=== PATIENT | female | born 1955 | race American Indian/Alaskan Native ===

== ENCOUNTER 2017-08-31 09:49 | Outpatient (CLI) | payer MEDICARE ==
--- NOTE | 2017-08-31 11:07 | XRay Report ---
CHEST XRAY, 2 VIEWS: History: Dyspnea. Findings: There is mild cardiomegaly. Pulmonary vessels are within normal limits. The lungs are clear and fully expanded. No infiltrate, pleural effusion or pneumothorax. Normal thoracic cage. No overwhelming change since 12/01/15. IMPRESSION: Cardiomegaly.
== END 2017-08-31 09:50 | disposition home or self-care (01) ==
LOC: XRAY 09:49
PROVIDERS: ATTEND Internal Medicine Nephrology
DX: R06.02 Shortness of breath (principal); R06.2 Wheezing; I13.2 Hypertensive heart and chronic kidney disease with heart failure and with stage 5 chronic kidney disease, or end stage renal disease; N18.6 End stage renal disease; I50.32 Chronic diastolic (congestive) heart failure; D64.9 Anemia, unspecified; K21.9 Gastro-esophageal reflux disease without esophagitis; M19.90 Unspecified osteoarthritis, unspecified site; Z87.891 Personal history of nicotine dependence; Z90.49 Acquired absence of other specified parts of digestive tract
CPT/HCPCS: 71046

== ENCOUNTER 2017-09-27 14:12 | Emergency (ER) | payer MEDICARE ==
[2017-09-27 14:51] VITALS: BP 166/76
[2017-09-27 15:36] LABS: Basophils % (Auto) 0.4 % (0.0-1.8); Eosinophils % (Auto) 0.6 % (0.0-4.3); Hematocrit 36.5 % (30.3-42.9); Hemoglobin 12.2 gm/dl (10.1-14.3); Lymphocytes # (Auto) 1.2 K/mm3 (1.2-5.4); Lymphocytes % (Auto) 27.9 % (13.4-35.0); Mean Corpuscular HGB Conc 34 % (30-34); Mean Corpuscular Hemoglobin 33 pg (28-32); Mean Corpuscular Volume 99 fl (79-97); Monocytes # (Auto) 0.4 K/mm3 (0.0-0.8); Monocytes % (Auto) 10.4 % (0.0-7.3); Platelet Count 167 K/mm3 (140-440); Red Cell Distribution Width 14.6 % (13.2-15.2)
[2017-09-27 15:41] LABS: Calcium 10.1 mg/dL (8.4-10.2)
== END 2017-09-27 14:52 | disposition left against medical advice (07) ==
LOC: ED 14:12
DX: M54.9 Dorsalgia, unspecified (principal); M79.606 Pain in leg, unspecified; Z53.21 Procedure and treatment not carried out due to patient leaving prior to being seen by health care provider
CPT/HCPCS: 36415; 80048; 85025

== ENCOUNTER 2017-11-13 13:30 | Emergency (ER) | payer MEDICARE ==
[2017-11-13 14:31] LABS: Basophils # (Auto) 0.1 K/mm3 (0.0-0.1); Basophils % (Auto) 1.8 % (0.0-1.8); Eosinophils % (Auto) 0.5 % (0.0-4.3); Hematocrit 39.9 % (30.3-42.9); Hemoglobin 13.4 gm/dl (10.1-14.3); Lymphocytes # (Auto) 1.4 K/mm3 (1.2-5.4); Lymphocytes % (Auto) 30.2 % (13.4-35.0); Mean Corpuscular HGB Conc 34 % (30-34); Mean Corpuscular Hemoglobin 34 pg (28-32); Mean Corpuscular Volume 100 fl (79-97); Monocytes # (Auto) 0.4 K/mm3 (0.0-0.8); Platelet Count 216 K/mm3 (140-440)
[2017-11-13 14:55] LABS: Calcium 10.3 mg/dL (8.4-10.2)
--- NOTE | 2017-11-13 15:00 | XRay Report ---
LEFT SHOULDER: History: Shoulder pain after fall. Mild osteopenia is noted. Mild osteoarthritic changes are identified at the acromioclavicular joint. No evidence for fracture, dislocation or ligamentous injury. The soft tissues are unremarkable. IMPRESSION: Osteopenia. Mild acromioclavicular osteoarthritis.
[2017-11-13] MEDS ORDERED: NORCO 5/325 PO ONE (16:27)
--- NOTE | 2017-11-13 16:37 | Emergency Department Report ---
HPI - General Chief Complaint: Fall Time Seen by Provider: 11/13/17 16:00 - HPI HPI: 62-year-old female presents to the emergency department via EMS from dialysis after she finished getting dialysis, and then got dizzy and fell upon leaving. She denies hitting her head or any loss of consciousness. She has pain to the left upper arm and shoulder and the left lateral back, along the rib cage. She did not take anything and was not given anything for her symptoms. Presentation. She did complete dialysis today. She denies any vision change, slurred speech or any other neurological deficits. She has a past medical history of arthritis, asthma, CHF, diabetes, hypertension and is end-stage renal disease on hemodialysis on Sunday//Sunday. Her primary care physician is a Dr. 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 ED Past Medical Hx - Past Medical History Previous Medical History?: Yes Hx Hypertension: Yes Hx Congestive Heart Failure: Yes Hx Diabetes: Yes Hx Renal Disease: Yes (w/ HD Sunday, , Sunday) Hx Arthritis: Yes Hx Asthma: Yes Hx COPD: No Additional medical history: heart murmur - Surgical History Hx Cholecystectomy: (gallstones removed) Additional Surgical History: Fistula Left Upper arm.--old. fistula right upper arm. bowel obstruction - Social History Smoking Status: Current Every Day Smoker Substance Use Type: None - Medications Home Medications: Home Medications Medication Instructions Recorded Confirmed Last Taken Type Albuterol Sulfate [Ventolin HFA] 90 mcg IH Q6H PRN 01/28/15 12/01/15 04/02/15 History Pravastatin Sodium [Pravastatin] 1 tab PO DAILY 01/28/15 12/01/15 04/02/15 History Pantoprazole [Protonix TAB] 40 mg PO QDAY 12/01/15 12/01/15 Unknown History Aspirin EC [Aspirin Enteric Coated 325 mg PO QDAY #30 tablet.dr 12/04/15 Unknown Rx TAB] ISOSORBIDE MONOnitrate [Imdur ER] 30 mg PO DAILY #30 tab.er.24h 12/04/15 Unknown Rx NIFEdipine XL [Procardia Xl] 60 mg PO Q12HR #60 tablet 12/04/15 Unknown Rx Valsartan [Diovan] 160 mg PO BID #60 tablet 12/04/15 Unknown Rx cloNIDine [Catapres] 0.2 mg PO TID #90 tablet 12/04/15 Unknown Rx ED Review of Systems ROS: Stated complaint: FALLEN PATIENT Other details as noted in HPI Comment: All other systems reviewed and negative Constitutional: denies: chills, fever Eyes: denies: eye pain, eye discharge, vision change ENT: denies: ear pain, throat pain Respiratory: denies: cough, shortness of breath, wheezing Cardiovascular: denies: palpitations, edema Gastrointestinal: denies: abdominal pain, vomiting Genitourinary: denies: dysuria, discharge Musculoskeletal: back pain, arthralgia Skin: denies: rash, lesions Neurological: other (dizziness). denies: headache, numbness Physical Exam - Physical Exam Vital Signs: Vital Signs 11/13/17 11/13/17 13:34 16:05 Temperature 97.4 F L 98.4 F Pulse Rate 74 75 Respiratory 18 20 Rate Blood Pressure 158/74 Blood Pressure 162/71 [Right] O2 Sat by Pulse 98 100 Oximetry Physical Exam: GENERAL: The patient is well-developed well-nourished. HENT: Normocephalic. Atraumatic. Patient has moist mucous membranes. EYES: Extraocular motions are intact. Pupils equal reactive to light bilaterally. No nystagmus. NECK: Supple. Trachea is midline. CHEST/LUNGS: Clear to auscultation. There is no respiratory distress noted. HEART/CARDIOVASCULAR: Regular. There is no tachycardia. There is no murmur. ABDOMEN: Abdomen is soft, nontender. Patient has normal bowel sounds. There is no abdominal distention. SKIN: Skin is warm and dry. NEURO: The patient is awake, alert, and oriented. The patient is cooperative. The patient has no focal neurologic deficits. The patient has normal speech. Cranial nerves II through XII grossly intact. No pronator drift. No dysmetria. MUSCULOSKELETAL: There is no tenderness or deformity. There is no limitation range of motion. There is no evidence of acute injury. ED Course Vital Signs 11/13/17 11/13/17 13:34 16:05 Temperature 97.4 F L 98.4 F Pulse Rate 74 75 Respiratory 18 20 Rate Blood Pressure 158/74 Blood Pressure 162/71 [Right] O2 Sat by Pulse 98 100 Oximetry ED Medical Decision Making - Lab Data Result diagrams: 11/13/17 14:01 11/13/17 14:01 - EKG Data -: EKG Interpreted by Me EKG shows normal: sinus rhythm, axis, intervals (left axis deviation), QRS complexes (Q waves to the anterior leads), ST-T waves (T-wave inversions to the inferior leads) Rate: normal - EKG Data When compared to previous EKG there are: changes noted (there are now some flattened and/or inferior Q waves to the inferior leads from EKG in November 2015) Interpretation: other (sinus rhythm, left axis deviation, LVH, Q waves to the anterior leads, T-wave inversions in the inferior leads) - Radiology Data Radiology results: report reviewed, image reviewed interpreted by me: X-ray of the left shoulder does not show any fracture, dislocation or any acute process. Chest x-ray does not show any acute process. There are no pleural effusions, obvious pneumonia and there is no pneumothorax. EXAM: CT HEAD/BRAIN WO CON HISTORY: dizziness TECHNIQUE: CT of the head was performed without intravenous contrast. PRIORS: None. FINDINGS: The ventricles are normal in shape and position. The ventricles are nondilated. No intracranial hemorrhage, mass, mass effect, midline shift or evidence of acute ischemic infarct. The basilar cisterns are patent. There is diffuse cerebral volume. Mild areas of low-attenuation are seen in the periventricular white matter. There is a right sphenoid sinus mucous retention cyst. The extracranial soft tissues demonstrate no abnormality. The calvarium is intact. The orbits are intact. The mastoid air cells are clear. IMPRESSION: 1. No acute intracranial abnormality. 2. Mild diffuse cerebral volume loss. Mild findings of chronic microvascular ischemic disease. Transcribed By: MG Dictated By: AVA HANSON MD Electronically Authenticated By: AVA HANSON MD Signed Date/Time: 11/13/17 7565 - Medical Decision Making Patient presents to the emergency department after she had some dizziness and/ or weakness after finishing dialysis and fell to the ground. No loss of consciousness. She does not have any focal, motor or sensory deficits in her cranial nerves are intact. CT of the head does not show any bleed, shift, mass , ischemia or any other acute process. X-ray of the left shoulder, chest and left side of the rib cage does not show any fracture, dislocation, pneumothorax , consolidation, pneumonia or any other acute process. Other than the patient' s renal insufficiency the labs are mostly unremarkable and do not show any etiology of her symptoms. She was reevaluated multiple times over multiple hours and is feeling improved. Prior to discharge patient was examined which were throughout the emergency department and appeared stable. She was asking for discharge home. She has been encouraged to follow up with her primary care physician and her tower crane operator and continue with her normal dialysis regimen. She will return to the ER with any worsening of her symptoms or any acute distress. - Differential Diagnosis vasovagal, orthostatic hypotension, dysrhythmia, electrolyte abnormalities Critical Care Time: No Critical care attestation.: If time is entered above; I have spent that time in minutes in the direct care of this critically ill patient, excluding procedure time. ED Disposition Clinical Impression: Near syncope, ESRD (end stage renal disease) on dialysis, Rib pain on left side Fall Qualifiers: Encounter type: initial encounter Qualified Code(s): W19.XXXA - Unspecified fall, initial encounter Left shoulder pain Qualifiers: Chronicity: acute Qualified Code(s): M25.512 - Pain in left shoulder Hypertension Qualifiers: Hypertension type: renovascular hypertension Qualified Code(s): I15.0 - Renovascular hypertension Disposition: - TO HOME OR SELFCARE Is pt being admited?: No Condition: Stable Instructions: Musculoskeletal Pain (ED), Hypertension (ED), Arthralgia (ED), Fall Prevention (ED), End-Stage Kidney Disease (ED) Additional Instructions: Please follow-up with your primary care physician in the next few days. Please continue with your normal dialysis regiment and follow-up with your tower crane operator. I have given you a referral for a local orthopedist, Dr. Lee, to follow up regarding your left shoulder pain. Return to the emergency Department with any worsening of your symptoms or any acute distress. Referrals: RAHEEM GOYAL MD [Staff Physician] - 2-3 Days LEXIE MAURICIO MD [Staff Physician] - 2-3 Days PRIMARY CARE, [Primary Care Provider] - 2-3 Days Time of Disposition: 19:07
[2017-11-13] MEDS ORDERED: BOOSTRIX IM ONE (16:40)
[2017-11-13 17:20] VITALS: BP 174/81
--- NOTE | 2017-11-13 17:22 | XRay Report ---
FINAL REPORT EXAM: XR RIBS UNI W PA CHEST 3+V LT HISTORY: rib pain TECHNIQUE: Frontal chest radiograph. Four views of the left ribs. PRIORS: Chest x-ray from 04/29/2015. FINDINGS: Unchanged aortic calculi. The cardiomediastinal silhouette is normal. No focal consolidation. 11 millimeter nodular opacity projecting over the left lower lung on the initial frontal radiograph which was not definitively seen on the other radiographs most likely represents an object outside of the patient. No pleural effusion. No pneumothorax. No acute osseous abnormality. Negative for left-sided rib fracture. IMPRESSION: No acute cardiopulmonary process. No left-sided rib fracture.
--- NOTE | 2017-11-13 17:58 | Cat Scan Report ---
FINAL REPORT EXAM: CT HEAD/BRAIN WO CON HISTORY: dizziness TECHNIQUE: CT of the head was performed without intravenous contrast. PRIORS: None. FINDINGS: The ventricles are normal in shape and position. The ventricles are nondilated. No intracranial hemorrhage, mass, mass effect, midline shift or evidence of acute ischemic infarct. The basilar cisterns are patent. There is diffuse cerebral volume. Mild areas of low-attenuation are seen in the periventricular white matter. There is a right sphenoid sinus mucous retention cyst. The extracranial soft tissues demonstrate no abnormality. The calvarium is intact. The orbits are intact. The mastoid air cells are clear. IMPRESSION: 1. No acute intracranial abnormality. 2. Mild diffuse cerebral volume loss. Mild findings of chronic microvascular ischemic disease.
== END 2017-11-13 19:29 | disposition home or self-care (01) ==
LOC: ED 13:30
DX: I15.0 Renovascular hypertension (principal); N18.6 End stage renal disease; E11.9 Type 2 diabetes mellitus without complications; R55 Syncope and collapse; M25.512 Pain in left shoulder; R07.81 Pleurodynia; I50.9 Heart failure, unspecified; M19.90 Unspecified osteoarthritis, unspecified site; J45.909 Unspecified asthma, uncomplicated; F17.200 Nicotine dependence, unspecified, uncomplicated; Z99.2 Dependence on renal dialysis; Z79.82 Long term (current) use of aspirin
CPT/HCPCS: 36415; 70450; 80048; 82962; 84484; 85025; 90471; 90715; 93005; 93010

== ENCOUNTER 2017-12-17 14:36 | Inpatient (IN) | payer MEDICARE ==
[2017-12-17 16:52] LABS: Basophils # (Auto) 0.1 K/mm3 (0.0-0.1); Basophils % (Auto) 0.8 % (0.0-1.8); Eosinophils % (Auto) 0.6 % (0.0-4.3); Hematocrit 33.6 % (30.3-42.9); Hemoglobin 11.2 gm/dl (10.1-14.3); Lymphocytes # (Auto) 1.5 K/mm3 (1.2-5.4); Lymphocytes % (Auto) 21.4 % (13.4-35.0); Mean Corpuscular HGB Conc 33 % (30-34); Mean Corpuscular Hemoglobin 35 pg (28-32); Mean Corpuscular Volume 104 fl (79-97); Monocytes # (Auto) 0.6 K/mm3 (0.0-0.8); Monocytes % (Auto) 8.5 % (0.0-7.3); Red Blood Count 3.24 M/mm3 (3.65-5.03); Red Cell Distribution Width 17.9 % (13.2-15.2)
[2017-12-17 16:54] LABS: Platelet Count 201 K/mm3 (140-440)
[2017-12-17 17:16] LABS: Calcium 9.2 mg/dL (8.4-10.2)
[2017-12-17 17:31] LABS: Chol/HDL Ratio 1.68 %
[2017-12-18] MEDS ORDERED: SUBLIMAZE IV ONE ×2 (01:38→04:20)
[2017-12-18] MEDS ORDERED: ZOFRAN IV ONE (01:38)
--- NOTE | 2017-12-18 01:43 | Emergency Department Report ---
HPI - General Chief Complaint: Chest Pain Time Seen by Provider: 12/18/17 01:30 - HPI HPI: [place] 22 The patient is 62-year-old female presenting with a chief complaint of chest pain and abdominal pain. The patient states she has developed chest tightness approximately 04:00 yesterday morning. Patient states the tightness has been substernal and constant in nature. The patient admits to associated nausea/ vomiting, shortness of breath and diaphoresis. The patient currently gives her pain a score of 10/10. The patient states for several days she's also had left- sided abdominal pain as well as itching and pain in the right ear. Patient denies any history of fever. Patient states she's never had a cardiac catheterization Location: [See above] Duration: [See above] Quality: [See above] Severity: 01/02 Modifying factors: [see above] Context: [see above] Mode of transportation: [not driving] ED Past Medical Hx - Past Medical History Previous Medical History?: Yes Hx Hypertension: Yes Hx Congestive Heart Failure: Yes Hx Diabetes: Yes Hx Renal Disease: Yes (w/ HD Sunday, , Sunday) Hx Arthritis: Yes Hx Asthma: Yes Additional medical history: heart murmur - Surgical History Past Surgical History?: Yes Hx Cholecystectomy: (gallstones removed) Additional Surgical History: Fistula Left Upper arm.--old. fistula right upper arm. bowel obstruction - Family History Family history: no significant - Social History Smoking Status: Current Some Day Smoker Substance Use Type: None (denies illicit drug use) - Medications Home Medications: Home Medications Medication Instructions Recorded Confirmed Last Taken Type Albuterol Sulfate [Ventolin HFA] 90 mcg IH Q6H PRN 01/28/15 12/01/15 04/02/15 History Pravastatin Sodium [Pravastatin] 1 tab PO DAILY 01/28/15 12/01/15 04/02/15 History Pantoprazole [Protonix TAB] 40 mg PO QDAY 12/01/15 12/01/15 Unknown History Aspirin EC [Aspirin Enteric Coated 325 mg PO QDAY #30 tablet.dr 12/04/15 Unknown Rx TAB] ISOSORBIDE MONOnitrate [Imdur ER] 30 mg PO DAILY #30 tab.er.24h 12/04/15 Unknown Rx NIFEdipine XL [Procardia Xl] 60 mg PO Q12HR #60 tablet 12/04/15 Unknown Rx Valsartan [Diovan] 160 mg PO BID #60 tablet 12/04/15 Unknown Rx cloNIDine [Catapres] 0.2 mg PO TID #90 tablet 12/04/15 Unknown Rx ED Review of Systems ROS: Stated complaint: NAUSEA/VOMITING Other details as noted in HPI Constitutional: diaphoresis Eyes: denies: eye pain ENT: ear pain Respiratory: shortness of breath Cardiovascular: chest pain Endocrine: no symptoms reported Gastrointestinal: nausea, vomiting Musculoskeletal: denies: back pain Neurological: denies: headache Psychiatric: denies: anxiety Physical Exam - Physical Exam Vital Signs: Vital Signs 12/17/17 12/17/17 12/18/17 15:48 22:28 00:44 Temperature 99.1 F 99.2 F Pulse Rate 79 80 77 Respiratory 18 18 14 Rate Blood Pressure 172/80 188/82 Blood Pressure 182/77 [Left] O2 Sat by Pulse 98 98 100 Oximetry Physical Exam: GENERAL: The patient is well-developed well-nourished female lying on stretcher appearing to be in mild discomfort. [] HEENT: Normocephalic. Atraumatic. Extraocular motions are intact. Patient has moist mucous membranes. Right TM obscured by cerumen NECK: Supple. Trachea midline CHEST/LUNGS: Clear to auscultation. There is no respiratory distress noted. HEART/CARDIOVASCULAR: Regular. There is no tachycardia. There is no gallop rub or murmur. ABDOMEN: Abdomen is soft, with tenderness to palpation on the left upper and left lower quadrant. Patient has normal bowel sounds. There is no abdominal distention. SKIN: There is no rash. There is no edema. There is no diaphoresis. NEURO: The patient is awake, alert, and oriented. The patient is cooperative. The patient has normal speech MUSCULOSKELETAL: There is no evidence of acute injury. ED Course Vital Signs 12/17/17 12/17/17 12/18/17 15:48 22:28 00:44 Temperature 99.1 F 99.2 F Pulse Rate 79 80 77 Respiratory 18 18 14 Rate Blood Pressure 172/80 188/82 Blood Pressure 182/77 [Left] O2 Sat by Pulse 98 98 100 Oximetry ED Medical Decision Making - Lab Data Result diagrams: 12/17/17 16:26 12/17/17 16:26 Laboratory Tests 12/17/17 12/17/17 12/17/17 16:26 16:26 19:46 WBC 7.2 RBC 3.24 L Hgb 11.2 Hct 33.6 MCV 104 H MCH 35 H MCHC 33 RDW 17.9 H Plt Count 201 Lymph % (Auto) 21.4 [place] % (Auto) 8.5 H Eos % (Auto) 0.6 Baso % (Auto) 0.8 Lymph # 1.5 [place] # 0.6 Eos # 0.0 Baso # 0.1 Seg Neutrophils % 68.7 Seg Neutrophils # 4.9 Sodium 137 Potassium 5.3 H Chloride 95.1 L Carbon Dioxide 23 Anion Gap 24 BUN 47 H Creatinine 9.3 H Estimated GFR 5 BUN/Creatinine Ratio 5 Glucose 111 H Calcium 9.2 Troponin T 0.033 H 0.030 H Triglycerides 66 Cholesterol 101 LDL Cholesterol Direct 36 L HDL Cholesterol 60 H Cholesterol/HDL Ratio 1.68 12/17/17 23:37 WBC RBC Hgb Hct MCV MCH MCHC RDW Plt Count Lymph % (Auto) [place] % (Auto) Eos % (Auto) Baso % (Auto) Lymph # [place] # Eos # Baso # Seg Neutrophils % Seg Neutrophils # Sodium Potassium Chloride Carbon Dioxide Anion Gap BUN Creatinine Estimated GFR BUN/Creatinine Ratio Glucose Calcium Troponin T 0.034 H Triglycerides Cholesterol LDL Cholesterol Direct HDL Cholesterol Cholesterol/HDL Ratio - EKG Data -: EKG Interpreted by Me EKG shows normal: sinus rhythm Rate: normal - EKG Data When compared to previous EKG there are: previous EKG unavailable Interpretation: other (no ischemic changes seen) - Radiology Data Radiology results: report reviewed (CT abdomen and pelvis, chest x-ray), image reviewed (CT abdomen and pelvis, chest x-ray) interpreted by me: Chest x-ray-no focal infiltrates, no pneumothorax [facility] [address] [place] [address] Cat Scan Report Signed Patient: TONIE MENDEZ MR#: [id number] : 1954 Acct:[id number] Age/Sex: 62 / F ADM Date: 12/17/17 Loc: ED Attending Dr: Ordering Physician: ERIK HU MD Date of Service: 12/18/17 Procedure(s): CT abdomen pelvis wo con Accession Number(s): [id number] cc: ERIK HU MD FINAL REPORT PROCEDURE: CT ABDOMEN PELVIS WO CON TECHNIQUE: Computerized axial tomography of the abdomen and pelvis was performed without intravenous contrast. This study is performed without intravascular contrast material and its sensitivity for abdominal and pelvic pathology, including neoplasms, inflammation, abscess, free fluid, thrombosis, arterial dissection and infarction, is reduced compared with a contrast enhanced study. HISTORY: left- sided abdominal pain COMPARISON: No prior studies are available for comparison. FINDINGS: Visualized lower thorax: No significant abnormality. Liver: Normal size and attenuation. Spleen: Normal size and attenuation. Gallbladder and biliary system: The gallbladder is absent. There is slight dilatation of the biliary ductal system and common bile duct.. Pancreas: Normal. Adrenals: Normal. Kidneys: Both kidneys are atrophic with thinning of the renal cortex. No masses are identified. No hydronephrosis.. GI tract: No obstruction. No ileus or enteritis. Moderate fecal debris is identified throughout the colon. There are few diverticula in the distal colon. The appendix region is normal.. Lymph nodes and mesentery: Normal. Vasculature: Moderate atherosclerosis of the aorta and all branching vessels.. Bladder: Normal. Reproductive organs: No pelvic masses. Peritoneum: No free fluid. Musculoskeletal structures: Moderate degenerative changes of the spine.. Other: None. IMPRESSION: There is no evidence of intestinal or urinary tract obstruction. No ileus or enteritis. Moderate fecal debris throughout the colon consistent with constipation. The kidneys are atrophic with thinning of the renal cortex. No hydronephrosis. Previous cholecystectomy. There is slight dilatation of the biliary ductal system and common bile duct. No stones are identified. . Transcribed By: [facility] Dictated By: ANA BURK MD Electronically Authenticated By: ANA BURK MD Signed Date/Time: 12/18/17225 DD/ 5 TD/TT: 12/18/17225 [facility] [address] [place] [address] XRay Report Signed Patient: TONIE MENDEZ MR#: [id number] : 1954 Acct:[id number] Age/Sex: 62 / F ADM Date: 12/17/17 Loc: ED Attending Dr: Ordering Physician: ERIK HU MD Date of Service: 12/18/17 Procedure(s): XR chest 1V ap Accession Number(s): [id number] cc: ERIK HU MD Fluoro Time In Minutes: FINAL REPORT PROCEDURE: XR CHEST 1V AP TECHNIQUE: Chest radiograph anteroposterior view. CPT 43756 HISTORY: chest pain COMPARISON: 04/29/2015 FINDINGS: Heart: Normal. Mediastinum/Vessels: Normal. Lungs/Pleural space: Slight atelectasis left lower lung. No effusion or pneumothorax. Bony thorax: No acute osseous abnormality. Life support devices: None. IMPRESSION: There is slight atelectasis in the left lower lung.. Transcribed By: [facility] Dictated By: ANA BURK MD Electronically Authenticated By: ANA BURK MD Signed Date/Time: 12/18/17212 DD/ 2 TD/TT: 12/18/17212 - Differential Diagnosis ACS, pericarditis, GERD, diverticulitis, otitis media Critical care attestation.: If time is entered above; I have spent that time in minutes in the direct care of this critically ill patient, excluding procedure time. ED Disposition Clinical Impression: Chest pain, Abdominal pain, ESRD (end stage renal disease) on dialysis Disposition: OP ADMIT IP TO THIS HOSP Is pt being admited?: Yes Does the pt Need Aspirin: Yes Condition: Fair Instructions: Chest Pain (ED) Referrals: PRIMARY CARE, [Primary Care Provider] - 3-5 Days Time of Disposition: 02:40 (hospitalist paged (Dr Templeton))
--- NOTE | 2017-12-18 02:14 | XRay Report ---
FINAL REPORT PROCEDURE: XR CHEST 1V AP TECHNIQUE: Chest radiograph anteroposterior view. CPT 71335 HISTORY: chest pain COMPARISON: 04/29/2015 FINDINGS: Heart: Normal. Mediastinum/Vessels: Normal. Lungs/Pleural space: Slight atelectasis left lower lung. No effusion or pneumothorax. Bony thorax: No acute osseous abnormality. Life support devices: None. IMPRESSION: There is slight atelectasis in the left lower lung..
--- NOTE | 2017-12-18 02:27 | Cat Scan Report ---
FINAL REPORT PROCEDURE: CT ABDOMEN PELVIS WO CON TECHNIQUE: Computerized axial tomography of the abdomen and pelvis was performed without intravenous contrast. This study is performed without intravascular contrast material and its sensitivity for abdominal and pelvic pathology, including neoplasms, inflammation, abscess, free fluid, thrombosis, arterial dissection and infarction, is reduced compared with a contrast enhanced study. HISTORY: left-sided abdominal pain COMPARISON: No prior studies are available for comparison. FINDINGS: Visualized lower thorax: No significant abnormality. Liver: Normal size and attenuation. Spleen: Normal size and attenuation. Gallbladder and biliary system: The gallbladder is absent. There is slight dilatation of the biliary ductal system and common bile duct.. Pancreas: Normal. Adrenals: Normal. Kidneys: Both kidneys are atrophic with thinning of the renal cortex. No masses are identified. No hydronephrosis.. GI tract: No obstruction. No ileus or enteritis. Moderate fecal debris is identified throughout the colon. There are few diverticula in the distal colon. The appendix region is normal.. Lymph nodes and mesentery: Normal. Vasculature: Moderate atherosclerosis of the aorta and all branching vessels.. Bladder: Normal. Reproductive organs: No pelvic masses. Peritoneum: No free fluid. Musculoskeletal structures: Moderate degenerative changes of the spine.. Other: None. IMPRESSION: There is no evidence of intestinal or urinary tract obstruction. No ileus or enteritis. Moderate fecal debris throughout the colon consistent with constipation. The kidneys are atrophic with thinning of the renal cortex. No hydronephrosis. Previous cholecystectomy. There is slight dilatation of the biliary ductal system and common bile duct. No stones are identified. .
[2017-12-18] MEDS ORDERED: ASPIRIN PO ONE (02:41)
[2017-12-18] MEDS ORDERED: REGLAN IV ONE (04:21)
[2017-12-18] MEDS ORDERED: CATAPRES PO ONE (04:34)
[2017-12-18 07:50] LABS: Bacteria,Urine 3+ /HPF (Negative); Bilirubin,Urine NEG (Negative); Blood,Urine NEG (Negative); Color,Urine Yellow (Yellow); Mucus,Urine FEW /HPF; Urobilinogen,Urine < 2.0 mg/dL (<2.0)
[2017-12-18 07:53] LABS: Protein,Urine >500 mg/dL (Negative)
[2017-12-18] MEDS ORDERED: PROAIR IH PRN (08:05)
[2017-12-18] MEDS ORDERED: APRESOLINE IV ONE (08:07)
--- NOTE | 2017-12-18 08:12 | History and Physical Report ---
History of Present Illness Date of examination: 12/18/17 Date of admission: 12/18/17 Chief complaint: Chest pain for the last 1 day History of present illness: Very pleasant 62-year-old female patient with significant history of end-stage renal disease on hemodialysis, hypertension and diabetes mellitus, presented to the with chest pain and abdominal pain 1 day duration. Patient graded her chest pain 10 over 10 to the ER physician , however at that time of my evaluation ,patient denied any chest pain Reports that he is to for hemodialysis today Complaints of mild nausea no vomiting Noted to have uncontrolled blood pressures Past History Past Medical History: dialysis, ESRD, hypertension, hyperlipidemia Past Surgical History: cholecystectomy, Other (AV fistula, bowel obstruction) Social history: smoking Family history: hypertension Medications and Allergies Allergies Allergy/AdvReac Type Severity Reaction Status Date / Time labetalol AdvReac Unknown Verified 12/01/15 07:51 Home Medications Medication Instructions Recorded Confirmed Last Taken Type Albuterol Sulfate [Ventolin HFA] 90 mcg IH Q6H PRN 01/28/15 12/18/17 04/02/15 History NIFEdipine XL [Procardia Xl] 60 mg PO Q12HR #60 tablet 12/04/15 12/18/17 Unknown Rx Calcium Acetate [Phoslo] 667 mg PO TID 12/18/17 12/18/17 Unknown History Carvedilol 25 mg PO DAILY 12/18/17 12/18/17 Unknown History Clonidine HCl [Catapres] 0.3 mg PO TID 12/18/17 12/18/17 Unknown History Losartan [Cozaar] 50 mg PO QDAY 12/18/17 12/18/17 Unknown History Simvastatin 20 mg PO DAILY 12/18/17 12/18/17 Unknown History amLODIPine [Norvasc] 5 mg PO DAILY 12/18/17 12/18/17 Unknown History Active Meds: Active Medications Albuterol (Proair) puff IH Q6H PRN PRN Reason: Anaphylaxis Aspirin (Ecotrin) 325 mg PO QDAY [facility] Clonidine HCl (Catapres) 0.2 mg PO TID [facility] Heparin Sodium (Porcine) (Heparin) 5,000 unit SUB-Q Q12HR [facility] Hydralazine HCl (Apresoline) 20 mg IV ONCE ONE Stop: 12/18/17 08:08 Hydralazine HCl (Apresoline) 10 mg IV Q4HR PRN PRN Reason: Hypertension Isosorbide Mononitrate (Imdur) 30 mg PO DAILY [facility] Nifedipine (Procardia Xl) 60 mg PO Q12HR [facility] Pantoprazole Sodium (Protonix) 40 mg PO QDAY [facility] Valsartan (Diovan) 160 mg PO BID [facility] Review of Systems Constitutional: no weight loss, no weight gain Ears, nose, mouth and throat: no nasal congestion, no nasal discharge Cardiovascular: chest pain, shortness of breath Respiratory: shortness of breath, no cough with sputum Gastrointestinal: no abdominal pain, no nausea, no vomiting Genitourinary Female: no flank pain, no dysuria Musculoskeletal: no myalgias, no arthritis Integumentary: no rash, no lesions Neurological: no seizures, no syncope Psychiatric: no anxiety, no depression Endocrine: no cold intolerance, no heat intolerance Hematologic/Lymphatic: no easy bruising, no easy bleeding Allergic/Immunologic: no urticaria, no allergic rhinitis Exam - Constitutional Vitals: Temp Pulse Resp BP Pulse Ox 99.2 F 80 12 192/90 99 12/17/17 22:28 12/18/17 04:47 12/18/17 04:22 12/18/17 04:47 12/18/17 04:22 General appearance: Present: no acute distress, well-nourished - EENT Eyes: Present: PERRL, EOM intact - Neck Neck: Present: supple, normal ROM - Respiratory Respiratory effort: normal Respiratory: bilateral: diminished, rales, negative: rhonchi, wheezing - Cardiovascular Rhythm: regular Heart Sounds: Present: S1 & S2 - Extremities Extremities: no ischemia Extremity abnormal: edema - Abdominal General gastrointestinal: Present: soft, non-tender, non-distended, normal bowel sounds - Integumentary Integumentary: Present: clear, warm - Musculoskeletal Musculoskeletal: strength equal bilaterally - Psychiatric Psychiatric: appropriate mood/affect, cooperative - Neurologic Neurologic: moves all extremities Results - Labs CBC & Chem 7: 12/17/17 16:26 12/17/17 16:26 Labs: Abnormal lab results 12/17/17 12/17/17 12/17/17 Range/Units 16:26 16:26 19:46 RBC 3.24 L (3.65-5.03) M/mm3 MCV 104 H (79-97) fl MCH 35 H (28-32) pg RDW 17.9 H (13.2-15.2) % [place] % (Auto) 8.5 H (0.0-7.3) % Potassium 5.3 H (3.6-5.0) mmol/L Chloride 95.1 L (98-107) mmol/L BUN 47 H (7-17) mg/dL Creatinine 9.3 H (0.7-1.2) mg/dL Glucose 111 H (65-100) mg/dL Troponin T 0.033 H 0.030 H (0.00-0.029) ng/mL LDL Cholesterol Direct 36 L (50-130) mg/dL HDL Cholesterol 60 H (40-59) mg/dL 12/17/17 Range/Units 23:37 RBC (3.65-5.03) M/mm3 MCV (79-97) fl MCH (28-32) pg RDW (13.2-15.2) % [place] % (Auto) (0.0-7.3) % Potassium (3.6-5.0) mmol/L Chloride (98-107) mmol/L BUN (7-17) mg/dL Creatinine (0.7-1.2) mg/dL Glucose (65-100) mg/dL Troponin T 0.034 H (0.00-0.029) ng/mL LDL Cholesterol Direct (50-130) mg/dL HDL Cholesterol (40-59) mg/dL Assessment and Plan --Accelerated hypertension ; Patient is on multiple antihypertensives, resume all home antihypertensives When necessary hydralazine Closely monitor --Chest pain; positive cardiac enzymes patient has chronic elevation of troponins probably secondary to ESRD However has risk factors, the patient had abnormal stress test 2 years ago, at which time patient refused cardiac catheterization If Patient continues to have chest pain, consult cardiology --Chronic elevation of troponin; secondary to end-stage renal disease Closely monitor for cardiac symptoms --End-stage renal disease on hemodialysis; HD per schedule, consult nephrology --Hyperkalemia, mild; closely monitor electrolytes Management per nephrology --DVT prophylaxis; heparin and renal dose Closely monitor the patient and adjust management as needed
[2017-12-18] MEDS: HEPARIN SUB-Q SCH ×2 (10:28→22:47)
[2017-12-18] MEDS: DIOVAN PO SCH ×2 (10:28→22:45)
[2017-12-18] MEDS: PROTONIX PO SCH (10:28)
[2017-12-18] MEDS: ECOTRIN PO SCH (10:29)
[2017-12-18] MEDS: PROCARDIA XL PO SCH ×2 (10:29→22:46)
[2017-12-18] MEDS: IMDUR PO SCH (10:29)
[2017-12-18] MEDS ORDERED: PROVENTIL IH PRN (12:00)
--- NOTE | 2017-12-18 12:30 | Consultation ---
History of Present Illness - Reason for Consult Consult date: 12/18/17 end stage renal disease Requesting physician: OSWALD LEON - History of Present Illness The patient is 62-year-old female presenting with a chief complaint of chest pain and abdominal pain. The patient states she has developed chest tightness approximately 04:00 yesterday morning. Patient states the tightness has been substernal and constant in nature. The patient admits to associated nausea/ vomiting, shortness of breath and diaphoresis. The patient currently gives her pain a score of 10/10. The patient states for several days she's also had left- sided abdominal pain as well as itching and pain in the right ear. Patient denies any history of fever. Patient states she's never had a cardiac catheterization - Past Medical History Previous Medical History?: Yes Hx Hypertension: Yes Hx Congestive Heart Failure: Yes Hx Diabetes: Yes Hx Renal Disease: Yes (w/ HD Sunday, , Sunday) Hx Arthritis: Yes Hx Asthma: Yes Additional medical history: heart murmur - Surgical History Past Surgical History?: Yes Hx Cholecystectomy: (gallstones removed) Additional Surgical History: Fistula Left Upper arm.--old. fistula right upper arm. bowel obstruction - Family History Family history: no significant - Social History Smoking Status: Current Some Day Smoker Substance Use Type: None (denies illicit drug use) ROS: Stated complaint: NAUSEA/VOMITING Other details as noted in HPI Constitutional: diaphoresis Eyes: denies: eye pain ENT: ear pain Respiratory: shortness of breath Cardiovascular: chest pain Endocrine: no symptoms reported Gastrointestinal: nausea, vomiting Musculoskeletal: denies: back pain Neurological: denies: headache Psychiatric: denies: anxiety Past History Past Medical History: dialysis, ESRD, hypertension, hyperlipidemia Medications and Allergies Allergies Allergy/AdvReac Type Severity Reaction Status Date / Time labetalol AdvReac Unknown Verified 12/01/15 07:51 Home Medications Medication Instructions Recorded Confirmed Last Taken Type Albuterol Sulfate [Ventolin HFA] 90 mcg IH Q6H PRN 01/28/15 12/18/17 04/02/15 History NIFEdipine XL [Procardia Xl] 60 mg PO Q12HR #60 tablet 12/04/15 12/18/17 Unknown Rx Calcium Acetate [Phoslo] 667 mg PO TID 12/18/17 12/18/17 Unknown History Carvedilol 25 mg PO DAILY 12/18/17 12/18/17 Unknown History Clonidine HCl [Catapres] 0.3 mg PO TID 12/18/17 12/18/17 Unknown History Losartan [Cozaar] 50 mg PO QDAY 12/18/17 12/18/17 Unknown History Simvastatin 20 mg PO DAILY 12/18/17 12/18/17 Unknown History amLODIPine [Norvasc] 5 mg PO DAILY 12/18/17 12/18/17 Unknown History Active Meds: Active Medications Albuterol (Proventil) 2.5 mg IH Q6HRT PRN PRN Reason: Shortness Of Breath Aspirin (Ecotrin) 325 mg PO QDAY [facility] Last Admin: 12/18/17 10:29 Dose: Not Given Clonidine HCl (Catapres) 0.2 mg PO TID [facility] Heparin Sodium (Porcine) (Heparin) 5,000 unit SUB-Q Q12HR [facility] Last Admin: 12/18/17 10:28 Dose: 5,000 unit Hydralazine HCl (Apresoline) 10 mg IV Q4HR PRN PRN Reason: HTN >155/90 Isosorbide Mononitrate (Imdur) 30 mg PO DAILY [facility] Last Admin: 12/18/17 10:29 Dose: Not Given Nifedipine (Procardia Xl) 60 mg PO Q12HR [facility] Last Admin: 12/18/17 10:29 Dose: Not Given Pantoprazole Sodium (Protonix) 40 mg PO QDAY [facility] Last Admin: 12/18/17 10:28 Dose: 40 mg Valsartan (Diovan) 160 mg PO BID [facility] Last Admin: 12/18/17 10:28 Dose: 160 mg Exam - Vital Signs Vital signs: Vital Signs Temp Pulse Resp BP Pulse Ox 99.1 F 79 18 172/80 98 12/17/17 15:48 12/17/17 15:48 12/17/17 15:48 12/17/17 15:48 12/17/17 15:48 - Physical Exam Narrative exam: GENERAL: The patient is well-developed well-nourished female lying on stretcher appearing to be in mild discomfort. [] HEENT: Normocephalic. Atraumatic. Extraocular motions are intact. Patient has moist mucous membranes. Right TM obscured by cerumen NECK: Supple. Trachea midline CHEST/LUNGS: Clear to auscultation. There is no respiratory distress noted. HEART/CARDIOVASCULAR: Regular. There is no tachycardia. There is no gallop rub or murmur. ABDOMEN: Abdomen is soft, with tenderness to palpation on the left upper and left lower quadrant. Patient has normal bowel sounds. There is no abdominal distention. SKIN: There is no rash. There is no edema. There is no diaphoresis. NEURO: The patient is awake, alert, and oriented. The patient is cooperative. The patient has normal speech MUSCULOSKELETAL: There is no evidence of acute injury. Results - Lab Results 12/17/17 16:26 12/17/17 16:26 Most recent lab results Calcium 9.2 mg/dL (8.4-10.2) 12/17/17 16:26 Assessment and Plan Impression: End stage renal disease on hemodialysis Accelerated hypertension Chest pain Secondary hyperparathyroidism Plan: HD today and q tthsat and prn. Adjust BP medications prn uf as tolerated with hd bp control cardiac workup for chest pain Hold epogen with HD dialysis diet Binders w/ meals resumed
[2017-12-18] MEDS ORDERED: NACL 0.9% 100 ML IV PRN (12:31)
[2017-12-18] MEDS ORDERED: CATAPRES ONE (12:39)
[2017-12-18] MEDS: CATAPRES PO SCH ×3 (12:43→22:46)
[2017-12-18] MEDS: APRESOLINE IV PRN ×2 (13:30→18:43)
[2017-12-18] MEDS ORDERED: APRESOLINE ONE (13:34)
[2017-12-19 05:24] LABS: Basophils % (Auto) 0.7 % (0.0-1.8); Eosinophils % (Auto) 0.7 % (0.0-4.3); Hematocrit 31.3 % (30.3-42.9); Hemoglobin 10.7 gm/dl (10.1-14.3); Lymphocytes # (Auto) 1.6 K/mm3 (1.2-5.4); Lymphocytes % (Auto) 36.7 % (13.4-35.0); Mean Corpuscular HGB Conc 34 % (30-34); Mean Corpuscular Hemoglobin 35 pg (28-32); Mean Corpuscular Volume 101 fl (79-97); Monocytes # (Auto) 0.5 K/mm3 (0.0-0.8); Monocytes % (Auto) 11.5 % (0.0-7.3); Platelet Count 237 K/mm3 (140-440); Red Blood Count 3.08 M/mm3 (3.65-5.03); Red Cell Distribution Width 17.3 % (13.2-15.2)
[2017-12-19 05:37] LABS: Calcium 9.1 mg/dL (8.4-10.2)
[2017-12-19] MEDS: CATAPRES PO SCH ×3 (09:02→22:30)
--- NOTE | 2017-12-19 10:14 | Progress Note ---
Assessment and Plan Impression: End stage renal disease on hemodialysis Accelerated hypertension Chest pain Secondary hyperparathyroidism Plan: HD q tthsat and prn. Adjust BP medications prn uf as tolerated with hd bp control cardiac workup for chest pain vasc to see for av access aneurysm Hold epogen with HD dialysis diet Binders w/ meals resumed Subjective Date of service: 12/19/17 Principal diagnosis: esrd Interval history: resting in bed today Objective - Exam Narrative Exam: GENERAL: The patient is well-developed well-nourished female lying on stretcher appearing to be in mild discomfort. [] HEENT: Normocephalic. Atraumatic. Extraocular motions are intact. Patient has moist mucous membranes. Right TM obscured by cerumen NECK: Supple. Trachea midline CHEST/LUNGS: Clear to auscultation. There is no respiratory distress noted. HEART/CARDIOVASCULAR: Regular. There is no tachycardia. There is no gallop rub or murmur. ABDOMEN: Abdomen is soft, with tenderness to palpation on the left upper and left lower quadrant. Patient has normal bowel sounds. There is no abdominal distention. SKIN: There is no rash. There is no edema. There is no diaphoresis. NEURO: The patient is awake, alert, and oriented. The patient is cooperative. The patient has normal speech MUSCULOSKELETAL: There is no evidence of acute injury. - Vital Signs Vital signs: Vital Signs - 12hr 12/18/17 12/18/17 12/18/17 22:45 22:46 23:39 Temperature 99.8 F H Pulse Rate 79 79 79 Respiratory 20 Rate Blood Pressure 158/69 158/69 167/73 O2 Sat by Pulse 96 Oximetry 12/19/17 12/19/17 04:48 09:02 Temperature 99.4 F Pulse Rate 73 81 Respiratory 20 Rate Blood Pressure 153/70 142/66 O2 Sat by Pulse 97 Oximetry - Lab 12/19/17 05:07 12/19/17 05:07 Most recent lab results Calcium 9.1 mg/dL (8.4-10.2) 12/19/17 05:07
[2017-12-19] MEDS: DIOVAN PO SCH ×2 (10:30→22:26)
[2017-12-19] MEDS: PROCARDIA XL PO SCH ×2 (10:30→22:28)
[2017-12-19] MEDS: IMDUR PO SCH (10:30)
[2017-12-19] MEDS: HEPARIN SUB-Q SCH ×2 (10:31→22:28)
[2017-12-19] MEDS: PROTONIX PO SCH (10:31)
[2017-12-19] MEDS: ECOTRIN PO SCH (10:31)
--- NOTE | 2017-12-19 15:30 | Consultation ---
History of Present Illness - Reason for Consult Consult date: 12/19/17 - History of Present Illness Patient with a history of end-stage renal disease with a right upper arm AV fistula. She has noticed over the past month, progressing development of a pseudoaneurysm with skin thinning. On examination, a 1 cm area of thinning overlying the fistula with only minimal subcutaneous tissue beneath it is present. The fistula is patent. Past History Past Medical History: dialysis, ESRD, hypertension, hyperlipidemia Past Surgical History: cholecystectomy, Other (AV fistula, bowel obstruction) Social history: smoking Family history: hypertension Medications and Allergies Allergies Allergy/AdvReac Type Severity Reaction Status Date / Time labetalol AdvReac Unknown Verified 12/01/15 07:51 Home Medications Medication Instructions Recorded Confirmed Last Taken Type Albuterol Sulfate [Ventolin HFA] 90 mcg IH Q6H PRN 01/28/15 12/18/17 04/02/15 History NIFEdipine XL [Procardia Xl] 60 mg PO Q12HR #60 tablet 12/04/15 12/18/17 Unknown Rx Calcium Acetate [Phoslo] 667 mg PO TID 12/18/17 12/18/17 Unknown History Carvedilol 25 mg PO DAILY 12/18/17 12/18/17 Unknown History Clonidine HCl [Catapres] 0.3 mg PO TID 12/18/17 12/18/17 Unknown History Losartan [Cozaar] 50 mg PO QDAY 12/18/17 12/18/17 Unknown History Simvastatin 20 mg PO DAILY 12/18/17 12/18/17 Unknown History amLODIPine [Norvasc] 5 mg PO DAILY 12/18/17 12/18/17 Unknown History Active Meds: Active Medications Albuterol (Proventil) 2.5 mg IH Q6HRT PRN PRN Reason: Shortness Of Breath Aspirin (Ecotrin) 325 mg PO QDAY [facility]S [facility] BEDS AT [facility] Last Admin: 12/19/17 10:31 Dose: 325 mg Clonidine HCl (Catapres) 0.2 mg PO TID [facility]CLUDE 234 BEDS AT THE [facility] Last Admin: 12/19/17 13:17 Dose: Not Given Heparin Sodium (Porcine) (Heparin) 5,000 unit SUB-Q Q12HR [facility]S [facility]CLUDE 234 BEDS AT THE [facility] Last Admin: 12/19/17 10:31 Dose: 5,000 unit Hydralazine HCl (Apresoline) 10 mg IV Q4HR PRN PRN Reason: HTN >155/90 Last Admin: 12/18/17 18:43 Dose: 10 mg Sodium Chloride (Nacl 0.9%) 100 mls @ 999 mls/hr IV COTY PRN PRN Reason: Hypotension Isosorbide Mononitrate (Imdur) 30 mg PO DAILY [facility] 234 BEDS AT [facility] Last Admin: 12/19/17 10:30 Dose: 30 mg Morphine Sulfate (Morphine) 1 mg IV Q8H PRN PRN Reason: Pain, Moderate (4-6) Nifedipine (Procardia Xl) 60 mg PO Q12HR [facility]S [facility]CLUDE 234 BEDS AT [facility] Last Admin: 12/19/17 10:30 Dose: 60 mg Pantoprazole Sodium (Protonix) 40 mg PO QDAY [facility]CLUDE 234 BEDS AT [facility] Last Admin: 12/19/17 10:31 Dose: 40 mg Valsartan (Diovan) 160 mg PO BID [facility] 234 BEDS AT [facility] Last Admin: 12/19/17 10:30 Dose: 160 mg Review of Systems All systems: negative Exam - Constitutional Vitals: Temp Pulse Resp BP Pulse Ox 98.2 F 81 19 122/70 97 12/19/17 11:43 12/19/17 13:17 12/19/17 11:43 12/19/17 13:17 12/19/17 04:48 General appearance: Present: no acute distress - EENT Eyes: Present: PERRL, EOM intact ENT: hearing intact - Neck Neck: Present: supple, normal ROM - Respiratory Respiratory effort: normal - Extremities Extremities: abnormal - Abdominal General gastrointestinal: Present: deferred Female genitourinary: Present: deferred - Rectal Rectal Exam: deferred - Psychiatric Psychiatric: appropriate mood/affect, cooperative Results - Labs CBC & Chem 7: 12/19/17 05:07 12/19/17 05:07 Labs: Abnormal lab results 12/19/17 12/19/17 12/19/17 Range/Units 05:07 05:07 11:42 WBC 4.4 L (4.5-11.0) K/mm3 RBC 3.08 L (3.65-5.03) M/mm3 MCV 101 H (79-97) fl MCH 35 H (28-32) pg RDW 17.3 H (13.2-15.2) % Lymph % (Auto) 36.7 H (13.4-35.0) % [place] % (Auto) 11.5 H (0.0-7.3) % Sodium 136 L (137-145) mmol/L Chloride 93.4 L (98-107) mmol/L BUN 26 H (7-17) mg/dL Creatinine 6.2 H (0.7-1.2) mg/dL POC Glucose 116 H (70-105) Assessment and Plan The patient will need surgical revision of the pseudoaneurysm to prevent rupture. This will be performed as soon as possible.
[2017-12-19] MEDS: MORPHINE IV PRN (15:38)
--- NOTE | 2017-12-19 18:13 | Progress Note ---
Assessment and Plan Assessment and plan: --Accelerated hypertension ; continue on admission Now moderate control, continue multiple antihypertensives and when necessary medications --Atypical Chest pain; present on admission, resolved chronic elevation of troponins probably secondary to ESRD --Chronic elevation of troponin; secondary to end-stage renal disease Patient has no cardiac symptoms today, may follow with cardiology outpatient --End-stage renal disease on hemodialysis; HD per schedule, consult nephrology --Pseudoaneurysm; right arm AV fistula Vascular evaluation, possible vascular surgery --Hyperkalemia, mild; closely monitor electrolytes Management per nephrology --DVT prophylaxis; heparin and renal dose Closely monitor the patient and adjust management as needed History Interval history: Patient seen and examined medical records reviewed Patient feels slightly better and wants to go home However patient has vascular procedure to be scheduled tomorrow Blood pressures well controlled No new complaints Vital signs reviewed Hospitalist Physical - Constitutional Vitals: Temp Pulse Resp BP Pulse Ox 98.2 F 81 19 122/70 97 12/19/17 11:43 12/19/17 18:00 12/19/17 11:43 12/19/17 13:17 12/19/17 04:48 General appearance: Present: no acute distress, well-nourished - EENT Eyes: Present: PERRL, EOM intact - Neck Neck: Present: supple, normal ROM - Respiratory Respiratory effort: normal Respiratory: bilateral: diminished, negative: rales, rhonchi, wheezing - Cardiovascular Rhythm: regular Heart Sounds: Present: S1 & S2 - Extremities Extremities: no ischemia, No edema - Abdominal General gastrointestinal: soft, non-tender, non-distended, normal bowel sounds - Integumentary Integumentary: Present: clear, warm - Psychiatric Psychiatric: appropriate mood/affect, cooperative - Neurologic Neurologic: CNII-XII intact, moves all extremities Results - Labs CBC & Chem 7: 12/19/17 05:07 12/19/17 05:07 Labs: Laboratory Last Values WBC 4.4 K/mm3 (4.5-11.0) L 12/19/17 05:07 RBC 3.08 M/mm3 (3.65-5.03) L 12/19/17 05:07 Hgb 10.7 gm/dl (10.1-14.3) 12/19/17 05:07 Hct 31.3 % (30.3-42.9) 12/19/17 05:07 MCV 101 fl (79-97) H 12/19/17 05:07 MCH 35 pg (28-32) H 12/19/17 05:07 MCHC 34 % (30-34) 12/19/17 05:07 RDW 17.3 % (13.2-15.2) H 12/19/17 05:07 Plt Count 237 K/mm3 (140-440) 12/19/17 05:07 Lymph % (Auto) 36.7 % (13.4-35.0) H 12/19/17 05:07 [place] % (Auto) 11.5 % (0.0-7.3) H 12/19/17 05:07 Eos % (Auto) 0.7 % (0.0-4.3) 12/19/17 05:07 Baso % (Auto) 0.7 % (0.0-1.8) 12/19/17 05:07 Lymph # 1.6 K/mm3 (1.2-5.4) 12/19/17 05:07 [place] # 0.5 K/mm3 (0.0-0.8) 12/19/17 05:07 Eos # 0.0 K/mm3 (0.0-0.4) 12/19/17 05:07 Baso # 0.0 K/mm3 (0.0-0.1) 12/19/17 05:07 Seg Neutrophils % 50.4 % (40.0-70.0) 12/19/17 05:07 Seg Neutrophils # 2.2 K/mm3 (1.8-7.7) 12/19/17 05:07 Sodium 136 mmol/L (137-145) L 12/19/17 05:07 Potassium 4.9 mmol/L (3.6-5.0) 12/19/17 05:07 Chloride 93.4 mmol/L (98-107) L 12/19/17 05:07 Carbon Dioxide 29 mmol/L (22-30) 12/19/17 05:07 Anion Gap 19 mmol/L 12/19/17 05:07 BUN 26 mg/dL (7-17) H 12/19/17 05:07 Creatinine 6.2 mg/dL (0.7-1.2) H 12/19/17 05:07 Estimated GFR 8 ml/min 12/19/17 05:07 BUN/Creatinine Ratio 4 % 12/19/17 05:07 Glucose 98 mg/dL (65-100) 12/19/17 05:07 POC Glucose 116 (70-105) H 12/19/17 11:42 Calcium 9.1 mg/dL (8.4-10.2) 12/19/17 05:07 Troponin T 0.034 ng/mL (0.00-0.029) H 12/17/17 23:37 Triglycerides 66 mg/dL (2-149) 12/17/17 16:26 Cholesterol 101 mg/dL (50-199) 12/17/17 16:26 LDL Cholesterol Direct 36 mg/dL (50-130) L 12/17/17 16:26 HDL Cholesterol 60 mg/dL (40-59) H 12/17/17 16:26 Cholesterol/HDL Ratio 1.68 % 12/17/17 16:26 Urine Color Yellow (Yellow) 12/18/17 07:22 Urine Turbidity Slightly-cloudy (Clear) 12/18/17 07:22 Urine pH 6.0 (5.0-7.0) 12/18/17 07:22 Ur Specific [place] 1.014 (1.003-1.030) 12/18/17 07:22 Urine Protein >500 mg/dL (Negative) 12/18/17 07:22 Urine Glucose (UA) Neg mg/dL (Negative) 12/18/17 07:22 Urine Ketones Neg mg/dL (Negative) 12/18/17 07:22 Urine Blood Neg (Negative) 12/18/17 07:22 Urine Nitrite Neg (Negative) 12/18/17 07:22 Urine Bilirubin Neg (Negative) 12/18/17 07:22 Urine Urobilinogen < 2.0 mg/dL (<2.0) 12/18/17 07:22 Ur Leukocyte Esterase Neg (Negative) 12/18/17 07:22 Urine WBC (Auto) 3.0 /HPF (0.0-6.0) 12/18/17 07:22 Urine RBC (Auto) 2.0 /HPF (0.0-6.0) 12/18/17 07:22 U Epithel Cells (Auto) 12.0 /HPF (0-13.0) 12/18/17 07:22 Urine Bacteria (Auto) 3+ /HPF (Negative) 12/18/17 07:22 Urine Mucus Few /HPF 12/18/17 07:22
[2017-12-19] MEDS ORDERED: BENADRYL PO ONE (21:58)
[2017-12-20] MEDS ORDERED: NACL 0.9% 500 ML IV ONE
[2017-12-20] MEDS ORDERED: HEPARIN 10,000 UNITS/10 ML IV ONE
[2017-12-20] MEDS: MORPHINE IV PRN ×2 (01:13→21:36)
[2017-12-20] MEDS ORDERED: XYLOCAINE 1%/ EPI 1:100,000 INFILTRATI ONE (06:39)
[2017-12-20] MEDS ORDERED: HEPARIN 10,000 UNITS/10 ML ONE (06:39)
[2017-12-20] MEDS ORDERED: MARCAINE-EPI 0.5%-1:200,000 INFILTRATI ONE (06:39)
[2017-12-20] MEDS ORDERED: NACL 0.9% 500 ML 500 ML ONE (06:40)
[2017-12-20] MEDS ORDERED: MARCAINE 0.5% INFILTRATI ONE ×2 (06:58)
[2017-12-20] MEDS: CATAPRES PO SCH ×3 (07:45→21:36)
[2017-12-20] MEDS ORDERED: PROTAMINE SULFATE ONE (07:53)
[2017-12-20] MEDS ORDERED: ANCEF/STERILE WATER 2 GM/20 ML 2 GM/20 ML SYRINGE IV NR (08:00)
[2017-12-20] MEDS ORDERED: SUBLIMAZE ONE (08:10)
[2017-12-20] MEDS ORDERED: VERSED ONE (08:11)
--- NOTE | 2017-12-20 08:15 | Anesthesia Consultation ---
Anesthesia Consult and Med Hx Date of service: 12/20/17 - Airway Anesthetic Teeth Evaluation: Edentulous ROM Head & Neck: Adequate Mental/Hyoid Distance: Adequate Mallampati Class: Class II Intubation Access Assessment: Probably Good - Pulmonary Exam CTA: Yes - Cardiac Exam Cardiac Exam: RRR - Pre-Operative Health Status ASA Pre-Surgery Classification: ASA4 Proposed Anesthetic Plan: General - Pulmonary Hx Asthma: Yes Hx Pneumonia: No - Cardiovascular System Hx Hypertension: Yes - Endocrine Hx Renal Disease: Yes (w/ HD Sunday, , Sunday) Hx End Stage Renal Disease: Yes - Hematic Hx Anemia: Yes - Other Systems Hx Cancer: No
[2017-12-20] MEDS ORDERED: DILAUDID IV PRN (08:16)
--- NOTE | 2017-12-20 08:18 | Anesthesia Day of Surgery ---
Anesthesia Day of Surgery - Day of Surgery Patient H&P Reviewed: Yes Patient is NPO: Yes Beta Blockers: Yes Cardiac Clearance: No Pulmonary Clearance: No
[2017-12-20] MEDS ORDERED: NACL 0.9% 1000 ML 1,000 ML IV SCH (09:00)
[2017-12-20] MEDS ORDERED: QUELICIN ONE (09:30)
[2017-12-20] MEDS ORDERED: ZEMURON IV ONE (09:30)
[2017-12-20] MEDS ORDERED: ANCEF ONE (09:34)
[2017-12-20] MEDS: PROCARDIA XL PO SCH ×2 (10:00→21:36)
[2017-12-20] MEDS: PROTONIX PO SCH (10:00)
[2017-12-20] MEDS: ECOTRIN PO SCH (10:00)
[2017-12-20] MEDS: IMDUR PO SCH (10:00)
[2017-12-20] MEDS: HEPARIN SUB-Q SCH (10:00)
--- NOTE | 2017-12-20 11:02 | Progress Note ---
Assessment and Plan Impression: End stage renal disease on hemodialysis Accelerated hypertension Chest pain Secondary hyperparathyroidism pseudoaneurysm of av access Plan: HD q tthsat and prn. Adjust BP medications prn uf as tolerated with hd bp control cardiac workup for chest pain vasc to see for av access aneurysm--plans for surgical intervention noted Hold epogen with HD no heparin with hd after surgery dialysis diet Binders w/ meals resumed Subjective Date of service: 12/20/17 Principal diagnosis: esrd Interval history: resting in bed today Objective - Exam Narrative Exam: GENERAL: The patient is well-developed well-nourished female lying on stretcher appearing to be in mild discomfort. [] HEENT: Normocephalic. Atraumatic. Extraocular motions are intact. Patient has moist mucous membranes. Right TM obscured by cerumen NECK: Supple. Trachea midline CHEST/LUNGS: Clear to auscultation. There is no respiratory distress noted. HEART/CARDIOVASCULAR: Regular. There is no tachycardia. There is no gallop rub or murmur. ABDOMEN: Abdomen is soft, with tenderness to palpation on the left upper and left lower quadrant. Patient has normal bowel sounds. There is no abdominal distention. SKIN: There is no rash. There is no edema. There is no diaphoresis. NEURO: The patient is awake, alert, and oriented. The patient is cooperative. The patient has normal speech MUSCULOSKELETAL: There is no evidence of acute injury. - Vital Signs Vital signs: Vital Signs - 12hr 12/20/17 12/20/17 00:47 05:35 Temperature 99.9 F H 99.0 F Pulse Rate 84 81 Respiratory 18 20 Rate Blood Pressure 160/76 141/64 O2 Sat by Pulse 95 95 Oximetry - Lab 12/19/17 05:07 12/19/17 05:07 Most recent lab results Calcium 9.1 mg/dL (8.4-10.2) 12/19/17 05:07
--- NOTE | 2017-12-20 11:26 | Operative Report ---
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 Operation: Revision of right arm AV graft with 7 mm AcuSeal. Excision of pseudoaneurysm. Surgeon: Ni Mederos. Asst.: None Anesthesia: Gen. EBL: Minimal Findings: Right arm AV graft with pseudoaneurysm without any surrounding erythema. Graft was well incorporated, no gross infection noted Indications: 63-year-old lady came in and admitted to the hospital with chest pain. She is on chronic hemodialysis for about 8 years. She developed right arm AV graft pseudoaneurysm in the area of new graft was thinning of the skin and high risk of rupture. She was explained risks, benefits and alternatives to procedure of excision of AV graft was possible rerouting and or placement of dialysis catheter. She understood and signed informed consent. Operative details: Patient was brought to the operating room and placed in supine position. Her right arm was placed on extension table. It was prepped and draped in sterile fashion. Timeout was performed and all team members in agreement. Incision was made in the transverse 2 AV graft direction fashion on the arterial side of her pseudoaneurysm and venous side. It was carried down with electrocautery and graft was circumferentially dissected and taken on the vessel loop in both locations. Then 4-7 mm AcuSeal AV graft was tunneled on the lateral portion of the existing AV graft using Naty-Wick tunneler in plan to use only 7 mm portion. Patient was heparinized with 3000 units of heparin and lead 3 minutes specifically. DeBakey clamps were placed for proximal distal control starting from arterial portion where graft was transected and entered and anastomosis was created using 6-0 Prolene in circumferential fashion. The graft was clamped distally and flushed. the anastomoses required one repair stitch. The bright and all previous graft was closed with 5-0 suture in the mattress and upper lower stitch. Next, this portion of AV graft was clamped in the same fashion and transected and end-to-end anastomosis was created using 6-0 Prolene. It was flushed before finishing stitch. The midline and all the other portion of the preexistent radiograph was also closed with 5-0 Prolene. Those incisions were checked for hemostasis. Good thrill in the usual, rerouting with 80 graft was appreciated. Surgeons were irrigated and closed in 2 layers was 3-0 Vicryl and 4-0 Monocryl. Local anesthetic was injected in those incision as well as on top of Naty-Wick tunneler. Dermabond was applied. Next, I opened the skin on top of pseudoaneurysm. The graft was well incorporated in this location also. Cultures were sent. The aneurysm was excised. Hemostasis was achieved. Small [place] drain was placed and secured with nylon stitch. Wound was closed in 2 layers with Vicryl and simple interrupted stitches on the skin. Sterile dressing was applied. All counts were correct. Patient tolerated procedure well and was transferred to PACU in stable condition.
[2017-12-20] MEDS: DIOVAN PO SCH ×2 (13:10→21:35)
--- NOTE | 2017-12-20 14:55 | Query- Chest Pain ---
Deatania Manzanares___Antonio Date:___12/20/17 Speech Pathology Teacher/CDS:____allan Phone#:___[phone] Exercise your independent professional judgment when responding to query. Questions asked do not imply a particular answer is desired or expected. We greatly appreciate your clarification on this issue. Clinical Documentation States: Very pleasant 62-year-old female patient with significant history of end-stage renal disease on hemodialysis, hypertension and diabetes mellitus, presented to the with chest pain and abdominal pain 1 day duration. Patient graded her chest pain 10 over 10 to the ER physician , however at that time of my evaluation ,patient denied any chest pain Reports that he is to for hemodialysis today Complaints of mild nausea no vomiting Assessment and plan: --Accelerated hypertension ; continue on admission Now moderate control, continue multiple antihypertensives and when necessary medications --Atypical Chest pain; present on admission, resolved chronic elevation of troponins probably secondary to ESRD --Chronic elevation of troponin; secondary to end-stage renal disease Patient has no cardiac symptoms today, may follow with cardiology outpatient --End-stage renal disease on hemodialysis; HD per schedule, consult nephrology --Pseudoaneurysm; right arm AV fistula Please document the etiology of Chest Pain: [ ] Myocardial Infarction [ ] Pneumonia [ ] Mediastinitis [ ] Costochondritis [ ] Pulmonary Embolism [ ] Coronary Artery Disease [ ] GERD [x ] Other:atypical chest pain,probably due to GERD [ ] Comment/Explanation: Present on Admission: [x ] Yes (Y) [ ] Clinically undeterminable (W) [ ] No(N) Please document response in your Progress Notes and/or Discharge Summary and indicate if the condition was present on admission. ROSCOE
[2017-12-20] MEDS ORDERED: NACL 0.9 (PRIMING MACHINE ONLY DIALYSIS) MC ONE (17:58)
--- NOTE | 2017-12-20 19:27 | Progress Note ---
Assessment and Plan Assessment and plan: --Pseudoaneurysm; right arm AV fistula s/p vascular procedure ;Excision of pseudoaneurysm/her revision of right arm AV graft. with 7 mm AcuSeal Continue supportive care --End-stage renal disease on hemodialysis; HD per schedule, nephrology following --Accelerated hypertension ; continue on admission Now moderate control, continue multiple antihypertensives and when necessary medications --Atypical Chest pain; present on admission, resolved chronic elevation of troponins probably secondary to ESRD --Chronic elevation of troponin; secondary to end-stage renal disease Patient has no cardiac symptoms today, may follow with cardiology outpatient --Hyperkalemia, mild; closely monitor electrolytes Management per nephrology --DVT prophylaxis; heparin and renal dose Closely monitor the patient and adjust management as needed History Interval history: Patient seen and examined medical records reviewed Underwent pseudoaneurysm repair Feels better, received hemodialysis Vital signs reviewed Hospitalist Physical - Constitutional Vitals: Temp Pulse Resp BP Pulse Ox 98.1 F 76 18 176/85 95 12/20/17 14:30 12/20/17 17:45 12/20/17 14:30 12/20/17 17:45 12/20/17 12:05 General appearance: Present: no acute distress, well-nourished - EENT Eyes: Present: PERRL, EOM intact - Neck Neck: Present: supple, normal ROM - Respiratory Respiratory effort: normal Respiratory: bilateral: diminished, negative: rales, rhonchi, wheezing - Cardiovascular Rhythm: regular Heart Sounds: Present: S1 & S2 - Extremities Extremities: no ischemia, No edema - Abdominal General gastrointestinal: soft, non-tender, non-distended, normal bowel sounds - Integumentary Integumentary: Present: clear, warm - Psychiatric Psychiatric: appropriate mood/affect, cooperative - Neurologic Neurologic: CNII-XII intact, moves all extremities Results - Labs CBC & Chem 7: 12/21/17 06:26 12/21/17 06:26 Labs: Laboratory Last Values WBC 4.4 K/mm3 (4.5-11.0) L 12/19/17 05:07 RBC 3.08 M/mm3 (3.65-5.03) L 12/19/17 05:07 Hgb 10.7 gm/dl (10.1-14.3) 12/19/17 05:07 Hct 31.3 % (30.3-42.9) 12/19/17 05:07 MCV 101 fl (79-97) H 12/19/17 05:07 MCH 35 pg (28-32) H 12/19/17 05:07 MCHC 34 % (30-34) 12/19/17 05:07 RDW 17.3 % (13.2-15.2) H 12/19/17 05:07 Plt Count 237 K/mm3 (140-440) 12/19/17 05:07 Lymph % (Auto) 36.7 % (13.4-35.0) H 12/19/17 05:07 [place] % (Auto) 11.5 % (0.0-7.3) H 12/19/17 05:07 Eos % (Auto) 0.7 % (0.0-4.3) 12/19/17 05:07 Baso % (Auto) 0.7 % (0.0-1.8) 12/19/17 05:07 Lymph # 1.6 K/mm3 (1.2-5.4) 12/19/17 05:07 [place] # 0.5 K/mm3 (0.0-0.8) 12/19/17 05:07 Eos # 0.0 K/mm3 (0.0-0.4) 12/19/17 05:07 Baso # 0.0 K/mm3 (0.0-0.1) 12/19/17 05:07 Seg Neutrophils % 50.4 % (40.0-70.0) 12/19/17 05:07 Seg Neutrophils # 2.2 K/mm3 (1.8-7.7) 12/19/17 05:07 Sodium 136 mmol/L (137-145) L 12/19/17 05:07 Potassium 4.9 mmol/L (3.6-5.0) 12/19/17 05:07 Chloride 93.4 mmol/L (98-107) L 12/19/17 05:07 Carbon Dioxide 29 mmol/L (22-30) 12/19/17 05:07 Anion Gap 19 mmol/L 12/19/17 05:07 BUN 26 mg/dL (7-17) H 12/19/17 05:07 Creatinine 6.2 mg/dL (0.7-1.2) H 12/19/17 05:07 Estimated GFR 8 ml/min 12/19/17 05:07 BUN/Creatinine Ratio 4 % 12/19/17 05:07 Glucose 98 mg/dL (65-100) 12/19/17 05:07 POC Glucose 116 (70-105) H 12/19/17 11:42 Calcium 9.1 mg/dL (8.4-10.2) 12/19/17 05:07 Troponin T 0.034 ng/mL (0.00-0.029) H 12/17/17 23:37 Triglycerides 66 mg/dL (2-149) 12/17/17 16:26 Cholesterol 101 mg/dL (50-199) 12/17/17 16:26 LDL Cholesterol Direct 36 mg/dL (50-130) L 12/17/17 16:26 HDL Cholesterol 60 mg/dL (40-59) H 12/17/17 16:26 Cholesterol/HDL Ratio 1.68 % 12/17/17 16:26 Urine Color Yellow (Yellow) 12/18/17 07:22 Urine Turbidity Slightly-cloudy (Clear) 12/18/17 07:22 Urine pH 6.0 (5.0-7.0) 12/18/17 07:22 Ur Specific [place] 1.014 (1.003-1.030) 12/18/17 07:22 Urine Protein >500 mg/dL (Negative) 12/18/17 07:22 Urine Glucose (UA) Neg mg/dL (Negative) 12/18/17 07:22 Urine Ketones Neg mg/dL (Negative) 12/18/17 07:22 Urine Blood Neg (Negative) 12/18/17 07:22 Urine Nitrite Neg (Negative) 12/18/17 07:22 Urine Bilirubin Neg (Negative) 12/18/17 07:22 Urine Urobilinogen < 2.0 mg/dL (<2.0) 12/18/17 07:22 Ur Leukocyte Esterase Neg (Negative) 12/18/17 07:22 Urine WBC (Auto) 3.0 /HPF (0.0-6.0) 12/18/17 07:22 Urine RBC (Auto) 2.0 /HPF (0.0-6.0) 12/18/17 07:22 U Epithel Cells (Auto) 12.0 /HPF (0-13.0) 12/18/17 07:22 Urine Bacteria (Auto) 3+ /HPF (Negative) 12/18/17 07:22 Urine Mucus Few /HPF 12/18/17 07:22
[2017-12-20] MEDS: BENADRYL IV PRN (21:36)
[2017-12-21] MEDS: HEPARIN SUB-Q SCH ×3 (01:23→22:26)
[2017-12-21] MEDS: MORPHINE IV PRN ×2 (06:45→22:27)
[2017-12-21 07:06] LABS: Basophils % (Auto) 0.4 % (0.0-1.8); Eosinophils % (Auto) 0.8 % (0.0-4.3); Hematocrit 28.1 % (30.3-42.9); Hemoglobin 9.7 gm/dl (10.1-14.3); Lymphocytes # (Auto) 0.9 K/mm3 (1.2-5.4); Lymphocytes % (Auto) 23.4 % (13.4-35.0); Mean Corpuscular HGB Conc 34 % (30-34); Mean Corpuscular Hemoglobin 36 pg (28-32); Mean Corpuscular Volume 104 fl (79-97); Monocytes # (Auto) 0.5 K/mm3 (0.0-0.8); Monocytes % (Auto) 13.4 % (0.0-7.3); Platelet Count 171 K/mm3 (140-440); Red Blood Count 2.71 M/mm3 (3.65-5.03); Red Cell Distribution Width 16.9 % (13.2-15.2)
[2017-12-21 07:22] LABS: Calcium 8.9 mg/dL (8.4-10.2)
[2017-12-21] MEDS: CATAPRES PO SCH ×3 (08:33→22:28)
--- NOTE | 2017-12-21 10:09 | Progress Note ---
Subjective Principal diagnosis: esrd Interval history: Patient was seen today for follow-up on multiple renal related issues Events of this hospitalization noted Outpatient dialysis at [facility] per patient Patient has had repair of pseudoaneurysm and revision of the AV graft Due for dialysis Sunday Patient denies having any chest pain pressure or shortness of breath Vitals labs intake output medications were reviewed Social history: Reviewed Allergies: Reviewed Family history: Reviewed Physical examination HEENT: Oral mucosa moist no pallor or icterus Neck: Supple no JVD Chest: Clear to auscultation anteriorly CVS: Regular rate and rhythm S1 and S2 heard Abdomen: Soft nontender no suprapubic masses no organomegaly appreciable Extremity: Dry skin less than 1+ peripheral edema Musculoskeletal: No joint effusion noted in knees and ankle Neurological: Alert awake Dermatology: No petechial rashes Psychiatry: No evidence of any agitation and aggression noted Assessment and plan End-stage renal disease: Patient is currently on maintenance hemodialysis Sunday and Sunday Anemia in end-stage renal disease: To monitor and follow, hemoglobin currently 9.7 which was 11.2 Leukopenia of unclear etiology from 7.28 is 4.0 mild hyperkalemia can receive her hemodialysis treatment tomorrow morning Surgical site cultures currently pending 12/20/2017 Secondary hyperparathyroidism: Check phosphorus and PTH level Malfunctioning AV axis: Currently being followed by vascular surgery, patient has had revision of her right arm AV graft and excision of pseudoaneurysm Admitted for chest pain cardiology workup in progress Hypertension: Continue to monitor adjust medication, blood pressure currently satisfactory 129/62 heart rate 78 Patient was adequately counseled and educated regarding multiple renal related issues Pertinent lab findings were discussed with patient, patient does exhibit good understanding of renal issues We'll continue to follow and make recommendation from renal standpoint Objective - Vital Signs Vital signs: Vital Signs - 12hr 12/21/17 12/21/17 12/21/17 00:14 05:53 08:33 Temperature 98.6 F 98.6 F Pulse Rate 78 78 Respiratory 20 18 Rate Blood Pressure 176/81 143/61 129/62 O2 Sat by Pulse 97 94 Oximetry - Lab 12/21/17 06:26 12/21/17 06:26 Most recent lab results Calcium 8.9 mg/dL (8.4-10.2) 12/21/17 06:26
[2017-12-21] MEDS: PROCARDIA XL PO SCH ×2 (10:54→22:28)
[2017-12-21] MEDS: PROTONIX PO SCH (10:54)
[2017-12-21] MEDS: IMDUR PO SCH (10:55)
[2017-12-21] MEDS: ECOTRIN PO SCH (10:56)
[2017-12-21] MEDS: DIOVAN PO SCH ×2 (10:56→22:27)
--- NOTE | 2017-12-21 14:22 | Progress Note ---
Assessment and Plan s/p AVG revision with PSA excision cultures pending, Gr stain was neg for microorganisms or WBC dressing changed at the excision site, hao drain removed, incision with minimal sero sanguinous drainage d/c from vascular stand point, f/u in the office in 1-2 weeks Subjective Date of service: 12/21/17 Principal diagnosis: esrd Interval history: patient is doing well, no c/o pain at the surgery site Objective - Exam Narrative Exam: great thrill over AVG, s/p HD yesterday - Constitutional Vitals: Vital Signs - 12hr 12/21/17 12/21/17 12/21/17 05:53 08:33 10:00 Temperature 98.6 F Pulse Rate 78 78 Respiratory 18 Rate Blood Pressure 143/61 129/62 O2 Sat by Pulse 94 Oximetry 12/21/17 12/21/17 10:55 10:56 Temperature Pulse Rate Respiratory Rate Blood Pressure 146/70 146/70 O2 Sat by Pulse Oximetry - Labs CBC & Chem 7: 12/21/17 06:26 12/21/17 06:26 Labs: Abnormal lab results 12/21/17 12/21/17 Range/Units 06:26 06:26 WBC 4.0 L (4.5-11.0) K/mm3 RBC 2.71 L (3.65-5.03) M/mm3 Hgb 9.7 L (10.1-14.3) gm/dl Hct 28.1 L (30.3-42.9) % MCV 104 H (79-97) fl MCH 36 H (28-32) pg RDW 16.9 H (13.2-15.2) % [place] % (Auto) 13.4 H (0.0-7.3) % Lymph # 0.9 L (1.2-5.4) K/mm3 Potassium 5.3 H (3.6-5.0) mmol/L Chloride 94.7 L (98-107) mmol/L BUN 27 H (7-17) mg/dL Creatinine 6.7 H (0.7-1.2) mg/dL Glucose 102 H (65-100) mg/dL
[2017-12-21] MEDS: APRESOLINE IV PRN (14:32)
[2017-12-21] MEDS: CHLORASEPTIC MM PRN ×2 (16:36→22:28)
[2017-12-21] MEDS: AUGMENTIN 875 MG PO SCH (17:59)
--- NOTE | 2017-12-21 19:23 | Progress Note ---
Assessment and Plan Assessment and plan: --Pseudoaneurysm; right arm AV fistula s/p vascular procedure ;Excision of pseudoaneurysm/her revision of right arm AV graft. with 7 mm AcuSeal Continue supportive care, vascular cleared for discharge, DC after hemodialysis tomorrow --End-stage renal disease on hemodialysis; HD per schedule, nephrology following --Left ear pain/pharyngitis; throat spray, Augmentin for 5 days And advised to see ENT physician if no improvement upon discharge --Accelerated hypertension ; present on admission Now moderate control, continue multiple antihypertensives and when necessary medications --Atypical Chest pain; present on admission, resolved chronic elevation of troponins probably secondary to ESRD --Chronic elevation of troponin; secondary to end-stage renal disease Patient has no cardiac symptoms today, may follow with cardiology outpatient --Hyperkalemia, mild; closely monitor electrolytes Management per nephrology --DVT prophylaxis; heparin and renal dose Closely monitor the patient and adjust management as needed History Interval history: Patient seen and examined medical records reviewed No new events reported Patient complains of some right ear pain and sore throat No fever, vital signs stable Alert awake Oriented 3 Hospitalist Physical - Constitutional Vitals: Temp Pulse Resp BP Pulse Ox 99.0 F 78 16 181/80 94 12/21/17 10:55 12/21/17 10:00 12/21/17 10:55 12/21/17 14:32 12/21/17 05:53 General appearance: Present: no acute distress, well-nourished - EENT Eyes: Present: PERRL, EOM intact - Neck Neck: Present: supple, normal ROM - Respiratory Respiratory effort: normal Respiratory: bilateral: diminished, negative: rales, rhonchi, wheezing - Cardiovascular Rhythm: regular - Extremities Extremities: no ischemia, No edema - Abdominal General gastrointestinal: soft, non-tender, non-distended, normal bowel sounds - Integumentary Integumentary: Present: clear, warm - Psychiatric Psychiatric: appropriate mood/affect, cooperative - Neurologic Neurologic: CNII-XII intact, moves all extremities Results - Labs CBC & Chem 7: 12/21/17 06:26 12/21/17 06:26 Labs: Laboratory Last Values WBC 4.0 K/mm3 (4.5-11.0) L 12/21/17 06:26 RBC 2.71 M/mm3 (3.65-5.03) L 12/21/17 06:26 Hgb 9.7 gm/dl (10.1-14.3) L 12/21/17 06:26 Hct 28.1 % (30.3-42.9) L 12/21/17 06:26 MCV 104 fl (79-97) H 12/21/17 06:26 MCH 36 pg (28-32) H 12/21/17 06:26 MCHC 34 % (30-34) 12/21/17 06:26 RDW 16.9 % (13.2-15.2) H 12/21/17 06:26 Plt Count 171 K/mm3 (140-440) 12/21/17 06:26 Lymph % (Auto) 23.4 % (13.4-35.0) 12/21/17 06:26 [place] % (Auto) 13.4 % (0.0-7.3) H 12/21/17 06:26 Eos % (Auto) 0.8 % (0.0-4.3) 12/21/17 06:26 Baso % (Auto) 0.4 % (0.0-1.8) 12/21/17 06:26 Lymph # 0.9 K/mm3 (1.2-5.4) L 12/21/17 06:26 [place] # 0.5 K/mm3 (0.0-0.8) 12/21/17 06:26 Eos # 0.0 K/mm3 (0.0-0.4) 12/21/17 06:26 Baso # 0.0 K/mm3 (0.0-0.1) 12/21/17 06:26 Seg Neutrophils % 62.0 % (40.0-70.0) 12/21/17 06:26 Seg Neutrophils # 2.5 K/mm3 (1.8-7.7) 12/21/17 06:26 Sodium 137 mmol/L (137-145) 12/21/17 06:26 Potassium 5.3 mmol/L (3.6-5.0) H 12/21/17 06:26 Chloride 94.7 mmol/L (98-107) L 12/21/17 06:26 Carbon Dioxide 29 mmol/L (22-30) 12/21/17 06:26 Anion Gap 19 mmol/L 12/21/17 06:26 BUN 27 mg/dL (7-17) H 12/21/17 06:26 Creatinine 6.7 mg/dL (0.7-1.2) H 12/21/17 06:26 Estimated GFR 8 ml/min 12/21/17 06:26 BUN/Creatinine Ratio 4 % 12/21/17 06:26 Glucose 102 mg/dL (65-100) H 12/21/17 06:26 POC Glucose 116 (70-105) H 12/19/17 11:42 Calcium 8.9 mg/dL (8.4-10.2) 12/21/17 06:26 Troponin T 0.034 ng/mL (0.00-0.029) H 12/17/17 23:37 Triglycerides 66 mg/dL (2-149) 12/17/17 16:26 Cholesterol 101 mg/dL (50-199) 12/17/17 16:26 LDL Cholesterol Direct 36 mg/dL (50-130) L 12/17/17 16:26 HDL Cholesterol 60 mg/dL (40-59) H 12/17/17 16:26 Cholesterol/HDL Ratio 1.68 % 12/17/17 16:26 Urine Color Yellow (Yellow) 12/18/17 07:22 Urine Turbidity Slightly-cloudy (Clear) 12/18/17 07:22 Urine pH 6.0 (5.0-7.0) 12/18/17 07:22 Ur Specific [place] 1.014 (1.003-1.030) 12/18/17 07:22 Urine Protein >500 mg/dL (Negative) 12/18/17 07:22 Urine Glucose (UA) Neg mg/dL (Negative) 12/18/17 07:22 Urine Ketones Neg mg/dL (Negative) 12/18/17 07:22 Urine Blood Neg (Negative) 12/18/17 07:22 Urine Nitrite Neg (Negative) 12/18/17 07:22 Urine Bilirubin Neg (Negative) 12/18/17 07:22 Urine Urobilinogen < 2.0 mg/dL (<2.0) 12/18/17 07:22 Ur Leukocyte Esterase Neg (Negative) 12/18/17 07:22 Urine WBC (Auto) 3.0 /HPF (0.0-6.0) 12/18/17 07:22 Urine RBC (Auto) 2.0 /HPF (0.0-6.0) 12/18/17 07:22 U Epithel Cells (Auto) 12.0 /HPF (0-13.0) 12/18/17 07:22 Urine Bacteria (Auto) 3+ /HPF (Negative) 12/18/17 07:22 Urine Mucus Few /HPF 12/18/17 07:22
[2017-12-21] MEDS: BENADRYL IV PRN (22:28)
[2017-12-22] MEDS: MORPHINE IV PRN ×2 (05:51→15:40)
[2017-12-22 06:51] LABS: Calcium 8.8 mg/dL (8.4-10.2)
[2017-12-22] MEDS: CATAPRES PO SCH ×2 (08:00→15:42)
--- NOTE | 2017-12-22 09:09 | Progress Note ---
Subjective Principal diagnosis: esrd Interval history: Patient was seen today for follow-up on multiple renal related issues Events of this hospitalization noted Outpatient dialysis at [facility] per patient Patient has had repair of pseudoaneurysm and revision of the AV graft No acute issues due for dialysis today Patient denies having any chest pain pressure or shortness of breath Vitals labs intake output medications were reviewed Social history: Reviewed Allergies: Reviewed Family history: Reviewed Physical examination HEENT: Oral mucosa moist no pallor or icterus Neck: Supple no JVD Chest: Clear to auscultation anteriorly CVS: Regular rate and rhythm S1 and S2 heard Abdomen: Soft nontender no suprapubic masses no organomegaly appreciable Extremity: Dry skin less than 1+ peripheral edema Musculoskeletal: No joint effusion noted in knees and ankle Neurological: Alert awake Dermatology: No petechial rashes Psychiatry: No evidence of any agitation and aggression noted Assessment and plan End-stage renal disease: Patient is currently on maintenance hemodialysis Sunday and Sunday As of today potassium is 5.3 calcium 8.8 Leukopenia and decline in hemoglobin patient does need follow-up on these3 Blood pressure is satisfactorily controlled now Surgical site cultures currently negative for last 48 hours Secondary hyperparathyroidism: Check phosphorus and PTH level Malfunctioning AV access : Currently being followed by vascular surgery, patient has had revision of her right arm AV graft and excision of pseudoaneurysm Admitted for chest pain cardiology workup in progress blood pressure is well- controlled now Blood pressure is well-controlled now Pertinent lab findings were discussed with patient, patient does exhibit good understanding of renal issues We'll continue to follow and make recommendation from renal standpoint Objective - Vital Signs Vital signs: Vital Signs - 12hr 12/21/17 12/21/17 12/21/17 22:00 22:27 22:28 Temperature Pulse Rate 73 73 Respiratory 16 Rate Blood Pressure 145/59 145/59 O2 Sat by Pulse Oximetry 12/22/17 12/22/17 00:19 06:45 Temperature 99.4 F 98.7 F Pulse Rate 78 71 Respiratory 18 18 Rate Blood Pressure 144/64 130/60 O2 Sat by Pulse 93 94 Oximetry - Lab 12/21/17 06:26 12/22/17 05:18 Most recent lab results Calcium 8.8 mg/dL (8.4-10.2) 12/22/17 05:18
[2017-12-22] MEDS: PROTONIX PO SCH (10:43)
[2017-12-22] MEDS: AUGMENTIN 875 MG PO SCH (10:43)
[2017-12-22] MEDS: PROCARDIA XL PO SCH (15:42)
[2017-12-22] MEDS: ECOTRIN PO SCH (15:43)
[2017-12-22] MEDS: IMDUR PO SCH (15:43)
[2017-12-22] MEDS: DIOVAN PO SCH (15:43)
[2017-12-22] MEDS: HEPARIN SUB-Q SCH (15:44)
--- NOTE | 2017-12-22 16:37 | Discharge Summary ---
Providers - Providers Date of Admission: 12/18/17 08:00 Date of discharge: 12/22/17 Attending physician: MADAN AYALA 12/18/17 08:05 Consult to Physician [CONS] Routine Comment: Consulting Provider: RAHEEM GOYAL Physician Instructions: Reason For Exam: ESRD on HD 12/19/17 10:12 Consult to Physician [CONS] Routine Comment: Consulting Provider: JET RODRIGUEZ Physician Instructions: Reason For Exam: av access malfuntion, pseudoaneurysm formation Primary care physician: AREA FORESTER Hospitalization Reason for admission: Chest pain/abdominal pain Condition: Fair Pertinent studies: CT abdomen and pelvis;no acute abnormalties,incidental old findings noted CXR: Lt.Atelectasis Procedures: s/p Excision of pseudoaneurysm/her revision of right arm AV graft. HD per schedule Hospital course: 62 yr old female patient multiple medical problems was admitted through ER with Chest pain and abdominal pain of 1 day duration. Symptomatically managed, seen by Nephrology, underwent HD, Antihypertensives optimised,BP brought to reasonable levels., Evaluated by Vascular , underwent excission of pseudoaneurysm rt arm AV fislula ,received HD , Today pt is comfortable,no new complaints,vital signs stable Patient is hemodynamically and clinically stable for discharge Cleared by vascular and renal. Discharge Diagnosis: --Pseudoaneurysm; right arm AV fistula, s/p Excision of pseudoaneurysm/her revision of right arm AV graft. --End-stage renal disease on hemodialysis;received HD per schedule --Left ear pain/pharyngitis; throat spray, Augmentin for 5 days,f/u ENT upon dc --Accelerated hypertension ; present on admission; well controlled, f/u PMD --Atypical Chest pain; present on admission, resolved; sec to ESRD, f/u cardiology PRN --Hyperkalemia, mild; resolved Stable for discharge Disposition: DC-01 TO HOME OR SELFCARE Time spent for discharge: 31 min Core Measure Documentation - Palliative Care Palliative Care/ Comfort Measures: Not Applicable - Core Measures Any of the following diagnoses?: none Exam - Constitutional Vitals: Temp Pulse Resp BP Pulse Ox 97.2 F L 71 18 158/62 94 12/22/17 15:46 12/22/17 15:46 12/22/17 15:46 12/22/17 15:46 12/22/17 06:45 General appearance: Present: no acute distress, well-nourished - EENT Eyes: Present: PERRL, EOM intact - Neck Neck: Present: supple, normal ROM - Respiratory Respiratory effort: normal Respiratory: bilateral: diminished, negative: rales, rhonchi, wheezing - Cardiovascular Rhythm: regular Heart Sounds: Present: S1 & S2 - Extremities Extremities: no ischemia, No edema - Abdominal General gastrointestinal: Present: soft, non-tender, non-distended, normal bowel sounds - Integumentary Integumentary: Present: clear, warm - Musculoskeletal Musculoskeletal: strength equal bilaterally - Psychiatric Psychiatric: appropriate mood/affect, cooperative - Neurologic Neurologic: CNII-XII intact, moves all extremities Plan Activity: advance as tolerated, fall precautions Diet: renal Additional Instructions: Follow renal/hemodialysis per schedule. Advised see ENT for further evaluation of ear pain Follow up with: PRIMARY CAREMD [Primary Care Provider] - 3-5 Days LANEY MARTINES MD [Staff Physician] - 7 Days IRINA VELAZQUEZ MD [Staff Physician] - 7 Days Prescriptions: Amoxicillin/K Clav Tab [Augmentin 875MG TAB] 1 each PO Q12HR #10 tablet diphenhydrAMINE [Benadryl CAP] 25 mg PO Q8HR PRN #15 capsule PRN Reason: Itching oxyCODONE /ACETAMINOPHEN [Percocet 5/325] 1 tab PO BID PRN #10 tablet PRN Reason: Pain , Severe (7-10)
[2017-12-22 17:59] VITALS: BP 135/74
== END 2017-12-22 18:45 | disposition home or self-care (01) | DRG 252 ==
LOC: ED 14:36 → 4A 12-18 08:00 → 3A 12-18 09:25
PROVIDERS: ADMIT Internal Medicine; ATTEND Internal Medicine
PROC: 5A1D70Z Performance of Urinary Filtration, Intermittent, Less than 6 Hours Per Day (ICD-10-PCS; 2017-12-18)
PROC: 03150JD Bypass Right Axillary Artery to Upper Arm Vein with Synthetic Substitute, Open Approach (ICD-10-PCS; principal; 2017-12-20)
PROC: 5A1D70Z Performance of Urinary Filtration, Intermittent, Less than 6 Hours Per Day (ICD-10-PCS; 2017-12-20)
PROC: 5A1D70Z Performance of Urinary Filtration, Intermittent, Less than 6 Hours Per Day (ICD-10-PCS; 2017-12-22)
DX: T82.898A Other specified complication of vascular prosthetic devices, implants and grafts, initial encounter (principal); N18.6 End stage renal disease; I13.2 Hypertensive heart and chronic kidney disease with heart failure and with stage 5 chronic kidney disease, or end stage renal disease; N25.81 Secondary hyperparathyroidism of renal origin; E87.5 Hyperkalemia; Z99.2 Dependence on renal dialysis; I72.9 Aneurysm of unspecified site; K21.9 Gastro-esophageal reflux disease without esophagitis; E11.22 Type 2 diabetes mellitus with diabetic chronic kidney disease; I50.9 Heart failure, unspecified; M19.90 Unspecified osteoarthritis, unspecified site; J45.909 Unspecified asthma, uncomplicated; Z90.49 Acquired absence of other specified parts of digestive tract; Z79.82 Long term (current) use of aspirin; Z79.899 Other long term (current) drug therapy; F17.200 Nicotine dependence, unspecified, uncomplicated; R10.9 Unspecified abdominal pain; Z88.8 Allergy status to other drugs, medicaments and biological substances; E78.5 Hyperlipidemia, unspecified; Z82.49 Family history of ischemic heart disease and other diseases of the circulatory system; D63.1 Anemia in chronic kidney disease; D72.819 Decreased white blood cell count, unspecified
CPT/HCPCS: 36415; 71045; 74176; 80048; 80061; 81001; 82962; 84484; 85025; 87075; 87116; 93005; 93010; 96374; 96375; 96376; C1768; J0330; J0360; J0690; J1200; J1644; J2250; J2270; J2405; J2720; J2765; J3010; J7030; J7040

== ENCOUNTER 2018-05-30 10:43 | Emergency (ER) | payer MEDICARE ==
[2018-05-30] MEDS ORDERED: LOMOTIL PO ONE (11:56)
[2018-05-30 13:42] LABS: Hematocrit 34.8 % (30.3-42.9); Hemoglobin 11.8 gm/dl (10.1-14.3); Mean Corpuscular HGB Conc 34 % (30-34); Mean Corpuscular Volume 100 fl (79-97); Platelet Count 133 K/mm3 (140-440); Red Blood Count 3.47 M/mm3 (3.65-5.03); Red Cell Distribution Width 17.8 % (13.2-15.2)
--- NOTE | 2018-05-30 13:58 | Emergency Department Report ---
ED N/V/D HPI - General Chief complaint: Nausea/Vomiting/Diarrhea Stated complaint: RECTAL PAIN Time Seen by Provider: 05/30/18 11:44 Source: EMS Mode of arrival: Stretcher Limitations: Other - History of Present Illness Initial comments: 62-year-old female presents to ED with complaint of diarrhea 2 months. Patient states she has been taking L[place] and Imodium at home, without relief. Patient reports periumbilical abdominal pain associated with the diarrhea. She denies vomiting and fever. MD complaint: diarrhea -: month(s) (2) Description of Diarrhea: water Associated Abdominal Pain: Yes Location: periumbillcal Radiation: none Severity: moderate Quality: cramping Consistency: intermittent Improves with: none Worsens with: none Associated Symptoms: malaise. denies: fever/chills - Related Data Home Medications Medication Instructions Recorded Confirmed Last Taken Albuterol Sulfate [Ventolin HFA] 90 mcg IH Q6H PRN 01/28/15 03/04/18 04/02/15 Calcium Acetate [Phoslo] 667 mg PO TID 12/18/17 03/04/18 Unknown Carvedilol 25 mg PO BID 12/18/17 03/04/18 Unknown Sevelamer Carbonate 800 mg PO TID 03/04/18 03/04/18 Unknown Previous Rx's Medication Instructions Recorded Last Taken Type Aspirin [Aspirin BABY CHEW TAB] 81 mg PO QDAY #30 tab.chew 03/13/18 Unknown Rx AtorvaSTATin [Lipitor] 40 mg PO QHS #30 tablet 03/13/18 Unknown Rx Clopidogrel [Plavix] 75 mg PO QDAY #30 tablet 03/13/18 Unknown Rx ISOSORBIDE MONOnitrate [Imdur ER] 30 mg PO QDAY #30 tablet 03/13/18 Unknown Rx amLODIPine [Norvasc] 10 mg PO QDAY #30 tablet 03/13/18 Unknown Rx cloNIDine [Catapres] 0.1 mg PO Q8HR #90 tablet 03/13/18 Unknown Rx hydrALAZINE [Apresoline TAB] 50 mg PO Q8HR #90 tablet 03/13/18 Unknown Rx Dicyclomine [Bentyl] 20 mg PO QID PRN #20 tablet 05/30/18 Unknown Rx Diphenoxylate HCl/Atropine 1 each PO BID #20 tablet 05/30/18 Unknown Rx [Lomotil 2.5-0.025 mg Tablet] Allergies Allergy/AdvReac Type Severity Reaction Status Date / Time gabapentin Allergy Seizure Verified 03/04/18 04:31 labetalol AdvReac Unknown Verified 12/01/15 07:51 ED Review of Systems ROS: Stated complaint: RECTAL PAIN Other details as noted in HPI Comment: All other systems reviewed and negative Constitutional: denies: chills, fever Gastrointestinal: abdominal pain, nausea, diarrhea ED Past Medical Hx - Past Medical History Previous Medical History?: Yes Hx Hypertension: Yes Hx Congestive Heart Failure: Yes Hx Diabetes: Yes Hx Renal Disease: Yes (w/ HD Sunday, , Sunday) Hx Arthritis: Yes Hx Asthma: Yes Hx COPD: No Additional medical history: heart murmur - Surgical History Past Surgical History?: Yes Hx Cholecystectomy: (gallstones removed) Additional Surgical History: Fistula Left Upper arm.--old. fistula right upper arm. bowel obstruction - Social History Smoking Status: Current Some Day Smoker Substance Use Type: None - Medications Home Medications: Home Medications Medication Instructions Recorded Confirmed Last Taken Type Albuterol Sulfate [Ventolin HFA] 90 mcg IH Q6H PRN 01/28/15 03/04/18 04/02/15 History Calcium Acetate [Phoslo] 667 mg PO TID 12/18/17 03/04/18 Unknown History Carvedilol 25 mg PO BID 12/18/17 03/04/18 Unknown History Sevelamer Carbonate 800 mg PO TID 03/04/18 03/04/18 Unknown History Aspirin [Aspirin BABY CHEW TAB] 81 mg PO QDAY #30 tab.chew 03/13/18 Unknown Rx AtorvaSTATin [Lipitor] 40 mg PO QHS #30 tablet 03/13/18 Unknown Rx Clopidogrel [Plavix] 75 mg PO QDAY #30 tablet 03/13/18 Unknown Rx ISOSORBIDE MONOnitrate [Imdur ER] 30 mg PO QDAY #30 tablet 03/13/18 Unknown Rx amLODIPine [Norvasc] 10 mg PO QDAY #30 tablet 03/13/18 Unknown Rx cloNIDine [Catapres] 0.1 mg PO Q8HR #90 tablet 03/13/18 Unknown Rx hydrALAZINE [Apresoline TAB] 50 mg PO Q8HR #90 tablet 03/13/18 Unknown Rx Dicyclomine [Bentyl] 20 mg PO QID PRN #20 tablet 05/30/18 Unknown Rx Diphenoxylate HCl/Atropine 1 each PO BID #20 tablet 05/30/18 Unknown Rx [Lomotil 2.5-0.025 mg Tablet] ED Physical Exam - General Limitations: Other General appearance: alert, in no apparent distress - Head Head exam: Present: atraumatic, normocephalic - Eye Eye exam: Present: normal appearance - ENT ENT exam: Present: mucous membranes moist - Neck Neck exam: Present: normal inspection - Respiratory Respiratory exam: Present: normal lung sounds bilaterally. Absent: respiratory distress - Cardiovascular Cardiovascular Exam: Present: regular rate, normal rhythm - GI/Abdominal GI/Abdominal exam: Present: soft. Absent: distended, tenderness - Extremities Exam Extremities exam: Present: normal inspection - Neurological Exam Neurological exam: Present: alert, oriented X3 - Psychiatric Psychiatric exam: Present: normal affect, normal mood - Skin Skin exam: Present: warm, dry, intact, normal color ED Course Vital Signs 05/30/18 05/30/18 05/30/18 11:04 11:15 11:16 Temperature 98.0 F Pulse Rate 75 70 Respiratory 12 14 Rate Blood Pressure 187/68 187/68 187/68 O2 Sat by Pulse 98 95 Oximetry 05/30/18 05/30/18 05/30/18 11:30 11:46 12:52 Temperature Pulse Rate 70 72 69 Respiratory 11 L 15 15 Rate Blood Pressure 219/101 209/80 O2 Sat by Pulse 98 98 98 Oximetry ED Medical Decision Making - Lab Data Result diagrams: 05/30/18 13:05 05/30/18 13:05 - Medical Decision Making 62-year-old female with history of ESRD presents with diarrhea 2 months. Labs unremarkable. Patient reports intermittent abdominal cramping, however abdomen is nontender on exam. Lomotil given here in the ED since patient states no relief with Imodium. Will discharge with prescription for Lomotil and Bentyl. 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 Return precautions given. - Differential Diagnosis hypokalemia, dehydration, viral illness Critical care attestation.: If time is entered above; I have spent that time in minutes in the direct care of this critically ill patient, excluding procedure time. ED Disposition Clinical Impression: Diarrhea Disposition: DC-01 TO HOME OR SELFCARE Is pt being admited?: No Condition: Stable Instructions: Chronic Diarrhea (ED) Prescriptions: Dicyclomine [Bentyl] 20 mg PO QID PRN #20 tablet PRN Reason: abdominal pain Diphenoxylate HCl/Atropine [Lomotil 2.5-0.025 mg Tablet] 1 each PO BID #20 tablet Referrals: PRIMARY CARE, [Primary Care Provider] - 3-5 Days [facility] [Provider Group] - 3-5 Days Time of Disposition: 14:39
[2018-05-30 14:09] LABS: Albumin 3.9 g/dL (3.9-5); Calcium 8.7 mg/dL (8.4-10.2)
[2018-05-30] MEDS ORDERED: BENTYL IM ONE (14:18)
[2018-05-30 14:38] LABS: Basophils % (Manual) 0 % (0.0-1.8); Total Cells Counted 100
[2018-05-30 14:41] LABS: Anisocytosis 1+; Platelet Estimate Consistent w Auto; Poikilocytosis 1+
[2018-05-30] MEDS ORDERED: CATAPRES PO ONE (15:30)
[2018-05-30] MEDS ORDERED: CATAPRES ONE (15:34)
[2018-05-30 16:06] VITALS: BP 191/82
== END 2018-05-30 15:38 | disposition home or self-care (01) ==
LOC: ED 10:43
DX: R19.7 Diarrhea, unspecified (principal); R10.33 Periumbilical pain; I11.0 Hypertensive heart disease with heart failure; I50.9 Heart failure, unspecified; E11.9 Type 2 diabetes mellitus without complications; M19.90 Unspecified osteoarthritis, unspecified site; J45.909 Unspecified asthma, uncomplicated; F17.200 Nicotine dependence, unspecified, uncomplicated; Z88.8 Allergy status to other drugs, medicaments and biological substances
CPT/HCPCS: 36415; 80053; 85007; 85025; 96372; 99283; J0500

== ENCOUNTER 2018-06-20 02:26 | Inpatient (IN) | payer MEDICARE ==
[2018-06-20] MEDS ORDERED: MORPHINE IV ONE (03:28)
[2018-06-20] MEDS ORDERED: APRESOLINE IV ONE (03:28)
[2018-06-20] MEDS ORDERED: NITROSTAT SL PRN (03:28)
--- NOTE | 2018-06-20 03:29 | Emergency Department Report ---
ED General Adult HPI - General Chief complaint: Chest Pain Stated complaint: CHEST PAIN Time Seen by Provider: 06/20/18 02:50 Source: patient, EMS (ems notes not available at time of chart dictation), RN notes reviewed, old records reviewed Mode of arrival: Ambulatory Limitations: No Limitations - History of Present Illness Initial comments: This is a 63-year-old female. Past medical history includes end-stage renal disease, on dialysis, hypertensio n, heart disease with stent. Nephrology: Dr. Clayton Cardiology: [facility] cardiology The patient presents to the emergency room today with complaint of chest pain, cough, wheezing, shortness of breath. Symptoms are constant. This started at 11:00 yesterday evening. The chest pain is described as aching and burning, and does not radiate to the back, arms and neck. There is no vomiting. There is no diaphoresis. There is shortness of breath. Patient has taken aspirin recently. Patient was reportedly hypertensive, tachycardic, hypoxic in the waiting room. The patient reports that she is due for dialysis in the morning. The chest pain does not have exacerbating or relieving factors the patient is aware of, with the exception of deep breathing, and palpation, which worsened he r pain. -: Gradual, hour(s) Location: chest Radiation: non-radiation Severity scale (0 -10): 9 Quality: aching Consistency: other Improves with: other Worsens with: other Associated Symptoms: other - Related Data Home Medications Medication Instructions Recorded Confirmed Last Taken Albuterol Sulfate [Ventolin HFA] 90 mcg IH Q6H PRN 01/28/15 03/04/18 04/02/15 Calcium Acetate [Phoslo] 667 mg PO TID 12/18/17 03/04/18 Unknown Carvedilol 25 mg PO BID 12/18/17 03/04/18 Unknown Sevelamer Carbonate 800 mg PO TID 03/04/18 03/04/18 Unknown Previous Rx's Medication Instructions Recorded Last Taken Type Aspirin [Aspirin BABY CHEW TAB] 81 mg PO QDAY #30 tab.chew 03/13/18 Unknown Rx AtorvaSTATin [Lipitor] 40 mg PO QHS #30 tablet 03/13/18 Unknown Rx Clopidogrel [Plavix] 75 mg PO QDAY #30 tablet 03/13/18 Unknown Rx ISOSORBIDE MONOnitrate [Imdur ER] 30 mg PO QDAY #30 tablet 03/13/18 Unknown Rx amLODIPine [Norvasc] 10 mg PO QDAY #30 tablet 03/13/18 Unknown Rx cloNIDine [Catapres] 0.1 mg PO Q8HR #90 tablet 03/13/18 Unknown Rx hydrALAZINE [Apresoline TAB] 50 mg PO Q8HR #90 tablet 03/13/18 Unknown Rx Dicyclomine [Bentyl] 20 mg PO QID PRN #20 tablet 05/30/18 Unknown Rx Diphenoxylate HCl/Atropine 1 each PO BID #20 tablet 05/30/18 Unknown Rx [Lomotil 2.5-0.025 mg Tablet] Allergies Allergy/AdvReac Type Severity Reaction Status Date / Time gabapentin Allergy Seizure Verified 03/04/18 04:31 labetalol AdvReac Unknown Verified 12/01/15 07:51 ED Review of Systems ROS: Stated complaint: CHEST PAIN Other details as noted in HPI Constitutional: malaise, weakness Eyes: denies: vision change ENT: congestion Respiratory: shortness of breath Cardiovascular: chest pain, edema Gastrointestinal: denies: nausea, vomiting Genitourinary: denies: dysuria Musculoskeletal: denies: back pain Skin: denies: lesions Neurological: weakness Psychiatric: anxiety ED Past Medical Hx - Past Medical History Previous Medical History?: Yes Hx Hypertension: Yes Hx Congestive Heart Failure: Yes Hx Diabetes: Yes Hx Renal Disease: Yes (w/ HD Sunday, , Sunday) Hx Arthritis: Yes Hx Asthma: Yes Hx COPD: No Additional medical history: heart murmur - Surgical History Past Surgical History?: Yes Hx Cholecystectomy: (gallstones removed) Additional Surgical History: Fistula Left Upper arm.--old. fistula right upper arm. bowel obstruction - Social History Smoking Status: Former Smoker Substance Use Type: None - Medications Home Medications: Home Medications Medication Instructions Recorded Confirmed Last Taken Type Albuterol Sulfate [Ventolin HFA] 90 mcg IH Q6H PRN 01/28/15 03/04/18 04/02/15 History Calcium Acetate [Phoslo] 667 mg PO TID 12/18/17 03/04/18 Unknown History Carvedilol 25 mg PO BID 12/18/17 03/04/18 Unknown History Sevelamer Carbonate 800 mg PO TID 03/04/18 03/04/18 Unknown History Aspirin [Aspirin BABY CHEW TAB] 81 mg PO QDAY #30 tab.chew 03/13/18 Unknown Rx AtorvaSTATin [Lipitor] 40 mg PO QHS #30 tablet 03/13/18 Unknown Rx Clopidogrel [Plavix] 75 mg PO QDAY #30 tablet 03/13/18 Unknown Rx ISOSORBIDE MONOnitrate [Imdur ER] 30 mg PO QDAY #30 tablet 03/13/18 Unknown Rx amLODIPine [Norvasc] 10 mg PO QDAY #30 tablet 03/13/18 Unknown Rx cloNIDine [Catapres] 0.1 mg PO Q8HR #90 tablet 03/13/18 Unknown Rx hydrALAZINE [Apresoline TAB] 50 mg PO Q8HR #90 tablet 03/13/18 Unknown Rx Dicyclomine [Bentyl] 20 mg PO QID PRN #20 tablet 05/30/18 Unknown Rx Diphenoxylate HCl/Atropine 1 each PO BID #20 tablet 05/30/18 Unknown Rx [Lomotil 2.5-0.025 mg Tablet] ED Physical Exam - General Limitations: No Limitations General appearance: alert, anxious, in distress - Head Head exam: Present: atraumatic, normocephalic - Eye Eye exam: Present: normal appearance, EOMI. Absent: nystagmus - ENT ENT exam: Present: normal orophraynx, mucous membranes moist, normal external ear exam - Neck Neck exam: Present: normal inspection, full ROM. Absent: tenderness, men ingismus - Respiratory Respiratory exam: Present: decreased breath sounds. Absent: wheezes, rhonchi, stridor - Cardiovascular Cardiovascular Exam: Present: normal rhythm, tachycardia, normal heart sounds. Absent: systolic murmur, diastolic murmur, rubs, gallop - GI/Abdominal GI/Abdominal exam: Present: soft. Absent: distended, tenderness, guarding, rebound, rigid, pulsatile mass - Extremities Exam Extremities exam: Present: normal inspection (right upper extremity graft, with no redness, pus or streaking.), full ROM, pedal edema, other (2+ pulses noted in the bilateral upper, lower extremities. Compartments soft. No long bony tende rness. The pelvis is stable.). Absent: tenderness, calf tenderness - Back Exam Back exam: Present: normal inspection, full ROM. Absent: tenderness, CVA tender ness (R), paraspinal tenderness, vertebral tenderness - Neurological Exam Neurological exam: Present: alert, other (Extraocular movements intact. Tongue midline. No facial droop. Facial sensation intact to light touch in the V1, V2, V3 distribution bilaterally. 5 and 5 strength in 4 extremities.. Sensation is intact to light touch in 4 extremities.). Absent: motor sensory deficit - Psychiatric Psychiatric exam: Present: anxious - Skin Skin exam: Present: warm, dry, intact, normal color. Absent: rash ED Course Vital Signs 06/20/18 06/20/18 06/20/18 02:50 02:51 03:01 Temperature 97.9 F Pulse Rate 109 H 81 79 Respiratory 24 17 24 Rate Blood Pressure 248/112 220/98 213/90 O2 Sat by Pulse 84 98 99 Oximetry 06/20/18 06/20/18 06/20/18 03:11 03:21 03:31 Temperature Pulse Rate 77 83 80 Respiratory 24 23 24 Rate Blood Pressure 213/90 216/97 216/97 O2 Sat by Pulse 100 99 Oximetry 06/20/18 06/20/18 06/20/18 03:41 03:51 04:01 Temperature Pulse Rate 79 81 78 Respiratory 18 26 H 24 Rate Blood Pressure 220/98 220/98 226/105 O2 Sat by Pulse 99 99 99 Oximetry 06/20/18 06/20/18 04:06 04:07 Temperature Pulse Rate 83 Respiratory 16 Rate Blood Pressure 226/105 O2 Sat by Pulse 100 Oximetry - Reevaluation(s) Reevaluation #1: 06/20/18 05:08 Differential diagnosis, including not limited to: Asthma exacerbation, COPD exacerbation, pneumonia, pulmonary embolus, hypertensive urgency, emergency, hyperkalemia, acute coronary syndrome, aortic disease Assessment and plan: 63-year-old female with chest pain, cough, reported wheezing, shortness of breath. She is hypoxic, tachycardic, has diminished breath sounds bilaterally, with no crackles or rales, has bilateral JVD, and also has known history of coronary artery disease. X-ray the chest suggest possible pneumonia versus infiltrate. We'll treat the patient empirically with albuterol, Atrovent, steroids, hydralazine, appropriate antibiotics, and aspirin. CT scan of the chest showed no pulmonary embolus. Discussed with private canteen operator, Dr. Rutherford, who will following consultation and arrange dialysis. Hospital physician is P arrange admission. Reevaluation #2: 06/20/18 05:12 The Hospital physician, Dr. Levy, has accepted the patient to the medical service. - EJ/Peripheral Line Neck L Time Out Performed: Yes Indications: nurses unable to establis Skin Cleansed in Sterile Fashion: Yes Size: 20 Dressing Placed: Tegaderm Patient Tolerated Procedure: well ED Medical Decision Making - Lab Data Result diagrams: 06/20/18 04:02 06/20/18 04:02 Vital Signs (72 hours) 06/20/18 06/20/18 06/20/18 02:50 02:51 03:01 Temperature 97.9 F Pulse Rate 109 H 81 79 Respiratory 24 17 24 Rate Blood Pressure 248/112 220/98 213/90 O2 Sat by Pulse 84 98 99 Oximetry 06/20/18 06/20/18 06/20/18 03:11 03:21 03:31 Temperature Pulse Rate 77 83 80 Respiratory 24 23 24 Rate Blood Pressure 213/90 216/97 216/97 O2 Sat by Pulse 100 99 Oximetry 06/20/18 06/20/18 06/20/18 03:41 03:51 04:01 Temperature Pulse Rate 79 81 78 Respiratory 18 26 H 24 Rate Blood Pressure 220/98 220/98 226/105 O2 Sat by Pulse 99 99 99 Oximetry 06/20/18 06/20/18 04:06 04:07 Temperature Pulse Rate 83 Respiratory 16 Rate Blood Pressure 226/105 O2 Sat by Pulse 100 Oximetry - EKG Data -: EKG Interpreted by Ks EKG shows normal: sinus rhythm - EKG Data 06/20/18 05:08 Sinus, 96 bpm, QTC prolonged, left axis deviation, atrial enlargement, left ventricular hypertrophy, left anterior fascicular block, abnormal EKG, poor R- wave progression, not consistent with ST elevation myocardial infarction, appears grossly unchanged when compared to prior EKG from 2017. - Radiology Data Radiology results: report reviewed, image reviewed X-ray of the chest suggest right lower lobe infiltrate versus pulmonary vascular congestion, enlarged cardiac silhouette noted. CT scan of the chest shows chronic emphysematous changes, no pulmonary emboli, atelectasis also noted. Critical care attestation.: If time is entered above; I have spent that time in minutes in the direct care of this critically ill patient, excluding procedure time. ED Disposition Clinical Impression: ESRD (end stage renal disease) on dialysis, Chest pain, Hypervolemia, Hypertensive urgency, COPD exacerbation Disposition: OP ADMIT IP TO THIS HOSP Is pt being admited?: Yes Does the pt Need Aspirin: Yes Condition: Fair Instructions: Chest Pain (ED), Chronic Obstructive Pulmonary Disease (ED) Referrals: JAGDISH ADHIKARI MD [Primary Care Provider] - 3-5 Days
--- NOTE | 2018-06-20 03:56 | XRay Report ---
PROCEDURE: XR CHEST 1V AP TECHNIQUE: A portable upright view of the chest was obtained. HISTORY: Chest Pain COMPARISONS: 03/04/2018 FINDINGS: The heart is mildly enlarged. The lungs are not congested. There is patchy airspace disease in the ri ght lung base. Pleural fluid is not seen. The skeletal structures do not show any acute changes. IMPRESSION: Cardiomegaly. Nonspecific patchy airspace disease in the right lung base. No evidence of vascular con gestion otherwise.. This document is electronically signed by Nikolas Joyner MD., June 20 2018 03:53:57 AM ET
[2018-06-20] MEDS ORDERED: LEVAQUIN 500MG/100ML 500 MG/100 ML BAG IV ONE (04:34)
[2018-06-20 04:41] LABS: Basophils % (Auto) 0.3 % (0.0-1.8); Eosinophils % (Auto) 0.8 % (0.0-4.3); Hematocrit 34.6 % (30.3-42.9); Hemoglobin 11.5 gm/dl (10.1-14.3); Lymphocytes # (Auto) 0.7 K/mm3 (1.2-5.4); Lymphocytes % (Auto) 16.3 % (13.4-35.0); Mean Corpuscular HGB Conc 33 % (30-34); Mean Corpuscular Volume 100 fl (79-97); Monocytes # (Auto) 0.5 K/mm3 (0.0-0.8); Platelet Count 185 K/mm3 (140-440); Red Blood Count 3.47 M/mm3 (3.65-5.03); Red Cell Distribution Width 17.5 % (13.2-15.2)
[2018-06-20 04:49] LABS: INR 1.06 (0.87-1.13)
--- NOTE | 2018-06-20 05:06 | Cat Scan Report ---
PROCEDURE: CT ANGIO CHEST TECHNIQUE: Computerized tomographic angiography of the chest was performed after the IV injection of iodinated nonionic contrast including image processing. The image data was postprocessed using 2-di mensional multiplanar reformatted (MPR) and 3-dimensional (MIP and/or volume rendered) techniques. Au tomated exposure control, adjustment of mA and/or kV according to patient size, or iterative reconstr uction dose optimization techniques were utilized. CT DOSE LENGTH PRODUCT: 662.1 mGycm HISTORY: cp dyspnea htn COMPARISONS: None . FINDINGS: Heart and pericardium: Normal. Thoracic aorta: There is moderate atherosclerosis of the thoracic aorta. Pulmonary vasculature: There is no evidence of pulmonary arterial emboli. Lymph nodes: There are lymph nodes in the mediastinum is measure up to 12 mm. Lungs: COPD with mild underlying fibrosis. There is atelectasis in both lower lungs. Mild pleural th ickening bilateral lower lungs.. Pleural space: There is a mild right effusion. There is no evidence of pneumothorax. Musculoskeletal structures: Mild degenerative changes of the spine. Upper abdominal structures: No significant abnormality. IMPRESSION: COPD with mild underlying fibrosis. There is atelectasis in both lower lungs. Mild pleur al thickening and effusion right lower lung. There is no evidence of pulmonary arterial emboli . This document is electronically signed by Lexi Urrutia DO., June 20 2018 05:04:48 AM ET
[2018-06-20] MEDS ORDERED: SOLU-Medrol IV ONE (05:07)
[2018-06-20] MEDS ORDERED: PROVENTIL IH ONE (05:07)
[2018-06-20] MEDS ORDERED: ATROVENT IH ONE (05:07)
[2018-06-20] MEDS ORDERED: BABY ASPIRIN PO ONE (05:13)
[2018-06-20] MEDS ORDERED: APRESOLINE IV PRN ×2 (07:00→22:31)
[2018-06-20] MEDS ORDERED: PROAIR IH PRN (07:28)
[2018-06-20] MEDS ORDERED: BENTYL PO PRN (07:28)
[2018-06-20] MEDS ORDERED: SODIUM CHLORIDE FLUSH SYRINGE 10 ML IV PRN (07:30)
[2018-06-20] MEDS ORDERED: PROVENTIL IH PRN (07:30)
[2018-06-20] MEDS ORDERED: TYLENOL PO PRN (08:00)
[2018-06-20] MEDS ORDERED: APRESOLINE ONE (08:28)
[2018-06-20] MEDS ORDERED: CATAPRES ONE (08:28)
[2018-06-20] MEDS ORDERED: LASIX IV ONE (08:30)
[2018-06-20] MEDS ORDERED: LASIX ONE (08:32)
[2018-06-20] MEDS: CATAPRES PO SCH ×3 (08:34→22:04)
[2018-06-20] MEDS: APRESOLINE PO SCH ×2 (08:34→13:42)
[2018-06-20] MEDS ORDERED: NACL 0.9% 100 ML IV PRN (09:47)
--- NOTE | 2018-06-20 09:47 | Consultation ---
History of Present Illness - Reason for Consult Consult date: 06/20/18 end stage renal disease - History of Present Illness Mrs. Pinon is a 63yo with ESRD on HD TTS and CAD who presented to the ED with complaint of chest pain and SOB. She reports nonproductive cough. She denies fever, chills, nausea and vomiting. She reports compliance with dialysis and states that she last dialyzed on . Dialysis treatment was uneventful. Past History Past Medical History: CAD, ESRD, hypertension, hyperlipidemia Past Surgical History: cholecystectomy, Other (AVF creation) Social history: no significant social history Family history: no significant family history Medications and Allergies Allergies Allergy/AdvReac Type Severity Reaction Status Date / Time gabapentin Allergy Seizure Verified 03/04/18 04:31 labetalol AdvReac Unknown Verified 12/01/15 07:51 Home Medications Medication Instructions Recorded Confirmed Last Taken Type Albuterol Sulfate [Ventolin HFA] 90 mcg IH Q6H PRN 01/28/15 06/20/18 04/02/15 History Calcium Acetate [Phoslo] 667 mg PO TID 12/18/17 06/20/18 Unknown History Carvedilol 25 mg PO BID 12/18/17 06/20/18 Unknown History Sevelamer Carbonate 800 mg PO TID 03/04/18 06/20/18 Unknown History Aspirin [Aspirin BABY CHEW TAB] 81 mg PO QDAY #30 tab.chew 03/13/18 06/20/18 Unknown Rx AtorvaSTATin [Lipitor] 40 mg PO QHS #30 tablet 03/13/18 06/20/18 Unknown Rx Clopidogrel [Plavix] 75 mg PO QDAY #30 tablet 03/13/18 06/20/18 Unknown Rx amLODIPine [Norvasc] 10 mg PO QDAY #30 tablet 03/13/18 06/20/18 Unknown Rx cloNIDine [Catapres] 0.1 mg PO Q8HR #90 tablet 03/13/18 06/20/18 Unknown Rx hydrALAZINE [Apresoline TAB] 50 mg PO Q8HR #90 tablet 03/13/18 06/20/18 Unknown Rx Diphenoxylate HCl/Atropine 1 each PO BID #20 tablet 05/30/18 06/20/18 Unknown Rx [Lomotil 2.5-0.025 mg Tablet] Gabapentin [Neurontin] 300 mg PO Q8HR 06/20/18 06/20/18 Unknown History Losartan [Cozaar] 50 tab PO TID 06/20/18 06/20/18 Unknown History Active Meds: Active Medications Acetaminophen (Tylenol) 650 mg PO Q4H PRN PRN Reason: Pain MILD(1-3)/Fever >100.5/ADLER Albuterol (Proair) puff IH Q6H PRN PRN Reason: Anaphylaxis Albuterol (Proventil) 2.5 mg IH Q4HRT PRN PRN Reason: Shortness Of Breath Albuterol/Ipratropium (Duoneb *Not For Prn Use*) 1 ampul IH Q6HRT [facility] Amlodipine Besylate (Norvasc) 10 mg PO QDAY COUNT [facility]CLUDES [facility] Aspirin (Baby Aspirin) 81 mg PO QDAY COUNT [facility]CLUDES [facility] Atorvastatin Calcium (Lipitor) 40 mg PO QHS COUNT [facility]CLUDES [facility] Budesonide (Pulmicort) 0.5 mg IH Q12HRT COUNT [facility]CLUDES [facility] Calcium Acetate (Phoslo) 667 mg PO TID COUNT [facility]CLUDES [facility] Carvedilol (Coreg) 25 mg PO BID COUNT [facility]CLUD[facility] Clonidine HCl (Catapres) 0.1 mg PO Q8HR COUNT [facility]CLUD[facility] Last Admin: 06/20/18 08:34 Dose: 0.1 mg Documented by: Clopidogrel Bisulfate (Plavix) 75 mg PO QDAY COUNT [facility] Dicyclomine HCl (Bentyl) 20 mg PO QID PRN PRN Reason: abdominal pain Diphenoxylate HCl/Atropine (Lomotil) 1 tab PO BID COUNT [facility] Famotidine (Pepcid) 10 mg PO BID COUNT [facility]CLUD[facility] Heparin Sodium (Porcine) (Heparin) 5,000 unit SUB-Q Q12HR COUNT [facility]CLUDES [facility] Hydralazine HCl (Apresoline) 10 mg IV Q6H PRN PRN Reason: Hypertension Last Admin: 06/20/18 07:27 Dose: 10 mg Documented by: Hydralazine HCl (Apresoline) 50 mg PO Q8HR COUNT [facility]CLUD[facility] Last Admin: 06/20/18 08:34 Dose: 50 mg Documented by: Isosorbide Mononitrate (Imdur) 30 mg PO QDAY COUNT [facility]CLUDES [facility] Morphine Sulfate (Morphine) 2 mg IV Q4H PRN PRN Reason: Pain, Moderate (4-6) Nitroglycerin (Nitrostat) 0.4 mg SL .Q5MIN PRN PRN Reason: Chest Pain Ondansetron HCl (Zofran) 4 mg IV Q8H PRN PRN Reason: Nausea And Vomiting Sevelamer Carbonate (Renvela) 800 mg PO TID [facility] Sodium Chloride (Sodium Chloride Flush Syringe 10 Ml) 10 ml IV BID [facility] Sodium Chloride (Sodium Chloride Flush Syringe 10 Ml) 10 ml IV PRN PRN PRN Reason: LINE FLUSH Review of Systems All systems: negative Exam - Vital Signs Vital signs: Vital Signs Temp Pulse Resp BP Pulse Ox 97.9 F 109 H 24 248/112 84 06/20/18 02:50 06/20/18 02:50 06/20/18 02:50 06/20/18 02:50 06/20/18 02:50 - General Appearance General appearance: well-developed, well-nourished EENT: ATNC Respiratory: Decreased Breath Sounds Heart: regular, S1S2 Gastrointestinal: Present: normal. Absent: tenderness, distended Integumentary: no rash, warm and dry Neurologic: no focal deficit Musculoskeletal: Present: other (no edema) Psychiatric: cooperative Results - Lab Results 06/20/18 04:02 06/20/18 04:02 Most recent lab results Calcium 8.0 mg/dL (8.4-10.2) L 06/20/18 04:02 Magnesium 1.90 mg/dL (1.7-2.3) 06/20/18 04:02 Assessment and Plan Impression: * End stage renal disease on HD TTS * Chest pain * Hypertension * Anemia secondary to ESRD * Secondary hyperparathyroidism Plan: * Hemodialysis today * UF as tolerated * Continue TTS schedule * Note plans for cardiology and pulm consults * Resume home antiHTN medications * Renal diet * Binders with meals * Epogent TIW prn
[2018-06-20] MEDS ORDERED: NORVASC PO SCH (10:00)
--- NOTE | 2018-06-20 10:31 | Consultation ---
History of Present Illness Consult date: 06/20/18 Consult reason: chest pain History of present illness: Patient is a 63 year old woman with multiple medical problems She has a history of coronary artery disease and 3 months ago was hospitalized with ACS. A cardiac cath showed stenosis of the LAD in its proximal and mid segments. There was a severe in-stent restenosis of the proximal vessel. Patient underwent successful angioplasty and stenting of the proximal and mid segments of the left anterior descending artery using drug eluting stents. Ejection fraction 55%. She has end stage renal disease and is on dialysis. She has chronic hypertension and COPD. Patient presents to the emergency department with complaints of chest pain, shortness of breath with coughs and congestion. Cardiac consultation requested. Patient admits to compliance with plavix and aspirin. She has not missed any dialysis sessions. Chest x-ray reports right lower lung infiltrate. No acute ischemic changes on her presenting EKG. Medications and Allergies Allergies Allergy/AdvReac Type Severity Reaction Status Date / Time gabapentin Allergy Seizure Verified 03/04/18 04:31 labetalol AdvReac Unknown Verified 12/01/15 07:51 Home Medications Medication Instructions Recorded Confirmed Last Taken Type Albuterol Sulfate [Ventolin HFA] 90 mcg IH Q6H PRN 01/28/15 06/20/18 04/02/15 History Calcium Acetate [Phoslo] 667 mg PO TID 12/18/17 06/20/18 Unknown History Carvedilol 25 mg PO BID 12/18/17 06/20/18 Unknown History Sevelamer Carbonate 800 mg PO TID 03/04/18 06/20/18 Unknown History Aspirin [Aspirin BABY CHEW TAB] 81 mg PO QDAY #30 tab.chew 03/13/18 06/20/18 Unknown Rx AtorvaSTATin [Lipitor] 40 mg PO QHS #30 tablet 03/13/18 06/20/18 Unknown Rx Clopidogrel [Plavix] 75 mg PO QDAY #30 tablet 03/13/18 06/20/18 Unknown Rx amLODIPine [Norvasc] 10 mg PO QDAY #30 tablet 03/13/18 06/20/18 Unknown Rx cloNIDine [Catapres] 0.1 mg PO Q8HR #90 tablet 03/13/18 06/20/18 Unknown Rx hydrALAZINE [Apresoline TAB] 50 mg PO Q8HR #90 tablet 03/13/18 06/20/18 Unknown Rx Diphenoxylate HCl/Atropine 1 each PO BID #20 tablet 05/30/18 06/20/18 Unknown Rx [Lomotil 2.5-0.025 mg Tablet] Gabapentin [Neurontin] 300 mg PO Q8HR 06/20/18 06/20/18 Unknown History Losartan [Cozaar] 50 tab PO TID 06/20/18 06/20/18 Unknown History Active Meds: Active Medications Acetaminophen (Tylenol) 650 mg PO Q4H PRN PRN Reason: Pain MILD(1-3)/Fever >100.5/ADLER Albuterol (Proair) puff IH Q6H PRN PRN Reason: Anaphylaxis Albuterol (Proventil) 2.5 mg IH Q4HRT PRN PRN Reason: Shortness Of Breath Albuterol/Ipratropium (Duoneb *Not For Prn Use*) 1 ampul IH Q6HRT [facility] Amlodipine Besylate (Norvasc) 10 mg PO QDAY [facility] Aspirin (Baby Aspirin) 81 mg PO QDAY [facility] Atorvastatin Calcium (Lipitor) 40 mg PO QHS [facility] Budesonide (Pulmicort) 0.5 mg IH Q12HRT [facility] Calcium Acetate (Phoslo) 667 mg PO TID [facility] Carvedilol (Coreg) 25 mg PO BID [facility] Clonidine HCl (Catapres) 0.1 mg PO Q8HR [facility] Last Admin: 06/20/18 08:34 Dose: 0.1 mg Documented by: Clopidogrel Bisulfate (Plavix) 75 mg PO QDAY [facility] Dicyclomine HCl (Bentyl) 20 mg PO QID PRN PRN Reason: abdominal pain Diphenoxylate HCl/Atropine (Lomotil) 1 tab PO BID [facility] Famotidine (Pepcid) 10 mg PO BID [facility] Heparin Sodium (Porcine) (Heparin) 5,000 unit SUB-Q Q12HR [facility] Hydralazine HCl (Apresoline) 10 mg IV Q6H PRN PRN Reason: Hypertension Last Admin: 06/20/18 07:27 Dose: 10 mg Documented by: Hydralazine HCl (Apresoline) 50 mg PO Q8HR [facility] Last Admin: 06/20/18 08:34 Dose: 50 mg Documented by: Sodium Chloride (Nacl 0.9%) 100 mls @ 999 mls/hr IV COTY PRN PRN Reason: Hypotension Isosorbide Mononitrate (Imdur) 30 mg PO QDAY [facility] Morphine Sulfate (Morphine) 2 mg IV Q4H PRN PRN Reason: Pain, Moderate (4-6) Nitroglycerin (Nitrostat) 0.4 mg SL .Q5MIN PRN PRN Reason: Chest Pain Ondansetron HCl (Zofran) 4 mg IV Q8H PRN PRN Reason: Nausea And Vomiting Sevelamer Carbonate (Renvela) 800 mg PO TID [facility] Sodium Chloride (Sodium Chloride Flush Syringe 10 Ml) 10 ml IV BID [facility] Sodium Chloride (Sodium Chloride Flush Syringe 10 Ml) 10 ml IV PRN PRN PRN Reason: LINE FLUSH Physical Examination Vital Signs Temp Pulse Resp BP Pulse Ox 97.9 F 109 H 24 248/112 84 06/20/18 02:50 06/20/18 02:50 06/20/18 02:50 06/20/18 02:50 06/20/18 02:50 General appearance: no acute distress HEENT: Positive: PERRL Cardiac: Positive: Reg Rate and Rhythm Lungs: Positive: Decreased Breath Sounds Neuro: Positive: Grossly Intact Extremities: Absent: edema Results 06/20/18 04:02 06/20/18 04:02 Coagulation 06/20/18 Range/Units 04:02 PT 14.5 (12.2-14.9) Sec. INR 1.06 (0.87-1.13) CBC 06/20/18 Range/Units 04:02 WBC 4.3 L (4.5-11.0) K/mm3 RBC 3.47 L (3.65-5.03) M/mm3 Hgb 11.5 (10.1-14.3) gm/dl Hct 34.6 (30.3-42.9) % Plt Count 185 (140-440) K/mm3 Lymph # 0.7 L (1.2-5.4) K/mm3 [place] # 0.5 (0.0-0.8) K/mm3 Eos # 0.0 (0.0-0.4) K/mm3 Baso # 0.0 (0.0-0.1) K/mm3 Comprehensive Metabolic Panel 06/20/18 Range/Units 04:02 Sodium 138 (137-145) mmol/L Potassium 4.6 (3.6-5.0) mmol/L Chloride 95.2 L (98-107) mmol/L Carbon Dioxide 22 (22-30) mmol/L BUN 47 H (7-17) mg/dL Creatinine 9.0 H (0.7-1.2) mg/dL Glucose 157 H (65-100) mg/dL Calcium 8.0 L (8.4-10.2) mg/dL Assessment and Plan Pneumonia Chest pain, atypical History of CAD s/p PCI of the proximal and mid segments of the left anterior descending artery using drug eluting stents 02/2018 on plavix and aspirin ESRD on HD Hypertension Type II DM Hyperlipidemia Echocardiogram 02/2018 showed normal left ventricular systolic function, ejection fraction 60-65%. Recommend: Medical therapy for coronary artery disease. Otherwise conservative cardiac management.
[2018-06-20] MEDS: RENVELA PO SCH ×3 (10:53→22:03)
[2018-06-20] MEDS: DUONEB *Not for PRN Use IH SCH ×2 (13:30→23:36)
[2018-06-20] MEDS: PULMICORT IH SCH ×2 (13:35→23:36)
[2018-06-20] MEDS: PEPCID PO SCH (13:42)
[2018-06-20] MEDS: PLAVIX PO SCH (13:42)
[2018-06-20] MEDS: HEPARIN SUB-Q SCH ×2 (13:42→22:07)
[2018-06-20] MEDS: PHOSLO PO SCH ×3 (13:42→22:04)
[2018-06-20] MEDS: COREG PO SCH ×2 (13:43→22:04)
[2018-06-20] MEDS: IMDUR PO SCH (13:43)
[2018-06-20] MEDS: LOMOTIL PO SCH ×2 (13:43→22:04)
[2018-06-20] MEDS: SODIUM CHLORIDE FLUSH SYRINGE 10 ML IV SCH ×2 (13:43→22:05)
--- NOTE | 2018-06-20 15:04 | Consultation ---
History of Present Illness Consult date: 06/20/18 Requesting physician: MARILU SHARP Reason for consult: COPD History of present illness: 63 y/o female with chest pain and shortness of breath. Per patient does not currently smoke and when she did smoke, it was only about 3-4 months. She has never seen a lung physician. She has never been told that she has underlying lung disease. CTA was done which was negative for PE but read as COPD with underlying fibrosis. I have reviewed the images and do not agree with this read. Medications and Allergies Allergies Allergy/AdvReac Type Severity Reaction Status Date / Time gabapentin Allergy Seizure Verified 03/04/18 04:31 labetalol AdvReac Unknown Verified 12/01/15 07:51 Home Medications Medication Instructions Recorded Confirmed Last Taken Type Albuterol Sulfate [Ventolin HFA] 90 mcg IH Q6H PRN 01/28/15 06/20/18 04/02/15 History Calcium Acetate [Phoslo] 667 mg PO TID 12/18/17 06/20/18 Unknown History Carvedilol 25 mg PO BID 12/18/17 06/20/18 Unknown History Sevelamer Carbonate 800 mg PO TID 03/04/18 06/20/18 Unknown History Aspirin [Aspirin BABY CHEW TAB] 81 mg PO QDAY #30 tab.chew 03/13/18 06/20/18 Unknown Rx AtorvaSTATin [Lipitor] 40 mg PO QHS #30 tablet 03/13/18 06/20/18 Unknown Rx Clopidogrel [Plavix] 75 mg PO QDAY #30 tablet 03/13/18 06/20/18 Unknown Rx amLODIPine [Norvasc] 10 mg PO QDAY #30 tablet 03/13/18 06/20/18 Unknown Rx cloNIDine [Catapres] 0.1 mg PO Q8HR #90 tablet 03/13/18 06/20/18 Unknown Rx hydrALAZINE [Apresoline TAB] 50 mg PO Q8HR #90 tablet 03/13/18 06/20/18 Unknown Rx Diphenoxylate HCl/Atropine 1 each PO BID #20 tablet 05/30/18 06/20/18 Unknown Rx [Lomotil 2.5-0.025 mg Tablet] Gabapentin [Neurontin] 300 mg PO Q8HR 06/20/18 06/20/18 Unknown History Losartan [Cozaar] 50 tab PO TID 06/20/18 06/20/18 Unknown History Active Meds: Active Medications Acetaminophen (Tylenol) 650 mg PO Q4H PRN PRN Reason: Pain MILD(1-3)/Fever >100.5/ADLER Albuterol (Proventil) 2.5 mg IH Q4HRT PRN PRN Reason: Shortness Of Breath Albuterol/Ipratropium (Duoneb *Not For Prn Use*) 1 ampul IH Q6HRT [facility] Last Admin: 06/20/18 13:30 Dose: 1 ampul Documented by: Amlodipine Besylate (Norvasc) 10 mg PO QDAY [facility] Last Admin: 06/20/18 10:54 Dose: 10 mg Documented by: Aspirin (Baby Aspirin) 81 mg PO QDAY [facility] Atorvastatin Calcium (Lipitor) 40 mg PO QHS [facility] Budesonide (Pulmicort) 0.5 mg IH Q12HRT [facility] Last Admin: 06/20/18 13:35 Dose: Not Given Documented by: Calcium Acetate (Phoslo) 667 mg PO TID [facility] Last Admin: 06/20/18 14:24 Dose: Not Given Documented by: Carvedilol (Coreg) 25 mg PO BID [facility] Last Admin: 06/20/18 13:43 Dose: 25 mg Documented by: Clonidine HCl (Catapres) 0.1 mg PO Q8HR [facility] Last Admin: 06/20/18 13:42 Dose: 0.1 mg Documented by: Clopidogrel Bisulfate (Plavix) 75 mg PO QDAY [facility] Last Admin: 06/20/18 13:42 Dose: 75 mg Documented by: Dicyclomine HCl (Bentyl) 20 mg PO QID PRN PRN Reason: abdominal pain Diphenoxylate HCl/Atropine (Lomotil) 1 tab PO BID [facility] Last Admin: 06/20/18 13:43 Dose: 1 tab Documented by: Famotidine (Pepcid) 10 mg PO DAILY [facility] Last Admin: 06/20/18 13:42 Dose: 10 mg Documented by: Heparin Sodium (Porcine) (Heparin) 5,000 unit SUB-Q Q12HR [facility] Last Admin: 06/20/18 13:42 Dose: 5,000 unit Documented by: Hydralazine HCl (Apresoline) 10 mg IV Q6H PRN PRN Reason: Hypertension Last Admin: 06/20/18 07:27 Dose: 10 mg Documented by: Hydralazine HCl (Apresoline) 50 mg PO Q8HR [facility] Last Admin: 06/20/18 13:42 Dose: 50 mg Documented by: Sodium Chloride (Nacl 0.9%) 100 mls @ 999 mls/hr IV COTY PRN PRN Reason: Hypotension Isosorbide Mononitrate (Imdur) 30 mg PO QDAY [facility] Last Admin: 06/20/18 13:43 Dose: 30 mg Documented by: Morphine Sulfate (Morphine) 2 mg IV Q4H PRN PRN Reason: Pain, Moderate (4-6) Nitroglycerin (Nitrostat) 0.4 mg SL .Q5MIN PRN PRN Reason: Chest Pain Ondansetron HCl (Zofran) 4 mg IV Q8H PRN PRN Reason: Nausea And Vomiting Sevelamer Carbonate (Renvela) 800 mg PO TID [facility] Last Admin: 06/20/18 13:43 Dose: 800 mg Documented by: Sodium Chloride (Sodium Chloride Flush Syringe 10 Ml) 10 ml IV BID [facility] Last Admin: 06/20/18 13:43 Dose: 10 ml Documented by: Sodium Chloride (Sodium Chloride Flush Syringe 10 Ml) 10 ml IV PRN PRN PRN Reason: LINE FLUSH Review of Systems All systems: negative Physical Examination Vital signs: Vital Signs Temp Pulse Resp BP Pulse Ox 97.9 F 109 H 24 248/112 84 06/20/18 02:50 06/20/18 02:50 06/20/18 02:50 06/20/18 02:50 06/20/18 02:50 General appearance: no acute distress, alert ENT: oropharynx moist, other (edentulous) Neck: supple Effort: normal Ascultation: Bilateral: clear Percussion: Bilateral: not dull Tactile fremitus: Bilateral: normal Cardiovascular: regular rate and rhythm Gastrointestinal: normoactive bowel sounds, soft, non-tender Results - Laboratory Findings CBC and BMP: 06/22/18 04:25 06/22/18 04:25 PT/INR, D-dimer PT 14.5 Sec. (12.2-14.9) 06/20/18 04:02 INR 1.06 (0.87-1.13) 06/20/18 04:02 Abnormal lab findings: Abnormal Labs 06/20/18 06/20/18 06/20/18 04:02 04:02 04:02 WBC 4.3 L RBC 3.47 L MCV 100 H MCH 33 H RDW 17.5 H [place] % (Auto) 12.0 H Lymph # 0.7 L Seg Neutrophils % 70.6 H Chloride 95.2 L BUN 47 H Creatinine 9.0 H Glucose 157 H Calcium 8.0 L NT-Pro-B Natriuret Pep 36179 H - Diagnostic Findings Chest x-ray: image reviewed (What I see is diffuse ground glass with bibasilar atelectasis, I do not see any structural evidence of COPD or fibrosis) Assessment and Plan 63 y/o female with chest pain and shortness of breath with known cardiac disease 1. Patient with very limited smoke exposure, no history of COPD and I do not agree with rads read. Will ask radiology here to review imaging as well. 2. No indication for systemic steroids. 3. Ok with BID neb treatments for now and pRN therapies 4. Will continue to follow.
[2018-06-20] MEDS: CARDURA PO SCH (22:04)
[2018-06-20] MEDS: PROCARDIA XL PO SCH (22:04)
[2018-06-20] MEDS: MORPHINE IV PRN (22:04)
--- NOTE | 2018-06-20 22:14 | History and Physical Report ---
History of Present Illness Date of examination: 06/20/18 Date of admission: 06/20/18 06:51 Chief complaint: SHORTNESS OF BREATH History of present illness: Patient is A 63 year-old female with past medical history of end-stage renal disease, hypertension, CAD with cardiac cath which demonstrated a stenosis of the LAD in the proximal and mid segments status post PTCA with drug-eluting stents ejection fraction of 55% who presents to the ED today with complaints of shortness of breath that happened suddenly today followed by a few days of cough with mild congestion. She reports compliance with all her medical treatments including dual antiplatelet therapy. She denies any recent sick contacts since discharge from the hospital. She denies any fever nausea vomiting or diarrhea. She reports compliance with dialysis. She quit tobacco use many years ago. During her last hospitalization she was noted to have mild epistaxis which resolved with local pressure Past History Past Medical History: acute [place], CAD, COPD, hypertension Past Surgical History: Other (right upper extremity AV graft) Social history: denies: smoking (quit tobacco use few years ago) Family history: CAD Medications and Allergies Allergies Allergy/AdvReac Type Severity Reaction Status Date / Time gabapentin Allergy Seizure Verified 03/04/18 04:31 labetalol AdvReac Unknown Verified 12/01/15 07:51 Home Medications Medication Instructions Recorded Confirmed Last Taken Type Albuterol Sulfate [Ventolin HFA] 90 mcg IH Q6H PRN 01/28/15 06/20/18 04/02/15 History Calcium Acetate [Phoslo] 667 mg PO TID 12/18/17 06/20/18 Unknown History Carvedilol 25 mg PO BID 12/18/17 06/20/18 Unknown History Sevelamer Carbonate 800 mg PO TID 03/04/18 06/20/18 Unknown History Aspirin [Aspirin BABY CHEW TAB] 81 mg PO QDAY #30 tab.chew 03/13/18 06/20/18 Unknown Rx AtorvaSTATin [Lipitor] 40 mg PO QHS #30 tablet 03/13/18 06/20/18 Unknown Rx Clopidogrel [Plavix] 75 mg PO QDAY #30 tablet 03/13/18 06/20/18 Unknown Rx amLODIPine [Norvasc] 10 mg PO QDAY #30 tablet 03/13/18 06/20/18 Unknown Rx cloNIDine [Catapres] 0.1 mg PO Q8HR #90 tablet 03/13/18 06/20/18 Unknown Rx hydrALAZINE [Apresoline TAB] 50 mg PO Q8HR #90 tablet 03/13/18 06/20/18 Unknown Rx Diphenoxylate HCl/Atropine 1 each PO BID #20 tablet 05/30/18 06/20/18 Unknown Rx [Lomotil 2.5-0.025 mg Tablet] Gabapentin [Neurontin] 300 mg PO Q8HR 06/20/18 06/20/18 Unknown History Losartan [Cozaar] 50 tab PO TID 06/20/18 06/20/18 Unknown History Active Meds: Active Medications Acetaminophen (Tylenol) 650 mg PO Q4H PRN PRN Reason: Pain MILD(1-3)/Fever >100.5/ADLER Albuterol (Proventil) 2.5 mg IH Q4HRT PRN PRN Reason: Shortness Of Breath Albuterol/Ipratropium (Duoneb *Not For Prn Use*) 1 ampul IH Q6HRT [facility] Last Admin: 06/20/18 13:30 Dose: 1 ampul Documented by: Aspirin (Baby Aspirin) 81 mg PO QDAY [facility] Atorvastatin Calcium (Lipitor) 40 mg PO QHS [facility] Last Admin: 06/20/18 22:04 Dose: 40 mg Documented by: Budesonide (Pulmicort) 0.5 mg IH Q12HRT [facility] Last Admin: 06/20/18 13:35 Dose: Not Given Documented by: Calcium Acetate (Phoslo) 667 mg PO TID [facility] Last Admin: 06/20/18 22:04 Dose: 667 mg Documented by: Carvedilol (Coreg) 25 mg PO BID [facility] Last Admin: 06/20/18 22:04 Dose: 25 mg Documented by: Clonidine HCl (Catapres) 0.1 mg PO Q8HR [facility] Last Admin: 06/20/18 22:04 Dose: 0.1 mg Documented by: Clopidogrel Bisulfate (Plavix) 75 mg PO QDAY [facility] Last Admin: 06/20/18 13:42 Dose: 75 mg Documented by: Dicyclomine HCl (Bentyl) 20 mg PO QID PRN PRN Reason: abdominal pain Diphenoxylate HCl/Atropine (Lomotil) 1 tab PO BID [facility] Last Admin: 06/20/18 22:04 Dose: 1 tab Documented by: Doxazosin Mesylate (Cardura) 2 mg PO BID [facility] Last Admin: 06/20/18 22:04 Dose: 2 mg Documented by: Famotidine (Pepcid) 10 mg PO DAILY [facility] Last Admin: 06/20/18 13:42 Dose: 10 mg Documented by: Heparin Sodium (Porcine) (Heparin) 5,000 unit SUB-Q Q12HR [facility] Last Admin: 06/20/18 22:07 Dose: 5,000 unit Documented by: Hydralazine HCl (Apresoline) 10 mg IV Q6H PRN PRN Reason: Hypertension Last Admin: 06/20/18 07:27 Dose: 10 mg Documented by: Sodium Chloride (Nacl 0.9%) 100 mls @ 999 mls/hr IV COTY PRN PRN Reason: Hypotension Isosorbide Mononitrate (Imdur) 30 mg PO QDAY [facility] Last Admin: 06/20/18 13:43 Dose: 30 mg Documented by: Morphine Sulfate (Morphine) 2 mg IV Q4H PRN PRN Reason: Pain, Moderate (4-6) Last Admin: 06/20/18 22:04 Dose: 2 mg Documented by: Nifedipine (Procardia Xl) 90 mg PO QDAY [facility] Last Admin: 06/20/18 22:04 Dose: 90 mg Documented by: Nitroglycerin (Nitrostat) 0.4 mg SL .Q5MIN PRN PRN Reason: Chest Pain Ondansetron HCl (Zofran) 4 mg IV Q8H PRN PRN Reason: Nausea And Vomiting Sevelamer Carbonate (Renvela) 800 mg PO TID [facility] Last Admin: 06/20/18 22:03 Dose: 800 mg Documented by: Sodium Chloride (Sodium Chloride Flush Syringe 10 Ml) 10 ml IV BID [facility] Last Admin: 06/20/18 22:05 Dose: 10 ml Documented by: Sodium Chloride (Sodium Chloride Flush Syringe 10 Ml) 10 ml IV PRN PRN PRN Reason: LINE FLUSH Review of Systems All systems: negative Constitutional: chills, malaise, no weight loss, no weight gain, no fever, no sweats, no anorexia, no fatigue, no weakness, no lethargy, no poor appetite, no daytime sleepiness Ears, nose, mouth and throat: no ear discharge, no nose pain, no nasal discharge, no hoarseness, no swelling in mouth, no vertigo, no neck lump Cardiovascular: shortness of breath, dyspnea on exertion, leg edema, no chest pain, no orthopnea, no palpitations, no rapid/irregular heart beat, no edema, no syncope, no lightheadedness, no paroxysmal nocturnal dyspnea, no claudication, no decreased exercise tolerance Respiratory: cough, shortness of breath, dyspnea on exertion, congestion, no cough with sputum, no excessive sputum, no hemoptysis, no wheezing, no pleurisy, no pain on inspiration, no snoring, no sleep apnea Gastrointestinal: no nausea, no diarrhea, no change in bowel habits, no hematochezia, no heartburn, no dyspepsia/bloating, no lactose intolerance Musculoskeletal: no neck stiffness, no shooting arm pain, no low back pain, no shooting leg pain, no muscle weakness, no myalgias, no atrophy, no loss of height Integumentary: no pruritis, no sores, no darkening of skin, no acne, no unusual bruising, no hirsutism Neurological: no head injury, no weakness, no numbness, no seizures, no headaches, no aphasia, no memory loss, no sensory deficit, no hearing difficulties, no burning pain Psychiatric: no change in sleep habits, no change in libido, no hallucinations, no hopelessness, no irritability Endocrine: no cold intolerance, no heat intolerance, no polyphagia, no excessive thirst, no polydipsia, no nocturia Hematologic/Lymphatic: no easy bruising, no easy bleeding Allergic/Immunologic: no wheezing Exam - Physical Exam Narrative exam: VITAL SIGNS: Reviewed. GENERAL: The patient appeared well nourished and normally developed, Vital signs as documented. HEAD: No signs of head trauma. EYES: Pupils are equal. Extraocular motions intact. EARS: Hearing grossly intact. MOUTH: Oropharynx is normal. NECK: No adenopathy, no JVD. CHEST: Chest with clear breath sounds bilaterally. No wheezes, rales, or rhonchi. CARDIAC: Regular rate and rhythm. S1 and S2, without murmurs, gallops, or rubs. VASCULAR: RIGHT upper ext av graft TRACE Edema. Peripheral pulses normal and equal in all extremities. ABDOMEN: Soft, non tender and non distended. No rebound or guarding, and no masses palpated. Bowel Sounds normal. MUSCULOSKELETAL: Good range of motion of all major joints. Extremities without clubbing, cyanosis. TRACE edema. NEUROLOGIC EXAM: Alert and oriented x 3 No focal sensory or strength deficits. Speech normal. Follows commands. PSYCHIATRIC: Mood normal. SKIN: No rash or lesions. - Constitutional Vitals: Temp Pulse Resp BP Pulse Ox 98.0 F 87 18 170/99 98 06/20/18 21:10 06/20/18 21:10 06/20/18 21:10 06/20/18 21:10 06/20/18 13:36 Results - Labs CBC & Chem 7: 06/20/18 04:02 06/20/18 04:02 Labs: Laboratory Last Values WBC 4.3 K/mm3 (4.5-11.0) L 06/20/18 04:02 RBC 3.47 M/mm3 (3.65-5.03) L 06/20/18 04:02 Hgb 11.5 gm/dl (10.1-14.3) 06/20/18 04:02 Hct 34.6 % (30.3-42.9) 06/20/18 04:02 MCV 100 fl (79-97) H 06/20/18 04:02 MCH 33 pg (28-32) H 06/20/18 04:02 MCHC 33 % (30-34) 06/20/18 04:02 RDW 17.5 % (13.2-15.2) H 06/20/18 04:02 Plt Count 185 K/mm3 (140-440) 06/20/18 04:02 Lymph % (Auto) 16.3 % (13.4-35.0) 06/20/18 04:02 [place] % (Auto) 12.0 % (0.0-7.3) H 06/20/18 04:02 Eos % (Auto) 0.8 % (0.0-4.3) 06/20/18 04:02 Baso % (Auto) 0.3 % (0.0-1.8) 06/20/18 04:02 Lymph # 0.7 K/mm3 (1.2-5.4) L 06/20/18 04:02 [place] # 0.5 K/mm3 (0.0-0.8) 06/20/18 04:02 Eos # 0.0 K/mm3 (0.0-0.4) 06/20/18 04:02 Baso # 0.0 K/mm3 (0.0-0.1) 06/20/18 04:02 Seg Neutrophils % 70.6 % (40.0-70.0) H 06/20/18 04:02 Seg Neutrophils # 3.1 K/mm3 (1.8-7.7) 06/20/18 04:02 PT 14.5 Sec. (12.2-14.9) 06/20/18 04:02 INR 1.06 (0.87-1.13) 06/20/18 04:02 Sodium 138 mmol/L (137-145) 06/20/18 04:02 Potassium 4.6 mmol/L (3.6-5.0) 06/20/18 04:02 Chloride 95.2 mmol/L (98-107) L 06/20/18 04:02 Carbon Dioxide 22 mmol/L (22-30) 06/20/18 04:02 Anion Gap 25 mmol/L 06/20/18 04:02 BUN 47 mg/dL (7-17) H 06/20/18 04:02 Creatinine 9.0 mg/dL (0.7-1.2) H 06/20/18 04:02 Estimated GFR 5 ml/min 06/20/18 04:02 BUN/Creatinine Ratio 5 % 06/20/18 04:02 Glucose 157 mg/dL (65-100) H 06/20/18 04:02 Lactic Acid 0.80 mmol/L (0.7-2.0) 06/20/18 05:37 Calcium 8.0 mg/dL (8.4-10.2) L 06/20/18 04:02 Magnesium 1.90 mg/dL (1.7-2.3) 06/20/18 04:02 Total Creatine Kinase 110 units/L (30-135) 06/20/18 04:02 Troponin T 0.020 ng/mL (0.00-0.029) 06/20/18 10:58 NT-Pro-B Natriuret Pep 81266 pg/mL (0-900) H 06/20/18 04:02 Assessment and Plan Assessment and plan: Patient is A 63 year-old female with past medical history of end-stage renal disease, hypertension, CAD with cardiac cath which demonstrated a stenosis of the LAD in the proximal and mid segments status post PTCA with drug-eluting stents ejection fraction of 55% who presents to the ED today with complaints of shortness of breath that happened suddenly today followed by a few days of cough with mild congestion. She reports compliance with all her medical treatments including dual antiplatelet therapy. She denies any recent sick contacts since discharge from the hospital. She denies any fever nausea vomiting or diarrhea. She reports compliance with dialysis. CT chest : IMPRESSION: COPD with mild underlying fibrosis. There is atelectasis in both lower lungs. Mild pleural thickening and effusion right lower lung Acute Respiratory failure ?underlying COPD, Pulmonary fibrosis as noted on imaging URI with acute bronchitis HTN Urgency CAD s/p PCI 02/2018 Doubt Pneumonia ESRD Hyperlipidemia Plan Admit to Tele Consult cardiology, Pulmonary and Nephrology Resume appropriate home meds, including ASA, PLAVIX AND STATINS D[place]ebs, Per patient she still makes urine, will start on Diuresis while awaiting dialysis Abx, and monitor blood cultures. No evidence of sepsis Last noted A1C of 5, Patient denies hx of DM Dialysis per nephrology DVT/GI prophy plan of care discussed with patient Advance Directives: Yes Plan of care discussed with patient/family: Yes
[2018-06-20] MEDS ORDERED: NACL 0.9 (PRIMING MACHINE ONLY DIALYSIS) MC ONE (22:24)
[2018-06-21] MEDS: CATAPRES PO SCH ×3 (05:36→21:28)
[2018-06-21] MEDS: LEVAQUIN 500MG/100ML 500 MG/100 ML BAG IV SCH (05:36)
[2018-06-21] MEDS: DUONEB *Not for PRN Use IH SCH ×4 (06:29→20:57)
[2018-06-21 06:32] LABS: Basophils % (Auto) 0.1 % (0.0-1.8); Hematocrit 34.1 % (30.3-42.9); Hemoglobin 11.2 gm/dl (10.1-14.3); Lymphocytes # (Auto) 0.6 K/mm3 (1.2-5.4); Lymphocytes % (Auto) 16.6 % (13.4-35.0); Mean Corpuscular HGB Conc 33 % (30-34); Mean Corpuscular Volume 99 fl (79-97); Monocytes # (Auto) 0.5 K/mm3 (0.0-0.8); Platelet Count 179 K/mm3 (140-440); Red Blood Count 3.46 M/mm3 (3.65-5.03); Red Cell Distribution Width 17.7 % (13.2-15.2)
[2018-06-21 06:52] LABS: Calcium 8.7 mg/dL (8.4-10.2)
[2018-06-21] MEDS: PULMICORT IH SCH ×2 (08:07→20:57)
[2018-06-21] MEDS: MORPHINE IV PRN (09:22)
[2018-06-21] MEDS: PEPCID PO SCH (09:22)
[2018-06-21] MEDS: PHOSLO PO SCH ×3 (09:22→21:26)
[2018-06-21] MEDS: LOMOTIL PO SCH ×2 (09:22→21:27)
[2018-06-21] MEDS: HEPARIN SUB-Q SCH ×2 (09:22→21:28)
[2018-06-21] MEDS: PLAVIX PO SCH (09:22)
[2018-06-21] MEDS: BABY ASPIRIN PO SCH (09:22)
[2018-06-21] MEDS: RENVELA PO SCH ×3 (09:22→21:27)
--- NOTE | 2018-06-21 09:58 | Progress Note ---
Assessment and Plan Pneumonia Chest pain, atypical History of CAD s/p PCI of the proximal and mid segments of the left anterior descending artery using drug eluting stents 02/2018 on plavix and aspirin ESRD on HD Hypertension Type II DM Hyperlipidemia Echocardiogram 02/2018 showed normal left ventricular systolic function, ejection fraction 60-65%. Recommend: Medical therapy for coronary artery disease. Otherwise conservative cardiac management. Subjective Date of service: 06/21/18 Principal diagnosis: Pneumonia Interval history: Patient denies chest pain or shortness of breath No events on tele this morning Objective Vital Signs Temp Pulse Pulse Resp Resp BP Pulse Ox 06/21/18 09:29 93 06/21/18 08:20 75 18 06/21/18 08:10 74 18 93 06/21/18 08:08 98.1 F 06/21/18 08:07 74 18 109/62 93 06/21/18 04:37 98.4 F 74 12 131/69 98 06/21/18 00:00 81 06/20/18 22:18 98.8 F 85 14 166/86 97 06/20/18 22:00 98 06/20/18 21:10 98.0 F 87 18 170/99 06/20/18 20:45 84 172/86 06/20/18 20:30 86 170/88 06/20/18 20:15 86 174/76 06/20/18 20:00 84 189/77 06/20/18 19:45 80 189/97 06/20/18 19:30 79 179/103 06/20/18 19:15 80 177/100 06/20/18 19:00 79 189/96 06/20/18 18:45 79 173/96 06/20/18 18:30 78 150/90 06/20/18 18:15 77 154/91 06/20/18 18:00 76 165/91 06/20/18 17:45 77 157/85 06/20/18 17:30 76 160/95 06/20/18 17:15 77 169/90 06/20/18 17:00 98.4 F 80 18 175/98 06/20/18 13:37 83 18 06/20/18 13:36 98 06/20/18 13:25 83 18 06/20/18 13:08 98.1 F 06/20/18 13:06 83 18 176/84 98 06/20/18 10:00 15 - Physical Examination HEENT: Positive: PERRL Neck: Positive: neck supple Cardiac: Positive: Reg Rate and Rhythm Lungs: Positive: Decreased Breath Sounds Neuro: Positive: Grossly Intact Extremities: Absent: edema - Labs and Meds CBC 06/21/18 Range/Units 04:29 WBC 3.6 L (4.5-11.0) K/mm3 RBC 3.46 L (3.65-5.03) M/mm3 Hgb 11.2 (10.1-14.3) gm/dl Hct 34.1 (30.3-42.9) % Plt Count 179 (140-440) K/mm3 Lymph # 0.6 L (1.2-5.4) K/mm3 [place] # 0.5 (0.0-0.8) K/mm3 Eos # 0.0 (0.0-0.4) K/mm3 Baso # 0.0 (0.0-0.1) K/mm3 Comprehensive Metabolic Panel 06/21/18 Range/Units 04:29 Sodium 140 (137-145) mmol/L Potassium 4.5 (3.6-5.0) mmol/L Chloride 96.0 L (98-107) mmol/L Carbon Dioxide 28 (22-30) mmol/L BUN 23 H (7-17) mg/dL Creatinine 6.0 H (0.7-1.2) mg/dL Glucose 86 (65-100) mg/dL Calcium 8.7 (8.4-10.2) mg/dL
[2018-06-21] MEDS: IMDUR PO SCH (10:00)
[2018-06-21] MEDS: COREG PO SCH ×2 (10:00→21:26)
[2018-06-21] MEDS: CARDURA PO SCH ×2 (10:00→21:28)
[2018-06-21] MEDS: SODIUM CHLORIDE FLUSH SYRINGE 10 ML IV SCH ×2 (11:39→21:31)
[2018-06-21] MEDS: PROCARDIA XL PO SCH (11:39)
[2018-06-21] MEDS: HABITROL TD SCH (11:55)
[2018-06-21] MEDS ORDERED: MIRALAX 3350 PO PRN (15:55)
--- NOTE | 2018-06-21 16:09 | Progress Note ---
Assessment and Plan - Patient Problems (1) ESRD (end stage renal disease) on dialysis Current Visit: Yes Status: Chronic Plan to address problem: Continue dialysis Sunday Next hemodialysis in the a.m. (2) Anemia in chronic kidney disease Current Visit: No Status: Acute Plan to address problem: Mild anemia secondary to chronic kidney disease 11 g Monitor CBC (3) Congestive heart failure (CHF) Current Visit: No Status: Acute Plan to address problem: Congestive heart failure: continue ultrafiltration with HD. Fluid restriction . (4) Hypertension Current Visit: No Status: Chronic Qualifiers: Hypertension type: renovascular hypertension Qualified Code(s): I15.0 - Renovascular hypertension Plan to address problem: Hypertension controlled continue current medications Subjective Principal diagnosis: Pneumonia Interval history: 63-year-old lady with medical history significant for end-stage renal disease on hemodialysis on Sunday at [facility] Denies any shortness of breath orthopnea PND knows any nausea or vomiting denies any fever or chills Objective - Vital Signs Vital signs: Vital Signs - 12hr 06/21/18 06/21/18 06/21/18 04:37 08:07 08:08 Temperature 98.4 F 98.1 F Pulse Rate 74 74 Pulse Rate [ Anterior Bilateral Throughout] Pulse Rate [ From Monitor] Respiratory 12 18 Rate Respiratory Rate [Anterior Bilateral Throughout] Blood Pressure 131/69 109/62 O2 Sat by Pulse 98 93 Oximetry 06/21/18 06/21/18 06/21/18 08:10 08:20 09:29 Temperature Pulse Rate Pulse Rate [ 74 75 Anterior Bilateral Throughout] Pulse Rate [ From Monitor] Respiratory Rate Respiratory 18 18 Rate [Anterior Bilateral Throughout] Blood Pressure O2 Sat by Pulse 93 93 Oximetry 06/21/18 06/21/18 06/21/18 10:00 11:24 11:26 Temperature 98.6 F Pulse Rate 74 75 Pulse Rate [ Anterior Bilateral Throughout] Pulse Rate [ 74 From Monitor] Respiratory 18 Rate Respiratory Rate [Anterior Bilateral Throughout] Blood Pressure 109/62 111/63 O2 Sat by Pulse 93 96 Oximetry 06/21/18 06/21/18 15:30 15:41 Temperature Pulse Rate Pulse Rate [ 75 74 Anterior Bilateral Throughout] Pulse Rate [ From Monitor] Respiratory Rate Respiratory 18 18 Rate [Anterior Bilateral Throughout] Blood Pressure O2 Sat by Pulse Oximetry - General Appearance General appearance: well-developed, well-nourished EENT: ATNC, PERRL Neck: no JVD, JVD Respiratory: Present: Clear to Ascultation Cardiology: regular, S1S2 Gastrointestinal: normal Integumentary: no rash Neurologic: no focal deficit, alert and oriented x3 Psychiatric: mood/affect appropriate - Lab 06/21/18 04:29 06/21/18 04:29 Most recent lab results Calcium 8.7 mg/dL (8.4-10.2) 06/21/18 04:29 Magnesium 1.90 mg/dL (1.7-2.3) 06/20/18 04:02 Medications & Allergies - Medications Allergies/Adverse Reactions: Allergies gabapentin Allergy (Verified 03/04/18 04:31) Seizure labetalol Adverse Reaction (Verified 12/01/15 07:51) Unknown Home Medications: Home Medications Medication Instructions Recorded Confirmed Last Taken Type Albuterol Sulfate [Ventolin HFA] 90 mcg IH Q6H PRN 01/28/15 06/20/18 04/02/15 History Calcium Acetate [Phoslo] 667 mg PO TID 12/18/17 06/20/18 Unknown History Carvedilol 25 mg PO BID 12/18/17 06/20/18 Unknown History Sevelamer Carbonate 800 mg PO TID 03/04/18 06/20/18 Unknown History Aspirin [Aspirin BABY CHEW TAB] 81 mg PO QDAY #30 tab.chew 03/13/18 06/20/18 Unknown Rx AtorvaSTATin [Lipitor] 40 mg PO QHS #30 tablet 03/13/18 06/20/18 Unknown Rx Clopidogrel [Plavix] 75 mg PO QDAY #30 tablet 03/13/18 06/20/18 Unknown Rx amLODIPine [Norvasc] 10 mg PO QDAY #30 tablet 03/13/18 06/20/18 Unknown Rx cloNIDine [Catapres] 0.1 mg PO Q8HR #90 tablet 03/13/18 06/20/18 Unknown Rx hydrALAZINE [Apresoline TAB] 50 mg PO Q8HR #90 tablet 03/13/18 06/20/18 Unknown Rx Diphenoxylate HCl/Atropine 1 each PO BID #20 tablet 05/30/18 06/20/18 Unknown Rx [Lomotil 2.5-0.025 mg Tablet] Gabapentin [Neurontin] 300 mg PO Q8HR 06/20/18 06/20/18 Unknown History Losartan [Cozaar] 50 tab PO TID 06/20/18 06/20/18 Unknown History Active Medications: Generic Name Dose Route Start Last Admin Trade Name Freq PRN Reason Stop Dose Admin Acetaminophen 650 mg 06/20/18 08:00 Tylenol PO Q4H PRN Pain MILD(1-3)/Fever >100.5/ADLER Albuterol 2.5 mg 06/20/18 07:30 Proventil IH Q4HRT PRN Shortness Of Breath Albuterol/Ipratropium 1 ampul 06/21/18 14:00 06/21/18 15:27 Duoneb *Not For Prn Use* IH 1 ampul TIDRT [facility] Administration Aspirin 81 mg 06/21/18 10:00 06/21/18 09:22 Baby Aspirin PO 81 mg QDAY [facility] Administration Atorvastatin Calcium 40 mg 06/20/18 22:00 06/20/18 22:04 Lipitor PO 40 mg QHS [facility] Administration Budesonide 0.5 mg 06/20/18 08:00 06/21/18 08:07 Pulmicort IH 0.5 mg Q12HRT [facility] Administration Calcium Acetate 667 mg 06/20/18 08:00 06/21/18 14:23 Phoslo PO 667 mg TID [facility] Administration Carvedilol 25 mg 06/20/18 10:00 06/21/18 10:00 Coreg PO Not Given BID [facility] Clonidine HCl 0.1 mg 06/20/18 08:00 06/21/18 15:06 Catapres PO Not Given Q8HR [facility] Clopidogrel Bisulfate 75 mg 06/20/18 10:00 06/21/18 09:22 Plavix PO 75 mg QDAY [facility] Administration Dicyclomine HCl 20 mg 06/20/18 07:28 Bentyl PO QID PRN abdominal pain Diphenoxylate HCl/Atropine 1 tab 06/20/18 10:00 06/21/18 09:22 Lomotil PO 1 tab BID [facility] Administration Doxazosin Mesylate 2 mg 06/20/18 22:00 06/21/18 10:00 Cardura PO Not Given BID [facility] Famotidine 10 mg 06/20/18 14:00 06/21/18 09:22 Pepcid PO 10 mg DAILY [facility] Administration Heparin Sodium (Porcine) 5,000 unit 06/20/18 14:00 06/21/18 09:22 Heparin SUB-Q 5,000 unit Q12HR [facility] Administration Hydralazine HCl 10 mg 06/20/18 22:31 Apresoline IV Q4HR PRN Hypertension Sodium Chloride 100 mls @ 999 mls/hr 06/20/18 09:47 Nacl 0.9% IV COTY PRN Hypotension Levofloxacin/Dextrose 500 mg in 100 mls @ 100 mls/hr 06/21/18 06:00 06/21/18 05:36 Levaquin 500mg/100ml IV 100 mls/hr Q48H [facility] Administration Protocol Isosorbide Mononitrate 30 mg 06/20/18 14:00 06/21/18 10:00 Imdur PO Not Given QDAY [facility] Morphine Sulfate 2 mg 06/20/18 08:00 06/21/18 09:22 Morphine IV 2 mg Q4H PRN Administration Pain, Moderate (4-6) Nicotine 14 mg 06/21/18 11:00 06/21/18 11:55 Habitrol TD 14 mg QDAY [facility] Administration Nifedipine 90 mg 06/20/18 21:00 06/21/18 11:39 Procardia Xl PO Not Given QDAY [facility] Nitroglycerin 0.4 mg 06/20/18 03:28 Nitrostat SL .Q5MIN PRN Chest Pain Ondansetron HCl 4 mg 06/20/18 08:00 Zofran IV Q8H PRN Nausea And Vomiting Pneumococcal 13-Valent Conj Vacc 0.5 ml 06/22/18 12:00 Prevnar 13 IM 06/22/18 12:01 .ONCE ONE Polyethylene Glycol 17 gm 06/21/18 15:55 Miralax 3350 PO QDAY PRN Constipation Sevelamer Carbonate 800 mg 06/20/18 08:00 06/21/18 14:23 Renvela PO 800 mg TID [facility] Administration Sodium Chloride 10 ml 06/20/18 10:00 06/21/18 11:39 Sodium Chloride Flush Syringe 10 Ml IV 10 ml BID [facility] Administration Sodium Chloride 10 ml 06/20/18 07:30 Sodium Chloride Flush Syringe 10 Ml IV PRN PRN LINE FLUSH
--- NOTE | 2018-06-21 19:18 | Progress Note ---
Assessment and Plan Assessment and plan: Patient is a 63 year-old woman with past medical history of ESRD on HD TTS, hypertension, CAD s/p cardiac stent and dyslipidemia who presented with SOB * CTA chest: IMPRESSION: COPD with mild underlying fibrosis. There is atelectasis in both lower lungs. Mild pleural thickening and effusion right lower lung -Acute Respiratory failure suspected ?underlying COPD, Pulmonary fibrosis as noted on imaging: consulted Pulmonology, -URI with acute bronchitis, no mention of Pneumonia on CT: treat symptomatically -Bilateral Atelectasis can cause SOB: continue present management, treat symptomatically -HTN Urgency: low salt/renal diet and antihypertensives, -CAD s/p PCI 02/2018: Cardiology following -ESRD; HD per renal -Hyperlipidemia; continue statin -DVT prophylaxis: on sq heparin History Interval history: Patient was seen and examined. Follow-up on current diagnosis of SOB. Overnight uneventful. Patient denies any chest pain, nausea/vomiting or severe headaches. Imaging, nursing note, chart, labs and old chart reviewed. Discussed with patient. Hospitalist Physical - Physical exam Narrative exam: Gen: WDWN, NAD, Awake, Alert, Orientated HEENT: NCAT, EOMI, PERRL, OP Clear Neck: supple, no adenopathy, no thyromegaly, no JVD CVS/Heart: RRR, normal S1S2, pulses present bilaterally Chest/Lungs: diminished bs slightly Symmetrical chest expansion, good air entry bilaterally GI/Abdomen: soft, NTND, good bowel sounds, no guarding or rebound /Bladder: no suprapubic tenderness, no CVA or paraspinal tenderness Extermity/Skin: right av graft with mild edema, no obvious rash MSK: FROM x 4 Neuro: CN 2-12 grossly intact, no new focal deficits Psych: calm - Constitutional Vitals: Temp Pulse Resp BP Pulse Ox 98.1 F 76 18 147/72 94 06/21/18 17:00 06/21/18 16:58 06/21/18 16:58 06/21/18 16:58 06/21/18 16:58 General appearance: Present: no acute distress Results - Labs CBC & Chem 7: 06/22/18 04:25 06/22/18 04:25 Labs: Laboratory Last Values WBC 3.6 K/mm3 (4.5-11.0) L 06/21/18 04:29 RBC 3.46 M/mm3 (3.65-5.03) L 06/21/18 04:29 Hgb 11.2 gm/dl (10.1-14.3) 06/21/18 04:29 Hct 34.1 % (30.3-42.9) 06/21/18 04:29 MCV 99 fl (79-97) H 06/21/18 04:29 MCH 33 pg (28-32) H 06/21/18 04:29 MCHC 33 % (30-34) 06/21/18 04:29 RDW 17.7 % (13.2-15.2) H 06/21/18 04:29 Plt Count 179 K/mm3 (140-440) 06/21/18 04:29 Lymph % (Auto) 16.6 % (13.4-35.0) 06/21/18 04:29 [place] % (Auto) 13.0 % (0.0-7.3) H 06/21/18 04:29 Eos % (Auto) 0.0 % (0.0-4.3) 06/21/18 04:29 Baso % (Auto) 0.1 % (0.0-1.8) 06/21/18 04:29 Lymph # 0.6 K/mm3 (1.2-5.4) L 06/21/18 04:29 [place] # 0.5 K/mm3 (0.0-0.8) 06/21/18 04:29 Eos # 0.0 K/mm3 (0.0-0.4) 06/21/18 04:29 Baso # 0.0 K/mm3 (0.0-0.1) 06/21/18 04:29 Seg Neutrophils % 70.3 % (40.0-70.0) H 06/21/18 04:29 Seg Neutrophils # 2.6 K/mm3 (1.8-7.7) 06/21/18 04:29 PT 14.5 Sec. (12.2-14.9) 06/20/18 04:02 INR 1.06 (0.87-1.13) 06/20/18 04:02 Sodium 140 mmol/L (137-145) 06/21/18 04:29 Potassium 4.5 mmol/L (3.6-5.0) 06/21/18 04:29 Chloride 96.0 mmol/L (98-107) L 06/21/18 04:29 Carbon Dioxide 28 mmol/L (22-30) 06/21/18 04:29 Anion Gap 21 mmol/L 06/21/18 04:29 BUN 23 mg/dL (7-17) H 06/21/18 04:29 Creatinine 6.0 mg/dL (0.7-1.2) H 06/21/18 04:29 Estimated GFR 9 ml/min 06/21/18 04:29 BUN/Creatinine Ratio 4 % 06/21/18 04:29 Glucose 86 mg/dL (65-100) 06/21/18 04:29 Lactic Acid 0.80 mmol/L (0.7-2.0) 06/20/18 05:37 Calcium 8.7 mg/dL (8.4-10.2) 06/21/18 04:29 Magnesium 1.90 mg/dL (1.7-2.3) 06/20/18 04:02 Total Creatine Kinase 110 units/L (30-135) 06/20/18 04:02 Troponin T 0.020 ng/mL (0.00-0.029) 06/20/18 10:58 NT-Pro-B Natriuret Pep 02810 pg/mL (0-900) H 06/20/18 04:02 Active Medications - Current Medications Current Medications: Generic Name Dose Route Start Last Admin Trade Name Freq PRN Reason Stop Dose Admin Acetaminophen 650 mg 06/20/18 08:00 Tylenol PO Q4H PRN Pain MILD(1-3)/Fever >100.5/ADLER Albuterol 2.5 mg 06/20/18 07:30 Proventil IH Q4HRT PRN Shortness Of Breath Albuterol/Ipratropium 1 ampul 06/21/18 14:00 06/21/18 15:27 Duoneb *Not For Prn Use* IH 1 ampul TIDRT DIAMOND Administration Aspirin 81 mg 06/21/18 10:00 06/21/18 09:22 Baby Aspirin PO 81 mg QDAY [facility] Administration Atorvastatin Calcium 40 mg 06/20/18 22:00 06/20/18 22:04 Lipitor PO 40 mg QHS [facility] Administration Budesonide 0.5 mg 06/20/18 08:00 06/21/18 08:07 Pulmicort IH 0.5 mg Q12HRT DIAMOND Administration Calcium Acetate 667 mg 06/20/18 08:00 06/21/18 14:23 Phoslo PO 667 mg TID DI[facility]OND Administration Carvedilol 25 mg 06/20/18 10:00 06/21/18 10:00 Coreg PO Not Given BID [facility] Clonidine HCl 0.1 mg 06/20/18 08:00 06/21/18 15:06 Catapres PO Not Given Q8HR [facility] Clopidogrel Bisulfate 75 mg 06/20/18 10:00 06/21/18 09:22 Plavix PO 75 mg QDAY [facility] Administration Dicyclomine HCl 20 mg 06/20/18 07:28 Bentyl PO QID PRN abdominal pain Diphenoxylate HCl/Atropine 1 tab 06/20/18 10:00 06/21/18 09:22 Lomotil PO 1 tab BID [facility] Administration Doxazosin Mesylate 2 mg 06/20/18 22:00 06/21/18 10:00 Cardura PO Not Given BID [facility] Famotidine 10 mg 06/20/18 14:00 06/21/18 09:22 Pepcid PO 10 mg DAILY [facility] Administration Heparin Sodium (Porcine) 5,000 unit 06/20/18 14:00 06/21/18 09:22 Heparin SUB-Q 5,000 unit Q12HR [facility] Administration Hydralazine HCl 10 mg 06/20/18 22:31 Apresoline IV Q4HR PRN Hypertension Sodium Chloride 100 mls @ 999 mls/hr 06/20/18 09:47 Nacl 0.9% IV COTY PRN Hypotension Levofloxacin/Dextrose 500 mg in 100 mls @ 100 mls/hr 06/21/18 06:00 06/21/18 05:36 Levaquin 500mg/100ml IV 100 mls/hr Q48H [facility] Administration Protocol Isosorbide Mononitrate 30 mg 06/20/18 14:00 06/21/18 10:00 Imdur PO Not Given QDAY [facility] Morphine Sulfate 2 mg 06/20/18 08:00 06/21/18 09:22 Morphine IV 2 mg Q4H PRN Administration Pain, Moderate (4-6) Nicotine 14 mg 06/21/18 11:00 06/21/18 11:55 Habitrol TD 14 mg QDAY [facility] Administration Nifedipine 90 mg 06/20/18 21:00 06/21/18 11:39 Procardia Xl PO Not Given QDAY [facility] Nitroglycerin 0.4 mg 06/20/18 03:28 Nitrostat SL .Q5MIN PRN Chest Pain Ondansetron HCl 4 mg 06/20/18 08:00 Zofran IV Q8H PRN Nausea And Vomiting Pneumococcal 13-Valent Conj Vacc 0.5 ml 06/22/18 12:00 Prevnar 13 IM 06/22/18 12:01 .ONCE ONE Polyethylene Glycol 17 gm 06/21/18 15:55 06/21/18 16:21 Miralax 3350 PO 17 gm QDAY PRN Administration Constipation Sevelamer Carbonate 800 mg 06/20/18 08:00 06/21/18 14:23 Renvela PO 800 mg TID [facility] Administration Sodium Chloride 10 ml 06/20/18 10:00 06/21/18 11:39 Sodium Chloride Flush Syringe 10 Ml IV 10 ml BID [facility] Administration Sodium Chloride 10 ml 06/20/18 07:30 Sodium Chloride Flush Syringe 10 Ml IV PRN PRN LINE FLUSH Nutrition/Malnutrition Assess - Dietary Evaluation Nutrition/Malnutrition Findings: Nutrition Notes Start: 06/21/18 14:27 Freq: Status: Active Protocol: Document 06/21/18 14:27 RM (Rec: 06/21/18 14:32 RM [id number]) Nutrition Notes Need for Assessment generated from: MD Order Initial or Follow up Assessment Current Diagnosis COPD,Coronary Artery Disease, Hyperlipidemia Other Pertinent Diagnosis ESRD on HD Current Diet Renal,Cardiac Labs/Tests Reviewed Pertinent Medications Reviewed Height 5 ft 3 in Weight 65.2 kg [place] Body Weight (kg) 52.27 BMI 25.4 Subjective/Other Information Consulted for diet education. Type of education not specified in consult but pt requested diet education for ESRD on HD. Pt stated that the dietitian at her clinic has not provided her with adequate education. Reviewed renal diet and gave handout. 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 Pt stated that her appetite is good and that she ate all of her breakfast and lunch. However, pt also stated that she feels stuffed d/t not being using to eating more than 1 meal daily. Stated she isnt sure whether she will eat dinner. Admitted to chewing difficulty d/t missing dentures. Admitted to nausea but no vomiting. Burn Absent Trauma Absent #2 Nutrition Diagnosis Biting/Chewing (masticatory) difficulty Etiology missing dentures As Evidenced by Signs and Symptoms pt admission of chewing difficulty #1 Nutrition Diagnosis Food and nutrition-related knowledge deficit Etiology inadequate education provided at clinic As Evidenced by Signs and Symptoms pt desire for education Is patient on ventilator? No Is Patient Ambulatory and/or Out of Bed No [facility] 3524.000 Calculation Used [facility]ations [facility] Additional Notes Protein needs: 78-84kg (1.2-1. 3g/kg) Fluid needs: 1 ml/kcal Nutrition Intervention Change Diet Order: Renal, Cardiac, Mech soft soft w/ground meat Teaching Recipient Patient Learning Readiness Good Teaching Methods Discussion,Handout Response to Teaching Verbalize understanding Education Handouts Provided Renal diet Barriers to Learning No Barriers RD phone number provided Yes Patient aware of follow up options Yes Goal #1 Adhere to diet Goal #2 Meet at least 75% of calorie and protein needs via PO intakes Follow-Up By: 05/27/18 Additional Comments Follow for adequate intakes
[2018-06-22] MEDS: MORPHINE IV PRN ×4 (04:17→23:03)
[2018-06-22] MEDS: CATAPRES PO SCH ×3 (05:08→21:07)
[2018-06-22 05:28] LABS: Hematocrit 34.2 % (30.3-42.9); Hemoglobin 11.5 gm/dl (10.1-14.3); Mean Corpuscular HGB Conc 34 % (30-34); Mean Corpuscular Volume 100 fl (79-97); Platelet Count 167 K/mm3 (140-440); Red Cell Distribution Width 17.3 % (13.2-15.2)
[2018-06-22] MEDS ORDERED: LEVAQUIN 500MG/100ML 500 MG/100 ML BAG IV SCH (06:00)
[2018-06-22] MEDS: RENVELA PO SCH ×3 (08:59→21:07)
[2018-06-22] MEDS: PHOSLO PO SCH ×3 (08:59→21:07)
[2018-06-22] MEDS: PROCARDIA XL PO SCH (09:00)
[2018-06-22] MEDS: IMDUR PO SCH (09:00)
[2018-06-22] MEDS: HABITROL TD SCH (09:00)
[2018-06-22] MEDS: PLAVIX PO SCH (09:01)
[2018-06-22] MEDS: CARDURA PO SCH ×2 (09:01→21:07)
[2018-06-22] MEDS: BABY ASPIRIN PO SCH (09:02)
[2018-06-22] MEDS: COREG PO SCH ×2 (09:02→21:07)
[2018-06-22] MEDS: HEPARIN SUB-Q SCH ×2 (09:02→21:07)
[2018-06-22] MEDS: SODIUM CHLORIDE FLUSH SYRINGE 10 ML IV SCH ×2 (09:03→21:08)
[2018-06-22] MEDS: PEPCID PO SCH (09:03)
[2018-06-22] MEDS: DUONEB *Not for PRN Use IH SCH ×3 (09:28→21:04)
[2018-06-22] MEDS: PULMICORT IH SCH ×2 (09:30→21:04)
--- NOTE | 2018-06-22 11:41 | Event Note ---
Date: 06/22/18 Asked Radiology here at our hospital to review CT of chest based upon my lack of agreement with outside radiologist reading and they agree. The patient has bilateral GGO's most likely consistent with pulmonary edema and CHF with no evidence of COPD and no fibrosis. I suspect the bilateral lower lobe airspace changes are atelectasis. Would not classify this patient as COPD and given her clinical improvement with diuretics, (last given 06/20) most likely all CHF. Will sign off at this time. Radiology will make an addendum to the read on the CTA. Will arrange follow up in the office for full PFT to be obtained to absolutely rule out COPD. Patient does not need to be discharge on bronchodilator therapy.
[2018-06-22] MEDS ORDERED: PREVNAR 13 IM ONE (12:00)
[2018-06-22] MEDS: ZOFRAN IV PRN ×2 (12:39→21:07)
[2018-06-22] MEDS: LOMOTIL PO SCH ×2 (12:42→21:07)
--- NOTE | 2018-06-22 13:15 | Progress Note ---
Assessment and Plan - Patient Problems (1) Congestive heart failure (CHF) Current Visit: No Status: Acute Plan to address problem: Medical therapy for heart failure with preserved ejection fraction, medical therapy and aggressive risk factor modification for underlying coronary artery disease. A predischarge Persantin thallium on Sunday. Subjective Date of service: 06/22/18 Principal diagnosis: Pneumonia Interval history: Pulmonary gift consultant note appreciated, chest x-ray findings have been reviewed and are more likely due to pulmonary interstitial edema. Patient looks and feels much better, after inpatient treatment including diuretics and antibiotics. Objective Vital Signs Temp Pulse Pulse Resp Resp BP BP 06/22/18 09:40 72 18 06/22/18 09:30 69 18 06/22/18 09:02 71 149/71 06/22/18 09:01 71 149/71 06/22/18 09:00 71 149/71 06/22/18 08:08 98.4 F 71 16 149/71 06/22/18 04:21 97.0 F L 72 16 158/79 06/21/18 23:52 98.4 F 75 16 132/64 06/21/18 23:28 71 06/21/18 21:00 75 18 06/21/18 20:59 06/21/18 20:50 72 20 06/21/18 20:09 98.4 F 75 12 132/64 06/21/18 17:00 98.1 F 06/21/18 16:58 76 18 147/72 06/21/18 15:41 74 18 06/21/18 15:30 75 18 Pulse Ox 06/22/18 09:40 06/22/18 09:30 99 06/22/18 09:02 06/22/18 09:01 06/22/18 09:00 06/22/18 08:08 96 06/22/18 04:21 96 06/21/18 23:52 97 06/21/18 23:28 06/21/18 21:00 06/21/18 20:59 97 06/21/18 20:50 06/21/18 20:09 97 06/21/18 17:00 06/21/18 16:58 94 06/21/18 15:41 06/21/18 15:30 - Physical Examination General: Appears Well, No Apparent Distress HEENT: Positive: PERRL Neck: Positive: neck supple Cardiac: Positive: Reg Rate and Rhythm Lungs: Positive: Decreased Breath Sounds Neuro: Positive: Grossly Intact Abdomen: Positive: Soft Skin: Positive: Clear Extremities: Absent: edema - Labs and Meds CBC 06/22/18 Range/Units 04:25 WBC 3.1 L (4.5-11.0) K/mm3 RBC 3.40 L (3.65-5.03) M/mm3 Hgb 11.5 (10.1-14.3) gm/dl Hct 34.2 (30.3-42.9) % Plt Count 167 (140-440) K/mm3 Comprehensive Metabolic Panel 06/22/18 Range/Units 04:25 Sodium 131 L D (137-145) mmol/L Potassium 5.0 (3.6-5.0) mmol/L Chloride 87.4 L (98-107) mmol/L Carbon Dioxide 23 (22-30) mmol/L BUN 44 H (7-17) mg/dL Creatinine 7.7 H (0.7-1.2) mg/dL Glucose 118 H (65-100) mg/dL Calcium 8.0 L (8.4-10.2) mg/dL
--- NOTE | 2018-06-22 14:31 | Progress Note ---
Assessment and Plan - Patient Problems (1) ESRD (end stage renal disease) on dialysis Current Visit: Yes Status: Chronic Plan to address problem: Continue dialysis Sunday Hemodialysis today . (2) Anemia in chronic kidney disease Current Visit: No Status: Acute Plan to address problem: Mild anemia secondary to chronic kidney disease 11 g/dl Monitor CBC (3) Congestive heart failure (CHF) Current Visit: No Status: Acute Plan to address problem: Congestive heart failure: continue ultrafiltration with HD. Fluid restriction . (4) Hypertension Current Visit: No Status: Chronic Qualifiers: Hypertension type: renovascular hypertension Qualified Code(s): I15.0 - Renovascular hypertension Plan to address problem: Hypertension controlled continue current medications Subjective Principal diagnosis: Pneumonia Interval history: 63-year-old lady with medical history significant for end-stage renal disease on hemodialysis on Sunday at [facility] Denies any shortness of breath orthopnea PND knows any nausea or vomiting denies any fever or chills I attest I saw the patient on hemodialysis at 1:40pm. Denies complaints. Objective - Vital Signs Vital signs: Vital Signs - 12hr 06/22/18 06/22/18 06/22/18 04:21 08:08 09:00 Temperature 97.0 F L 98.4 F Pulse Rate 72 71 71 Pulse Rate [ Anterior Bilateral Throughout] Respiratory 16 16 Rate Respiratory Rate [Anterior Bilateral Throughout] Blood Pressure 158/79 149/71 Blood Pressure 149/71 [Left] O2 Sat by Pulse 96 96 Oximetry 06/22/18 06/22/18 06/22/18 09:01 09:02 09:30 Temperature Pulse Rate 71 71 Pulse Rate [ 69 Anterior Bilateral Throughout] Respiratory Rate Respiratory 18 Rate [Anterior Bilateral Throughout] Blood Pressure 149/71 149/71 Blood Pressure [Left] O2 Sat by Pulse 99 Oximetry 06/22/18 06/22/18 06/22/18 09:40 13:15 13:30 Temperature 97.6 F Pulse Rate 69 69 Pulse Rate [ 72 Anterior Bilateral Throughout] Respiratory 16 Rate Respiratory 18 Rate [Anterior Bilateral Throughout] Blood Pressure 158/82 180/87 Blood Pressure [Left] O2 Sat by Pulse Oximetry 06/22/18 06/22/18 13:45 14:00 Temperature Pulse Rate 69 71 Pulse Rate [ Anterior Bilateral Throughout] Respiratory Rate Respiratory Rate [Anterior Bilateral Throughout] Blood Pressure 198/93 205/95 Blood Pressure [Left] O2 Sat by Pulse Oximetry - General Appearance General appearance: well-developed, well-nourished EENT: ATNC, PERRL, mucous membranes moist Neck: no JVD Respiratory: Present: Clear to Ascultation Cardiology: regular, S1S2 Gastrointestinal: normal, normoactive bowel sounds Integumentary: no rash Neurologic: alert and oriented x3, CN 3-12 intact Musculoskeletal: clubbing Psychiatric: mood/affect appropriate - Lab 06/22/18 04:25 06/22/18 04:25 Most recent lab results Calcium 8.0 mg/dL (8.4-10.2) L 06/22/18 04:25 Magnesium 1.90 mg/dL (1.7-2.3) 06/20/18 04:02 - Imaging Chest x-ray: image reviewed Medications & Allergies - Medications Allergies/Adverse Reactions: Allergies gabapentin Allergy (Verified 03/04/18 04:31) Seizure labetalol Adverse Reaction (Verified 12/01/15 07:51) Unknown Home Medications: Home Medications Medication Instructions Recorded Confirmed Last Taken Type Albuterol Sulfate [Ventolin HFA] 90 mcg IH Q6H PRN 01/28/15 06/20/18 04/02/15 History Calcium Acetate [Phoslo] 667 mg PO TID 12/18/17 06/20/18 Unknown History Carvedilol 25 mg PO BID 12/18/17 06/20/18 Unknown History Sevelamer Carbonate 800 mg PO TID 03/04/18 06/20/18 Unknown History Aspirin [Aspirin BABY CHEW TAB] 81 mg PO QDAY #30 tab.chew 03/13/18 06/20/18 Unknown Rx AtorvaSTATin [Lipitor] 40 mg PO QHS #30 tablet 03/13/18 06/20/18 Unknown Rx Clopidogrel [Plavix] 75 mg PO QDAY #30 tablet 03/13/18 06/20/18 Unknown Rx amLODIPine [Norvasc] 10 mg PO QDAY #30 tablet 03/13/18 06/20/18 Unknown Rx cloNIDine [Catapres] 0.1 mg PO Q8HR #90 tablet 03/13/18 06/20/18 Unknown Rx hydrALAZINE [Apresoline TAB] 50 mg PO Q8HR #90 tablet 03/13/18 06/20/18 Unknown Rx Diphenoxylate HCl/Atropine 1 each PO BID #20 tablet 05/30/18 06/20/18 Unknown Rx [Lomotil 2.5-0.025 mg Tablet] Gabapentin [Neurontin] 300 mg PO Q8HR 06/20/18 06/20/18 Unknown History Losartan [Cozaar] 50 tab PO TID 06/20/18 06/20/18 Unknown History Active Medications: Generic Name Dose Route Start Last Admin Trade Name Freq PRN Reason Stop Dose Admin Acetaminophen 650 mg 06/20/18 08:00 Tylenol PO Q4H PRN Pain MILD(1-3)/Fever >100.5/ADLER Albuterol 2.5 mg 06/20/18 07:30 Proventil IH Q4HRT PRN Shortness Of Breath Albuterol/Ipratropium 1 ampul 06/21/18 14:00 06/22/18 09:28 Duoneb *Not For Prn Use* IH 1 ampul TIDRT DIAMOND Administration Aspirin 81 mg 06/21/18 10:00 06/22/18 09:02 Baby Aspirin PO 81 mg QDAY [facility] Administration Atorvastatin Calcium 40 mg 06/20/18 22:00 06/21/18 21:28 Lipitor PO 40 mg QHS DI[facility]OND Administration Budesonide 0.5 mg 06/20/18 08:00 06/22/18 09:30 Pulmicort IH 0.5 mg Q12HRT DIAMOND Administration Calcium Acetate 667 mg 06/20/18 08:00 06/22/18 08:59 Phoslo PO 667 mg TID DI[facility]OND Administration Carvedilol 25 mg 06/20/18 10:00 06/22/18 09:02 Coreg PO 25 mg BID [facility] Administration Clonidine HCl 0.1 mg 06/20/18 08:00 06/22/18 05:08 Catapres PO 0.1 mg Q8HR [facility] Administration Clopidogrel Bisulfate 75 mg 06/20/18 10:00 06/22/18 09:01 Plavix PO 75 mg QDAY [facility] Administration Dicyclomine HCl 20 mg 06/20/18 07:28 Bentyl PO QID PRN abdominal pain Diphenoxylate HCl/Atropine 1 tab 06/20/18 10:00 06/22/18 12:42 Lomotil PO Not Given BID [facility] Doxazosin Mesylate 2 mg 06/20/18 22:00 06/22/18 09:01 Cardura PO 2 mg BID [facility] Administration Famotidine 10 mg 06/20/18 14:00 06/22/18 09:03 Pepcid PO 10 mg DAILY [facility] Administration Heparin Sodium (Porcine) 5,000 unit 06/20/18 14:00 06/22/18 09:02 Heparin SUB-Q 5,000 unit Q12HR [facility] Administration Hydralazine HCl 10 mg 06/20/18 22:31 Apresoline IV Q4HR PRN Hypertension Sodium Chloride 100 mls @ 999 mls/hr 06/20/18 09:47 Nacl 0.9% IV COTY PRN Hypotension Levofloxacin/Dextrose 500 mg in 100 mls @ 100 mls/hr 06/21/18 06:00 06/21/18 05:36 Levaquin 500mg/100ml IV 100 mls/hr Q48H [facility] Administration Protocol Isosorbide Mononitrate 30 mg 06/20/18 14:00 06/22/18 09:00 Imdur PO 30 mg QDAY [facility] Administration Morphine Sulfate 2 mg 06/20/18 08:00 06/22/18 12:38 Morphine IV 2 mg Q4H PRN Administration Pain, Moderate (4-6) Nicotine 14 mg 06/21/18 11:00 06/22/18 09:00 Habitrol TD 14 mg QDAY [facility] Administration Nifedipine 90 mg 06/20/18 21:00 06/22/18 09:00 Procardia Xl PO 90 mg QDAY [facility] Administration Nitroglycerin 0.4 mg 06/20/18 03:28 Nitrostat SL .Q5MIN PRN Chest Pain Ondansetron HCl 4 mg 06/20/18 08:00 06/22/18 12:39 Zofran IV 4 mg Q8H PRN Administration Nausea And Vomiting Polyethylene Glycol 17 gm 06/21/18 15:55 06/21/18 16:21 Miralax 3350 PO 17 gm QDAY PRN Administration Constipation Sevelamer Carbonate 800 mg 06/20/18 08:00 06/22/18 08:59 Renvela PO 800 mg TID DI[facility] Administration Sodium Chloride 10 ml 06/20/18 10:00 06/22/18 09:03 Sodium Chloride Flush Syringe 10 Ml IV 10 ml BID [facility] Administration Sodium Chloride 10 ml 06/20/18 07:30 Sodium Chloride Flush Syringe 10 Ml IV PRN PRN LINE FLUSH
[2018-06-22] MEDS ORDERED: NACL 0.9 (PRIMING MACHINE ONLY DIALYSIS) MC ONE (15:37)
--- NOTE | 2018-06-22 17:41 | Progress Note ---
Assessment and Plan Assessment and plan: Patient is a 63 year-old woman with past medical history of ESRD on HD TTS, hypertension, CAD s/p cardiac stent and dyslipidemia who presented with SOB * CTA chest: IMPRESSION: COPD with mild underlying fibrosis. There is atelectasis in both lower lungs. Mild pleural thickening and effusion right lower lung -Acute Respiratory failure suspected most likely CHF related: stress test on Sunday, try to wean off 2 liters O2 -URI with acute bronchitis, no mention of Pneumonia on CT: treat symptomatically -Bilateral Atelectasis can cause SOB: continue present management, treat symptomatically -HTN Urgency: low salt/renal diet and antihypertensives, -CAD s/p PCI 02/2018: Cardiology following -ESRD; HD per renal -Hyperlipidemia; continue statin -DVT prophylaxis: on sq heparin History Interval history: Patient was seen and examined. Follow-up on current diagnosis of SOB, still present but o2 helps. Overnight uneventful. Patient denies any chest pain, nausea/vomiting or severe headaches. Imaging, nursing note, chart, labs and old chart reviewed. Discussed with patient. Hospitalist Physical - Physical exam Narrative exam: Gen: WDWN, NAD, Awake, Alert, Orientated HEENT: NCAT, EOMI, PERRL, OP Clear Neck: supple, no adenopathy, no thyromegaly, no JVD CVS/Heart: RRR, normal S1S2, pulses present bilaterally Chest/Lungs: diminished bs slightly Symmetrical chest expansion, good air entry bilaterally GI/Abdomen: soft, NTND, good bowel sounds, no guarding or rebound /Bladder: no suprapubic tenderness, no CVA or paraspinal tenderness Extermity/Skin: right av graft with mild edema, no obvious rash MSK: FROM x 4 Neuro: CN 2-12 grossly intact, no new focal deficits Psych: calm - Constitutional Vitals: Temp Pulse Resp BP Pulse Ox 97.6 F 76 16 172/71 99 06/22/18 13:15 06/22/18 16:30 06/22/18 13:15 06/22/18 16:30 06/22/18 09:30 General appearance: Present: no acute distress Results - Labs CBC & Chem 7: 06/22/18 04:25 06/22/18 04:25 Labs: Laboratory Last Values WBC 3.1 K/mm3 (4.5-11.0) L 06/22/18 04:25 RBC 3.40 M/mm3 (3.65-5.03) L 06/22/18 04:25 Hgb 11.5 gm/dl (10.1-14.3) 06/22/18 04:25 Hct 34.2 % (30.3-42.9) 06/22/18 04:25 MCV 100 fl (79-97) H 06/22/18 04:25 MCH 34 pg (28-32) H 06/22/18 04:25 MCHC 34 % (30-34) 06/22/18 04:25 RDW 17.3 % (13.2-15.2) H 06/22/18 04:25 Plt Count 167 K/mm3 (140-440) 06/22/18 04:25 Lymph % (Auto) 16.6 % (13.4-35.0) 06/21/18 04:29 [place] % (Auto) 13.0 % (0.0-7.3) H 06/21/18 04:29 Eos % (Auto) 0.0 % (0.0-4.3) 06/21/18 04:29 Baso % (Auto) 0.1 % (0.0-1.8) 06/21/18 04:29 Lymph # 0.6 K/mm3 (1.2-5.4) L 06/21/18 04:29 [place] # 0.5 K/mm3 (0.0-0.8) 06/21/18 04:29 Eos # 0.0 K/mm3 (0.0-0.4) 06/21/18 04:29 Baso # 0.0 K/mm3 (0.0-0.1) 06/21/18 04:29 Seg Neutrophils % 70.3 % (40.0-70.0) H 06/21/18 04:29 Seg Neutrophils # 2.6 K/mm3 (1.8-7.7) 06/21/18 04:29 PT 14.5 Sec. (12.2-14.9) 06/20/18 04:02 INR 1.06 (0.87-1.13) 06/20/18 04:02 Sodium 131 mmol/L (137-145) L D 06/22/18 04:25 Potassium 5.0 mmol/L (3.6-5.0) 06/22/18 04:25 Chloride 87.4 mmol/L (98-107) L 06/22/18 04:25 Carbon Dioxide 23 mmol/L (22-30) 06/22/18 04:25 Anion Gap 26 mmol/L 06/22/18 04:25 BUN 44 mg/dL (7-17) H 06/22/18 04:25 Creatinine 7.7 mg/dL (0.7-1.2) H 06/22/18 04:25 Estimated GFR 6 ml/min 06/22/18 04:25 BUN/Creatinine Ratio 6 % 06/22/18 04:25 Glucose 118 mg/dL (65-100) H 06/22/18 04:25 Lactic Acid 0.80 mmol/L (0.7-2.0) 06/20/18 05:37 Calcium 8.0 mg/dL (8.4-10.2) L 06/22/18 04:25 Magnesium 1.90 mg/dL (1.7-2.3) 06/20/18 04:02 Total Creatine Kinase 110 units/L (30-135) 06/20/18 04:02 Troponin T 0.020 ng/mL (0.00-0.029) 06/20/18 10:58 NT-Pro-B Natriuret Pep 41843 pg/mL (0-900) H 06/20/18 04:02 Active Medications - Current Medications Current Medications: Generic Name Dose Route Start Last Admin Trade Name Freq PRN Reason Stop Dose Admin Acetaminophen 650 mg 06/20/18 08:00 Tylenol PO Q4H PRN Pain MILD(1-3)/Fever >100.5/ADLER Albuterol 2.5 mg 06/20/18 07:30 Proventil IH Q4HRT PRN Shortness Of Breath Albuterol/Ipratropium 1 ampul 06/21/18 14:00 06/22/18 15:26 Duoneb *Not For Prn Use* IH Not Given TIDRT DIAMOND Aspirin 81 mg 06/21/18 10:00 06/22/18 09:02 Baby Aspirin PO 81 mg QDAY [facility]AM[facility] Administration Atorvastatin Calcium 40 mg 06/20/18 22:00 06/21/18 21:28 Lipitor PO 40 mg QHS DIAMOND Administration Budesonide 0.5 mg 06/20/18 08:00 06/22/18 09:30 Pulmicort IH 0.5 mg Q12HRT DIAMOND Administration Calcium Acetate 667 mg 06/20/18 08:00 06/22/18 08:59 Phoslo PO 667 mg TID DIAMOND Administration Carvedilol 25 mg 06/20/18 10:00 06/22/18 09:02 Coreg PO 25 mg BID [facility] Administration Clonidine HCl 0.1 mg 06/20/18 08:00 06/22/18 05:08 Catapres PO 0.1 mg Q8HR DIAMOND Administration Clopidogrel Bisulfate 75 mg 06/20/18 10:00 06/22/18 09:01 Plavix PO 75 mg QDAY [facility] Administration Dicyclomine HCl 20 mg 06/20/18 07:28 Bentyl PO QID PRN abdominal pain Diphenoxylate HCl/Atropine 1 tab 06/20/18 10:00 06/22/18 12:42 Lomotil PO Not Given BID [facility] Doxazosin Mesylate 2 mg 06/20/18 22:00 06/22/18 09:01 Cardura PO 2 mg BID [facility] Administration Famotidine 10 mg 06/20/18 14:00 06/22/18 09:03 Pepcid PO 10 mg DAILY [facility] Administration Heparin Sodium (Porcine) 5,000 unit 06/20/18 14:00 06/22/18 09:02 Heparin SUB-Q 5,000 unit Q12HR [facility]OND Administration Hydralazine HCl 10 mg 06/20/18 22:31 Apresoline IV Q4HR PRN Hypertension Sodium Chloride 100 mls @ 999 mls/hr 06/20/18 09:47 Nacl 0.9% IV COTY PRN Hypotension Levofloxacin/Dextrose 500 mg in 100 mls @ 100 mls/hr 06/21/18 06:00 06/21/18 05:36 Levaquin 500mg/100ml IV 100 mls/hr Q48H DIAMOND Administration Protocol Isosorbide Mononitrate 30 mg 06/20/18 14:00 06/22/18 09:00 Imdur PO 30 mg QDAY [facility] Administration Morphine Sulfate 2 mg 06/20/18 08:00 06/22/18 12:38 Morphine IV 2 mg Q4H PRN Administration Pain, Moderate (4-6) Nicotine 14 mg 06/21/18 11:00 06/22/18 09:00 Habitrol TD 14 mg QDAY [facility] Administration Nifedipine 90 mg 06/20/18 21:00 06/22/18 09:00 Procardia Xl PO 90 mg QDAY [facility] Administration Nitroglycerin 0.4 mg 06/20/18 03:28 Nitrostat SL .Q5MIN PRN Chest Pain Ondansetron HCl 4 mg 06/20/18 08:00 06/22/18 12:39 Zofran IV 4 mg Q8H PRN Administration Nausea And Vomiting Polyethylene Glycol 17 gm 06/21/18 15:55 06/21/18 16:21 Miralax 3350 PO 17 gm QDAY PRN Administration Constipation Sevelamer Carbonate 800 mg 06/20/18 08:00 06/22/18 08:59 Renvela PO 800 mg TID [facility]AM[facility] Administration Sodium Chloride 10 ml 06/20/18 10:00 06/22/18 09:03 Sodium Chloride Flush Syringe 10 Ml IV 10 ml BID [facility] Administration Sodium Chloride 10 ml 06/20/18 07:30 Sodium Chloride Flush Syringe 10 Ml IV PRN PRN LINE FLUSH Nutrition/Malnutrition Assess - Dietary Evaluation Nutrition/Malnutrition Findings: Nutrition Notes Start: 06/21/18 14:27 Freq: Status: Active Protocol: Document 06/21/18 14:27 RM (Rec: 06/21/18 14:32 RM [id number]) Nutrition Notes Need for Assessment generated from: MD Order Initial or Follow up Assessment Current Diagnosis COPD,Coronary Artery Disease, Hyperlipidemia Other Pertinent Diagnosis ESRD on HD Current Diet Renal,Cardiac Labs/Tests Reviewed Pertinent Medications Reviewed Height 5 ft 3 in Weight 65.2 kg [place] Body Weight (kg) 52.27 BMI 25.4 Subjective/Other Information Consulted for diet education. Type of education not specified in consult but pt requested diet education for ESRD on HD. Pt stated that the dietitian at her clinic has not provided her with adequate education. Reviewed renal diet and gave handout. 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 Pt stated that her appetite is good and that she ate all of her breakfast and lunch. However, pt also stated that she feels stuffed d/t not being using to eating more than 1 meal daily. Stated she isnt sure whether she will eat dinner. Admitted to chewing difficulty d/t missing dentures. Admitted to nausea but no vomiting. Burn Absent Trauma Absent #2 Nutrition Diagnosis Biting/Chewing (masticatory) difficulty Etiology missing dentures As Evidenced by Signs and Symptoms pt admission of chewing difficulty #1 Nutrition Diagnosis Food and nutrition-related knowledge deficit Etiology inadequate education provided at clinic As Evidenced by Signs and Symptoms pt desire for education Is patient on ventilator? No Is Patient Ambulatory and/or Out of Bed No REE-([facility]-confined to bed) [phone] Calculation Used for Recommendations [facility] Additional Notes Protein needs: 78-84kg (1.2-1. 3g/kg) Fluid needs: 1 ml/kcal Nutrition Intervention Change Diet Order: Renal, Cardiac, Mech soft soft w/ground meat Teaching Recipient Patient Learning Readiness Good Teaching Methods Discussion,Handout Response to Teaching Verbalize understanding Education Handouts Provided Renal diet Barriers to Learning No Barriers RD phone number provided Yes Patient aware of follow up options Yes Goal #1 Adhere to diet Goal #2 Meet at least 75% of calorie and protein needs via PO intakes Follow-Up By: 05/27/18 Additional Comments Follow for adequate intakes
[2018-06-22] MEDS ORDERED: BENADRYL PO PRN (20:08)
[2018-06-23] MEDS: LEVAQUIN 500MG/100ML 500 MG/100 ML BAG IV SCH (05:20)
[2018-06-23] MEDS: CATAPRES PO SCH ×3 (05:20→22:50)
[2018-06-23] MEDS: MORPHINE IV PRN ×2 (05:20→23:31)
[2018-06-23 06:48] LABS: Hematocrit 35.8 % (30.3-42.9); Hemoglobin 11.8 gm/dl (10.1-14.3); Mean Corpuscular HGB Conc 33 % (30-34); Mean Corpuscular Volume 99 fl (79-97); Platelet Count 183 K/mm3 (140-440); Red Blood Count 3.63 M/mm3 (3.65-5.03); Red Cell Distribution Width 17.1 % (13.2-15.2)
[2018-06-23 07:09] LABS: Calcium 8.2 mg/dL (8.4-10.2)
[2018-06-23] MEDS: RENVELA PO SCH ×3 (08:01→22:50)
[2018-06-23] MEDS: PHOSLO PO SCH ×3 (08:01→22:50)
[2018-06-23] MEDS: DUONEB *Not for PRN Use IH SCH ×3 (08:56→21:12)
[2018-06-23] MEDS: PULMICORT IH SCH ×2 (08:56→21:12)
[2018-06-23] MEDS: CARDURA PO SCH ×2 (09:28→22:50)
[2018-06-23] MEDS: HABITROL TD SCH (09:28)
[2018-06-23] MEDS: COREG PO SCH ×2 (09:28→22:50)
[2018-06-23] MEDS: PEPCID PO SCH (09:28)
[2018-06-23] MEDS: PLAVIX PO SCH (09:28)
[2018-06-23] MEDS: SODIUM CHLORIDE FLUSH SYRINGE 10 ML IV SCH ×2 (09:29→22:50)
[2018-06-23] MEDS: HEPARIN SUB-Q SCH ×2 (09:29→22:50)
[2018-06-23] MEDS: PROCARDIA XL PO SCH (09:29)
[2018-06-23] MEDS: IMDUR PO SCH (09:29)
[2018-06-23] MEDS: LOMOTIL PO SCH ×2 (09:29→22:50)
[2018-06-23] MEDS: BABY ASPIRIN PO SCH (09:29)
--- NOTE | 2018-06-23 13:20 | Progress Note ---
Assessment and Plan - Patient Problems (1) Congestive heart failure (CHF) Current Visit: No Status: Acute Plan to address problem: Medical therapy and aggressive risk factor modification for underlying coronary artery disease. Dialysis for fluid management of heart failure with preserved ejection fraction. Persantin thallium stress test in a.m. Subjective Date of service: 06/23/18 Principal diagnosis: Pneumonia Interval history: Patient looks and feels much better, after inpatient treatment including diuretics and antibiotics. Objective Vital Signs Temp Pulse Pulse Pulse Resp Resp BP 06/23/18 10:00 73 20 06/23/18 09:29 73 176/77 06/23/18 09:28 73 176/77 06/23/18 08:58 71 16 06/23/18 08:04 98.4 F 73 20 06/23/18 05:39 98.1 F 75 20 179/84 06/23/18 00:11 98.9 F 75 20 158/77 06/22/18 22:00 79 06/22/18 21:15 83 19 06/22/18 21:06 80 17 06/22/18 19:39 98.4 F 78 18 178/82 06/22/18 17:10 98.0 F 75 16 186/86 06/22/18 17:00 76 157/76 06/22/18 16:45 78 166/80 06/22/18 16:30 76 172/71 06/22/18 16:15 74 190/81 06/22/18 16:00 74 190/89 06/22/18 15:45 75 180/86 06/22/18 15:30 73 188/79 06/22/18 15:15 72 186/80 06/22/18 15:00 73 194/83 06/22/18 14:45 73 185/79 06/22/18 14:30 70 187/86 06/22/18 14:15 69 192/92 06/22/18 14:00 71 205/95 06/22/18 13:45 69 198/93 06/22/18 13:30 69 180/87 BP Pulse Ox 06/23/18 10:00 96 06/23/18 09:29 06/23/18 09:28 06/23/18 08:58 99 06/23/18 08:04 176/77 96 06/23/18 05:39 96 06/23/18 00:11 97 06/22/18 22:00 06/22/18 21:15 06/22/18 21:06 98 06/22/18 19:39 96 06/22/18 17:10 06/22/18 17:00 06/22/18 16:45 06/22/18 16:30 06/22/18 16:15 06/22/18 16:00 06/22/18 15:45 06/22/18 15:30 06/22/18 15:15 06/22/18 15:00 06/22/18 14:45 06/22/18 14:30 06/22/18 14:15 06/22/18 14:00 06/22/18 13:45 06/22/18 13:30 - Physical Examination General: Appears Well, No Apparent Distress HEENT: Positive: PERRL Neck: Positive: neck supple Cardiac: Positive: Reg Rate and Rhythm Lungs: Positive: Decreased Breath Sounds Neuro: Positive: Grossly Intact Abdomen: Positive: Soft Skin: Positive: Clear Extremities: Absent: edema - Labs and Meds CBC 06/23/18 Range/Units 06:23 WBC 3.4 L (4.5-11.0) K/mm3 RBC 3.63 L (3.65-5.03) M/mm3 Hgb 11.8 (10.1-14.3) gm/dl Hct 35.8 (30.3-42.9) % Plt Count 183 (140-440) K/mm3 Comprehensive Metabolic Panel 06/23/18 Range/Units 06:23 Sodium 132 L (137-145) mmol/L Potassium 4.8 (3.6-5.0) mmol/L Chloride 88.9 L (98-107) mmol/L Carbon Dioxide 26 (22-30) mmol/L BUN 21 H (7-17) mg/dL Creatinine 5.5 H (0.7-1.2) mg/dL Glucose 115 H (65-100) mg/dL Calcium 8.2 L (8.4-10.2) mg/dL
--- NOTE | 2018-06-23 14:29 | Progress Note ---
Assessment and Plan Assessment and plan: Patient is a 63 year-old woman with past medical history of ESRD on HD TTS, hypertension, CAD s/p cardiac stent and dyslipidemia who presented with SOB * CTA chest: IMPRESSION: COPD with mild underlying fibrosis. There is atelectasis in both lower lungs. Mild pleural thickening and effusion right lower lung -Acute Respiratory failure suspected most likely CHF related: stress test on Sunday, try to wean off 2 liters O2 -URI with acute bronchitis, no mention of Pneumonia on CT: treat symptomatically -Bilateral Atelectasis can cause SOB: continue present management, treat symptomatically -HTN Urgency: low salt/renal diet and antihypertensives, -CAD s/p PCI 02/2018: Cardiology following -ESRD; HD per renal -Hyperlipidemia; continue statin -DVT prophylaxis: on sq heparin History Interval history: Patient was seen and examined. Follow-up on current diagnosis of SOB, still present but o2 helps. Overnight uneventful. Patient denies any chest pain, nausea/vomiting or severe headaches. Imaging, nursing note, chart, labs and old chart reviewed. Discussed with patient. Hospitalist Physical - Physical exam Narrative exam: Gen: WDWN, NAD, Awake, Alert, Orientated HEENT: NCAT, EOMI, PERRL, OP Clear Neck: supple, no adenopathy, no thyromegaly, no JVD CVS/Heart: RRR, normal S1S2, pulses present bilaterally Chest/Lungs: diminished bs slightly Symmetrical chest expansion, good air entry bilaterally GI/Abdomen: soft, NTND, good bowel sounds, no guarding or rebound /Bladder: no suprapubic tenderness, no CVA or paraspinal tenderness Extermity/Skin: right av graft with mild edema, no obvious rash MSK: FROM x 4 Neuro: CN 2-12 grossly intact, no new focal deficits Psych: calm - Constitutional Vitals: Temp Pulse Resp BP Pulse Ox 98.4 F 85 20 170/87 96 06/23/18 08:04 06/23/18 14:21 06/23/18 10:00 06/23/18 14:21 06/23/18 10:00 General appearance: Present: no acute distress Results - Labs CBC & Chem 7: 06/23/18 06:23 06/23/18 06:23 Labs: Laboratory Last Values WBC 3.4 K/mm3 (4.5-11.0) L 06/23/18 06:23 RBC 3.63 M/mm3 (3.65-5.03) L 06/23/18 06:23 Hgb 11.8 gm/dl (10.1-14.3) 06/23/18 06:23 Hct 35.8 % (30.3-42.9) 06/23/18 06:23 MCV 99 fl (79-97) H 06/23/18 06:23 MCH 33 pg (28-32) H 06/23/18 06:23 MCHC 33 % (30-34) 06/23/18 06:23 RDW 17.1 % (13.2-15.2) H 06/23/18 06:23 Plt Count 183 K/mm3 (140-440) 06/23/18 06:23 Lymph % (Auto) 16.6 % (13.4-35.0) 06/21/18 04:29 [place] % (Auto) 13.0 % (0.0-7.3) H 06/21/18 04:29 Eos % (Auto) 0.0 % (0.0-4.3) 06/21/18 04:29 Baso % (Auto) 0.1 % (0.0-1.8) 06/21/18 04:29 Lymph # 0.6 K/mm3 (1.2-5.4) L 06/21/18 04:29 [place] # 0.5 K/mm3 (0.0-0.8) 06/21/18 04:29 Eos # 0.0 K/mm3 (0.0-0.4) 06/21/18 04:29 Baso # 0.0 K/mm3 (0.0-0.1) 06/21/18 04:29 Seg Neutrophils % 70.3 % (40.0-70.0) H 06/21/18 04:29 Seg Neutrophils # 2.6 K/mm3 (1.8-7.7) 06/21/18 04:29 PT 14.5 Sec. (12.2-14.9) 06/20/18 04:02 INR 1.06 (0.87-1.13) 06/20/18 04:02 Sodium 132 mmol/L (137-145) L 06/23/18 06:23 Potassium 4.8 mmol/L (3.6-5.0) 06/23/18 06:23 Chloride 88.9 mmol/L (98-107) L 06/23/18 06:23 Carbon Dioxide 26 mmol/L (22-30) 06/23/18 06:23 Anion Gap 22 mmol/L 06/23/18 06:23 BUN 21 mg/dL (7-17) H 06/23/18 06:23 Creatinine 5.5 mg/dL (0.7-1.2) H 06/23/18 06:23 Estimated GFR 9 ml/min 06/23/18 06:23 BUN/Creatinine Ratio 4 % 06/23/18 06:23 Glucose 115 mg/dL (65-100) H 06/23/18 06:23 Lactic Acid 0.80 mmol/L (0.7-2.0) 06/20/18 05:37 Calcium 8.2 mg/dL (8.4-10.2) L 06/23/18 06:23 Magnesium 1.90 mg/dL (1.7-2.3) 06/20/18 04:02 Total Creatine Kinase 110 units/L (30-135) 06/20/18 04:02 Troponin T 0.020 ng/mL (0.00-0.029) 06/20/18 10:58 NT-Pro-B Natriuret Pep 33690 pg/mL (0-900) H 06/20/18 04:02 Active Medications - Current Medications Current Medications: Generic Name Dose Route Start Last Admin Trade Name Freq PRN Reason Stop Dose Admin Acetaminophen 650 mg 06/20/18 08:00 06/23/18 14:28 Tylenol PO 650 mg Q4H PRN Administration Pain MILD(1-3)/Fever >100.5/ADLER Albuterol 2.5 mg 06/20/18 07:30 Proventil IH Q4HRT PRN Shortness Of Breath Albuterol/Ipratropium 1 ampul 06/21/18 14:00 06/23/18 08:56 Duoneb *Not For Prn Use* IH 1 ampul TIDRT DIAMOND Administration Aspirin 81 mg 06/21/18 10:00 06/23/18 09:29 Baby Aspirin PO 81 mg QDAY [facility] Administration Atorvastatin Calcium 40 mg 06/20/18 22:00 06/22/18 21:07 Lipitor PO 40 mg QHS [facility] Administration Budesonide 0.5 mg 06/20/18 08:00 06/23/18 08:56 Pulmicort IH 0.5 mg Q12HRT DIAMOND Administration Calcium Acetate 667 mg 06/20/18 08:00 06/23/18 14:21 Phoslo PO 667 mg TID [facility] Administration Carvedilol 25 mg 06/20/18 10:00 06/23/18 09:28 Coreg PO 25 mg BID [facility] Administration Clonidine HCl 0.1 mg 06/20/18 08:00 06/23/18 14:21 Catapres PO 0.1 mg Q8HR [facility] Administration Clopidogrel Bisulfate 75 mg 06/20/18 10:00 06/23/18 09:28 Plavix PO 75 mg QDAY [facility] Administration Dicyclomine HCl 20 mg 06/20/18 07:28 Bentyl PO QID PRN abdominal pain Diphenhydramine HCl 25 mg 06/22/18 20:08 06/22/18 21:07 Benadryl PO 25 mg Q6H PRN Administration Itching Diphenoxylate HCl/Atropine 1 tab 06/20/18 10:00 06/23/18 09:29 Lomotil PO 1 tab BID [facility] Administration Doxazosin Mesylate 2 mg 06/20/18 22:00 06/23/18 09:28 Cardura PO 2 mg BID [facility] Administration Famotidine 10 mg 06/20/18 14:00 06/23/18 09:28 Pepcid PO 10 mg DAILY [facility] Administration Heparin Sodium (Porcine) 5,000 unit 06/20/18 14:00 06/23/18 09:29 Heparin SUB-Q 5,000 unit Q12HR [facility] Administration Hydralazine HCl 10 mg 06/20/18 22:31 Apresoline IV Q4HR PRN Hypertension Sodium Chloride 100 mls @ 999 mls/hr 06/20/18 09:47 Nacl 0.9% IV COTY PRN Hypotension Levofloxacin/Dextrose 500 mg in 100 mls @ 100 mls/hr 06/21/18 06:00 06/23/18 05:20 Levaquin 500mg/100ml IV 100 mls/hr Q48H DIAMOND Administration Protocol Isosorbide Mononitrate 30 mg 06/20/18 14:00 06/23/18 09:29 Imdur PO 30 mg QDAY [facility] Administration Morphine Sulfate 2 mg 06/20/18 08:00 06/23/18 05:20 Morphine IV 2 mg Q4H PRN Administration Pain, Moderate (4-6) Nicotine 14 mg 06/21/18 11:00 06/23/18 09:28 Habitrol TD 14 mg QDAY [facility] Administration Nifedipine 90 mg 06/20/18 21:00 06/23/18 09:29 Procardia Xl PO 90 mg QDAY [facility] Administration Nitroglycerin 0.4 mg 06/20/18 03:28 Nitrostat SL .Q5MIN PRN Chest Pain Ondansetron HCl 4 mg 06/20/18 08:00 06/22/18 21:07 Zofran IV 4 mg Q8H PRN Administration Nausea And Vomiting Polyethylene Glycol 17 gm 06/21/18 15:55 06/21/18 16:21 Miralax 3350 PO 17 gm QDAY PRN Administration Constipation Sevelamer Carbonate 800 mg 06/20/18 08:00 06/23/18 14:21 Renvela PO 800 mg TID [facility] Administration Sodium Chloride 10 ml 06/20/18 10:00 06/23/18 09:29 Sodium Chloride Flush Syringe 10 Ml IV 10 ml BID [facility] Administration Sodium Chloride 10 ml 06/20/18 07:30 Sodium Chloride Flush Syringe 10 Ml IV PRN PRN LINE FLUSH Nutrition/Malnutrition Assess - Dietary Evaluation Nutrition/Malnutrition Findings: Nutrition Notes Start: 06/21/18 14:27 Freq: Status: Active Protocol: Document 06/21/18 14:27 RM (Rec: 06/21/18 14:32 RM [id number]) Nutrition Notes Need for Assessment generated from: MD Order Initial or Follow up Assessment Current Diagnosis COPD,Coronary Artery Disease, Hyperlipidemia Other Pertinent Diagnosis ESRD on HD Current Diet Renal,Cardiac Labs/Tests Reviewed Pertinent Medications Reviewed Height 5 ft 3 in Weight 65.2 kg [place] Body Weight (kg) 52.27 BMI 25.4 Subjective/Other Information Consulted for diet education. Type of education not specified in consult but pt requested diet education for ESRD on HD. Pt stated that the dietitian at her clinic has not provided her with adequate education. Reviewed renal diet and gave handout. 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 Pt stated that her appetite is good and that she ate all of her breakfast and lunch. However, pt also stated that she feels stuffed d/t not being using to eating more than 1 meal daily. Stated she isnt sure whether she will eat dinner. Admitted to chewing difficulty d/t missing dentures. Admitted to nausea but no vomiting. Burn Absent Trauma Absent #2 Nutrition Diagnosis Biting/Chewing (masticatory) difficulty Etiology missing dentures As Evidenced by Signs and Symptoms pt admission of chewing difficulty #1 Nutrition Diagnosis Food and nutrition-related knowledge deficit Etiology inadequate education provided at clinic As Evidenced by Signs and Symptoms pt desire for education Is patient on ventilator? No Is Patient Ambulatory and/or Out of Bed No REE-([facility]-confined to bed) [phone] Calculation Used for Recommendations [facility] Additional Notes Protein needs: 78-84kg (1.2-1. 3g/kg) Fluid needs: 1 ml/kcal Nutrition Intervention Change Diet Order: Renal, Cardiac, Mech soft soft w/ground meat Teaching Recipient Patient Learning Readiness Good Teaching Methods Discussion,Handout Response to Teaching Verbalize understanding Education Handouts Provided Renal diet Barriers to Learning No Barriers RD phone number provided Yes Patient aware of follow up options Yes Goal #1 Adhere to diet Goal #2 Meet at least 75% of calorie and protein needs via PO intakes Follow-Up By: 05/27/18 Additional Comments Follow for adequate intakes
--- NOTE | 2018-06-23 14:35 | Progress Note ---
Assessment and Plan - Patient Problems (1) ESRD (end stage renal disease) on dialysis Current Visit: Yes Status: Chronic Plan to address problem: Continue dialysis Sunday Hemodialysis today . (2) Anemia in chronic kidney disease Current Visit: No Status: Acute Plan to address problem: Mild anemia secondary to chronic kidney disease 11 g/dl Monitor CBC (3) Congestive heart failure (CHF) Current Visit: No Status: Acute Plan to address problem: Congestive heart failure: continue ultrafiltration with HD. Fluid restriction . (4) Hypertension Current Visit: No Status: Chronic Qualifiers: Hypertension type: renovascular hypertension Qualified Code(s): I15.0 - Renovascular hypertension Plan to address problem: Hypertension controlled continue current medications Subjective Principal diagnosis: Pneumonia Interval history: 63-year-old lady with medical history significant for end-stage renal disease on hemodialysis on Sunday at [facility] Denies any shortness of breath orthopnea PND knows any nausea or vomiting denies any fever or chills She is anxious to be discharged with any shortness of breath orthopnea PND Denies complaints. Objective - Vital Signs Vital signs: Vital Signs - 12hr 06/23/18 06/23/18 06/23/18 05:39 08:04 08:58 Temperature 98.1 F 98.4 F Pulse Rate 75 73 Pulse Rate [ 71 Anterior Bilateral Throughout] Pulse Rate [ From Monitor] Respiratory 20 20 Rate Respiratory 16 Rate [Anterior Bilateral Throughout] Blood Pressure 179/84 Blood Pressure 176/77 [Left] O2 Sat by Pulse 96 96 99 Oximetry 06/23/18 06/23/18 06/23/18 09:28 09:29 10:00 Temperature Pulse Rate 73 73 Pulse Rate [ Anterior Bilateral Throughout] Pulse Rate [ 73 From Monitor] Respiratory 20 Rate Respiratory Rate [Anterior Bilateral Throughout] Blood Pressure 176/77 176/77 Blood Pressure [Left] O2 Sat by Pulse 96 Oximetry 06/23/18 14:21 Temperature Pulse Rate 85 Pulse Rate [ Anterior Bilateral Throughout] Pulse Rate [ From Monitor] Respiratory Rate Respiratory Rate [Anterior Bilateral Throughout] Blood Pressure 170/87 Blood Pressure [Left] O2 Sat by Pulse Oximetry - General Appearance General appearance: well-developed, well-nourished EENT: ATNC, PERRL Neck: no JVD Respiratory: Present: Clear to Ascultation Cardiology: regular, S1S2 Gastrointestinal: normal, normoactive bowel sounds Integumentary: no rash Neurologic: CN 3-12 intact Psychiatric: mood/affect appropriate - Lab 06/23/18 06:23 06/23/18 06:23 Most recent lab results Calcium 8.2 mg/dL (8.4-10.2) L 06/23/18 06:23 Magnesium 1.90 mg/dL (1.7-2.3) 06/20/18 04:02 - Imaging Chest x-ray: image reviewed (I reviewed chest x-ray with cardiomegaly) Medications & Allergies - Medications Allergies/Adverse Reactions: Allergies gabapentin Allergy (Verified 03/04/18 04:31) Seizure labetalol Adverse Reaction (Verified 12/01/15 07:51) Unknown Home Medications: Home Medications Medication Instructions Recorded Confirmed Last Taken Type Albuterol Sulfate [Ventolin HFA] 90 mcg IH Q6H PRN 01/28/15 06/20/18 04/02/15 History Calcium Acetate [Phoslo] 667 mg PO TID 12/18/17 06/20/18 Unknown History Carvedilol 25 mg PO BID 12/18/17 06/20/18 Unknown History Sevelamer Carbonate 800 mg PO TID 03/04/18 06/20/18 Unknown History Aspirin [Aspirin BABY CHEW TAB] 81 mg PO QDAY #30 tab.chew 03/13/18 06/20/18 Unknown Rx AtorvaSTATin [Lipitor] 40 mg PO QHS #30 tablet 03/13/18 06/20/18 Unknown Rx Clopidogrel [Plavix] 75 mg PO QDAY #30 tablet 03/13/18 06/20/18 Unknown Rx amLODIPine [Norvasc] 10 mg PO QDAY #30 tablet 03/13/18 06/20/18 Unknown Rx cloNIDine [Catapres] 0.1 mg PO Q8HR #90 tablet 03/13/18 06/20/18 Unknown Rx hydrALAZINE [Apresoline TAB] 50 mg PO Q8HR #90 tablet 03/13/18 06/20/18 Unknown Rx Diphenoxylate HCl/Atropine 1 each PO BID #20 tablet 05/30/18 06/20/18 Unknown Rx [Lomotil 2.5-0.025 mg Tablet] Gabapentin [Neurontin] 300 mg PO Q8HR 06/20/18 06/20/18 Unknown History Losartan [Cozaar] 50 tab PO TID 06/20/18 06/20/18 Unknown History Active Medications: Generic Name Dose Route Start Last Admin Trade Name Freq PRN Reason Stop Dose Admin Acetaminophen 650 mg 06/20/18 08:00 06/23/18 14:28 Tylenol PO 650 mg Q4H PRN Administration Pain MILD(1-3)/Fever >100.5/ADLER Albuterol 2.5 mg 06/20/18 07:30 Proventil IH Q4HRT PRN Shortness Of Breath Albuterol/Ipratropium 1 ampul 06/21/18 14:00 06/23/18 08:56 Duoneb *Not For Prn Use* IH 1 ampul TIDRT [facility] Administration Aspirin 81 mg 06/21/18 10:00 06/23/18 09:29 Baby Aspirin PO 81 mg QDAY [facility] Administration Atorvastatin Calcium 40 mg 06/20/18 22:00 06/22/18 21:07 Lipitor PO 40 mg QHS [facility] Administration Budesonide 0.5 mg 06/20/18 08:00 06/23/18 08:56 Pulmicort IH 0.5 mg Q12HRT [facility] Administration Calcium Acetate 667 mg 06/20/18 08:00 06/23/18 14:21 Phoslo PO 667 mg TID [facility] Administration Carvedilol 25 mg 06/20/18 10:00 06/23/18 09:28 Coreg PO 25 mg BID [facility] Administration Clonidine HCl 0.1 mg 06/20/18 08:00 06/23/18 14:21 Catapres PO 0.1 mg Q8HR [facility] Administration Clopidogrel Bisulfate 75 mg 06/20/18 10:00 06/23/18 09:28 Plavix PO 75 mg QDAY [facility] Administration Dicyclomine HCl 20 mg 06/20/18 07:28 Bentyl PO QID PRN abdominal pain Diphenhydramine HCl 25 mg 06/22/18 20:08 06/22/18 21:07 Benadryl PO 25 mg Q6H PRN Administration Itching Diphenoxylate HCl/Atropine 1 tab 06/20/18 10:00 06/23/18 09:29 Lomotil PO 1 tab BID [facility] Administration Doxazosin Mesylate 2 mg 06/20/18 22:00 06/23/18 09:28 Cardura PO 2 mg BID [facility] Administration Famotidine 10 mg 06/20/18 14:00 06/23/18 09:28 Pepcid PO 10 mg DAILY [facility] Administration Heparin Sodium (Porcine) 5,000 unit 06/20/18 14:00 06/23/18 09:29 Heparin SUB-Q 5,000 unit Q12HR [facility] Administration Hydralazine HCl 10 mg 06/20/18 22:31 Apresoline IV Q4HR PRN Hypertension Sodium Chloride 100 mls @ 999 mls/hr 06/20/18 09:47 Nacl 0.9% IV COTY PRN Hypotension Levofloxacin/Dextrose 500 mg in 100 mls @ 100 mls/hr 06/21/18 06:00 06/23/18 05:20 Levaquin 500mg/100ml IV 100 mls/hr Q48H [facility] Administration Protocol Isosorbide Mononitrate 30 mg 06/20/18 14:00 06/23/18 09:29 Imdur PO 30 mg QDAY [facility] Administration Morphine Sulfate 2 mg 06/20/18 08:00 06/23/18 05:20 Morphine IV 2 mg Q4H PRN Administration Pain, Moderate (4-6) Nicotine 14 mg 06/21/18 11:00 06/23/18 09:28 Habitrol TD 14 mg QDAY [facility] Administration Nifedipine 90 mg 06/20/18 21:00 06/23/18 09:29 Procardia Xl PO 90 mg QDAY [facility] Administration Nitroglycerin 0.4 mg 06/20/18 03:28 Nitrostat SL .Q5MIN PRN Chest Pain Ondansetron HCl 4 mg 06/20/18 08:00 06/22/18 21:07 Zofran IV 4 mg Q8H PRN Administration Nausea And Vomiting Polyethylene Glycol 17 gm 06/21/18 15:55 06/21/18 16:21 Miralax 3350 PO 17 gm QDAY PRN Administration Constipation Sevelamer Carbonate 800 mg 06/20/18 08:00 06/23/18 14:21 Renvela PO 800 mg TID [facility] Administration Sodium Chloride 10 ml 06/20/18 10:00 06/23/18 09:29 Sodium Chloride Flush Syringe 10 Ml IV 10 ml BID [facility] Administration Sodium Chloride 10 ml 06/20/18 07:30 Sodium Chloride Flush Syringe 10 Ml IV PRN PRN LINE FLUSH
[2018-06-23] MEDS: ZOFRAN IV PRN (23:31)
[2018-06-24] MEDS: CATAPRES PO SCH ×3 (05:55→21:50)
[2018-06-24 06:12] LABS: Hematocrit 32.3 % (30.3-42.9); Hemoglobin 10.9 gm/dl (10.1-14.3); Mean Corpuscular HGB Conc 34 % (30-34); Mean Corpuscular Volume 98 fl (79-97); Platelet Count 156 K/mm3 (140-440); Red Blood Count 3.29 M/mm3 (3.65-5.03); Red Cell Distribution Width 16.7 % (13.2-15.2)
[2018-06-24 06:27] LABS: Calcium 8.1 mg/dL (8.4-10.2)
[2018-06-24] MEDS: PULMICORT IH SCH ×2 (07:13→19:58)
[2018-06-24] MEDS: DUONEB *Not for PRN Use IH SCH ×3 (07:13→19:58)
[2018-06-24] MEDS: RENVELA PO SCH ×3 (08:00→21:51)
[2018-06-24] MEDS: PHOSLO PO SCH ×3 (08:00→21:50)
[2018-06-24] MEDS ORDERED: LEXISCAN IV ONE (08:19)
[2018-06-24] MEDS ORDERED: NITROSTAT SL ONE (09:14)
[2018-06-24] MEDS ORDERED: MORPHINE ONE (09:14)
--- NOTE | 2018-06-24 09:55 | Progress Note ---
Assessment and Plan Impression * End-stage renal disease * Congestive heart failure * Hypertension * Anemia * Hyperkalemia Recommendations * Patient is hyperkalemic and slightly volume overloaded * Shall dialyze her today and remove fluid as tolerated * Her outpatient dialysis days are however TTS at [facility] * Procrit with dialysis * Binders with meals * Adjust diet and meds for ESRD state Subjective Date of service: 06/24/18 Principal diagnosis: Pneumonia Interval history: Patient is currently undergoing a stress test. Denies any chest pain. States that her shortness of breath is better. Objective - Vital Signs Vital signs: Vital Signs - 12hr 06/23/18 06/23/18 06/23/18 22:00 22:50 23:12 Temperature 98.0 F Pulse Rate 74 72 74 Pulse Rate [ 82 From Monitor] Respiratory 20 20 Rate Blood Pressure 137/66 137/67 O2 Sat by Pulse 96 99 Oximetry 06/24/18 06/24/18 06/24/18 04:50 05:55 07:31 Temperature 98.0 F 97.6 F Pulse Rate 67 67 69 Pulse Rate [ From Monitor] Respiratory 18 16 Rate Blood Pressure 121/58 121/58 124/70 O2 Sat by Pulse 97 92 Oximetry 06/24/18 09:45 Temperature Pulse Rate Pulse Rate [ From Monitor] Respiratory Rate Blood Pressure O2 Sat by Pulse 94 Oximetry - General Appearance General appearance: well-developed, well-nourished, appears stated age EENT: PERRL, mucous membranes moist Neck: no JVD, no thyromegaly, no carotid bruit, supple Respiratory: Present: Clear to Ascultation, Decreased Breath Sounds (at the bases) Cardiology: regular, normal heart rate, S1S2, no murmurs Gastrointestinal: normal, normoactive bowel sounds Integumentary: no rash, other (AV graft in her right upper arm. Good bruit and thrill) - Lab 06/24/18 04:33 06/24/18 04:33 Most recent lab results Calcium 8.1 mg/dL (8.4-10.2) L 06/24/18 04:33 Magnesium 1.90 mg/dL (1.7-2.3) 06/20/18 04:02 Medications & Allergies - Medications Allergies/Adverse Reactions: Allergies gabapentin Allergy (Verified 03/04/18 04:31) Seizure labetalol Adverse Reaction (Verified 12/01/15 07:51) Unknown Home Medications: Home Medications Medication Instructions Recorded Confirmed Last Taken Type Albuterol Sulfate [Ventolin HFA] 90 mcg IH Q6H PRN 01/28/15 06/20/18 04/02/15 History Calcium Acetate [Phoslo] 667 mg PO TID 12/18/17 06/20/18 Unknown History Carvedilol 25 mg PO BID 12/18/17 06/20/18 Unknown History Sevelamer Carbonate 800 mg PO TID 03/04/18 06/20/18 Unknown History Aspirin [Aspirin BABY CHEW TAB] 81 mg PO QDAY #30 tab.chew 03/13/18 06/20/18 Unknown Rx AtorvaSTATin [Lipitor] 40 mg PO QHS #30 tablet 03/13/18 06/20/18 Unknown Rx Clopidogrel [Plavix] 75 mg PO QDAY #30 tablet 03/13/18 06/20/18 Unknown Rx amLODIPine [Norvasc] 10 mg PO QDAY #30 tablet 03/13/18 06/20/18 Unknown Rx cloNIDine [Catapres] 0.1 mg PO Q8HR #90 tablet 03/13/18 06/20/18 Unknown Rx hydrALAZINE [Apresoline TAB] 50 mg PO Q8HR #90 tablet 03/13/18 06/20/18 Unknown Rx Diphenoxylate HCl/Atropine 1 each PO BID #20 tablet 05/30/18 06/20/18 Unknown Rx [Lomotil 2.5-0.025 mg Tablet] Gabapentin [Neurontin] 300 mg PO Q8HR 06/20/18 06/20/18 Unknown History Losartan [Cozaar] 50 tab PO TID 06/20/18 06/20/18 Unknown History Active Medications: Generic Name Dose Route Start Last Admin Trade Name Freq PRN Reason Stop Dose Admin Acetaminophen 650 mg 06/20/18 08:00 06/23/18 14:28 Tylenol PO 650 mg Q4H PRN Administration Pain MILD(1-3)/Fever >100.5/ADLER Albuterol 2.5 mg 06/20/18 07:30 Proventil IH Q4HRT PRN Shortness Of Breath Albuterol/Ipratropium 1 ampul 06/21/18 14:00 06/24/18 07:13 Duoneb *Not For Prn Use* IH Not Given TIDRT [facility] Aspirin 81 mg 06/21/18 10:00 06/23/18 09:29 Baby Aspirin PO 81 mg QDAY [facility] Administration Atorvastatin Calcium 40 mg 06/20/18 22:00 06/23/18 22:50 Lipitor PO 40 mg QHS [facility] Administration Budesonide 0.5 mg 06/20/18 08:00 06/24/18 07:13 Pulmicort IH Not Given Q12HRT [facility] Calcium Acetate 667 mg 06/20/18 08:00 06/24/18 08:00 Phoslo PO Not Given TID [facility] Carvedilol 25 mg 06/20/18 10:00 06/23/18 22:50 Coreg PO 25 mg BID [facility] Administration Clonidine HCl 0.1 mg 06/20/18 08:00 06/24/18 05:55 Catapres PO 0.1 mg Q8HR [facility] Administration Clopidogrel Bisulfate 75 mg 06/20/18 10:00 06/23/18 09:28 Plavix PO 75 mg QDAY [facility] Administration Dicyclomine HCl 20 mg 06/20/18 07:28 Bentyl PO QID PRN abdominal pain Diphenhydramine HCl 25 mg 06/22/18 20:08 06/22/18 21:07 Benadryl PO 25 mg Q6H PRN Administration Itching Diphenoxylate HCl/Atropine 1 tab 06/20/18 10:00 06/23/18 22:50 Lomotil PO Not Given BID [facility] Doxazosin Mesylate 2 mg 06/20/18 22:00 06/23/18 22:50 Cardura PO 2 mg BID [facility] Administration Famotidine 10 mg 06/20/18 14:00 06/23/18 09:28 Pepcid PO 10 mg DAILY [facility] Administration Heparin Sodium (Porcine) 5,000 unit 06/20/18 14:00 06/23/18 22:50 Heparin SUB-Q 5,000 unit Q12HR [facility] Administration Hydralazine HCl 10 mg 06/20/18 22:31 Apresoline IV Q4HR PRN Hypertension Sodium Chloride 100 mls @ 999 mls/hr 06/20/18 09:47 Nacl 0.9% IV COTY PRN Hypotension Levofloxacin/Dextrose 500 mg in 100 mls @ 100 mls/hr 06/21/18 06:00 06/23/18 05:20 Levaquin 500mg/100ml IV 100 mls/hr Q48H [facility] Administration Protocol Isosorbide Mononitrate 30 mg 06/20/18 14:00 06/23/18 09:29 Imdur PO 30 mg QDAY [facility] Administration Morphine Sulfate 2 mg 06/20/18 08:00 06/23/18 23:31 Morphine IV 2 mg Q4H PRN Administration Pain, Moderate (4-6) Nicotine 14 mg 06/21/18 11:00 06/23/18 09:28 Habitrol TD 14 mg QDAY [facility] Administration Nifedipine 90 mg 06/20/18 21:00 06/23/18 09:29 Procardia Xl PO 90 mg QDAY [facility] Administration Nitroglycerin 0.4 mg 06/20/18 03:28 Nitrostat SL .Q5MIN PRN Chest Pain Ondansetron HCl 4 mg 06/20/18 08:00 06/23/18 23:31 Zofran IV 4 mg Q8H PRN Administration Nausea And Vomiting Polyethylene Glycol 17 gm 06/21/18 15:55 06/21/18 16:21 Miralax 3350 PO 17 gm QDAY PRN Administration Constipation Sevelamer Carbonate 800 mg 06/20/18 08:00 06/24/18 08:00 Renvela PO Not Given TID [facility] Sodium Chloride 10 ml 06/20/18 10:00 06/23/18 22:50 Sodium Chloride Flush Syringe 10 Ml IV 10 ml BID [facility] Administration Sodium Chloride 10 ml 06/20/18 07:30 Sodium Chloride Flush Syringe 10 Ml IV PRN PRN LINE FLUSH
[2018-06-24] MEDS ORDERED: NACL 0.9% 100 ML IV PRN (09:56)
[2018-06-24] MEDS: PEPCID PO SCH (10:00)
[2018-06-24] MEDS: CARDURA PO SCH ×2 (10:00→21:56)
[2018-06-24] MEDS: PROCARDIA XL PO SCH (10:00)
[2018-06-24] MEDS: LOMOTIL PO SCH ×2 (10:00→22:00)
[2018-06-24] MEDS: BABY ASPIRIN PO SCH (10:00)
[2018-06-24] MEDS: HEPARIN SUB-Q SCH ×2 (10:00→21:52)
[2018-06-24] MEDS: SODIUM CHLORIDE FLUSH SYRINGE 10 ML IV SCH ×2 (10:00→21:50)
[2018-06-24] MEDS: COREG PO SCH ×2 (10:00→21:51)
[2018-06-24] MEDS: PLAVIX PO SCH (10:00)
[2018-06-24] MEDS: IMDUR PO SCH (10:00)
[2018-06-24] MEDS: HABITROL TD SCH (10:00)
--- NOTE | 2018-06-24 10:26 | Event Note ---
Date: 06/24/18 Patient completed a Lexiscan thallium stress test, final results of thallium perfusion images pending. We note that last night she had a 10 beat run of nonsustained ventricular tachycardia. We will obtain echocardiogram for left ventricular function reassessment, if the left ventricular ejection fraction remains well preserved, we will increase beta sarah therapy, and optimize electrolytes including potassium and magnesium levels. If there is a deterioration of left ventricular systolic function below 40%, will consider outpatient LifeVest monitoring (if patient is agreeable).
--- NOTE | 2018-06-24 14:54 | Progress Note ---
Assessment and Plan Assessment and plan: Patient is a 63 year-old woman with past medical history of ESRD on HD TTS, hypertension, CAD s/p cardiac stent and dyslipidemia who presented with SOB * CTA chest: IMPRESSION: COPD with mild underlying fibrosis. There is atelectasis in both lower lungs. Mild pleural thickening and effusion right lower lung -New issue: NSVT 10 beat run 1541pm 06/23/2018: ECHO ordered, possible LifeVEST if EF is too low, Cardiology following -Acute Respiratory failure suspected most likely CHF related: stress test on Sunday, try to wean off 2 liters O2 -Suspected new onset of Acute systolic heart failure: treating with diuretics, ECHO pending -URI with acute bronchitis, no mention of Pneumonia on CT: treat symptomatically -Bilateral Atelectasis can cause SOB: continue present management, treat symptomatically -HTN Urgency: low salt/renal diet and antihypertensives, -CAD s/p PCI 02/2018: Cardiology following -ESRD; HD per renal -Hyperlipidemia; continue statin -DVT prophylaxis: on sq heparin full code stress test pending ECHO ordered History Interval history: Patient was seen and examined. Follow-up on current diagnosis of SOB, still present but o2 helps. Overnight eventful with 10 beat run of NSVT. Patient hceco es any chest pain, nausea/vomiting or severe headaches. Imaging, nursing note, chart, labs and old chart reviewed. Discussed with patient. Hospitalist Physical - Physical exam Narrative exam: Gen: WDWN, NAD, Awake, Alert, Orientated HEENT: NCAT, EOMI, PERRL, OP Clear Neck: supple, no adenopathy, no thyromegaly, no JVD CVS/Heart: RRR, normal S1S2, pulses present bilaterally Chest/Lungs: diminished bs slightly Symmetrical chest expansion, good air entry bilaterally GI/Abdomen: soft, NTND, good bowel sounds, no guarding or rebound /Bladder: no suprapubic tenderness, no CVA or paraspinal tenderness Extermity/Skin: right av graft with mild edema, no obvious rash MSK: FROM x 4 Neuro: CN 2-12 grossly intact, no new focal deficits Psych: calm - Constitutional Vitals: Temp Pulse Resp BP Pulse Ox 98.9 F 70 18 140/77 94 06/24/18 10:30 06/24/18 13:00 06/24/18 10:30 06/24/18 13:00 06/24/18 09:45 General appearance: Present: no acute distress Results - Labs CBC & Chem 7: 06/24/18 04:33 06/24/18 04:33 Labs: Laboratory Last Values WBC 2.7 K/mm3 (4.5-11.0) L 06/24/18 04:33 RBC 3.29 M/mm3 (3.65-5.03) L 06/24/18 04:33 Hgb 10.9 gm/dl (10.1-14.3) 06/24/18 04:33 Hct 32.3 % (30.3-42.9) 06/24/18 04:33 MCV 98 fl (79-97) H 06/24/18 04:33 MCH 33 pg (28-32) H 06/24/18 04:33 MCHC 34 % (30-34) 06/24/18 04:33 RDW 16.7 % (13.2-15.2) H 06/24/18 04:33 Plt Count 156 K/mm3 (140-440) 06/24/18 04:33 Lymph % (Auto) 16.6 % (13.4-35.0) 06/21/18 04:29 Carbon % (Auto) 13.0 % (0.0-7.3) H 06/21/18 04:29 Eos % (Auto) 0.0 % (0.0-4.3) 06/21/18 04:29 Baso % (Auto) 0.1 % (0.0-1.8) 06/21/18 04:29 Lymph # 0.6 K/mm3 (1.2-5.4) L 06/21/18 04:29 Carbon # 0.5 K/mm3 (0.0-0.8) 06/21/18 04:29 Eos # 0.0 K/mm3 (0.0-0.4) 06/21/18 04:29 Baso # 0.0 K/mm3 (0.0-0.1) 06/21/18 04:29 Seg Neutrophils % 70.3 % (40.0-70.0) H 06/21/18 04:29 Seg Neutrophils # 2.6 K/mm3 (1.8-7.7) 06/21/18 04:29 PT 14.5 Sec. (12.2-14.9) 06/20/18 04:02 INR 1.06 (0.87-1.13) 06/20/18 04:02 Sodium 131 mmol/L (137-145) L 06/24/18 04:33 Potassium 5.4 mmol/L (3.6-5.0) H 06/24/18 04:33 Chloride 88.8 mmol/L (98-107) L 06/24/18 04:33 Carbon Dioxide 27 mmol/L (22-30) 06/24/18 04:33 Anion Gap 21 mmol/L 06/24/18 04:33 BUN 31 mg/dL (7-17) H 06/24/18 04:33 Creatinine 7.5 mg/dL (0.7-1.2) H 06/24/18 04:33 Estimated GFR 7 ml/min 06/24/18 04:33 BUN/Creatinine Ratio 4 % 06/24/18 04:33 Glucose 91 mg/dL (65-100) 06/24/18 04:33 Lactic Acid 0.80 mmol/L (0.7-2.0) 06/20/18 05:37 Calcium 8.1 mg/dL (8.4-10.2) L 06/24/18 04:33 Magnesium 1.90 mg/dL (1.7-2.3) 06/20/18 04:02 Total Creatine Kinase 110 units/L (30-135) 06/20/18 04:02 Troponin T 0.020 ng/mL (0.00-0.029) 06/20/18 10:58 NT-Pro-B Natriuret Pep 51244 pg/mL (0-900) H 06/20/18 04:02 Active Medications - Current Medications Current Medications: Generic Name Dose Route Start Last Admin Trade Name Freq PRN Reason Stop Dose Admin Acetaminophen 650 mg 06/20/18 08:00 06/23/18 14:28 Tylenol PO 650 mg Q4H PRN Administration Pain MILD(1-3)/Fever >100.5/ADLER Albuterol 2.5 mg 06/20/18 07:30 Proventil IH Q4HRT PRN Shortness Of Breath Albuterol/Ipratropium 1 ampul 06/21/18 14:00 06/24/18 14:05 Duoneb *Not For Prn Use* IH Not Given TIDRT [facility] Aspirin 81 mg 06/21/18 10:00 06/24/18 10:00 Baby Aspirin PO Not Given QDAY [facility] Atorvastatin Calcium 40 mg 06/20/18 22:00 06/23/18 22:50 Lipitor PO 40 mg QHS [facility] Administration Budesonide 0.5 mg 06/20/18 08:00 06/24/18 07:13 Pulmicort IH Not Given Q12HRT [facility] Calcium Acetate 667 mg 06/20/18 08:00 06/24/18 08:00 Phoslo PO Not Given TID [facility] Carvedilol 25 mg 06/20/18 10:00 06/24/18 10:00 Coreg PO Not Given BID [facility] Clonidine HCl 0.1 mg 06/20/18 08:00 06/24/18 05:55 Catapres PO 0.1 mg Q8HR [facility] Administration Clopidogrel Bisulfate 75 mg 06/20/18 10:00 06/24/18 10:00 Plavix PO Not Given QDAY [facility] Dicyclomine HCl 20 mg 06/20/18 07:28 Bentyl PO QID PRN abdominal pain Diphenhydramine HCl 25 mg 06/22/18 20:08 06/22/18 21:07 Benadryl PO 25 mg Q6H PRN Administration Itching Diphenoxylate HCl/Atropine 1 tab 06/20/18 10:00 06/24/18 10:00 Lomotil PO Not Given BID [facility] Doxazosin Mesylate 2 mg 06/20/18 22:00 06/24/18 10:00 Cardura PO Not Given BID [facility] Famotidine 10 mg 06/20/18 14:00 06/24/18 10:00 Pepcid PO Not Given DAILY [facility] Heparin Sodium (Porcine) 5,000 unit 06/20/18 14:00 06/24/18 10:00 Heparin SUB-Q Not Given Q12HR [facility] Hydralazine HCl 10 mg 06/20/18 22:31 Apresoline IV Q4HR PRN Hypertension Sodium Chloride 100 mls @ 999 mls/hr 06/20/18 09:47 Nacl 0.9% IV COTY PRN Hypotension Levofloxacin/Dextrose 500 mg in 100 mls @ 100 mls/hr 06/21/18 06:00 06/23/18 05:20 Levaquin 500mg/100ml IV 100 mls/hr Q48H [facility] Administration Protocol Isosorbide Mononitrate 30 mg 06/20/18 14:00 06/24/18 10:00 Imdur PO Not Given QDAY [facility] Morphine Sulfate 2 mg 06/20/18 08:00 06/23/18 23:31 Morphine IV 2 mg Q4H PRN Administration Pain, Moderate (4-6) Nicotine 14 mg 06/21/18 11:00 06/24/18 10:00 Habitrol TD Not Given QDAY [facility] Nifedipine 90 mg 06/20/18 21:00 06/24/18 10:00 Procardia Xl PO Not Given QDAY [facility] Nitroglycerin 0.4 mg 06/20/18 03:28 Nitrostat SL .Q5MIN PRN Chest Pain Ondansetron HCl 4 mg 06/20/18 08:00 06/23/18 23:31 Zofran IV 4 mg Q8H PRN Administration Nausea And Vomiting Polyethylene Glycol 17 gm 06/21/18 15:55 06/21/18 16:21 Miralax 3350 PO 17 gm QDAY PRN Administration Constipation Sevelamer Carbonate 800 mg 06/20/18 08:00 06/24/18 08:00 Renvela PO Not Given TID [facility] Sodium Chloride 10 ml 06/20/18 10:00 06/24/18 10:00 Sodium Chloride Flush Syringe 10 Ml IV Not Given BID [facility] Sodium Chloride 10 ml 06/20/18 07:30 Sodium Chloride Flush Syringe 10 Ml IV PRN PRN LINE FLUSH Nutrition/Malnutrition Assess - Dietary Evaluation Nutrition/Malnutrition Findings: Nutrition Notes Start: 06/21/18 14:27 Freq: Status: Active Protocol: Document 06/21/18 14:27 RM (Rec: 06/21/18 14:32 RM [id number]) Nutrition Notes Need for Assessment generated from: MD Order Initial or Follow up Assessment Current Diagnosis COPD,Coronary Artery Disease, Hyperlipidemia Other Pertinent Diagnosis ESRD on HD Current Diet Renal,Cardiac Labs/Tests Reviewed Pertinent Medications Reviewed Height 5 ft 3 in Weight 65.2 kg [place] Body Weight (kg) 52.27 BMI 25.4 Subjective/Other Information Consulted for diet education. Type of education not specified in consult but pt requested diet education for ESRD on HD. Pt stated that the dietitian at her clinic has not provided her with adequate education. Reviewed renal diet and gave handout. Pt stated that [employer] she ate 1 meal daily w/junk food throughout the day ie:alexander crackers, potato chips X 3-4 months. Pt stated that her appetite is good and that she ate all of her breakfast and lunch. However, pt also stated that she feels stuffed d/t not being using to eating more than 1 meal daily. Stated she isnt sure whether she will eat dinner. Admitted to chewing difficulty d/t missing dentures. Admitted to nausea but no vomiting. Burn Absent Trauma Absent #2 Nutrition Diagnosis Biting/Chewing (masticatory) difficulty Etiology missing dentures As Evidenced by Signs and Symptoms pt admission of chewing difficulty #1 Nutrition Diagnosis Food and nutrition-related knowledge deficit Etiology inadequate education provided at clinic As Evidenced by Signs and Symptoms pt desire for education Is patient on ventilator? No Is Patient Ambulatory and/or Out of Bed No REE-([facility]-confined to bed) [phone] Calculation Used for Recommendations [facility] Additional Notes Protein needs: 78-84kg (1.2-1. 3g/kg) Fluid needs: 1 ml/kcal Nutrition Intervention Change Diet Order: Renal, Cardiac, Mech soft soft w/ground meat Teaching Recipient Patient Learning Readiness Good Teaching Methods Discussion,Handout Response to Teaching Verbalize understanding Education Handouts Provided Renal diet Barriers to Learning No Barriers RD phone number provided Yes Patient aware of follow up options Yes Goal #1 Adhere to diet Goal #2 Meet at least 75% of calorie and protein needs via PO intakes Follow-Up By: 05/27/18 Additional Comments Follow for adequate intakes
[2018-06-24] MEDS: MORPHINE IV PRN (19:03)
--- NOTE | 2018-06-24 22:05 | Treadmill Report ---
THALLIUM STRESS TEST LEFT VENTRICLE: Left ventricular chamber size is within normal. Perfusion study demonstrates a moderate size, fixed inferior wall defect of moderate intensity, no reversibility on the resting study. Gated analysis demonstrates left ventricular systolic function at the lower limits of normal, ejection fraction is calculated at 49%. CONCLUSION: Fixed inferior wall defect of moderate intensity for uncertain significance, possible old inferoapical myocardial infarction versus attenuation artifact. There is no ischemia demonstrated on this study. Clinical correlation is recommended and echocardiographic reassessment of left ventricular systolic function. [facility]# [id number] [place]/NTS
[2018-06-24] MEDS ORDERED: NACL 0.9 (PRIMING MACHINE ONLY DIALYSIS) MC ONE (23:58)
[2018-06-25] MEDS: MORPHINE IV PRN ×2 (05:52→19:47)
[2018-06-25] MEDS: CATAPRES PO SCH ×3 (05:55→22:14)
[2018-06-25] MEDS: LEVAQUIN 500MG/100ML 500 MG/100 ML BAG IV SCH (05:56)
[2018-06-25 06:26] LABS: Calcium 8.4 mg/dL (8.4-10.2)
[2018-06-25] MEDS: PULMICORT IH SCH ×2 (07:44→19:58)
[2018-06-25] MEDS: DUONEB *Not for PRN Use IH SCH ×3 (07:44→19:58)
[2018-06-25] MEDS: RENVELA PO SCH ×3 (09:00→21:20)
[2018-06-25] MEDS: PHOSLO PO SCH ×3 (09:00→21:20)
--- NOTE | 2018-06-25 09:02 | Progress Note ---
Assessment and Plan Impression * End-stage renal disease * Congestive heart failure * Hypertension * Anemia * Hyperkalemia Recommendations * Hyperkalemia has been corrected * Congestive heart failure seems to have resolved * Continue dialysis on TTS schedule * Her outpatient dialysis days are also TTS at [facility] * Procrit with dialysis * Binders with meals * Adjust diet and meds for ESRD state Subjective Date of service: 06/25/18 Principal diagnosis: Pneumonia Interval history: Patient is comfortable today. Shortness of breath seems to be better after her extra dialysis treatment yesterday . Objective - Vital Signs Vital signs: Vital Signs - 12hr 06/24/18 06/24/18 06/24/18 21:50 21:51 21:56 Temperature Pulse Rate 79 82 82 Pulse Rate [ Anterior Bilateral Throughout] Pulse Rate [ From Monitor] Respiratory Rate Respiratory Rate [Anterior Bilateral Throughout] Blood Pressure 149/71 149/71 149/71 O2 Sat by Pulse Oximetry 06/24/18 06/25/18 06/25/18 22:00 00:40 04:19 Temperature 98.3 F 97.7 F Pulse Rate 76 76 72 Pulse Rate [ Anterior Bilateral Throughout] Pulse Rate [ 79 From Monitor] Respiratory 20 18 18 Rate Respiratory Rate [Anterior Bilateral Throughout] Blood Pressure 156/77 166/82 O2 Sat by Pulse 96 97 98 Oximetry 06/25/18 06/25/18 06/25/18 05:55 07:44 07:51 Temperature Pulse Rate 72 Pulse Rate [ 68 Anterior Bilateral Throughout] Pulse Rate [ From Monitor] Respiratory Rate Respiratory 20 Rate [Anterior Bilateral Throughout] Blood Pressure 166/82 O2 Sat by Pulse 99 Oximetry 06/25/18 07:56 Temperature Pulse Rate Pulse Rate [ 67 Anterior Bilateral Throughout] Pulse Rate [ From Monitor] Respiratory Rate Respiratory 20 Rate [Anterior Bilateral Throughout] Blood Pressure O2 Sat by Pulse Oximetry - General Appearance General appearance: well-developed, well-nourished, appears stated age EENT: PERRL, mucous membranes moist Neck: no JVD, no thyromegaly, no carotid bruit, supple Respiratory: Present: Clear to Ascultation Cardiology: regular Gastrointestinal: normal, normoactive bowel sounds Integumentary: no rash, other (AV graft in her right upper arm. Good bruit and thrill) - Lab 06/24/18 04:33 06/25/18 05:39 Most recent lab results Calcium 8.4 mg/dL (8.4-10.2) 06/25/18 05:39 Magnesium 1.70 mg/dL (1.7-2.3) 06/24/18 14:47 Medications & Allergies - Medications Allergies/Adverse Reactions: Allergies gabapentin Allergy (Verified 03/04/18 04:31) Seizure labetalol Adverse Reaction (Verified 12/01/15 07:51) Unknown Home Medications: Home Medications Medication Instructions Recorded Confirmed Last Taken Type Albuterol Sulfate [Ventolin HFA] 90 mcg IH Q6H PRN 01/28/15 06/20/18 04/02/15 History Calcium Acetate [Phoslo] 667 mg PO TID 12/18/17 06/20/18 Unknown History Carvedilol 25 mg PO BID 12/18/17 06/20/18 Unknown History Sevelamer Carbonate 800 mg PO TID 03/04/18 06/20/18 Unknown History Aspirin [Aspirin BABY CHEW TAB] 81 mg PO QDAY #30 tab.chew 03/13/18 06/20/18 Unknown Rx AtorvaSTATin [Lipitor] 40 mg PO QHS #30 tablet 03/13/18 06/20/18 Unknown Rx Clopidogrel [Plavix] 75 mg PO QDAY #30 tablet 03/13/18 06/20/18 Unknown Rx amLODIPine [Norvasc] 10 mg PO QDAY #30 tablet 03/13/18 06/20/18 Unknown Rx cloNIDine [Catapres] 0.1 mg PO Q8HR #90 tablet 03/13/18 06/20/18 Unknown Rx hydrALAZINE [Apresoline TAB] 50 mg PO Q8HR #90 tablet 03/13/18 06/20/18 Unknown Rx Diphenoxylate HCl/Atropine 1 each PO BID #20 tablet 05/30/18 06/20/18 Unknown Rx [Lomotil 2.5-0.025 mg Tablet] Gabapentin [Neurontin] 300 mg PO Q8HR 06/20/18 06/20/18 Unknown History Losartan [Cozaar] 50 tab PO TID 06/20/18 06/20/18 Unknown History Active Medications: Generic Name Dose Route Start Last Admin Trade Name Freq PRN Reason Stop Dose Admin Acetaminophen 650 mg 06/20/18 08:00 06/23/18 14:28 Tylenol PO 650 mg Q4H PRN Administration Pain MILD(1-3)/Fever >100.5/ADLER Albuterol 2.5 mg 06/20/18 07:30 Proventil IH Q4HRT PRN Shortness Of Breath Albuterol/Ipratropium 1 ampul 06/21/18 14:00 06/25/18 07:44 Duoneb *Not For Prn Use* IH 1 ampul TIDRT DIAMOND Administration Aspirin 81 mg 06/21/18 10:00 06/24/18 10:00 Baby Aspirin PO Not Given QDAY DIAMOND Atorvastatin Calcium 40 mg 06/20/18 22:00 06/24/18 21:50 Lipitor PO 40 mg QHS DIAMOND Administration Budesonide 0.5 mg 06/20/18 08:00 06/25/18 07:44 Pulmicort IH 0.5 mg Q12HRT DIAMOND Administration Calcium Acetate 667 mg 06/20/18 08:00 06/24/18 21:50 Phoslo PO 667 mg TID [facility] Administration Carvedilol 25 mg 06/20/18 10:00 06/24/18 21:51 Coreg PO 25 mg BID [facility] Administration Clonidine HCl 0.1 mg 06/20/18 08:00 06/25/18 05:55 Catapres PO 0.1 mg Q8HR [facility] Administration Clopidogrel Bisulfate 75 mg 06/20/18 10:00 06/24/18 10:00 Plavix PO Not Given QDAY [facility] Dicyclomine HCl 20 mg 06/20/18 07:28 Bentyl PO QID PRN abdominal pain Diphenhydramine HCl 25 mg 06/22/18 20:08 06/22/18 21:07 Benadryl PO 25 mg Q6H PRN Administration Itching Diphenoxylate HCl/Atropine 1 tab 06/20/18 10:00 06/24/18 22:00 Lomotil PO Not Given BID [facility] Doxazosin Mesylate 2 mg 06/20/18 22:00 06/24/18 21:56 Cardura PO 2 mg BID [facility] Administration Famotidine 10 mg 06/20/18 14:00 06/24/18 10:00 Pepcid PO Not Given DAILY [facility] Heparin Sodium (Porcine) 5,000 unit 06/20/18 14:00 06/24/18 21:52 Heparin SUB-Q 5,000 unit Q12HR DIAMOND Administration Hydralazine HCl 10 mg 06/20/18 22:31 Apresoline IV Q4HR PRN Hypertension Sodium Chloride 100 mls @ 999 mls/hr 06/20/18 09:47 Nacl 0.9% IV COTY PRN Hypotension Levofloxacin/Dextrose 500 mg in 100 mls @ 100 mls/hr 06/21/18 06:00 06/25/18 05:56 Levaquin 500mg/100ml IV 100 mls/hr Q48H DIAMOND Administration Protocol Isosorbide Mononitrate 30 mg 06/20/18 14:00 06/24/18 10:00 Imdur PO Not Given QDAY [facility] Morphine Sulfate 2 mg 06/20/18 08:00 06/25/18 05:52 Morphine IV 2 mg Q4H PRN Administration Pain, Moderate (4-6) Nicotine 14 mg 06/21/18 11:00 06/24/18 10:00 Habitrol TD Not Given QDAY [facility] Nifedipine 90 mg 06/20/18 21:00 06/24/18 10:00 Procardia Xl PO Not Given QDAY [facility] Nitroglycerin 0.4 mg 06/20/18 03:28 Nitrostat SL .Q5MIN PRN Chest Pain Ondansetron HCl 4 mg 06/20/18 08:00 06/23/18 23:31 Zofran IV 4 mg Q8H PRN Administration Nausea And Vomiting Polyethylene Glycol 17 gm 06/21/18 15:55 06/21/18 16:21 Miralax 3350 PO 17 gm QDAY PRN Administration Constipation Sevelamer Carbonate 800 mg 06/20/18 08:00 06/24/18 21:51 Renvela PO 800 mg TID DIAMOND Administration Sodium Chloride 10 ml 06/20/18 10:00 06/24/18 21:50 Sodium Chloride Flush Syringe 10 Ml IV 10 ml BID DIAMOND Administration Sodium Chloride 10 ml 06/20/18 07:30 Sodium Chloride Flush Syringe 10 Ml IV PRN PRN LINE FLUSH
[2018-06-25] MEDS: HABITROL TD SCH (09:16)
[2018-06-25] MEDS: BABY ASPIRIN PO SCH (09:16)
[2018-06-25] MEDS: HEPARIN SUB-Q SCH ×2 (09:17→22:14)
[2018-06-25] MEDS: PEPCID PO SCH (09:20)
[2018-06-25] MEDS: LOMOTIL PO SCH ×2 (09:20→22:13)
[2018-06-25] MEDS: COREG PO SCH ×2 (10:00→22:13)
[2018-06-25] MEDS: SODIUM CHLORIDE FLUSH SYRINGE 10 ML IV SCH ×2 (10:00→22:15)
[2018-06-25] MEDS: PLAVIX PO SCH (10:00)
[2018-06-25] MEDS: PROCARDIA XL PO SCH (10:00)
[2018-06-25] MEDS: IMDUR PO SCH (10:00)
[2018-06-25] MEDS: CARDURA PO SCH ×2 (10:00→22:13)
[2018-06-25] MEDS ORDERED: NACL 0.9 (PRIMING MACHINE ONLY DIALYSIS) MC ONE (10:56)
--- NOTE | 2018-06-25 13:44 | Progress Note ---
Assessment and Plan - Patient Problems (1) Congestive heart failure (CHF) Current Visit: No Status: Acute Plan to address problem: Dialysis for fluid management of heart failure with preserved ejection fraction. Persantin thallium stress test was normal. Continue medical therapy for coronary artery disease. (2) Wide-complex tachycardia Current Visit: Yes Status: Acute Plan to address problem: Patient had a 10 beat run off nonsustained ventricular tachycardia. We will increase beta sarah therapy, and optimize electrolytes. An echocardiogram will be done at this time for left ventricular functional reassessment. Subjective Date of service: 06/25/18 Principal diagnosis: Pneumonia Interval history: Patient is comfortable, no new cardiac complaints. Objective Vital Signs Temp Pulse Pulse Pulse Resp Resp BP 06/25/18 12:15 69 169/84 06/25/18 12:00 67 191/83 06/25/18 11:45 67 181/82 06/25/18 11:30 69 185/82 06/25/18 11:15 98.0 F 70 18 171/83 06/25/18 10:00 18 06/25/18 08:53 97.7 F 65 18 187/79 06/25/18 07:56 67 20 06/25/18 07:51 06/25/18 07:44 68 20 06/25/18 05:55 72 166/82 06/25/18 04:19 97.7 F 72 18 166/82 06/25/18 00:40 98.3 F 76 18 156/77 06/24/18 22:00 76 79 20 06/24/18 21:56 82 149/71 06/24/18 21:51 82 149/71 06/24/18 21:50 79 149/71 06/24/18 19:59 06/24/18 19:57 06/24/18 19:26 98.6 F 79 20 149/71 06/24/18 18:09 82 140/58 06/24/18 13:50 97.9 F 72 18 162/81 Pulse Ox 06/25/18 12:15 06/25/18 12:00 06/25/18 11:45 06/25/18 11:30 06/25/18 11:15 06/25/18 10:00 97 06/25/18 08:53 100 06/25/18 07:56 04/02/19 07:51 99 06/25/18 07:44 06/25/18 05:55 06/25/18 04:19 98 06/25/18 00:40 97 06/24/18 22:00 96 06/24/18 21:56 06/24/18 21:51 06/24/18 21:50 06/24/18 19:59 97 06/24/18 19:57 97 06/24/18 19:26 95 06/24/18 18:09 97 06/24/18 13:50 - Physical Examination General: Appears Well, No Apparent Distress HEENT: Positive: PERRL Neck: Positive: neck supple Cardiac: Positive: Reg Rate and Rhythm Lungs: Positive: Decreased Breath Sounds Neuro: Positive: Grossly Intact Abdomen: Positive: Soft Skin: Positive: Clear Extremities: Absent: edema - Labs and Meds Comprehensive Metabolic Panel 06/25/18 Range/Units 05:39 Sodium 136 L (137-145) mmol/L Potassium 4.7 (3.6-5.0) mmol/L Chloride 94.0 L (98-107) mmol/L Carbon Dioxide 30 (22-30) mmol/L BUN 19 H (7-17) mg/dL Creatinine 5.5 H (0.7-1.2) mg/dL Glucose 99 (65-100) mg/dL Calcium 8.4 (8.4-10.2) mg/dL
--- NOTE | 2018-06-25 16:38 | Progress Note ---
Assessment and Plan / NSVT - had 10 beat run 1541pm 06/23/2018: - ECHO ordered, possible LifeVEST if EF is too low, Cardiology following, increased metoprolol dose, cont to monitor. /Acute Respiratory failure - due to most likely CHF related: stress test on Sunday was normal, cont to wean off 2 liters O2 /Suspected new onset of Acute systolic heart failure: treating with diuretics, ECHO pending Lower lobe were /URI with acute bronchitis, no mention of Pneumonia on CT: treat symptomatically /HTN Urgency: low salt/renal diet and cont antihypertensives, /CAD s/p PCI 02/2018: Cardiology following, normal stress test /ESRD; HD per renal /Hyperlipidemia; continue statin /DVT prophylaxis: on sq heparin full code Disposition: when clears by cradiology Brief History: Patient is a 63 year-old woman with past medical history of ESRD on HD TTS, hypertension, CAD s/p cardiac stent and dyslipidemia who presented with SOB * CTA chest: IMPRESSION: COPD with mild underlying fibrosis. There is atelectasis in both lower lungs. Mild pleural thickening and effusion right lower lung * MPI stress test: normal * 2D echo , pending Hospitalist Physical GENERAL: Elderly -[place] female lying on bed appeared to be in no discomfort. HEENT: Normocephalic. Atraumatic. No conjunctival congestion or icterus. Patient has moist mucous membranes. NECK: Supple. Trachea midline. CHEST/LUNGS: Clear to auscultated bilaterally, breathing nonlabored. No wheezes crackles or rhonchi. HEART/CARDIOVASCULAR: Regular in rate and rhythm. S1 and S2 positive. ABDOMEN: Abdomen is soft, nontender. Patient has normal bowel sounds. SKIN: There is no rash. Warm and dry. NEURO: No focal motor deficit. Follows command. MUSCULOSKELETAL: No joint effusion or tenderness. EXTRIMITY: No edema, no cyanosis or clubbing. PSYCH: Cooperative. Subjective Date of service: 06/25/18 Principal diagnosis: Pneumonia Interval history: Patient seen and examined denies any chest pain or SOB, had HD today, tolerated well Objective - Constitutional Vitals: Vital Signs - 12hr 06/25/18 06/25/18 06/25/18 05:55 07:44 07:51 Temperature Pulse Rate 72 Pulse Rate [ 68 Anterior Bilateral Throughout] Respiratory Rate Respiratory 20 Rate [Anterior Bilateral Throughout] Blood Pressure 166/82 O2 Sat by Pulse 99 Oximetry 06/25/18 06/25/18 06/25/18 07:56 08:53 10:00 Temperature 97.7 F Pulse Rate 65 Pulse Rate [ 67 Anterior Bilateral Throughout] Respiratory 18 18 Rate Respiratory 20 Rate [Anterior Bilateral Throughout] Blood Pressure 187/79 O2 Sat by Pulse 100 97 Oximetry 06/25/18 06/25/18 06/25/18 11:15 11:30 11:45 Temperature 98.0 F Pulse Rate 70 69 67 Pulse Rate [ Anterior Bilateral Throughout] Respiratory 18 Rate Respiratory Rate [Anterior Bilateral Throughout] Blood Pressure 171/83 185/82 181/82 O2 Sat by Pulse Oximetry 06/25/18 06/25/18 06/25/18 12:00 12:15 16:14 Temperature 98.6 F Pulse Rate 67 69 74 Pulse Rate [ Anterior Bilateral Throughout] Respiratory 18 Rate Respiratory Rate [Anterior Bilateral Throughout] Blood Pressure 191/83 169/84 178/74 O2 Sat by Pulse 97 Oximetry - Labs CBC & Chem 7: 06/24/18 04:33 06/25/18 05:39 Labs: Abnormal lab results 06/25/18 Range/Units 05:39 Sodium 136 L (137-145) mmol/L Chloride 94.0 L (98-107) mmol/L BUN 19 H (7-17) mg/dL Creatinine 5.5 H (0.7-1.2) mg/dL
[2018-06-25] MEDS ORDERED: DUONEB *Not for PRN Use IH ONE (19:30)
[2018-06-26] MEDS: CATAPRES PO SCH (06:07)
[2018-06-26] MEDS: DUONEB *Not for PRN Use IH SCH (07:40)
[2018-06-26] MEDS: PULMICORT IH SCH (07:40)
[2018-06-26] MEDS: PHOSLO PO SCH (08:00)
[2018-06-26] MEDS: RENVELA PO SCH (08:00)
--- NOTE | 2018-06-26 09:31 | Progress Note ---
Assessment and Plan Impression * End-stage renal disease * Congestive heart failure * Hypertension * Anemia * Hyperkalemia Recommendations * Hyperkalemia has been corrected * Congestive heart failure seems to have resolved * Continue dialysis on TTS schedule * Her outpatient dialysis days are also TTS at [facility] * Procrit with dialysis * Binders with meals * Adjust diet and meds for ESRD state * Her baseline weight will most likely need to be adjusted as outpatient. * Okay to discharge patient home from renal standpoint Subjective Principal diagnosis: Pneumonia Interval history: Patient is comfortable today. Denies any shortness of breath. Uneventful hemodialysis yesterday Objective - Vital Signs Vital signs: Vital Signs - 12hr 06/25/18 06/25/18 06/25/18 22:00 22:13 22:14 Temperature Pulse Rate 75 74 74 Pulse Rate [ Anterior Bilateral Throughout] Pulse Rate [ 75 From Monitor] Respiratory 20 Rate Respiratory Rate [Anterior Bilateral Throughout] Blood Pressure 195/77 195/77 O2 Sat by Pulse 96 Oximetry 06/26/18 06/26/18 06/26/18 00:10 04:50 05:02 Temperature 98.6 F 98.2 F Pulse Rate 73 70 70 Pulse Rate [ Anterior Bilateral Throughout] Pulse Rate [ From Monitor] Respiratory 18 20 Rate Respiratory Rate [Anterior Bilateral Throughout] Blood Pressure 208/79 200/82 200/82 O2 Sat by Pulse 98 96 Oximetry 06/26/18 06/26/18 06/26/18 06:07 07:40 08:50 Temperature Pulse Rate 72 Pulse Rate [ 88 Anterior Bilateral Throughout] Pulse Rate [ From Monitor] Respiratory Rate Respiratory 16 Rate [Anterior Bilateral Throughout] Blood Pressure 186/78 O2 Sat by Pulse 96 Oximetry - General Appearance General appearance: well-developed, well-nourished, appears stated age EENT: PERRL, mucous membranes moist Neck: no JVD, no thyromegaly, no carotid bruit, supple Respiratory: Present: Clear to Ascultation Cardiology: regular, normal heart rate, S1S2, no murmurs Gastrointestinal: normal, normoactive bowel sounds Integumentary: no rash, other (AV graft in her right upper arm. Good bruit and thrill.) - Lab 06/24/18 04:33 06/25/18 05:39 Most recent lab results Calcium 8.4 mg/dL (8.4-10.2) 06/25/18 05:39 Magnesium 1.70 mg/dL (1.7-2.3) 06/24/18 14:47 Medications & Allergies - Medications Allergies/Adverse Reactions: Allergies gabapentin Allergy (Verified 03/04/18 04:31) Seizure labetalol Adverse Reaction (Verified 12/01/15 07:51) Unknown Home Medications: Home Medications Medication Instructions Recorded Confirmed Last Taken Type Albuterol Sulfate [Ventolin HFA] 90 mcg IH Q6H PRN 01/28/15 06/20/18 04/02/15 History Calcium Acetate [Phoslo] 667 mg PO TID 12/18/17 06/20/18 Unknown History Carvedilol 25 mg PO BID 12/18/17 06/20/18 Unknown History Sevelamer Carbonate 800 mg PO TID 03/04/18 06/20/18 Unknown History Aspirin [Aspirin BABY CHEW TAB] 81 mg PO QDAY #30 tab.chew 03/13/18 06/20/18 Unknown Rx AtorvaSTATin [Lipitor] 40 mg PO QHS #30 tablet 03/13/18 06/20/18 Unknown Rx Clopidogrel [Plavix] 75 mg PO QDAY #30 tablet 03/13/18 06/20/18 Unknown Rx amLODIPine [Norvasc] 10 mg PO QDAY #30 tablet 03/13/18 06/20/18 Unknown Rx cloNIDine [Catapres] 0.1 mg PO Q8HR #90 tablet 03/13/18 06/20/18 Unknown Rx hydrALAZINE [Apresoline TAB] 50 mg PO Q8HR #90 tablet 03/13/18 06/20/18 Unknown Rx Diphenoxylate HCl/Atropine 1 each PO BID #20 tablet 05/30/18 06/20/18 Unknown Rx [Lomotil 2.5-0.025 mg Tablet] Gabapentin [Neurontin] 300 mg PO Q8HR 06/20/18 06/20/18 Unknown History Losartan [Cozaar] 50 tab PO TID 06/20/18 06/20/18 Unknown History Active Medications: Generic Name Dose Route Start Last Admin Trade Name Freq PRN Reason Stop Dose Admin Acetaminophen 650 mg 06/20/18 08:00 06/23/18 14:28 Tylenol PO 650 mg Q4H PRN Administration Pain MILD(1-3)/Fever >100.5/ADLER Albuterol 2.5 mg 06/20/18 07:30 Proventil IH Q4HRT PRN Shortness Of Breath Albuterol/Ipratropium 1 ampul 06/21/18 14:00 06/26/18 07:40 Duoneb *Not For Prn Use* IH 1 ampul TIDRT DIAMOND Administration Aspirin 81 mg 06/21/18 10:00 06/25/18 09:16 Baby Aspirin PO 81 mg QDAY DIAMOND Administration Atorvastatin Calcium 40 mg 06/20/18 22:00 06/25/18 22:13 Lipitor PO 40 mg QHS DIAMOND Administration Budesonide 0.5 mg 06/20/18 08:00 06/26/18 07:40 Pulmicort IH 0.5 mg Q12HRT DIAMOND Administration Calcium Acetate 667 mg 06/20/18 08:00 06/25/18 21:20 Phoslo PO 667 mg TID DIAMOND Administration Carvedilol 25 mg 06/20/18 10:00 06/25/18 22:13 Coreg PO 25 mg BID DIAMOND Administration Clonidine HCl 0.1 mg 06/20/18 08:00 06/26/18 06:07 Catapres PO 0.1 mg Q8HR DIAMOND Administration Clopidogrel Bisulfate 75 mg 06/20/18 10:00 06/25/18 10:00 Plavix PO Not Given QDAY DIAMOND Dicyclomine HCl 20 mg 06/20/18 07:28 Bentyl PO QID PRN abdominal pain Diphenhydramine HCl 25 mg 06/22/18 20:08 06/22/18 21:07 Benadryl PO 25 mg Q6H PRN Administration Itching Diphenoxylate HCl/Atropine 1 tab 06/20/18 10:00 06/25/18 22:13 Lomotil PO 1 tab BID DIAMOND Administration Doxazosin Mesylate 2 mg 06/20/18 22:00 06/25/18 22:13 Cardura PO 2 mg BID DIAMOND Administration Famotidine 10 mg 06/20/18 14:00 06/25/18 09:20 Pepcid PO 10 mg DAILY DIAMOND Administration Heparin Sodium (Porcine) 5,000 unit 06/20/18 14:00 06/25/18 22:14 Heparin SUB-Q 5,000 unit Q12HR DI[facility]OND Administration Hydralazine HCl 10 mg 06/20/18 22:31 06/26/18 05:02 Apresoline IV 10 mg Q4HR PRN Administration Hypertension Sodium Chloride 100 mls @ 999 mls/hr 06/20/18 09:47 Nacl 0.9% IV COTY PRN Hypotension Levofloxacin/Dextrose 500 mg in 100 mls @ 100 mls/hr 06/21/18 06:00 06/25/18 05:56 Levaquin 500mg/100ml IV 100 mls/hr Q48H DIAMOND Administration Protocol Isosorbide Mononitrate 30 mg 06/20/18 14:00 06/25/18 10:00 Imdur PO Not Given QDAY [facility] Morphine Sulfate 2 mg 06/20/18 08:00 06/25/18 19:47 Morphine IV 2 mg Q4H PRN Administration Pain, Moderate (4-6) Nicotine 14 mg 06/21/18 11:00 06/25/18 09:16 Habitrol TD 14 mg QDAY [facility] Administration Nifedipine 90 mg 06/20/18 21:00 06/25/18 10:00 Procardia Xl PO Not Given QDAY [facility] Nitroglycerin 0.4 mg 06/20/18 03:28 Nitrostat SL .Q5MIN PRN Chest Pain Ondansetron HCl 4 mg 06/20/18 08:00 06/23/18 23:31 Zofran IV 4 mg Q8H PRN Administration Nausea And Vomiting Polyethylene Glycol 17 gm 06/21/18 15:55 06/21/18 16:21 Miralax 3350 PO 17 gm QDAY PRN Administration Constipation Sevelamer Carbonate 800 mg 06/20/18 08:00 06/25/18 21:20 Renvela PO 800 mg TID DI[facility]OND Administration Sodium Chloride 10 ml 06/20/18 10:00 06/25/18 22:15 Sodium Chloride Flush Syringe 10 Ml IV 10 ml BID DI[facility]OND Administration Sodium Chloride 10 ml 06/20/18 07:30 Sodium Chloride Flush Syringe 10 Ml IV PRN PRN LINE FLUSH
[2018-06-26] MEDS ORDERED: PROVENTIL IH PRN (09:43)
[2018-06-26] MEDS: BABY ASPIRIN PO SCH (11:44)
[2018-06-26] MEDS: PEPCID PO SCH (11:44)
[2018-06-26] MEDS: CARDURA PO SCH (11:44)
[2018-06-26] MEDS: COREG PO SCH (11:44)
[2018-06-26] MEDS: LOMOTIL PO SCH (11:44)
[2018-06-26] MEDS: PROCARDIA XL PO SCH (11:45)
[2018-06-26] MEDS: PLAVIX PO SCH (11:45)
[2018-06-26] MEDS: IMDUR PO SCH (11:45)
[2018-06-26] MEDS: HABITROL TD SCH (11:45)
[2018-06-26] MEDS: HEPARIN SUB-Q SCH (11:45)
[2018-06-26] MEDS: SODIUM CHLORIDE FLUSH SYRINGE 10 ML IV SCH (11:51)
--- NOTE | 2018-06-26 13:18 | Progress Note ---
Assessment and Plan - Patient Problems (1) Congestive heart failure (CHF) Current Visit: No Status: Acute Plan to address problem: Continue medical therapy for heart failure with preserved ejection fraction. (2) Wide-complex tachycardia Current Visit: Yes Status: Acute Plan to address problem: Patient has well-preserved left ventricle systolic function, not a candidate for LifeVest monitoring, will continue beta sarah therapy and optimize electrolytes including potassium and magnesium. Subjective Date of service: 06/26/18 Principal diagnosis: Pneumonia Interval history: Patient is comfortable, no new cardiac complaints. Echocardiogram shows a moderate severity concentric left ventricular hypertrophy, and well preserved left ventricle systolic function with ejection fraction of 55%. Objective Vital Signs Temp Pulse Pulse Pulse Resp Resp BP 06/26/18 11:45 177/76 06/26/18 11:44 88 177/76 06/26/18 09:40 06/26/18 09:12 98.0 F 18 177/76 06/26/18 08:50 06/26/18 07:40 88 16 06/26/18 06:07 72 186/78 06/26/18 05:02 70 200/82 06/26/18 04:50 98.2 F 70 20 200/82 06/26/18 00:10 98.6 F 73 18 208/79 06/25/18 22:14 74 195/77 06/25/18 22:13 74 195/77 06/25/18 22:00 75 75 20 06/25/18 20:20 79 16 06/25/18 20:14 98.2 F 74 18 221/96 06/25/18 20:02 06/25/18 20:00 77 16 06/25/18 19:47 18 06/25/18 16:14 98.6 F 74 18 178/74 06/25/18 15:00 98.2 F 68 18 150/98 06/25/18 14:45 66 148/90 06/25/18 14:30 65 144/93 06/25/18 14:15 67 168/80 06/25/18 14:00 69 164/83 06/25/18 13:45 69 180/94 06/25/18 13:30 67 174/83 06/25/18 13:15 69 195/84 Pulse Ox 06/26/18 11:45 06/26/18 11:44 06/26/18 09:40 96 06/26/18 09:12 06/26/18 08:50 96 06/26/18 07:40 06/26/18 06:07 06/26/18 05:02 06/26/18 04:50 96 06/26/18 00:10 98 06/25/18 22:14 06/25/18 22:13 06/25/18 22:00 96 06/25/18 20:20 06/25/18 20:14 96 06/25/18 20:02 97 06/25/18 20:00 06/25/18 19:47 06/25/18 16:14 97 06/25/18 15:00 06/25/18 14:45 06/25/18 14:30 06/25/18 14:15 06/25/18 14:00 06/25/18 13:45 06/25/18 13:30 06/25/18 13:15 - Physical Examination General: Appears Well, No Apparent Distress HEENT: Positive: PERRL Neck: Positive: neck supple Cardiac: Positive: Reg Rate and Rhythm Lungs: Positive: Decreased Breath Sounds Neuro: Positive: Grossly Intact Abdomen: Positive: Soft Skin: Positive: Clear Extremities: Absent: edema
--- NOTE | 2018-06-26 16:47 | Discharge Summary ---
Providers - Providers Date of Admission: 06/20/18 06:51 Date of discharge: 06/26/18 Attending physician: BENY ROD 06/20/18 03:27 Consult to Physician [CONS] Urgent Comment: Dr. Mendes spoke with Dr. Lovell @ 0400 Consulting Provider: RO LOVELL Physician Instructions: Reason For Exam: esrd 06/20/18 07:26 Consult to Physician [CONS] Routine Comment: Consulting Provider: COREEN RICHARDSON Physician Instructions: Reason For Exam: CHEST PAIN, CHF 06/20/18 07:32 Consult to Dietitian/Nutrition [CONS] Routine Physician Instructions: Reason For Exam: Reason for Consult: Diet education Primary care physician: JAGDISH ADHIKARI Hospitalization Reason for admission: SOB Condition: Fair Hospital course: Brief History: Patient is a 63 year-old woman with past medical history of ESRD on HD TTS, hypertension, CAD s/p cardiac stent and dyslipidemia who presented with SOB * CTA chest: IMPRESSION: COPD with mild underlying fibrosis. There is atelectasis in both lower lungs. Mild pleural thickening and effusion right lower lung * MPI stress test: normal * 2D echo , preserved EF Discharge diagnosis and management: /Acute Respiratory failure - due to most likely volume overload: stress test on Sunday was normal, weaned off O2 /Acute heart failure pEF: likely diastolic dysfunction - treated with diuretics/HD, ECHO showed preserved EF / NSVT - had 10 beat run 15:41pm 06/23/2018: - ECHO ordered, showed preserved EF, Cardiology following, increased metoprolol dose, cont to monitor. /Lower lobe atelectasis /URI with acute bronchitis, no mention of Pneumonia on CT: treated symptomatically /HTN Urgency: low salt/renal diet and cont antihypertensives, /CAD s/p PCI 02/2018: Cardiology following, normal stress test /ESRD; HD per renal /Hyperlipidemia; continue statin /DVT prophylaxis: on sq heparin full code Disposition: cleared by [facility], d/c home with Hospitalist Physical GENERAL: Elderly -[place] female lying on bed appeared to be in no discomfort. HEENT: Normocephalic. Atraumatic. No conjunctival congestion or icterus. Patient has moist mucous membranes. NECK: Supple. Trachea midline. CHEST/LUNGS: Clear to auscultated bilaterally, breathing nonlabored. No wheezes crackles or rhonchi. HEART/CARDIOVASCULAR: Regular in rate and rhythm. S1 and S2 positive. ABDOMEN: Abdomen is soft, nontender. Patient has normal bowel sounds. SKIN: There is no rash. Warm and dry. NEURO: No focal motor deficit. Follows command. MUSCULOSKELETAL: No joint effusion or tenderness. EXTRIMITY: No edema, no cyanosis or clubbing. PSYCH: Cooperative. Disposition: DC/TX-06 HOME UNDER HOME [facility] Time spent for discharge: 34 minutes Core Measure Documentation - Palliative Care Palliative Care/ Comfort Measures: Not Applicable - Core Measures Any of the following diagnoses?: none Exam - Constitutional Vitals: Temp Pulse Resp BP Pulse Ox 98.4 F 88 18 179/84 96 06/26/18 12:52 06/26/18 11:44 06/26/18 12:52 06/26/18 12:52 06/26/18 09:40 Plan Activity: advance as tolerated Weight Bearing Status: Weight Bear as Tolerated Diet: renal Special Instructions: restrict fluid intake to (1.2 L daily) Follow up with: JAGDISH ADHIKARI MD [Primary Care Provider] - 3-5 Days
[2018-06-26 17:03] VITALS: BP 166/70
== END 2018-06-26 19:00 | disposition home health service (06) | DRG 291 ==
LOC: ED 02:26 → 4A 06:51
PROVIDERS: ADMIT Internal Medicine; ATTEND Internal Medicine
PROC: 5A1D70Z Performance of Urinary Filtration, Intermittent, Less than 6 Hours Per Day (ICD-10-PCS; principal; 2018-06-20)
PROC: 5A1D70Z Performance of Urinary Filtration, Intermittent, Less than 6 Hours Per Day (ICD-10-PCS; 2018-06-22)
PROC: 3E0234Z Introduction of Serum, Toxoid and Vaccine into Muscle, Percutaneous Approach (ICD-10-PCS; 2018-06-22)
PROC: 5A1D70Z Performance of Urinary Filtration, Intermittent, Less than 6 Hours Per Day (ICD-10-PCS; 2018-06-24)
PROC: 5A1D70Z Performance of Urinary Filtration, Intermittent, Less than 6 Hours Per Day (ICD-10-PCS; 2018-06-25)
DX: I13.2 Hypertensive heart and chronic kidney disease with heart failure and with stage 5 chronic kidney disease, or end stage renal disease (principal); N18.6 End stage renal disease; J96.00 Acute respiratory failure, unspecified whether with hypoxia or hypercapnia; I50.31 Acute diastolic (congestive) heart failure; N25.81 Secondary hyperparathyroidism of renal origin; J44.0 Chronic obstructive pulmonary disease with (acute) lower respiratory infection; J98.11 Atelectasis; I47.2 Ventricular tachycardia; D63.1 Anemia in chronic kidney disease; E11.22 Type 2 diabetes mellitus with diabetic chronic kidney disease; R07.89 Other chest pain; I16.0 Hypertensive urgency; J20.9 Acute bronchitis, unspecified; E78.5 Hyperlipidemia, unspecified; J44.9 Chronic obstructive pulmonary disease, unspecified; E87.70 Fluid overload, unspecified; I50.9 Heart failure, unspecified; I25.10 Atherosclerotic heart disease of native coronary artery without angina pectoris; Z95.5 Presence of coronary angioplasty implant and graft; I25.2 Old myocardial infarction; Z82.49 Family history of ischemic heart disease and other diseases of the circulatory system; Z88.8 Allergy status to other drugs, medicaments and biological substances; Z79.51 Long term (current) use of inhaled steroids; Z79.899 Other long term (current) drug therapy; Z90.49 Acquired absence of other specified parts of digestive tract; Z87.891 Personal history of nicotine dependence; Z99.2 Dependence on renal dialysis; Z23 Encounter for immunization; Z79.84 Long term (current) use of oral hypoglycemic drugs
CPT/HCPCS: 36415; 71045; 71275; 78452; 80048; 82140; 82550; 83735; 83880; 84443; 84484; 85025; 85027; 85610; 87040; 90471; 90670; 93005; 93010; 93017; 93306; 94640; 94760; 96365; 96375; 96376; G0378; A9270-GY; A9502; G0009; J0360; J1644; J1940; J1956; J2270; J2405; J2785; J2930; J7030; Q9967

== ENCOUNTER 2018-06-29 01:40 | Inpatient (IN) | payer MEDICARE ==
[2018-06-29] MEDS ORDERED: ASPIRIN PO ONE (01:58)
--- NOTE | 2018-06-29 02:12 | Emergency Department Report ---
ED Chest Pain HPI - General Chief Complaint: Chest Pain Stated Complaint: CHEST PAIN Time Seen by Provider: 06/29/18 02:00 Source: patient, EMS Mode of arrival: Stretcher Limitations: No Limitations - History of Present Illness Initial Comments: 62-year-old female with history of CAD, COPD, CHF presents to ED with complaint of chest pain and shortness of breath. Patient states symptoms began approximately 11 PM while lying in bed. Says chest pain was left-sided, nonradiating, felt like a tightness. She reports associated nausea. Patient states pain was constant until EMS arrived and she was administered oxygen. Patient was not hypoxic. 96% on room air. Currently chest pain-free. Patient due for dialysis today. MD Complaint: chest pain -: hour(s) (3) Onset: during rest Pain Location: left chest Pain Radiation: none Severity: moderate Severity scale (0 -10): 0 Quality: tightness Consistency: constant, now resolved Improves With: nothing Worsens With: nothing re: nausea, dyspnea. denies: vomting, diaphoresis - Related Data Home Medications Medication Instructions Recorded Confirmed Last Taken ALBUTEROL Inhaler(NF) [VENTOLIN 2 puff IH Q6HR PRN 06/29/18 06/29/18 Unknown Inhaler(NF)] Amlodipine Besylate [Norvasc] 1 tab PO DAILY 06/29/18 06/29/18 Unknown Diphenoxylate HCl/Atropine 1 tab PO QID PRN 06/29/18 06/29/18 Unknown [Diphenoxylate-Atrop 2.5-0.025] Isosorbide Dinitrate 1 tab PO DAILY 06/29/18 06/29/18 Unknown Allergies Allergy/AdvReac Type Severity Reaction Status Date / Time gabapentin Allergy Seizure Verified 03/04/18 04:31 labetalol AdvReac Unknown Verified 12/01/15 07:51 Heart Score - HEART Score History: Slightly suspicious EKG: Normal Age: 45-65 Risk factors: > 3 risk factors or hx of atherosclerotic disease Troponin: < normal limit HEART Score: 3 ED Review of Systems ROS: Stated complaint: CHEST PAIN Other details as noted in HPI Comment: All other systems reviewed and negative Respiratory: shortness of breath Cardiovascular: chest pain Gastrointestinal: nausea. denies: vomiting ED Past Medical Hx - Past Medical History Previous Medical History?: Yes Hx Hypertension: Yes Hx Congestive Heart Failure: Yes Hx Diabetes: Yes Hx Renal Disease: Yes (w/ HD Sunday, , Sunday) Hx Arthritis: Yes Hx Kidney Stones: Yes Hx Asthma: Yes Hx COPD: No Hx HIV: No Additional medical history: heart murmur - Surgical History Past Surgical History?: Yes Hx Cholecystectomy: (gallstones removed) Additional Surgical History: Fistula Left Upper arm.--old. fistula right upper arm. bowel obstruction - Social History Smoking Status: Former Smoker Substance Use Type: None - Medications Home Medications: Home Medications Medication Instructions Recorded Confirmed Last Taken Type ALBUTEROL Inhaler(NF) [VENTOLIN 2 puff IH Q6HR PRN 06/29/18 06/29/18 Unknown History Inhaler(NF)] Amlodipine Besylate [Norvasc] 1 tab PO DAILY 06/29/18 06/29/18 Unknown History Diphenoxylate HCl/Atropine 1 tab PO QID PRN 06/29/18 06/29/18 Unknown History [Diphenoxylate-Atrop 2.5-0.025] Isosorbide Dinitrate 1 tab PO DAILY 06/29/18 06/29/18 Unknown History ED Physical Exam - General Limitations: No Limitations General appearance: alert, in no apparent distress - Head Head exam: Present: atraumatic, normocephalic - Eye Eye exam: Present: normal appearance - ENT ENT exam: Present: mucous membranes moist - Neck Neck exam: Present: normal inspection - Respiratory Respiratory exam: Present: normal lung sounds bilaterally. Absent: respiratory distress - Cardiovascular Cardiovascular Exam: Present: regular rate, normal rhythm - GI/Abdominal GI/Abdominal exam: Present: soft. Absent: distended, tenderness - Extremities Exam Extremities exam: Absent: pedal edema - Neurological Exam Neurological exam: Present: alert, oriented X3 - Psychiatric Psychiatric exam: Present: normal affect, normal mood - Skin Skin exam: Present: warm, dry, intact, normal color ED Course Vital Signs 06/29/18 06/29/18 06/29/18 01:54 02:06 03:00 Temperature 98.2 F Pulse Rate 74 74 73 Respiratory 22 22 18 Rate Blood Pressure 171/80 Blood Pressure 165/82 [Left] O2 Sat by Pulse 96 96 99 Oximetry 06/29/18 06/29/18 06/29/18 04:00 05:00 06:00 Temperature Pulse Rate 72 71 70 Respiratory 16 13 15 Rate Blood Pressure 165/81 147/92 169/81 Blood Pressure [Left] O2 Sat by Pulse 99 99 100 Oximetry 06/29/18 06/29/18 06/29/18 07:00 07:10 07:20 Temperature Pulse Rate 68 68 67 Respiratory 14 15 13 Rate Blood Pressure 169/81 188/83 188/83 Blood Pressure [Left] O2 Sat by Pulse 100 100 100 Oximetry 06/29/18 06/29/18 06/29/18 07:30 07:40 07:50 Temperature Pulse Rate 67 66 70 Respiratory 12 12 11 L Rate Blood Pressure 188/83 188/83 188/83 Blood Pressure [Left] O2 Sat by Pulse 100 100 100 Oximetry 06/29/18 06/29/18 06/29/18 08:00 08:10 08:20 Temperature Pulse Rate 65 66 66 Respiratory 11 L 11 L 12 Rate Blood Pressure 199/89 199/89 199/89 Blood Pressure [Left] O2 Sat by Pulse 100 100 100 Oximetry 06/29/18 06/29/18 06/29/18 08:30 09:24 09:35 Temperature 97.7 F Pulse Rate 66 67 69 Respiratory 11 L 18 Rate Blood Pressure 199/89 165/69 Blood Pressure [Left] O2 Sat by Pulse 100 94 Oximetry ED Medical Decision Making - Lab Data Result diagrams: 06/29/18 06:58 06/29/18 06:58 - EKG Data -: EKG Interpreted by [facility] EKG shows normal: sinus rhythm, axis, QRS complexes Rate: normal - EKG Data Interpretation: no acute changes, LVH - Radiology Data Radiology results: report reviewed, image reviewed - Differential Diagnosis ACS, atypical chest pain, pneumonia Critical care attestation.: If time is entered above; I have spent that time in minutes in the direct care of this critically ill patient, excluding procedure time. ED Disposition Clinical Impression: Chest pain Disposition: -09 OP ADMIT IP TO THIS HOSP Is pt being admited?: Yes Condition: Stable Time of Disposition: 05:05
[2018-06-29 02:19] LABS: Basophils % (Auto) 0.2 % (0.0-1.8); Eosinophils % (Auto) 1.3 % (0.0-4.3); Hematocrit 31.5 % (30.3-42.9); Hemoglobin 10.3 gm/dl (10.1-14.3); Lymphocytes # (Auto) 0.8 K/mm3 (1.2-5.4); Lymphocytes % (Auto) 19.6 % (13.4-35.0); Mean Corpuscular HGB Conc 33 % (30-34); Mean Corpuscular Volume 98 fl (79-97); Monocytes # (Auto) 0.6 K/mm3 (0.0-0.8); Monocytes % (Auto) 14.2 % (0.0-7.3); Platelet Count 165 K/mm3 (140-440); Red Blood Count 3.21 M/mm3 (3.65-5.03); Red Cell Distribution Width 16.8 % (13.2-15.2)
[2018-06-29 02:40] LABS: Calcium 8.3 mg/dL (8.4-10.2)
--- NOTE | 2018-06-29 04:24 | XRay Report ---
PROCEDURE: XR CHEST 1V AP TECHNIQUE: Chest radiograph single view. HISTORY: Chest Pain COMPARISONS: None . FINDINGS: Heart: The heart is slightly enlarged.. Mediastinum/Vessels: Normal. Lungs/Pleural space: There are fibrotic changes at the lung bases. There are no infiltrates, effusio ns or pneumothoraces.. Bony thorax: No acute osseous abnormality. Life support devices: None. IMPRESSION: The heart is slightly enlarged.. There are fibrotic changes at the lung bases. There are no infiltrates, effusions or pneumothoraces.. . This document is electronically signed by Pedrito Oliva MD., June 29 2018 04:22:44 AM ET
[2018-06-29] MEDS ORDERED: TYLENOL PO PRN (05:35)
[2018-06-29] MEDS ORDERED: SODIUM CHLORIDE FLUSH SYRINGE 10 ML IV PRN ×2 (05:35)
[2018-06-29] MEDS ORDERED: ASPIRIN ONE (05:48)
--- NOTE | 2018-06-29 06:04 | History and Physical Report ---
<JESSI BEARDEN - Last Filed: 06/29/18 06:56> History of Present Illness Date of examination: 06/29/18 Date of admission: 06/29/2018 Chief complaint: Chest pain 1 day History of present illness: Patient is a 63-year-old female with PMHx of CAD/status post stent 2, asthma, hypertension, ESRD on HD, CHF who presents to ER with complaint of chest pain, shortness of breath prior to coming to the ER. Patient states that the chest pain started around 11 PM, it is a chest tightness located in the left substernal area, causing trouble breathing, pt denies any radiation of the pain but states that she was having numbness on the right arm and hands. Patient states that the symptoms persist and she got concerned and decided to call EMS, and she was taken to the hospital for evaluation. Patient states that her breathing improved when she received some oxygen, but the pain remains constant. Patient states that the pain is unlike the last chest pain, it was constant a constant tightness. Patient had an EKG in the ER which showed no STEMI criteria, first cardiac enzymes were slightly elevated patient is admitted and cardiology is consulted for evaluation. Past History Past Medical History: CAD, COPD, hypertension, renal failure Past Surgical History: cholecystectomy, Other (dialysis fistula) Social history: no significant social history Family history: no significant family history Medications and Allergies Allergies Allergy/AdvReac Type Severity Reaction Status Date / Time gabapentin Allergy Seizure Verified 03/04/18 04:31 labetalol AdvReac Unknown Verified 12/01/15 07:51 Home Medications Medication Instructions Recorded Confirmed Last Taken Type ALBUTEROL Inhaler(NF) [VENTOLIN 2 puff IH Q6HR PRN 06/29/18 06/29/18 Unknown History Inhaler(NF)] Amlodipine Besylate [Norvasc] 1 tab PO DAILY 06/29/18 06/29/18 Unknown History Diphenoxylate HCl/Atropine 1 tab PO QID PRN 06/29/18 06/29/18 Unknown History [Diphenoxylate-Atrop 2.5-0.025] Isosorbide Dinitrate 1 tab PO DAILY 06/29/18 06/29/18 Unknown History Active Meds: Active Medications Acetaminophen (Tylenol) 650 mg PO Q4H PRN PRN Reason: Pain MILD(1-3)/Fever >100.5/ADLER Aspirin (Ecotrin) 325 mg PO QDAY [facility] Atorvastatin Calcium (Lipitor) 40 mg PO QHS [facility] Enoxaparin Sodium (Lovenox) 30 mg SUB-Q QDAY [facility] Famotidine (Pepcid) 20 mg PO BID [facility] Morphine Sulfate (Morphine) 2 mg IV Q4H PRN PRN Reason: Pain, Moderate (4-6) Ondansetron HCl (Zofran) 4 mg IV Q8H PRN PRN Reason: Nausea And Vomiting Sodium Chloride (Sodium Chloride Flush Syringe 10 Ml) 10 ml IV BID [facility] Sodium Chloride (Sodium Chloride Flush Syringe 10 Ml) 10 ml IV PRN PRN PRN Reason: LINE FLUSH Sodium Chloride (Sodium Chloride Flush Syringe 10 Ml) 10 ml IV PRN PRN PRN Reason: LINE FLUSH Review of Systems Eyes: bilateral: discharge Cardiovascular: chest pain Respiratory: shortness of breath Gastrointestinal: abdominal pain Exam - Constitutional Vitals: Temp Pulse Resp BP Pulse Ox 98.2 F 71 13 147/92 99 06/29/18 02:06 06/29/18 05:00 06/29/18 05:00 06/29/18 05:00 06/29/18 05:00 General appearance: Present: no acute distress - EENT Eyes: Present: EOM intact ENT: hearing intact - Neck Neck: Present: normal ROM - Respiratory Respiratory effort: normal Respiratory: bilateral: CTA - Cardiovascular Rhythm: regular Heart Sounds: Present: S1 & S2 - Extremities Extremities: no ischemia Peripheral Pulses: within normal limits - Abdominal General gastrointestinal: Present: soft, non-tender - Integumentary Integumentary: Present: warm, dry - Musculoskeletal Musculoskeletal: strength equal bilaterally - Psychiatric Psychiatric: cooperative - Neurologic Neurologic: moves all extremities Results - Labs CBC & Chem 7: 06/29/18 02:00 06/29/18 02:00 Labs: Laboratory Last Values WBC 3.9 K/mm3 (4.5-11.0) L 06/29/18 02:00 RBC 3.21 M/mm3 (3.65-5.03) L 06/29/18 02:00 Hgb 10.3 gm/dl (10.1-14.3) 06/29/18 02:00 Hct 31.5 % (30.3-42.9) 06/29/18 02:00 MCV 98 fl (79-97) H 06/29/18 02:00 MCH 32 pg (28-32) 06/29/18 02:00 MCHC 33 % (30-34) 06/29/18 02:00 RDW 16.8 % (13.2-15.2) H 06/29/18 02:00 Plt Count 165 K/mm3 (140-440) 06/29/18 02:00 Lymph % (Auto) 19.6 % (13.4-35.0) 06/29/18 02:00 [place] % (Auto) 14.2 % (0.0-7.3) H 06/29/18 02:00 Eos % (Auto) 1.3 % (0.0-4.3) 06/29/18 02:00 Baso % (Auto) 0.2 % (0.0-1.8) 06/29/18 02:00 Lymph # 0.8 K/mm3 (1.2-5.4) L 06/29/18 02:00 [place] # 0.6 K/mm3 (0.0-0.8) 06/29/18 02:00 Eos # 0.0 K/mm3 (0.0-0.4) 06/29/18 02:00 Baso # 0.0 K/mm3 (0.0-0.1) 06/29/18 02:00 Seg Neutrophils % 64.7 % (40.0-70.0) 06/29/18 02:00 Seg Neutrophils # 2.5 K/mm3 (1.8-7.7) 06/29/18 02:00 Sodium 133 mmol/L (137-145) L 06/29/18 02:00 Potassium 4.1 mmol/L (3.6-5.0) 06/29/18 02:00 Chloride 90.2 mmol/L (98-107) L 06/29/18 02:00 Carbon Dioxide 26 mmol/L (22-30) 06/29/18 02:00 Anion Gap 21 mmol/L 06/29/18 02:00 BUN 34 mg/dL (7-17) H 06/29/18 02:00 Creatinine 7.6 mg/dL (0.7-1.2) H 06/29/18 02:00 Estimated GFR 7 ml/min 06/29/18 02:00 BUN/Creatinine Ratio 4 % 06/29/18 02:00 Glucose 141 mg/dL (65-100) H 06/29/18 02:00 Calcium 8.3 mg/dL (8.4-10.2) L 06/29/18 02:00 Troponin T 0.016 ng/mL (0.00-0.029) 06/29/18 02:00 Assessment and Plan Assessment and plan: 1. Chest pain without ACS 2. CAD s/p recent stent placement 3. Hypertension (BP stable) 4. CHF (EF unknown) 5. ESRD on HD TTS 6. Osteoarthritis 7. Asthma with mild exacerbation Plan: Patient is admitted for chest pain Continue cardiac enzymes every 6 hours 2 more Continue aspirin, morphine PRN for pain O2 to keep sat greater than 92% Consult cardiology for evaluation Resume home meds DVT prophylaxis with is the Plan of care discussed the patient voiced understanding Patient's condition and plan of care discussed with Dr. Levy Advance Directives: Yes VTE prophylaxis?: Mechanical Plan of care discussed with patient/family: Yes <FRAN LEVY E - Last Filed: 06/29/18 06:59> Medications and Allergies Active Meds: Active Medications Acetaminophen (Tylenol) 650 mg PO Q4H PRN PRN Reason: Pain MILD(1-3)/Fever >100.5/ADLER Albuterol (Proair) 2 puff IH Q6HR PRN PRN Reason: Shortness Of Breath Amlodipine Besylate (Norvasc) mg PO DAILY [facility] Aspirin (Ecotrin) 325 mg PO QDAY [facility] Atorvastatin Calcium (Lipitor) 40 mg PO QHS [facility] Enoxaparin Sodium (Lovenox) 30 mg SUB-Q QDAY [facility] Famotidine (Pepcid) 20 mg PO QHS [facility] Morphine Sulfate (Morphine) 2 mg IV Q4H PRN PRN Reason: Pain, Moderate (4-6) Ondansetron HCl (Zofran) 4 mg IV Q8H PRN PRN Reason: Nausea And Vomiting Sodium Chloride (Sodium Chloride Flush Syringe 10 Ml) 10 ml IV BID [facility] Sodium Chloride (Sodium Chloride Flush Syringe 10 Ml) 10 ml IV PRN PRN PRN Reason: LINE FLUSH Exam - Constitutional Vitals: Temp Pulse Resp BP Pulse Ox 98.2 F 71 13 147/92 99 06/29/18 02:06 06/29/18 05:00 06/29/18 05:00 06/29/18 05:00 06/29/18 05:00 Results - Labs CBC & Chem 7: 06/29/18 02:00 06/29/18 02:00 Labs: Laboratory Last Values WBC 3.9 K/mm3 (4.5-11.0) L 06/29/18 02:00 RBC 3.21 M/mm3 (3.65-5.03) L 06/29/18 02:00 Hgb 10.3 gm/dl (10.1-14.3) 06/29/18 02:00 Hct 31.5 % (30.3-42.9) 06/29/18 02:00 MCV 98 fl (79-97) H 06/29/18 02:00 MCH 32 pg (28-32) 06/29/18 02:00 MCHC 33 % (30-34) 06/29/18 02:00 RDW 16.8 % (13.2-15.2) H 06/29/18 02:00 Plt Count 165 K/mm3 (140-440) 06/29/18 02:00 Lymph % (Auto) 19.6 % (13.4-35.0) 06/29/18 02:00 [place] % (Auto) 14.2 % (0.0-7.3) H 06/29/18 02:00 Eos % (Auto) 1.3 % (0.0-4.3) 06/29/18 02:00 Baso % (Auto) 0.2 % (0.0-1.8) 06/29/18 02:00 Lymph # 0.8 K/mm3 (1.2-5.4) L 06/29/18 02:00 [place] # 0.6 K/mm3 (0.0-0.8) 06/29/18 02:00 Eos # 0.0 K/mm3 (0.0-0.4) 06/29/18 02:00 Baso # 0.0 K/mm3 (0.0-0.1) 06/29/18 02:00 Seg Neutrophils % 64.7 % (40.0-70.0) 06/29/18 02:00 Seg Neutrophils # 2.5 K/mm3 (1.8-7.7) 06/29/18 02:00 Sodium 133 mmol/L (137-145) L 06/29/18 02:00 Potassium 4.1 mmol/L (3.6-5.0) 06/29/18 02:00 Chloride 90.2 mmol/L (98-107) L 06/29/18 02:00 Carbon Dioxide 26 mmol/L (22-30) 06/29/18 02:00 Anion Gap 21 mmol/L 06/29/18 02:00 BUN 34 mg/dL (7-17) H 06/29/18 02:00 Creatinine 7.6 mg/dL (0.7-1.2) H 06/29/18 02:00 Estimated GFR 7 ml/min 06/29/18 02:00 BUN/Creatinine Ratio 4 % 06/29/18 02:00 Glucose 141 mg/dL (65-100) H 06/29/18 02:00 Calcium 8.3 mg/dL (8.4-10.2) L 06/29/18 02:00 Troponin T 0.014 ng/mL (0.00-0.029) 06/29/18 05:24 Assessment and Plan Assessment and plan: 63-year-old man with a history of coronary artery disease, hypertension, CHF, end-stage renal disease on dialysis, Y, please contact comes emergency room for evaluation of chest pain in the epigastric area which she described as a stab kanchan pain associated with tingling. She status post recent stent, she states she is compliant with medications. Agree with plan as stated above, in addition consult renal for dialysis. Follow-up: Home med reconciliation
[2018-06-29] MEDS ORDERED: PROAIR IH PRN (06:56)
[2018-06-29] MEDS ORDERED: LOMOTIL PO PRN (06:56)
[2018-06-29] MEDS ORDERED: PROVENTIL IH PRN (07:02)
[2018-06-29 07:35] LABS: Calcium 8.2 mg/dL (8.4-10.2)
[2018-06-29 07:37] LABS: Basophils % (Auto) 0.2 % (0.0-1.8); Eosinophils % (Auto) 1.2 % (0.0-4.3); Hemoglobin 10.6 gm/dl (10.1-14.3); Lymphocytes # (Auto) 0.7 K/mm3 (1.2-5.4); Mean Corpuscular HGB Conc 33 % (30-34); Mean Corpuscular Volume 98 fl (79-97); Monocytes # (Auto) 0.6 K/mm3 (0.0-0.8); Platelet Count 141 K/mm3 (140-440); Red Blood Count 3.27 M/mm3 (3.65-5.03); Red Cell Distribution Width 16.3 % (13.2-15.2)
[2018-06-29] MEDS: LOPRESSOR PO SCH ×2 (09:46→21:32)
[2018-06-29] MEDS: LOVENOX SUB-Q SCH (09:47)
[2018-06-29] MEDS: MORPHINE IV PRN ×3 (09:47→20:37)
[2018-06-29] MEDS: ZOFRAN IV PRN (09:47)
[2018-06-29] MEDS: NORVASC PO SCH (09:47)
[2018-06-29 10:25] LABS: Chol/HDL Ratio 1.89 %
--- NOTE | 2018-06-29 11:41 | Consultation ---
History of Present Illness - Reason for Consult Consult date: 06/29/18 end stage renal disease Requesting physician: JESSI BEARDEN - History of Present Illness Patient is a 63-year-old female with PMHx of CAD/status post stent 2, asthma, hypertension, ESRD on HD, CHF who presents to ER with complaint of chest pain, shortness of breath prior to coming to the ER. Patient states that the chest pain started around 11 PM, it is a chest tightness located in the left substernal area, causing trouble breathing, pt denies any radiation of the pain but states that she was having numbness on the right arm and hands. Patient states that the symptoms persist and she got concerned and decided to call EMS, and she was taken to the hospital for evaluation. Patient states that her breathing improved when she received some oxygen, but the pain remains constant. Patient states that the pain is unlike the last chest pain, it was constant a constant tightness. Patient had an EKG in the ER which showed no STEMI criteria, first cardiac enzymes were slightly elevated patient is admitted and cardiology is consulted for evaluation. She undergoes dialysis on TTS schedule at [facility] Past History Past Medical History: CAD, COPD, hypertension, renal failure Past Surgical History: cholecystectomy, Other (dialysis fistula) Social history: no significant social history Family history: no significant family history Medications and Allergies Allergies Allergy/AdvReac Type Severity Reaction Status Date / Time gabapentin Allergy Seizure Verified 03/04/18 04:31 labetalol AdvReac Unknown Verified 12/01/15 07:51 Home Medications Medication Instructions Recorded Confirmed Last Taken Type ALBUTEROL Inhaler(NF) [VENTOLIN 2 puff IH Q6HR PRN 06/29/18 06/29/18 Unknown History Inhaler(NF)] Amlodipine Besylate [Norvasc] 1 tab PO DAILY 06/29/18 06/29/18 Unknown History Diphenoxylate HCl/Atropine 1 tab PO QID PRN 06/29/18 06/29/18 Unknown History [Diphenoxylate-Atrop 2.5-0.025] Isosorbide Dinitrate 1 tab PO DAILY 06/29/18 06/29/18 Unknown History Active Meds: Active Medications Acetaminophen (Tylenol) 650 mg PO Q4H PRN PRN Reason: Pain MILD(1-3)/Fever >100.5/ADLER Albuterol (Proventil) 2.5 mg IH Q6HRT PRN PRN Reason: Shortness Of Breath Amlodipine Besylate (Norvasc) 10 mg PO DAILY [facility] Last Admin: 06/29/18 09:47 Dose: 10 mg Documented by: Aspirin (Ecotrin) 325 mg PO QDAY [facility] Atorvastatin Calcium (Lipitor) 40 mg PO QHS [facility] Diphenoxylate HCl/Atropine (Lomotil) 1 tab PO QID PRN PRN Reason: Diarrhea Enoxaparin Sodium (Lovenox) 30 mg SUB-Q QDAY [facility] Last Admin: 06/29/18 09:47 Dose: 30 mg Documented by: Famotidine (Pepcid) 20 mg PO QHS [facility] Isosorbide Dinitrate (Isordil Titradose) 30 mg PO DAILY [facility] Metoprolol Tartrate (Lopressor) 25 mg PO BID [facility] Last Admin: 06/29/18 09:46 Dose: 25 mg Documented by: Morphine Sulfate (Morphine) 2 mg IV Q4H PRN PRN Reason: Pain, Moderate (4-6) Last Admin: 06/29/18 09:47 Dose: 2 mg Documented by: Ondansetron HCl (Zofran) 4 mg IV Q8H PRN PRN Reason: Nausea And Vomiting Last Admin: 06/29/18 09:47 Dose: 4 mg Documented by: Sodium Chloride (Sodium Chloride Flush Syringe 10 Ml) 10 ml IV BID [facility] Sodium Chloride (Sodium Chloride Flush Syringe 10 Ml) 10 ml IV PRN PRN PRN Reason: LINE FLUSH Review of Systems All systems: negative (negative except as noted above) Exam - Vital Signs Vital signs: Vital Signs Pulse Resp Pulse Ox 74 22 96 06/29/18 01:54 06/29/18 01:54 06/29/18 01:54 - General Appearance General appearance: well-developed, well-nourished, appears stated age EENT: PERRL, mucous membranes moist Neck: Present: neck supple, trachea midline. Absent: JVD/HJR, Masses Respiratory: Rales (crackles right base) Heart: regular, normal heart rate, S1S2, no murmurs Gastrointestinal: Present: normal, normoactive bowel sounds Integumentary: other (AV graft in her right upper arm. Good bruit and thrill.) Results - Lab Results 06/29/18 06:58 06/29/18 06:58 Most recent lab results Calcium 8.2 mg/dL (8.4-10.2) L 06/29/18 06:58 Assessment and Plan Impression * End-stage renal disease on maintenance hemodialysis * Chest pain * Shortness of breath * Coronary artery disease * Hypertension Recommendations * Schedule patient for hemodialysis for today * Keep her on TTS schedule as outpatient * Chest x-ray shows some fibrotic changes at the bases. Clinically she does not appear to be volume overloaded * Avoid nephrotoxins * Binders with meals * Procrit with dialysis * No IV, BP or venipuncture in her access arm * Thank you very much for the consultation. Shall follow her along with you
[2018-06-29] MEDS ORDERED: NACL 0.9% 100 ML IV PRN (11:42)
[2018-06-29] MEDS: ISORDIL TITRADOSE PO SCH (12:26)
--- NOTE | 2018-06-29 13:15 | Progress Note ---
Assessment and Plan Assessment and plan: Chest pain. Cardiology consultation pending. Patient with stress evaluation 06/24/18 which revealed fixed inferior wall defect of moderate intensity for uncertain significant with possible old inferolateral apical myocardial infarction versus attenuation artifact. However, no ischemia was demonstrated. Echocardiogram revealed EF of 55-60%. Moderate to severe concentric left ventricular hypertrophy. Patient may need cardiac catheterization given her recurrent chest pain. Defer to cardiology. Coronary artery disease. Patient is status post PCI of the proximal and mid segments of the left anterior descending artery using drug eluting stents on 02/2018 Hypertension. Continue antihypertensive medications. ESRD. Continue hemodialysis per nephrology. COPD exacerbation.. Osteoarthritis. History Interval history: Patient still complains of chest pain but to the right side of her chest. Hospitalist Physical - Constitutional Vitals: Temp Pulse Resp BP Pulse Ox 97.7 F 69 18 165/69 94 06/29/18 09:24 06/29/18 09:35 06/29/18 09:24 06/29/18 09:24 06/29/18 09:24 General appearance: Present: no acute distress - EENT Eyes: Present: PERRL, EOM intact ENT: hearing intact, clear oral mucosa, dentition normal - Neck Neck: Present: supple, normal ROM - Respiratory Respiratory effort: normal Respiratory: bilateral: CTA - Cardiovascular Rhythm: regular Heart Sounds: Present: S1 & S2. Absent: gallop, rub - Extremities Extremities: no ischemia, No edema, Full ROM - Abdominal General gastrointestinal: soft, non-tender, non-distended, normal bowel sounds - Integumentary Integumentary: Present: clear, warm, dry - Neurologic Neurologic: CNII-XII intact, moves all extremities Results - Labs CBC & Chem 7: 06/29/18 06:58 06/29/18 06:58 Labs: Laboratory Last Values WBC 3.8 K/mm3 (4.5-11.0) L 06/29/18 06:58 RBC 3.27 M/mm3 (3.65-5.03) L 06/29/18 06:58 Hgb 10.6 gm/dl (10.1-14.3) 06/29/18 06:58 Hct 32.0 % (30.3-42.9) 06/29/18 06:58 MCV 98 fl (79-97) H 06/29/18 06:58 MCH 32 pg (28-32) 06/29/18 06:58 MCHC 33 % (30-34) 06/29/18 06:58 RDW 16.3 % (13.2-15.2) H 06/29/18 06:58 Plt Count 141 K/mm3 (140-440) 06/29/18 06:58 Lymph % (Auto) 18.0 % (13.4-35.0) 06/29/18 06:58 [place] % (Auto) 16.0 % (0.0-7.3) H 06/29/18 06:58 Eos % (Auto) 1.2 % (0.0-4.3) 06/29/18 06:58 Baso % (Auto) 0.2 % (0.0-1.8) 06/29/18 06:58 Lymph # 0.7 K/mm3 (1.2-5.4) L 06/29/18 06:58 [place] # 0.6 K/mm3 (0.0-0.8) 06/29/18 06:58 Eos # 0.0 K/mm3 (0.0-0.4) 06/29/18 06:58 Baso # 0.0 K/mm3 (0.0-0.1) 06/29/18 06:58 Seg Neutrophils % 64.6 % (40.0-70.0) 06/29/18 06:58 Seg Neutrophils # 2.5 K/mm3 (1.8-7.7) 06/29/18 06:58 Sodium 133 mmol/L (137-145) L 06/29/18 06:58 Potassium 4.5 mmol/L (3.6-5.0) 06/29/18 06:58 Chloride 93.9 mmol/L (98-107) L 06/29/18 06:58 Carbon Dioxide 26 mmol/L (22-30) 06/29/18 06:58 Anion Gap 18 mmol/L 06/29/18 06:58 BUN 37 mg/dL (7-17) H 06/29/18 06:58 Creatinine 7.9 mg/dL (0.7-1.2) H 06/29/18 06:58 Estimated GFR 6 ml/min 06/29/18 06:58 BUN/Creatinine Ratio 5 % 06/29/18 06:58 Glucose 110 mg/dL (65-100) H 06/29/18 06:58 POC Glucose 153 (70-105) H 06/29/18 12:34 Hemoglobin A1c 5.6 % (4-6) 06/29/18 06:58 Calcium 8.2 mg/dL (8.4-10.2) L 06/29/18 06:58 Total Creatine Kinase 65 units/L (30-135) 06/29/18 07:06 CK-MB (CK-2) 2.0 ng/mL (0.0-4.0) 06/29/18 07:06 CK-MB (CK-2) Rel Index 3.0 (0-4) 06/29/18 07:06 Troponin T 0.016 ng/mL (0.00-0.029) 06/29/18 07:06 Triglycerides 98 mg/dL (2-149) 06/29/18 06:58 Cholesterol 91 mg/dL (50-199) 06/29/18 06:58 LDL Cholesterol Direct 29 mg/dL (50-130) L 06/29/18 06:58 HDL Cholesterol 48 mg/dL (40-59) 06/29/18 06:58 Cholesterol/HDL Ratio 1.89 % 06/29/18 06:58 Active Medications - Current Medications Current Medications: Generic Name Dose Route Start Last Admin Trade Name Freq PRN Reason Stop Dose Admin Acetaminophen 650 mg 06/29/18 05:35 Tylenol PO Q4H PRN Pain MILD(1-3)/Fever >100.5/ADLER Albuterol 2.5 mg 06/29/18 07:02 Proventil IH Q6HRT PRN Shortness Of Breath Amlodipine Besylate 10 mg 06/29/18 10:00 06/29/18 09:47 Norvasc PO 10 mg DAILY [facility] Administration Aspirin 325 mg 06/30/18 10:00 Ecotrin PO QDAY [facility] Atorvastatin Calcium 40 mg 06/29/18 22:00 Lipitor PO QHS [facility] Diphenoxylate HCl/Atropine 1 tab 06/29/18 06:56 Lomotil PO QID PRN Diarrhea Enoxaparin Sodium 30 mg 06/29/18 10:00 06/29/18 09:47 Lovenox SUB-Q 30 mg QDAY [facility] Administration Epoetin Anthony 10,000 unit 06/29/18 11:42 Procrit IV COTY PRN hemodialysis Famotidine 20 mg 06/29/18 22:00 Pepcid PO QHS [facility] Sodium Chloride 100 mls @ 999 mls/hr 06/29/18 11:42 Nacl 0.9% IV COTY PRN Hypotension Isosorbide Dinitrate 30 mg 06/29/18 10:00 06/29/18 12:26 Isordil Titradose PO Not Given DAILY [facility] Metoprolol Tartrate 25 mg 06/29/18 10:00 06/29/18 09:46 Lopressor PO 25 mg BID [facility] Administration Morphine Sulfate 2 mg 06/29/18 05:35 06/29/18 09:47 Morphine IV 2 mg Q4H PRN Administration Pain, Moderate (4-6) Ondansetron HCl 4 mg 06/29/18 05:35 06/29/18 09:47 Zofran IV 4 mg Q8H PRN Administration Nausea And Vomiting Sodium Chloride 10 ml 06/29/18 10:00 Sodium Chloride Flush Syringe 10 Ml IV BID [facility] Sodium Chloride 10 ml 06/29/18 05:35 Sodium Chloride Flush Syringe 10 Ml IV PRN PRN LINE FLUSH
[2018-06-29] MEDS ORDERED: NACL 0.9 (PRIMING MACHINE ONLY DIALYSIS) MC ONE (16:21)
[2018-06-29] MEDS: PROCRIT IV PRN (17:30)
[2018-06-29] MEDS: SODIUM CHLORIDE FLUSH SYRINGE 10 ML IV SCH ×2 (19:36→21:33)
[2018-06-29] MEDS: PEPCID PO SCH (21:32)
[2018-06-30] MEDS: ZOFRAN IV PRN ×2 (07:04→16:20)
[2018-06-30] MEDS: ISORDIL TITRADOSE PO SCH (09:04)
[2018-06-30] MEDS: ECOTRIN PO SCH (09:05)
[2018-06-30] MEDS: LOPRESSOR PO SCH ×2 (09:05→21:17)
[2018-06-30] MEDS: NORVASC PO SCH (09:05)
[2018-06-30] MEDS: LOVENOX SUB-Q SCH (09:05)
[2018-06-30] MEDS: SODIUM CHLORIDE FLUSH SYRINGE 10 ML IV SCH ×2 (09:05→21:17)
--- NOTE | 2018-06-30 11:20 | Progress Note ---
Assessment and Plan Impression * End-stage renal disease on maintenance hemodialysis * Chest pain * Shortness of breath * Coronary artery disease * Hypertension Recommendations * Uneventful hemodialysis yesterday. * Keep her on TTS schedule as outpatient * Chest x-ray shows some fibrotic changes at the bases. Clinically she does not appear to be volume overloaded * Avoid nephrotoxins * Binders with meals * Procrit with dialysis * No IV, BP or venipuncture in her access arm * No objection to discharge from renal standpoint Subjective Date of service: 06/30/18 Interval history: Patient is comfortable today. Denies any shortness of breath or chest pain. Uneventful hemodialysis yesterday. Objective - Vital Signs Vital signs: Vital Signs - 12hr 06/30/18 06/30/18 06/30/18 00:51 05:00 06:06 Temperature 97.5 F L 97.7 F 97.7 F Pulse Rate 94 H Respiratory 20 20 20 Rate Blood Pressure 193/82 183/85 Blood Pressure 183/85 [Left] O2 Sat by Pulse 100 Oximetry 06/30/18 06/30/18 10:25 10:26 Temperature 98.4 F Pulse Rate 72 Respiratory 20 Rate Blood Pressure 167/76 Blood Pressure [Left] O2 Sat by Pulse 99 Oximetry - General Appearance General appearance: well-developed, well-nourished, appears stated age EENT: PERRL, mucous membranes moist Neck: no JVD, no thyromegaly, no carotid bruit, supple Respiratory: Present: Clear to Ascultation Cardiology: regular, normal heart rate Gastrointestinal: normal, normoactive bowel sounds Integumentary: other (AV graft right upper arm. Good bruit and thrill.) - Lab 06/29/18 06:58 06/29/18 06:58 Most recent lab results Calcium 8.2 mg/dL (8.4-10.2) L 06/29/18 06:58 Medications & Allergies - Medications Allergies/Adverse Reactions: Allergies gabapentin Allergy (Verified 03/04/18 04:31) Seizure labetalol Adverse Reaction (Verified 12/01/15 07:51) Unknown Home Medications: Home Medications Medication Instructions Recorded Confirmed Last Taken Type ALBUTEROL Inhaler(NF) [VENTOLIN 2 puff IH Q6HR PRN 06/29/18 06/29/18 Unknown History Inhaler(NF)] Amlodipine Besylate [Norvasc] 1 tab PO DAILY 06/29/18 06/29/18 Unknown History Diphenoxylate HCl/Atropine 1 tab PO QID PRN 06/29/18 06/29/18 Unknown History [Diphenoxylate-Atrop 2.5-0.025] Isosorbide Dinitrate 1 tab PO DAILY 06/29/18 06/29/18 Unknown History Active Medications: Generic Name Dose Route Start Last Admin Trade Name Freq PRN Reason Stop Dose Admin Acetaminophen 650 mg 06/29/18 05:35 Tylenol PO Q4H PRN Pain MILD(1-3)/Fever >100.5/ADLER Albuterol 2.5 mg 06/29/18 07:02 Proventil IH Q6HRT PRN Shortness Of Breath Amlodipine Besylate 10 mg 06/29/18 10:00 06/30/18 09:05 Norvasc PO 10 mg DAILY [facility] Administration Aspirin 325 mg 06/30/18 10:00 06/30/18 09:05 Ecotrin PO 325 mg QDAY [facility] Administration Atorvastatin Calcium 40 mg 06/29/18 22:00 06/29/18 21:32 Lipitor PO 40 mg QHS [facility] Administration Diphenoxylate HCl/Atropine 1 tab 06/29/18 06:56 Lomotil PO QID PRN Diarrhea Enoxaparin Sodium 30 mg 06/29/18 10:00 06/30/18 09:05 Lovenox SUB-Q 30 mg QDAY [facility] Administration Epoetin Anthony 10,000 unit 06/29/18 11:42 06/29/18 17:30 Procrit IV 10,000 unit COTY PRN Administration hemodialysis Famotidine 20 mg 06/29/18 22:00 06/29/18 21:32 Pepcid PO 20 mg QHS [facility] Administration Sodium Chloride 100 mls @ 999 mls/hr 06/29/18 11:42 Nacl 0.9% IV COTY PRN Hypotension Isosorbide Dinitrate 30 mg 06/29/18 10:00 06/30/18 09:04 Isordil Titradose PO 30 mg DAILY [facility] Administration Metoprolol Tartrate 25 mg 06/29/18 10:00 06/30/18 09:05 Lopressor PO 25 mg BID [facility] Administration Morphine Sulfate 2 mg 06/29/18 05:35 06/29/18 20:37 Morphine IV 2 mg Q4H PRN Administration Pain, Moderate (4-6) Ondansetron HCl 4 mg 06/29/18 05:35 06/30/18 07:04 Zofran IV 4 mg Q8H PRN Administration Nausea And Vomiting Sodium Chloride 10 ml 06/29/18 10:00 06/30/18 09:05 Sodium Chloride Flush Syringe 10 Ml IV 10 ml BID [facility] Administration Sodium Chloride 10 ml 06/29/18 05:35 Sodium Chloride Flush Syringe 10 Ml IV PRN PRN LINE FLUSH
--- NOTE | 2018-06-30 11:51 | Progress Note ---
Assessment and Plan Assessment and plan: Chest pain. Cardiology consultation pending. Patient with stress evaluation 06/24/18 which revealed fixed inferior wall defect of moderate intensity for uncertain significant with possible old inferolateral apical myocardial infarction versus attenuation artifact. However, no ischemia was demonstrated. Echocardiogram revealed EF of 55-60%. Moderate to severe concentric left ventricular hypertrophy. Patient may need cardiac catheterization given her recurrent chest pain. Defer to cardiology. Coronary artery disease. Patient is status post PCI of the proximal and mid segments of the left anterior descending artery using drug eluting stents on 02/2018 Accelerated Hypertension. Continue antihypertensive medications. Add when necessary hydralazine. ESRD. Continue hemodialysis per nephrology. COPD exacerbation.. Osteoarthritis. History Interval history: Patient still complains of chest pain but to the right side of her chest. Hospitalist Physical - Constitutional Vitals: Temp Pulse Resp BP Pulse Ox 98.4 F 72 20 167/76 99 06/30/18 10:26 06/30/18 10:25 06/30/18 10:25 06/30/18 10:25 06/30/18 10:25 General appearance: Present: no acute distress - EENT Eyes: Present: PERRL, EOM intact ENT: hearing intact, clear oral mucosa, dentition normal - Neck Neck: Present: supple, normal ROM - Respiratory Respiratory effort: normal Respiratory: bilateral: CTA - Cardiovascular Rhythm: regular Heart Sounds: Present: S1 & S2. Absent: gallop, rub - Extremities Extremities: no ischemia, No edema, Full ROM - Abdominal General gastrointestinal: soft, non-tender, non-distended, normal bowel sounds - Integumentary Integumentary: Present: clear, warm, dry - Neurologic Neurologic: CNII-XII intact, moves all extremities Results - Labs CBC & Chem 7: 06/29/18 06:58 06/29/18 06:58 Labs: Laboratory Last Values WBC 3.8 K/mm3 (4.5-11.0) L 06/29/18 06:58 RBC 3.27 M/mm3 (3.65-5.03) L 06/29/18 06:58 Hgb 10.6 gm/dl (10.1-14.3) 06/29/18 06:58 Hct 32.0 % (30.3-42.9) 06/29/18 06:58 MCV 98 fl (79-97) H 06/29/18 06:58 MCH 32 pg (28-32) 06/29/18 06:58 MCHC 33 % (30-34) 06/29/18 06:58 RDW 16.3 % (13.2-15.2) H 06/29/18 06:58 Plt Count 141 K/mm3 (140-440) 06/29/18 06:58 Lymph % (Auto) 18.0 % (13.4-35.0) 06/29/18 06:58 [place] % (Auto) 16.0 % (0.0-7.3) H 06/29/18 06:58 Eos % (Auto) 1.2 % (0.0-4.3) 06/29/18 06:58 Baso % (Auto) 0.2 % (0.0-1.8) 06/29/18 06:58 Lymph # 0.7 K/mm3 (1.2-5.4) L 06/29/18 06:58 [place] # 0.6 K/mm3 (0.0-0.8) 06/29/18 06:58 Eos # 0.0 K/mm3 (0.0-0.4) 06/29/18 06:58 Baso # 0.0 K/mm3 (0.0-0.1) 06/29/18 06:58 Seg Neutrophils % 64.6 % (40.0-70.0) 06/29/18 06:58 Seg Neutrophils # 2.5 K/mm3 (1.8-7.7) 06/29/18 06:58 Sodium 133 mmol/L (137-145) L 06/29/18 06:58 Potassium 4.5 mmol/L (3.6-5.0) 06/29/18 06:58 Chloride 93.9 mmol/L (98-107) L 06/29/18 06:58 Carbon Dioxide 26 mmol/L (22-30) 06/29/18 06:58 Anion Gap 18 mmol/L 06/29/18 06:58 BUN 37 mg/dL (7-17) H 06/29/18 06:58 Creatinine 7.9 mg/dL (0.7-1.2) H 06/29/18 06:58 Estimated GFR 6 ml/min 06/29/18 06:58 BUN/Creatinine Ratio 5 % 06/29/18 06:58 Glucose 110 mg/dL (65-100) H 06/29/18 06:58 POC Glucose 81 (70-105) 06/30/18 08:20 Hemoglobin A1c 5.6 % (4-6) 06/29/18 06:58 Calcium 8.2 mg/dL (8.4-10.2) L 06/29/18 06:58 Total Creatine Kinase 68 units/L (30-135) 06/29/18 12:37 CK-MB (CK-2) 2.0 ng/mL (0.0-4.0) 06/29/18 12:37 CK-MB (CK-2) Rel Index 2.9 (0-4) 06/29/18 12:37 Troponin T 0.015 ng/mL (0.00-0.029) 06/29/18 16:58 Triglycerides 98 mg/dL (2-149) 06/29/18 06:58 Cholesterol 91 mg/dL (50-199) 06/29/18 06:58 LDL Cholesterol Direct 29 mg/dL (50-130) L 06/29/18 06:58 HDL Cholesterol 48 mg/dL (40-59) 06/29/18 06:58 Cholesterol/HDL Ratio 1.89 % 06/29/18 06:58 Active Medications - Current Medications Current Medications: Generic Name Dose Route Start Last Admin Trade Name Freq PRN Reason Stop Dose Admin Acetaminophen 650 mg 06/29/18 05:35 Tylenol PO Q4H PRN Pain MILD(1-3)/Fever >100.5/ADLER Albuterol 2.5 mg 06/29/18 07:02 Proventil IH Q6HRT PRN Shortness Of Breath Amlodipine Besylate 10 mg 06/29/18 10:00 06/30/18 09:05 Norvasc PO 10 mg DAILY [facility] Administration Aspirin 325 mg 06/30/18 10:00 06/30/18 09:05 Ecotrin PO 325 mg QDAY [facility] Administration Atorvastatin Calcium 40 mg 06/29/18 22:00 06/29/18 21:32 Lipitor PO 40 mg QHS [facility] Administration Diphenoxylate HCl/Atropine 1 tab 06/29/18 06:56 Lomotil PO QID PRN Diarrhea Enoxaparin Sodium 30 mg 06/29/18 10:00 06/30/18 09:05 Lovenox SUB-Q 30 mg QDAY [facility] Administration Epoetin [place] 10,000 unit 06/29/18 11:42 06/29/18 17:30 Procrit IV 10,000 unit COTY PRN Administration hemodialysis Famotidine 20 mg 06/29/18 22:00 06/29/18 21:32 Pepcid PO 20 mg QHS [facility] Administration Sodium Chloride 100 mls @ 999 mls/hr 06/29/18 11:42 Nacl 0.9% IV COTY PRN Hypotension Isosorbide Dinitrate 30 mg 06/29/18 10:00 06/30/18 09:04 Isordil Titradose PO 30 mg DAILY [facility] Administration Metoprolol Tartrate 25 mg 06/29/18 10:00 06/30/18 09:05 Lopressor PO 25 mg BID [facility] Administration Morphine Sulfate 2 mg 06/29/18 05:35 06/29/18 20:37 Morphine IV 2 mg Q4H PRN Administration Pain, Moderate (4-6) Ondansetron HCl 4 mg 06/29/18 05:35 06/30/18 07:04 Zofran IV 4 mg Q8H PRN Administration Nausea And Vomiting Sodium Chloride 10 ml 06/29/18 10:00 06/30/18 09:05 Sodium Chloride Flush Syringe 10 Ml IV 10 ml BID [facility] Administration Sodium Chloride 10 ml 06/29/18 05:35 Sodium Chloride Flush Syringe 10 Ml IV PRN PRN LINE FLUSH
--- NOTE | 2018-06-30 13:04 | Consultation ---
History of Present Illness Consult date: 06/30/18 Consult reason: chest pain History of present illness: 63 year old -[place] female presenting with a one day history of chest pain at rest chest pain described as a 5 out of 10 not exertion and nonradiating and not associated with any other symptoms. Patient was admitted for further evaluation. Past History Past Medical History: CAD, COPD, hypertension, renal failure Past Surgical History: cholecystectomy, Other (dialysis fistula) Social history: no significant social history Family history: no significant family history Medications and Allergies Allergies Allergy/AdvReac Type Severity Reaction Status Date / Time gabapentin Allergy Seizure Verified 03/04/18 04:31 labetalol AdvReac Unknown Verified 12/01/15 07:51 Home Medications Medication Instructions Recorded Confirmed Last Taken Type ALBUTEROL Inhaler(NF) [VENTOLIN 2 puff IH Q6HR PRN 06/29/18 06/29/18 Unknown History Inhaler(NF)] Amlodipine Besylate [Norvasc] 1 tab PO DAILY 06/29/18 06/29/18 Unknown History Diphenoxylate HCl/Atropine 1 tab PO QID PRN 06/29/18 06/29/18 Unknown History [Diphenoxylate-Atrop 2.5-0.025] Isosorbide Dinitrate 1 tab PO DAILY 06/29/18 06/29/18 Unknown History Active Meds: Active Medications Acetaminophen (Tylenol) 650 mg PO Q4H PRN PRN Reason: Pain MILD(1-3)/Fever >100.5/ADLER Albuterol (Proventil) 2.5 mg IH Q6HRT PRN PRN Reason: Shortness Of Breath Amlodipine Besylate (Norvasc) 10 mg PO DAILY [facility] Last Admin: 06/30/18 09:05 Dose: 10 mg Documented by: Aspirin (Ecotrin) 325 mg PO QDAY [facility] Last Admin: 06/30/18 09:05 Dose: 325 mg Documented by: Atorvastatin Calcium (Lipitor) 40 mg PO QHS [facility] Last Admin: 06/29/18 21:32 Dose: 40 mg Documented by: Diphenoxylate HCl/Atropine (Lomotil) 1 tab PO QID PRN PRN Reason: Diarrhea Enoxaparin Sodium (Lovenox) 30 mg SUB-Q QDAY [facility] Last Admin: 06/30/18 09:05 Dose: 30 mg Documented by: Epoetin [place] (Procrit) 10,000 unit IV COTY PRN PRN Reason: hemodialysis Last Admin: 06/29/18 17:30 Dose: 10,000 unit Documented by: Famotidine (Pepcid) 20 mg PO QHS [facility] Last Admin: 06/29/18 21:32 Dose: 20 mg Documented by: Hydralazine HCl (Apresoline) 10 mg IV Q4H PRN PRN Reason: SBP > 170 or DBP > 90 Sodium Chloride (Nacl 0.9%) 100 mls @ 999 mls/hr IV COTY PRN PRN Reason: Hypotension Isosorbide Dinitrate (Isordil Titradose) 30 mg PO DAILY [facility] Last Admin: 06/30/18 09:04 Dose: 30 mg Documented by: Metoprolol Tartrate (Lopressor) 25 mg PO BID [facility] Last Admin: 06/30/18 09:05 Dose: 25 mg Documented by: Morphine Sulfate (Morphine) 2 mg IV Q4H PRN PRN Reason: Pain, Moderate (4-6) Last Admin: 06/29/18 20:37 Dose: 2 mg Documented by: Ondansetron HCl (Zofran) 4 mg IV Q8H PRN PRN Reason: Nausea And Vomiting Last Admin: 06/30/18 07:04 Dose: 4 mg Documented by: Sodium Chloride (Sodium Chloride Flush Syringe 10 Ml) 10 ml IV BID [facility] Last Admin: 06/30/18 09:05 Dose: 10 ml Documented by: Sodium Chloride (Sodium Chloride Flush Syringe 10 Ml) 10 ml IV PRN PRN PRN Reason: LINE FLUSH Review of Systems Constitutional: no weight loss, no weight gain, no fever, no sweats, no fatigue Ears, nose, mouth and throat: no deferred, no ear pain, no tinnitis, no decreased hearing, no hoarseness Breasts: no deferred Cardiovascular: chest pain, orthopnea, dyspnea on exertion Respiratory: dyspnea on exertion, no cough Gastrointestinal: no abdominal pain, no nausea, no vomiting, no diarrhea, no melena, no hematochezia Musculoskeletal: no neck stiffness, no neck pain, no shooting arm pain, no hot joints Integumentary: no rash, no pruritis Neurological: no paralysis, no weakness, no parathesias Endocrine: no cold intolerance, no heat intolerance, no polyphagia, no excessive thirst, no polydipsia, no polyuria Hematologic/Lymphatic: no easy bruising, no easy bleeding Allergic/Immunologic: no urticaria, no allergic rhinitis, no wheezing Physical Examination Vital Signs Pulse Resp Pulse Ox 74 22 96 06/29/18 01:54 06/29/18 01:54 06/29/18 01:54 General appearance: no acute distress, well-nourished HEENT: Positive: PERRL, Mucus Membranes Moist Neck: Positive: neck supple, trachea midline Cardiac: Positive: Reg Rate and Rhythm, S1/S2. Negative: Audible Murmur Lungs: Positive: clear to auscultation, Normal Breath Sounds Neuro: Positive: Grossly Intact Abdomen: Positive: Soft, Active Bowel Sounds. Negative: Tender, Distended Female genitourinary: deferred Skin: Positive: Clear Incision: Cardiac Cath Site Musculoskeletal: No Pain, Normal Range of Motion Extremities: Present: normal. Absent: edema Results 06/29/18 06:58 06/29/18 06:58 Cardiac Enzymes 06/29/18 Range/Units 12:37 CK-MB (CK-2) 2.0 (0.0-4.0) ng/mL Assessment and Plan 1. Chest pain rule out ischemic coronary artery disease 2. Coronary artery disease status post PCI and stenting 3. Essential hypertension 4. Uncomplicated asthma 7. Hyperlipidemia 8. End-stage renal disease on hemodialysis Plan. Patient is currently stable and chest pain-free where she'll order a Lexiscan thallium to us assess for the presence and extent of ischemic coronary artery disease.
[2018-06-30] MEDS: MORPHINE IV PRN ×3 (16:20→23:11)
[2018-06-30] MEDS: APRESOLINE IV PRN ×2 (19:28→23:10)
[2018-06-30] MEDS: PEPCID PO SCH (21:17)
[2018-06-30] MEDS: CATAPRES PO SCH (23:50)
[2018-07-01] MEDS: LOVENOX SUB-Q SCH (09:03)
[2018-07-01] MEDS: NORVASC PO SCH (09:03)
[2018-07-01] MEDS: LOPRESSOR PO SCH (09:03)
[2018-07-01] MEDS: ISORDIL TITRADOSE PO SCH (09:03)
[2018-07-01] MEDS: ECOTRIN PO SCH (09:03)
[2018-07-01] MEDS: CATAPRES PO SCH ×2 (09:03→17:46)
[2018-07-01] MEDS: SODIUM CHLORIDE FLUSH SYRINGE 10 ML IV SCH ×2 (09:04→21:46)
--- NOTE | 2018-07-01 10:38 | Progress Note ---
Assessment and Plan Assessment and plan: Chest pain. Cardiology consultation pending. Patient with stress evaluation 06/24/18 which revealed fixed inferior wall defect of moderate intensity for uncertain significant with possible old inferolateral apical myocardial infarction versus attenuation artifact. However, no ischemia was demonstrated. Echocardiogram revealed EF of 55-60%. Moderate to severe concentric left ventricular hypertrophy. Patient may need cardiac catheterization given her recurrent chest pain. Defer to cardiology. Coronary artery disease. Patient is status post PCI of the proximal and mid segments of the left anterior descending artery using drug eluting stents on 02/2018 Accelerated Hypertension. Continue antihypertensive medications. Catapres restarted last evening ESRD. Continue hemodialysis per nephrology. COPD exacerbation. Continue bronchodilators. Osteoarthritis. History Interval history: Patient still complains of chest pain but to the right side of her chest. Hospitalist Physical - Constitutional Vitals: Temp Pulse Resp BP Pulse Ox 98.6 F 71 18 200/135 96 07/01/18 08:49 07/01/18 08:49 07/01/18 08:49 07/01/18 08:49 07/01/18 08:49 General appearance: Present: no acute distress, well-nourished - EENT Eyes: Present: PERRL, EOM intact ENT: hearing intact, clear oral mucosa, dentition normal - Neck Neck: Present: supple, normal ROM - Respiratory Respiratory effort: normal Respiratory: bilateral: CTA - Cardiovascular Rhythm: regular Heart Sounds: Present: S1 & S2. Absent: gallop, rub - Extremities Extremities: no ischemia, No edema, Full ROM - Abdominal General gastrointestinal: soft, non-tender, non-distended, normal bowel sounds - Integumentary Integumentary: Present: clear, warm, dry - Neurologic Neurologic: CNII-XII intact, moves all extremities Results - Labs CBC & Chem 7: 06/29/18 06:58 06/29/18 06:58 Labs: Laboratory Last Values WBC 3.8 K/mm3 (4.5-11.0) L 06/29/18 06:58 RBC 3.27 M/mm3 (3.65-5.03) L 06/29/18 06:58 Hgb 10.6 gm/dl (10.1-14.3) 06/29/18 06:58 Hct 32.0 % (30.3-42.9) 06/29/18 06:58 MCV 98 fl (79-97) H 06/29/18 06:58 MCH 32 pg (28-32) 06/29/18 06:58 MCHC 33 % (30-34) 06/29/18 06:58 RDW 16.3 % (13.2-15.2) H 06/29/18 06:58 Plt Count 141 K/mm3 (140-440) 06/29/18 06:58 Lymph % (Auto) 18.0 % (13.4-35.0) 06/29/18 06:58 [place] % (Auto) 16.0 % (0.0-7.3) H 06/29/18 06:58 Eos % (Auto) 1.2 % (0.0-4.3) 06/29/18 06:58 Baso % (Auto) 0.2 % (0.0-1.8) 06/29/18 06:58 Lymph # 0.7 K/mm3 (1.2-5.4) L 06/29/18 06:58 [place] # 0.6 K/mm3 (0.0-0.8) 06/29/18 06:58 Eos # 0.0 K/mm3 (0.0-0.4) 06/29/18 06:58 Baso # 0.0 K/mm3 (0.0-0.1) 06/29/18 06:58 Seg Neutrophils % 64.6 % (40.0-70.0) 06/29/18 06:58 Seg Neutrophils # 2.5 K/mm3 (1.8-7.7) 06/29/18 06:58 Sodium 133 mmol/L (137-145) L 06/29/18 06:58 Potassium 4.5 mmol/L (3.6-5.0) 06/29/18 06:58 Chloride 93.9 mmol/L (98-107) L 06/29/18 06:58 Carbon Dioxide 26 mmol/L (22-30) 06/29/18 06:58 Anion Gap 18 mmol/L 06/29/18 06:58 BUN 37 mg/dL (7-17) H 06/29/18 06:58 Creatinine 7.9 mg/dL (0.7-1.2) H 06/29/18 06:58 Estimated GFR 6 ml/min 06/29/18 06:58 BUN/Creatinine Ratio 5 % 06/29/18 06:58 Glucose 110 mg/dL (65-100) H 06/29/18 06:58 POC Glucose 133 (70-105) H 06/30/18 20:25 Hemoglobin A1c 5.6 % (4-6) 06/29/18 06:58 Calcium 8.2 mg/dL (8.4-10.2) L 06/29/18 06:58 Total Creatine Kinase 68 units/L (30-135) 06/29/18 12:37 CK-MB (CK-2) 2.0 ng/mL (0.0-4.0) 06/29/18 12:37 CK-MB (CK-2) Rel Index 2.9 (0-4) 06/29/18 12:37 Troponin T 0.015 ng/mL (0.00-0.029) 06/29/18 16:58 Triglycerides 98 mg/dL (2-149) 06/29/18 06:58 Cholesterol 91 mg/dL (50-199) 06/29/18 06:58 LDL Cholesterol Direct 29 mg/dL (50-130) L 06/29/18 06:58 HDL Cholesterol 48 mg/dL (40-59) 06/29/18 06:58 Cholesterol/HDL Ratio 1.89 % 06/29/18 06:58 Active Medications - Current Medications Current Medications: Generic Name Dose Route Start Last Admin Trade Name Freq PRN Reason Stop Dose Admin Acetaminophen 650 mg 06/29/18 05:35 Tylenol PO Q4H PRN Pain MILD(1-3)/Fever >100.5/ADLER Albuterol 2.5 mg 06/29/18 07:02 Proventil IH Q6HRT PRN Shortness Of Breath Amlodipine Besylate 10 mg 06/29/18 10:00 07/01/18 09:03 Norvasc PO 10 mg DAILY [facility] Administration Aspirin 325 mg 06/30/18 10:00 07/01/18 09:03 Ecotrin PO 325 mg QDAY [facility] Administration Atorvastatin Calcium 40 mg 06/29/18 22:00 06/30/18 21:17 Lipitor PO 40 mg QHS [facility] Administration Clonidine HCl 0.2 mg 06/30/18 23:45 07/01/18 09:03 Catapres PO 0.2 mg BID@0800,1700 [facility] Administration Clopidogrel Bisulfate 75 mg 07/01/18 10:00 Plavix PO QDAY [facility] Diphenoxylate HCl/Atropine 1 tab 06/29/18 06:56 Lomotil PO QID PRN Diarrhea Enoxaparin Sodium 30 mg 06/29/18 10:00 07/01/18 09:03 Lovenox SUB-Q 30 mg QDAY [facility] Administration Epoetin Anthony 10,000 unit 06/29/18 11:42 06/29/18 17:30 Procrit IV 10,000 unit COTY PRN Administration hemodialysis Famotidine 20 mg 06/29/18 22:00 06/30/18 21:17 Pepcid PO 20 mg QHS [facility] Administration Hydralazine HCl 10 mg 06/30/18 12:12 06/30/18 23:10 Apresoline IV 10 mg Q4H PRN Administration SBP > 170 or DBP > 90 Sodium Chloride 100 mls @ 999 mls/hr 06/29/18 11:42 Nacl 0.9% IV COTY PRN Hypotension Isosorbide Dinitrate 30 mg 06/29/18 10:00 07/01/18 09:03 Isordil Titradose PO 30 mg DAILY [facility] Administration Metoprolol Tartrate 25 mg 06/29/18 10:00 07/01/18 09:03 Lopressor PO 25 mg BID [facility] Administration Morphine Sulfate 2 mg 06/29/18 05:35 06/30/18 23:11 Morphine IV 2 mg Q4H PRN Administration Pain, Moderate (4-6) Ondansetron HCl 4 mg 06/29/18 05:35 06/30/18 16:20 Zofran IV 4 mg Q8H PRN Administration Nausea And Vomiting Sodium Chloride 10 ml 06/29/18 10:00 07/01/18 09:04 Sodium Chloride Flush Syringe 10 Ml IV 10 ml BID [facility] Administration Sodium Chloride 10 ml 06/29/18 05:35 Sodium Chloride Flush Syringe 10 Ml IV PRN PRN LINE FLUSH
[2018-07-01] MEDS: APRESOLINE IV PRN (15:15)
--- NOTE | 2018-07-01 15:20 | Progress Note ---
Assessment and Plan - Patient Problems (1) Uncontrolled hypertension Current Visit: Yes Status: Acute Plan to address problem: Her major problem at this time appears to be have severe uncontrolled hypertension. Blood pressure remains 190s systolic. On discharge, the patient should be switched from amlodipine to Procardia XL 60- 90 mg daily. Subjective Date of service: 07/01/18 Interval history: Patient is comfortable in no acute distress, no new cardiac complaints, she wants to go home. Her major problem at this time appears to be have severe uncontrolled hypertension. Blood pressure remains 190s systolic. Objective Vital Signs Temp Pulse Resp Resp BP Pulse Ox 07/01/18 10:00 77 07/01/18 08:49 98.6 F 71 18 200/135 96 07/01/18 03:50 98.6 F 76 20 148/65 87 06/30/18 23:50 80 193/89 06/30/18 23:41 18 06/30/18 23:40 98.6 F 81 20 180/83 91 06/30/18 23:11 18 06/30/18 23:10 80 193/89 06/30/18 23:06 98.3 F 82 18 193/89 97 06/30/18 21:17 86 184/92 06/30/18 20:19 98.5 F 86 20 184/92 92 06/30/18 19:58 20 06/30/18 19:40 20 95 06/30/18 19:30 20 06/30/18 19:29 83 06/30/18 19:28 87 20 210/85 06/30/18 19:24 98.7 F 87 20 210/85 95 06/30/18 17:33 98.2 F 06/30/18 17:31 77 20 188/82 93 - Physical Examination General: Appears Well, No Apparent Distress HEENT: Positive: PERRL, Mucus Membranes Moist Neck: Positive: neck supple, trachea midline Cardiac: Positive: Reg Rate and Rhythm Lungs: Positive: Decreased Breath Sounds Neuro: Positive: Grossly Intact Abdomen: Positive: Soft, Active Bowel Sounds. Negative: Tender, Distended Skin: Positive: Clear Incision: Cardiac Cath Site Musculoskeletal: No Pain, Normal Range of Motion Extremities: Present: normal. Absent: edema
--- NOTE | 2018-07-01 15:32 | Progress Note ---
Assessment and Plan Impression * End-stage renal disease on maintenance hemodialysis * Chest pain * Shortness of breath * Coronary artery disease * Hypertension Recommendations * Keep her on TTS schedule as outpatient * Chest x-ray shows some fibrotic changes at the bases. Clinically she does not appear to be volume overloaded * Avoid nephrotoxins * Binders with meals * Procrit with dialysis * No IV, BP or venipuncture in her access arm * No objection to discharge from renal standpoint Subjective Date of service: 07/01/18 Principal diagnosis: esrd Interval history: resting well in bed today Objective - Exam Narrative Exam: General appearance: well-developed, well-nourished, appears stated age EENT: PERRL, mucous membranes moist Neck: no JVD, no thyromegaly, no carotid bruit, supple Respiratory: Present: Clear to Ascultation Cardiology: regular, normal heart rate Gastrointestinal: normal, normoactive bowel sounds Integumentary: other (AV graft right upper arm. Good bruit and thrill.) - Vital Signs Vital signs: Vital Signs - 12hr 07/01/18 07/01/18 07/01/18 03:50 08:49 10:00 Temperature 98.6 F 98.6 F Pulse Rate 76 71 77 Respiratory 20 18 Rate Blood Pressure 148/65 200/135 O2 Sat by Pulse 87 96 Oximetry 07/01/18 11:10 Temperature Pulse Rate Respiratory Rate Blood Pressure 160/76 O2 Sat by Pulse Oximetry - Lab 06/29/18 06:58 06/29/18 06:58 Most recent lab results Calcium 8.2 mg/dL (8.4-10.2) L 06/29/18 06:58 Medications & Allergies - Medications Allergies/Adverse Reactions: Allergies gabapentin Allergy (Verified 03/04/18 04:31) Seizure labetalol Adverse Reaction (Verified 12/01/15 07:51) Unknown Home Medications: Home Medications Medication Instructions Recorded Confirmed Last Taken Type ALBUTEROL Inhaler(NF) [VENTOLIN 2 puff IH Q6HR PRN 06/29/18 06/29/18 Unknown History Inhaler(NF)] Amlodipine Besylate [Norvasc] 1 tab PO DAILY 06/29/18 06/29/18 Unknown History Diphenoxylate HCl/Atropine 1 tab PO QID PRN 06/29/18 06/29/18 Unknown History [Diphenoxylate-Atrop 2.5-0.025] Isosorbide Dinitrate 1 tab PO DAILY 06/29/18 06/29/18 Unknown History cloNIDine [Catapres] 0.2 mg PO BID 06/30/18 06/30/18 Unknown History Active Medications: Generic Name Dose Route Start Last Admin Trade Name Freq PRN Reason Stop Dose Admin Acetaminophen 650 mg 06/29/18 05:35 Tylenol PO Q4H PRN Pain MILD(1-3)/Fever >100.5/ADLER Albuterol 2.5 mg 06/29/18 07:02 Proventil IH Q6HRT PRN Shortness Of Breath Aspirin 325 mg 06/30/18 10:00 07/01/18 09:03 Ecotrin PO 325 mg QDAY [facility] Administration Atorvastatin Calcium 40 mg 06/29/18 22:00 06/30/18 21:17 Lipitor PO 40 mg QHS [facility] Administration Chlorthalidone 25 mg 07/01/18 16:00 Thalitone PO QDAY [facility] Clonidine HCl 0.2 mg 06/30/18 23:45 07/01/18 09:03 Catapres PO 0.2 mg BID@0800,1700 [facility] Administration Clopidogrel Bisulfate 75 mg 07/01/18 10:00 Plavix PO QDAY [facility] Diphenoxylate HCl/Atropine 1 tab 06/29/18 06:56 Lomotil PO QID PRN Diarrhea Enoxaparin Sodium 30 mg 06/29/18 10:00 07/01/18 09:03 Lovenox SUB-Q 30 mg QDAY [facility] Administration Epoetin [place] 10,000 unit 06/29/18 11:42 06/29/18 17:30 Procrit IV 10,000 unit COTY PRN Administration hemodialysis Famotidine 20 mg 06/29/18 22:00 06/30/18 21:17 Pepcid PO 20 mg QHS [facility] Administration Hydralazine HCl 10 mg 06/30/18 12:12 07/01/18 15:15 Apresoline IV 10 mg Q4H PRN Administration SBP > 170 or DBP > 90 Sodium Chloride 100 mls @ 999 mls/hr 06/29/18 11:42 Nacl 0.9% IV COTY PRN Hypotension Isosorbide Dinitrate 30 mg 06/29/18 10:00 07/01/18 09:03 Isordil Titradose PO 30 mg DAILY [facility] Administration Losartan Potassium 50 mg 07/01/18 16:00 Cozaar PO QDAY [facility] Morphine Sulfate 2 mg 06/29/18 05:35 06/30/18 23:11 Morphine IV 2 mg Q4H PRN Administration Pain, Moderate (4-6) Nifedipine 60 mg 07/01/18 16:00 Procardia Xl PO QDAY [facility] Ondansetron HCl 4 mg 06/29/18 05:35 06/30/18 16:20 Zofran IV 4 mg Q8H PRN Administration Nausea And Vomiting Sodium Chloride 10 ml 06/29/18 10:00 07/01/18 09:04 Sodium Chloride Flush Syringe 10 Ml IV 10 ml BID [facility] Administration Sodium Chloride 10 ml 06/29/18 05:35 Sodium Chloride Flush Syringe 10 Ml IV PRN PRN LINE FLUSH
[2018-07-01] MEDS ORDERED: COZAAR PO SCH (17:00)
[2018-07-01] MEDS: PLAVIX PO SCH (17:46)
[2018-07-01] MEDS: PROCARDIA XL PO SCH (17:46)
[2018-07-01] MEDS: PEPCID PO SCH (21:46)
[2018-07-01] MEDS: MORPHINE IV PRN (21:46)
[2018-07-01] MEDS ORDERED: NORMODYNE PO SCH (22:00)
[2018-07-02 06:46] LABS: Basophils # (Auto) 0.1 K/mm3 (0.0-0.1); Basophils % (Auto) 1.7 % (0.0-1.8); Eosinophils % (Auto) 0.4 % (0.0-4.3); Hemoglobin 10.6 gm/dl (10.1-14.3); Lymphocytes # (Auto) 0.7 K/mm3 (1.2-5.4); Lymphocytes % (Auto) 13.2 % (13.4-35.0); Mean Corpuscular HGB Conc 33 % (30-34); Mean Corpuscular Volume 98 fl (79-97); Monocytes # (Auto) 0.7 K/mm3 (0.0-0.8); Monocytes % (Auto) 12.9 % (0.0-7.3); Platelet Count 184 K/mm3 (140-440); Red Blood Count 3.26 M/mm3 (3.65-5.03); Red Cell Distribution Width 16.5 % (13.2-15.2)
[2018-07-02 07:12] LABS: Calcium 8.3 mg/dL (8.4-10.2)
--- NOTE | 2018-07-02 11:07 | Progress Note ---
Assessment and Plan Uncontrolled Htn ESRD on HD Hx of CAD s/p PCI fo the proximal and mid segments of LAD using drug eluting stents 02/2018. On plavix and aspirin normal MPI 06/2018 normal LVEF 55 % 06/2018 Hyperkalemia Type II DM Hyperlipidemia Continue optimal blood pressure management and medical therapy for coronary artery disease. Dialysis for fluid management. Otherwise, conservative cardiac management. Subjective Date of service: 07/02/18 Principal diagnosis: esrd Interval history: Patient has no complaints. Objective Vital Signs Temp Pulse Resp BP Pulse Ox 07/02/18 10:30 73 152/76 07/02/18 10:15 71 145/78 07/02/18 10:00 71 135/70 07/02/18 09:45 72 136/77 07/02/18 09:30 73 144/75 07/02/18 09:15 98.3 F 75 18 136/72 07/02/18 08:27 98.3 F 79 18 157/77 94 07/02/18 05:00 80 92 07/02/18 04:59 83 18 156/78 90 07/02/18 01:17 99.0 F 80 18 151/71 92 07/01/18 22:00 80 20 98 07/01/18 20:55 99.3 F 07/01/18 20:54 81 18 162/78 92 07/01/18 17:06 76 144/67 94 07/01/18 11:10 160/76 - Physical Examination General: No Apparent Distress HEENT: Positive: PERRL Neck: Positive: trachea midline Cardiac: Positive: Reg Rate and Rhythm Lungs: Positive: Decreased Breath Sounds Extremities: Absent: edema - Labs and Meds CBC 07/02/18 Range/Units 06:11 WBC 5.5 (4.5-11.0) K/mm3 RBC 3.26 L (3.65-5.03) M/mm3 Hgb 10.6 (10.1-14.3) gm/dl Hct 32.0 (30.3-42.9) % Plt Count 184 (140-440) K/mm3 Lymph # 0.7 L (1.2-5.4) K/mm3 [place] # 0.7 (0.0-0.8) K/mm3 Eos # 0.0 (0.0-0.4) K/mm3 Baso # 0.1 (0.0-0.1) K/mm3 Comprehensive Metabolic Panel 07/02/18 Range/Units 06:11 Sodium 131 L (137-145) mmol/L Potassium 5.6 H D (3.6-5.0) mmol/L Chloride 92.0 L (98-107) mmol/L Carbon Dioxide 20 L (22-30) mmol/L BUN 49 H (7-17) mg/dL Creatinine 9.7 H (0.7-1.2) mg/dL Glucose 110 H (65-100) mg/dL Calcium 8.3 L (8.4-10.2) mg/dL
[2018-07-02] MEDS ORDERED: NACL 0.9 (PRIMING MACHINE ONLY DIALYSIS) MC ONE (11:56)
[2018-07-02] MEDS: PROCRIT IV PRN (12:45)
[2018-07-02] MEDS: ECOTRIN PO SCH (15:00)
[2018-07-02] MEDS: PLAVIX PO SCH (15:00)
[2018-07-02] MEDS: LOVENOX SUB-Q SCH (15:00)
[2018-07-02] MEDS: CATAPRES PO SCH ×2 (15:01→18:04)
[2018-07-02] MEDS: ISORDIL TITRADOSE PO SCH (15:01)
[2018-07-02] MEDS: SODIUM CHLORIDE FLUSH SYRINGE 10 ML IV SCH ×2 (15:01→21:33)
[2018-07-02] MEDS: PROCARDIA XL PO SCH ×2 (15:01→15:09)
[2018-07-02] MEDS: THALITONE PO SCH (15:01)
[2018-07-02] MEDS: COZAAR PO SCH (15:09)
[2018-07-02] MEDS: NORMODYNE PO SCH ×2 (15:12→21:30)
--- NOTE | 2018-07-02 15:16 | Progress Note ---
Assessment and Plan Impression * End-stage renal disease on maintenance hemodialysis * Chest pain * Shortness of breath * Coronary artery disease * Hypertension Recommendations * Continue HD TTS schedule as outpatient * UF as tolerated - appears euvolemic * Adjust antiHTN medications - note recent changes * Renal/HD diet * Binders with meals * Procrit with dialysis * No IV, BP or venipuncture in her access arm Subjective Date of service: 07/02/18 Principal diagnosis: esrd Interval history: Patient seen s/p dialysis today. She reports SOB - denies cough, chest pain. Objective - Vital Signs Vital signs: Vital Signs - 12hr 07/02/18 07/02/18 07/02/18 04:59 05:00 08:27 Temperature 98.3 F Pulse Rate 83 80 79 Respiratory 18 18 Rate Blood Pressure 156/78 157/77 O2 Sat by Pulse 90 92 94 Oximetry 07/02/18 07/02/18 07/02/18 09:15 09:30 09:45 Temperature 98.3 F Pulse Rate 75 73 72 Respiratory 18 Rate Blood Pressure 136/72 144/75 136/77 O2 Sat by Pulse Oximetry 07/02/18 07/02/18 07/02/18 10:00 10:15 10:30 Temperature Pulse Rate 71 71 73 Respiratory Rate Blood Pressure 135/70 145/78 152/76 O2 Sat by Pulse Oximetry 07/02/18 07/02/18 07/02/18 10:45 11:00 11:15 Temperature Pulse Rate 71 69 72 Respiratory Rate Blood Pressure 148/72 151/78 160/74 O2 Sat by Pulse Oximetry 07/02/18 07/02/18 07/02/18 11:30 11:45 12:00 Temperature Pulse Rate 78 73 72 Respiratory Rate Blood Pressure 164/72 175/80 164/85 O2 Sat by Pulse Oximetry 07/02/18 07/02/18 07/02/18 12:15 12:30 12:45 Temperature Pulse Rate 70 71 74 Respiratory Rate Blood Pressure 178/85 176/87 170/86 O2 Sat by Pulse Oximetry 07/02/18 13:00 Temperature 98.0 F Pulse Rate 72 Respiratory 18 Rate Blood Pressure 169/78 O2 Sat by Pulse Oximetry - General Appearance General appearance: well-developed, well-nourished EENT: ATNC Respiratory: Present: Clear to Ascultation Cardiology: regular, S1S2 Gastrointestinal: normal, no tenderness, no distended Integumentary: no rash, warm and dry Psychiatric: cooperative - Lab 07/02/18 06:11 07/02/18 06:11 Most recent lab results Calcium 8.3 mg/dL (8.4-10.2) L 07/02/18 06:11 Medications & Allergies - Medications Allergies/Adverse Reactions: Allergies gabapentin Allergy (Verified 03/04/18 04:31) Seizure labetalol Adverse Reaction (Verified 12/01/15 07:51) Unknown Home Medications: Home Medications Medication Instructions Recorded Confirmed Last Taken Type ALBUTEROL Inhaler(NF) [VENTOLIN 2 puff IH Q6HR PRN 06/29/18 06/29/18 Unknown History Inhaler(NF)] Amlodipine Besylate [Norvasc] 1 tab PO DAILY 06/29/18 06/29/18 Unknown History Diphenoxylate HCl/Atropine 1 tab PO QID PRN 06/29/18 06/29/18 Unknown History [Diphenoxylate-Atrop 2.5-0.025] Isosorbide Dinitrate 1 tab PO DAILY 06/29/18 06/29/18 Unknown History cloNIDine [Catapres] 0.2 mg PO BID 06/30/18 06/30/18 Unknown History Active Medications: Generic Name Dose Route Start Last Admin Trade Name Freq PRN Reason Stop Dose Admin Acetaminophen 650 mg 06/29/18 05:35 07/02/18 05:56 Tylenol PO 650 mg Q4H PRN Administration Pain MILD(1-3)/Fever >100.5/ADLER Albuterol 2.5 mg 06/29/18 07:02 Proventil IH Q6HRT PRN Shortness Of Breath Aspirin 325 mg 06/30/18 10:00 07/01/18 09:03 Ecotrin PO 325 mg QDAY [facility] Administration Atorvastatin Calcium 40 mg 06/29/18 22:00 07/01/18 21:46 Lipitor PO 40 mg QHS [facility] Administration Chlorthalidone 25 mg 07/01/18 17:00 Thalitone PO QDAY [facility] Clonidine HCl 0.2 mg 06/30/18 23:45 07/01/18 17:46 Catapres PO 0.2 mg BID@0800,1700 [facility] Administration Clopidogrel Bisulfate 75 mg 07/01/18 10:00 07/01/18 17:46 Plavix PO 75 mg QDAY [facility] Administration Diphenoxylate HCl/Atropine 1 tab 06/29/18 06:56 Lomotil PO QID PRN Diarrhea Enoxaparin Sodium 30 mg 06/29/18 10:00 07/01/18 09:03 Lovenox SUB-Q 30 mg QDAY [facility] Administration Epoetin [place] 10,000 unit 06/29/18 11:42 07/02/18 12:45 Procrit IV 10,000 unit COTY PRN Administration hemodialysis Famotidine 20 mg 06/29/18 22:00 07/01/18 21:46 Pepcid PO 20 mg QHS [facility] Administration Hydralazine HCl 10 mg 06/30/18 12:12 07/01/18 15:15 Apresoline IV 10 mg Q4H PRN Administration SBP > 170 or DBP > 90 Sodium Chloride 100 mls @ 999 mls/hr 06/29/18 11:42 Nacl 0.9% IV COTY PRN Hypotension Isosorbide Dinitrate 30 mg 06/29/18 10:00 07/01/18 09:03 Isordil Titradose PO 30 mg DAILY [facility] Administration Labetalol HCl 200 mg 07/02/18 15:00 Normodyne PO BID [facility] Losartan Potassium 100 mg 07/02/18 15:00 Cozaar PO QDAY [facility] Morphine Sulfate 2 mg 06/29/18 05:35 07/01/18 21:46 Morphine IV 2 mg Q4H PRN Administration Pain, Moderate (4-6) Nifedipine 90 mg 07/02/18 15:00 Procardia Xl PO QDAY [facility] Ondansetron HCl 4 mg 06/29/18 05:35 06/30/18 16:20 Zofran IV 4 mg Q8H PRN Administration Nausea And Vomiting Sodium Chloride 10 ml 06/29/18 10:00 07/01/18 21:46 Sodium Chloride Flush Syringe 10 Ml IV 10 ml BID [facility] Administration Sodium Chloride 10 ml 06/29/18 05:35 Sodium Chloride Flush Syringe 10 Ml IV PRN PRN LINE FLUSH
--- NOTE | 2018-07-02 17:55 | Progress Note ---
Assessment and Plan Assessment and plan: Chest pain Patient with stress evaluation 06/24/18 which revealed fixed inferior wall defect of moderate intensity for uncertain significant with possible old inferolateral apical myocardial infarction versus attenuation artifact. However, no ischemia was demonstrated. Echocardiogram revealed EF of 55-60%. Moderate to severe concentric left ventricular hypertrophy. Cardiology evaluated for cardiac workup, recommended to control her blood pressure Coronary artery disease. Patient is status post PCI of the proximal and mid segments of the left anterior descending artery using drug eluting stents on 02/2018 Accelerated Hypertension.; Cardiology adjusted her BP medications. We'll follow ESRD. Continue hemodialysis per nephrology. COPD exacerbation. Continue bronchodilators. Osteoarthritis. Disposition possible discharge tomorrow if BP is controlled. History Interval history: Patient was seen and evaluated at the bedside, [facility] - Physical exam Narrative exam: Not in cardiopulmonary distress. The patient appeared well nourished and normally developed. Vital signs as documented. Head exam is unremarkable. No scleral icterus . Neck is without jugular venous distension, thyromegaly, or carotid bruits. Lungs are clear to auscultation. Cardiac exam reveals regular rate and Rhythm. First and second heart sounds normal. No murmurs, rubs or gallops. Abdominal exam reveals normal bowel sounds, no masses, no organomegaly and no aortic enlargement. Extremities are nonedematous and both femoral and pedal pulses are normal. 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 No focal weakness. - Constitutional Vitals: Temp Pulse Resp BP Pulse Ox 98.0 F 72 18 169/78 94 07/02/18 13:00 07/02/18 13:00 07/02/18 13:00 07/02/18 13:00 07/02/18 08:27 General appearance: Present: no acute distress, well-nourished Results - Labs CBC & Chem 7: 07/02/18 06:11 07/02/18 06:11 Labs: Laboratory Last Values WBC 5.5 K/mm3 (4.5-11.0) 07/02/18 06:11 RBC 3.26 M/mm3 (3.65-5.03) L 07/02/18 06:11 Hgb 10.6 gm/dl (10.1-14.3) 07/02/18 06:11 Hct 32.0 % (30.3-42.9) 07/02/18 06:11 MCV 98 fl (79-97) H 07/02/18 06:11 MCH 33 pg (28-32) H 07/02/18 06:11 MCHC 33 % (30-34) 07/02/18 06:11 RDW 16.5 % (13.2-15.2) H 07/02/18 06:11 Plt Count 184 K/mm3 (140-440) 07/02/18 06:11 Lymph % (Auto) 13.2 % (13.4-35.0) L 07/02/18 06:11 Walker % (Auto) 12.9 % (0.0-7.3) H 07/02/18 06:11 Eos % (Auto) 0.4 % (0.0-4.3) 07/02/18 06:11 Baso % (Auto) 1.7 % (0.0-1.8) 07/02/18 06:11 Lymph # 0.7 K/mm3 (1.2-5.4) L 07/02/18 06:11 Walker # 0.7 K/mm3 (0.0-0.8) 07/02/18 06:11 Eos # 0.0 K/mm3 (0.0-0.4) 07/02/18 06:11 Baso # 0.1 K/mm3 (0.0-0.1) 07/02/18 06:11 Seg Neutrophils % 71.8 % (40.0-70.0) H 07/02/18 06:11 Seg Neutrophils # 3.9 K/mm3 (1.8-7.7) 07/02/18 06:11 Sodium 131 mmol/L (137-145) L 07/02/18 06:11 Potassium 5.6 mmol/L (3.6-5.0) H D 07/02/18 06:11 Chloride 92.0 mmol/L (98-107) L 07/02/18 06:11 Carbon Dioxide 20 mmol/L (22-30) L 07/02/18 06:11 Anion Gap 25 mmol/L 07/02/18 06:11 BUN 49 mg/dL (7-17) H 07/02/18 06:11 Creatinine 9.7 mg/dL (0.7-1.2) H 07/02/18 06:11 Estimated GFR 5 ml/min 07/02/18 06:11 BUN/Creatinine Ratio 5 % 07/02/18 06:11 Glucose 110 mg/dL (65-100) H 07/02/18 06:11 POC Glucose 120 (70-105) H 07/01/18 22:25 Hemoglobin A1c 5.6 % (4-6) 06/29/18 06:58 Calcium 8.3 mg/dL (8.4-10.2) L 07/02/18 06:11 Total Creatine Kinase 68 units/L (30-135) 06/29/18 12:37 CK-MB (CK-2) 2.0 ng/mL (0.0-4.0) 06/29/18 12:37 CK-MB (CK-2) Rel Index 2.9 (0-4) 06/29/18 12:37 Troponin T 0.015 ng/mL (0.00-0.029) 06/29/18 16:58 Triglycerides 98 mg/dL (2-149) 06/29/18 06:58 Cholesterol 91 mg/dL (50-199) 06/29/18 06:58 LDL Cholesterol Direct 29 mg/dL (50-130) L 06/29/18 06:58 HDL Cholesterol 48 mg/dL (40-59) 06/29/18 06:58 Cholesterol/HDL Ratio 1.89 % 06/29/18 06:58 Active Medications - Current Medications Current Medications: Generic Name Dose Route Start Last Admin Trade Name Freq PRN Reason Stop Dose Admin Acetaminophen 650 mg 06/29/18 05:35 07/02/18 05:56 Tylenol PO 650 mg Q4H PRN Administration Pain MILD(1-3)/Fever >100.5/ADLER Albuterol 2.5 mg 06/29/18 07:02 Proventil IH Q6HRT PRN Shortness Of Breath Aspirin 325 mg 06/30/18 10:00 07/02/18 15:00 Ecotrin PO 325 mg QDAY DIAMOND Administration Atorvastatin Calcium 40 mg 06/29/18 22:00 07/01/18 21:46 Lipitor PO 40 mg QHS DIAMOND Administration Chlorthalidone 25 mg 07/01/18 17:00 07/02/18 15:01 Thalitone PO 25 mg QDAY DIAMOND Administration Clonidine HCl 0.2 mg 06/30/18 23:45 07/02/18 15:01 Catapres PO Not Given BID@0800,1700 [facility] Clopidogrel Bisulfate 75 mg 07/01/18 10:00 07/02/18 15:00 Plavix PO 75 mg QDAY DIAMOND Administration Diphenoxylate HCl/Atropine 1 tab 06/29/18 06:56 Lomotil PO QID PRN Diarrhea Enoxaparin Sodium 30 mg 06/29/18 10:00 07/02/18 15:00 Lovenox SUB-Q 30 mg QDAY DIAMOND Administration Epoetin Anthony 10,000 unit 06/29/18 11:42 07/02/18 12:45 Procrit IV 10,000 unit COTY PRN Administration hemodialysis Famotidine 20 mg 06/29/18 22:00 07/01/18 21:46 Pepcid PO 20 mg QHS DIAMOND Administration Hydralazine HCl 10 mg 06/30/18 12:12 07/01/18 15:15 Apresoline IV 10 mg Q4H PRN Administration SBP > 170 or DBP > 90 Sodium Chloride 100 mls @ 999 mls/hr 06/29/18 11:42 Nacl 0.9% IV COTY PRN Hypotension Isosorbide Dinitrate 30 mg 06/29/18 10:00 07/02/18 15:01 Isordil Titradose PO 30 mg DAILY [facility] Administration Labetalol HCl 200 mg 07/02/18 15:00 07/02/18 15:12 Normodyne PO 200 mg BID [facility] Administration Losartan Potassium 100 mg 07/02/18 15:00 07/02/18 15:09 Cozaar PO 100 mg QDAY DIAMOND Administration Morphine Sulfate 2 mg 06/29/18 05:35 07/01/18 21:46 Morphine IV 2 mg Q4H PRN Administration Pain, Moderate (4-6) Nifedipine 90 mg 07/02/18 15:00 07/02/18 15:09 Procardia Xl PO 90 mg QDAY DIAMOND Administration Ondansetron HCl 4 mg 06/29/18 05:35 06/30/18 16:20 Zofran IV 4 mg Q8H PRN Administration Nausea And Vomiting Sodium Chloride 10 ml 06/29/18 10:00 07/02/18 15:01 Sodium Chloride Flush Syringe 10 Ml IV 10 ml BID DIAMOND Administration Sodium Chloride 10 ml 06/29/18 05:35 Sodium Chloride Flush Syringe 10 Ml IV PRN PRN LINE FLUSH
[2018-07-02] MEDS: MORPHINE IV PRN (18:03)
[2018-07-02] MEDS: PEPCID PO SCH (21:30)
[2018-07-02] MEDS ORDERED: AMBIEN PO PRN (23:24)
[2018-07-03] MEDS: MORPHINE IV PRN (06:05)
[2018-07-03 09:04] VITALS: BP 124/63
[2018-07-03] MEDS: CATAPRES PO SCH (09:14)
[2018-07-03] MEDS: COZAAR PO SCH (09:14)
[2018-07-03] MEDS: LOVENOX SUB-Q SCH (09:14)
[2018-07-03] MEDS: PROCARDIA XL PO SCH (09:15)
[2018-07-03] MEDS: ECOTRIN PO SCH (09:15)
[2018-07-03] MEDS: NORMODYNE PO SCH (09:15)
[2018-07-03] MEDS: PLAVIX PO SCH (09:16)
[2018-07-03] MEDS: ISORDIL TITRADOSE PO SCH (09:19)
[2018-07-03] MEDS: THALITONE PO SCH (09:19)
[2018-07-03] MEDS: SODIUM CHLORIDE FLUSH SYRINGE 10 ML IV SCH (09:20)
--- NOTE | 2018-07-03 10:01 | Discharge Summary ---
Providers - Providers Date of Admission: 06/29/18 08:16 Attending physician: LAYNE BARRERA MD 06/29/18 Consult to Cardiac Rehabilitation [CONS] Routine Reason For Exam: Phase I 06/29/18 06:56 Consult to Physician [CONS] Routine Comment: Consulting Provider: COREEN RICHARDSON Physician Instructions: Reason For Exam: ua Consult to Physician [CONS] Routine Comment: Consulting Provider: RAHEEM GOYAL Physician Instructions: Reason For Exam: hd 06/30/18 11:50 Consult to Physician [CONS] Routine Comment: Consulting Provider: COREEN RICHARDSON Physician Instructions: Reason For Exam: unstable angina Primary care physician: JAGDISH ADHIKARI Hospitalization Reason for admission: hypertensive urgency, chest pain Condition: Stable Hospital course: Chest pain Patient with stress evaluation 06/24/18 which revealed fixed inferior wall defect of moderate intensity for uncertain significant with possible old inferolateral apical myocardial infarction versus attenuation artifact. However, no ischemia was demonstrated. Echocardiogram revealed EF of 55-60%. Moderate to severe concentric left ventricular hypertrophy. Cardiology evaluated for cardiac workup, recommended to control her blood pressure Coronary artery disease. Patient is status post PCI of the proximal and mid segments of the left anterior descending artery using drug eluting stents on 02/2018 Accelerated Hypertension.; Cardiology adjusted her BP medications. And blood pressure controlled. ESRD. Continue hemodialysis per nephrology. COPD exacerbation. Continue bronchodilators. Patient was hemodynamically stable and discharged home. Patient was given appropriate scripts at the time of discharge. Disposition: [id number] TO HOME OR SELFCARE Time spent for discharge: 32 minutes - Discharge Diagnoses (1) Hypertensive urgency, malignant Status: Acute (2) Chest pain Status: Acute Comment: GERD (3) Chronic diastolic CHF (congestive heart failure) Status: Acute (4) ESRD (end stage renal disease) on dialysis Status: Chronic Core Measure Documentation - Palliative Care Palliative Care/ Comfort Measures: Not Applicable - Core Measures Any of the following diagnoses?: none Exam - Physical Exam Narrative exam: Not in cardiopulmonary distress. The patient appeared well nourished and normally developed. Vital signs as documented. Head exam is unremarkable. No scleral icterus . Neck is without jugular venous distension, thyromegaly, or carotid bruits. Lungs are clear to auscultation. Cardiac exam reveals regular rate and Rhythm. First and second heart sounds normal. No murmurs, rubs or gallops. Abdominal exam reveals normal bowel sounds, no masses, no organomegaly and no aortic enlargement. Extremities are nonedematous and both femoral and pedal pulses are normal. 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 No focal weakness. - Constitutional Vitals: Temp Pulse Resp BP Pulse Ox 98.3 F 77 18 124/63 92 07/03/18 08:27 07/03/18 09:19 07/03/18 08:27 07/03/18 09:19 07/03/18 04:53 Plan Activity: advance as tolerated Weight Bearing Status: Weight Bear as Tolerated Diet: low salt, renal Follow up with: JAGDISH ADHIKARI MD [Primary Care Provider] - 3-5 Days Prescriptions: AtorvaSTATin [Lipitor] 40 mg PO QHS #30 tablet Aspirin EC [Aspirin Enteric Coated TAB] 325 mg PO QDAY #30 tablet cloNIDine [Catapres] 0.2 mg PO BID #60 tablet Losartan [Cozaar] 100 mg PO QDAY #30 tablet Isosorbide Dinitrate 1 tab PO DAILY #30 tablet Labetalol [Normodyne TAB] 200 mg PO BID #60 tablet NIFEdipine XL [Procardia Xl] 90 mg PO QDAY #30 tablet Chlorthalidone [Thalitone] 25 mg PO QDAY #30 tablet
--- NOTE | 2018-07-03 10:44 | Progress Note ---
Assessment and Plan Impression * End-stage renal disease on maintenance hemodialysis * Chest pain * Shortness of breath * Coronary artery disease * Hypertension Recommendations * Keep her on TTS schedule as outpatient * Chest x-ray shows some fibrotic changes at the bases. Clinically she does not appear to be volume overloaded * Avoid nephrotoxins * Binders with meals * Procrit with dialysis * No IV, BP or venipuncture in her access arm * No objection to discharge from renal standpoint Subjective Date of service: 07/03/18 Principal diagnosis: esrd Interval history: resting well in bed today Objective - Exam Narrative Exam: General appearance: well-developed, well-nourished, appears stated age EENT: PERRL, mucous membranes moist Neck: no JVD, no thyromegaly, no carotid bruit, supple Respiratory: Present: Clear to Ascultation Cardiology: regular, normal heart rate Gastrointestinal: normal, normoactive bowel sounds Integumentary: other (AV graft right upper arm. Good bruit and thrill.) - Vital Signs Vital signs: Vital Signs - 12hr 07/03/18 07/03/18 07/03/18 01:01 04:53 08:27 Temperature 98.9 F 98.1 F 98.3 F Pulse Rate 79 82 Respiratory 20 20 18 Rate Blood Pressure 125/57 109/54 124/63 O2 Sat by Pulse 95 92 Oximetry 07/03/18 07/03/18 07/03/18 09:14 09:15 09:19 Temperature Pulse Rate 77 77 77 Respiratory Rate Blood Pressure 124/63 124/63 124/63 O2 Sat by Pulse Oximetry - Lab 07/02/18 06:11 07/02/18 06:11 Most recent lab results Calcium 8.3 mg/dL (8.4-10.2) L 07/02/18 06:11 Medications & Allergies - Medications Allergies/Adverse Reactions: Allergies gabapentin Allergy (Verified 03/04/18 04:31) Seizure labetalol Adverse Reaction (Verified 12/01/15 07:51) Unknown Home Medications: Home Medications Medication Instructions Recorded Confirmed Last Taken Type ALBUTEROL Inhaler(NF) [VENTOLIN 2 puff IH Q6HR PRN 06/29/18 06/29/18 Unknown History Inhaler(NF)] Diphenoxylate HCl/Atropine 1 tab PO QID PRN 06/29/18 06/29/18 Unknown History [Diphenoxylate-Atrop 2.5-0.025] Aspirin EC [Aspirin Enteric Coated 325 mg PO QDAY #30 tablet 07/03/18 Unknown Rx TAB] AtorvaSTATin [Lipitor] 40 mg PO QHS #30 tablet 07/03/18 Unknown Rx Chlorthalidone [Thalitone] 25 mg PO QDAY #30 tablet 07/03/18 Unknown Rx Isosorbide Dinitrate 1 tab PO DAILY #30 tablet 07/03/18 Unknown Rx Labetalol [Normodyne TAB] 200 mg PO BID #60 tablet 07/03/18 Unknown Rx Losartan [Cozaar] 100 mg PO QDAY #30 tablet 07/03/18 Unknown Rx NIFEdipine XL [Procardia Xl] 90 mg PO QDAY #30 tablet 07/03/18 Unknown Rx cloNIDine [Catapres] 0.2 mg PO BID #60 tablet 07/03/18 Unknown Rx Active Medications: Generic Name Dose Route Start Last Admin Trade Name Freq PRN Reason Stop Dose Admin Acetaminophen 650 mg 06/29/18 05:35 07/02/18 05:56 Tylenol PO 650 mg Q4H PRN Administration Pain MILD(1-3)/Fever >100.5/ADLER Albuterol 2.5 mg 06/29/18 07:02 Proventil IH Q6HRT PRN Shortness Of Breath Aspirin 325 mg 06/30/18 10:00 07/03/18 09:15 Ecotrin PO 325 mg QDAY DIAMOND Administration Atorvastatin Calcium 40 mg 06/29/18 22:00 07/02/18 21:33 Lipitor PO 40 mg QHS DIAMOND Administration Chlorthalidone 25 mg 07/01/18 17:00 07/03/18 09:19 Thalitone PO 25 mg QDAY DIAMOND Administration Clonidine HCl 0.2 mg 06/30/18 23:45 07/03/18 09:14 Catapres PO 0.2 mg BID@0800,1700 DIAMOND Administration Clopidogrel Bisulfate 75 mg 07/01/18 10:00 07/03/18 09:16 Plavix PO 75 mg QDAY DIAMOND Administration Diphenoxylate HCl/Atropine 1 tab 06/29/18 06:56 Lomotil PO QID PRN Diarrhea Enoxaparin Sodium 30 mg 06/29/18 10:00 07/03/18 09:14 Lovenox SUB-Q 30 mg QDAY DIAMOND Administration Epoetin Anthony 10,000 unit 06/29/18 11:42 07/02/18 12:45 Procrit IV 10,000 unit COTY PRN Administration hemodialysis Famotidine 20 mg 06/29/18 22:00 07/02/18 21:30 Pepcid PO 20 mg QHS DIAMOND Administration Hydralazine HCl 10 mg 06/30/18 12:12 07/01/18 15:15 Apresoline IV 10 mg Q4H PRN Administration SBP > 170 or DBP > 90 Sodium Chloride 100 mls @ 999 mls/hr 06/29/18 11:42 Nacl 0.9% IV COTY PRN Hypotension Isosorbide Dinitrate 30 mg 06/29/18 10:00 07/03/18 09:19 Isordil Titradose PO 30 mg DAILY DI[facility]OND Administration Labetalol HCl 200 mg 07/02/18 15:00 07/03/18 09:15 Normodyne PO 200 mg BID DIAMOND Administration Losartan Potassium 100 mg 07/02/18 15:00 07/03/18 09:14 Cozaar PO 100 mg QDAY DIAMOND Administration Morphine Sulfate 2 mg 06/29/18 05:35 07/03/18 06:05 Morphine IV 2 mg Q4H PRN Administration Pain, Moderate (4-6) Nifedipine 90 mg 07/02/18 15:00 07/03/18 09:15 Procardia Xl PO 90 mg QDAY DIAMOND Administration Ondansetron HCl 4 mg 06/29/18 05:35 06/30/18 16:20 Zofran IV 4 mg Q8H PRN Administration Nausea And Vomiting Sodium Chloride 10 ml 06/29/18 10:00 07/03/18 09:20 Sodium Chloride Flush Syringe 10 Ml IV 10 ml BID DIAMOND Administration Sodium Chloride 10 ml 06/29/18 05:35 Sodium Chloride Flush Syringe 10 Ml IV PRN PRN LINE FLUSH Zolpidem Tartrate 5 mg 07/02/18 23:24 07/02/18 23:38 Ambien PO 5 mg QHS PRN Administration Sleep
--- NOTE | 2018-07-03 11:08 | Progress Note ---
Assessment and Plan Uncontrolled Htn -better ESRD on HD Hx of CAD s/p PCI fo the proximal and mid segments of LAD using drug eluting stents 02/2018. On plavix and aspirin normal MPI 06/2018 normal LVEF 55 % 06/2018 Hyperkalemia Type II DM Hyperlipidemia Continue optimal blood pressure management and medical therapy for coronary artery disease. Dialysis for fluid management. Otherwise, conservative cardiac management. Stable cardiac leon for discharge. Subjective Date of service: 07/03/18 Principal diagnosis: esrd Interval history: Patient has no complaints. For planned discharge home today. Blood pressure 124/63. Objective Vital Signs Temp Pulse Resp BP Pulse Ox 07/03/18 09:19 77 124/63 07/03/18 09:15 77 124/63 07/03/18 09:14 77 124/63 07/03/18 08:27 98.3 F 18 124/63 07/03/18 04:53 98.1 F 82 20 109/54 92 07/03/18 01:01 98.9 F 79 20 125/57 95 07/02/18 22:00 79 18 07/02/18 21:30 79 127/72 07/02/18 20:15 98.8 F 79 22 127/72 92 07/02/18 13:00 98.0 F 72 18 169/78 07/02/18 12:45 74 170/86 07/02/18 12:30 71 176/87 07/02/18 12:15 70 178/85 07/02/18 12:00 72 164/85 07/02/18 11:45 73 175/80 07/02/18 11:30 78 164/72 07/02/18 11:15 72 160/74 - Physical Examination General: No Apparent Distress HEENT: Positive: PERRL Neck: Positive: trachea midline Cardiac: Positive: Reg Rate and Rhythm Lungs: Positive: Decreased Breath Sounds Neuro: Positive: Grossly Intact Abdomen: Positive: Soft Extremities: Absent: edema - Labs and Meds Comprehensive Metabolic Panel 07/03/18 Range/Units 10:19 Sodium 136 L (137-145) mmol/L Potassium 4.9 (3.6-5.0) mmol/L Chloride 96.9 L (98-107) mmol/L Carbon Dioxide 26 (22-30) mmol/L BUN 33 H (7-17) mg/dL Creatinine 7.3 H (0.7-1.2) mg/dL Glucose 125 H (65-100) mg/dL Calcium 8.0 L (8.4-10.2) mg/dL
== END 2018-07-03 11:30 | disposition home or self-care (01) | DRG 190 ==
LOC: ED 01:40 → SUATTDRO 01:40 → 4A 08:16
PROVIDERS: ADMIT Internal Medicine; ATTEND Internal Medicine
PROC: 5A1D70Z Performance of Urinary Filtration, Intermittent, Less than 6 Hours Per Day (ICD-10-PCS; principal; 2018-06-29)
PROC: 5A1D70Z Performance of Urinary Filtration, Intermittent, Less than 6 Hours Per Day (ICD-10-PCS; 2018-07-02)
DX: J44.1 Chronic obstructive pulmonary disease with (acute) exacerbation (principal); N18.6 End stage renal disease; I50.32 Chronic diastolic (congestive) heart failure; I13.2 Hypertensive heart and chronic kidney disease with heart failure and with stage 5 chronic kidney disease, or end stage renal disease; J45.901 Unspecified asthma with (acute) exacerbation; I16.0 Hypertensive urgency; I25.10 Atherosclerotic heart disease of native coronary artery without angina pectoris; E11.22 Type 2 diabetes mellitus with diabetic chronic kidney disease; M19.90 Unspecified osteoarthritis, unspecified site; E78.5 Hyperlipidemia, unspecified; E87.5 Hyperkalemia; Z88.8 Allergy status to other drugs, medicaments and biological substances; Z95.5 Presence of coronary angioplasty implant and graft; Z99.2 Dependence on renal dialysis; Z90.49 Acquired absence of other specified parts of digestive tract
CPT/HCPCS: 36415; 71045; 80048; 80061; 82550; 82553; 82962; 83036; 84484; 85025; 93005; 93010; G0378; A9270-GY; J0360; J0885; J1650; J2270; J2405; J7030

== ENCOUNTER 2018-07-16 00:41 | Emergency (ER) | payer MEDICARE ==
[2018-07-16] MEDS ORDERED: ASPIRIN PO ONE (00:49)
--- NOTE | 2018-07-16 01:26 | XRay Report ---
PROCEDURE: XR CHEST 1V AP TECHNIQUE: A portable view of the chest was obtained. HISTORY: Chest Pain COMPARISONS: 07/13/2018 FINDINGS: The heart remains mildly enlarged. The lungs are diffusely congested. There is bilateral interstitial edema which is unchanged. Pleural fluid is not seen. The skeletal structures do not show any acute c hanges. IMPRESSION: Stable severe congestive heart failure pattern.. This document is electronically signed by Nikolas Joyner MD., July 16 2018 01:24:06 AM ET
[2018-07-16 01:32] LABS: Calcium 8.2 mg/dL (8.4-10.2)
[2018-07-16 01:36] LABS: Basophils % (Auto) 0.4 % (0.0-1.8); Eosinophils # (Auto) 0.1 K/mm3 (0.0-0.4); Eosinophils % (Auto) 2.1 % (0.0-4.3); Hematocrit 33.1 % (30.3-42.9); Hemoglobin 10.9 gm/dl (10.1-14.3); Lymphocytes % (Auto) 28.5 % (13.4-35.0); Mean Corpuscular HGB Conc 33 % (30-34); Mean Corpuscular Volume 98 fl (79-97); Monocytes # (Auto) 0.4 K/mm3 (0.0-0.8); Monocytes % (Auto) 12.4 % (0.0-7.3); Platelet Count 189 K/mm3 (140-440); Red Blood Count 3.38 M/mm3 (3.65-5.03); Red Cell Distribution Width 17.3 % (13.2-15.2)
--- NOTE | 2018-07-16 01:46 | Emergency Department Report ---
ED General Adult HPI - General Chief complaint: Dyspnea/Respdistress Stated complaint: TYRA Time Seen by Provider: 07/16/18 01:37 Source: patient Mode of arrival: Ambulatory Limitations: No Limitations - History of Present Illness Initial comments: 63-year-old female with a history of gestation disease, COPD, coronary disease presents with complaint of difficulty breathing was started tonight. Patient was recently admitted and discharged on a 10 similar symptoms. Patient had no ischemia noted on a recent stress study at that time. Patient was recently seen in emergency department and discharged on the as well with similar complaints. Patient complains of generalized weakness. Patient states that while with her family she became short of breath and thus presented to emergency department. Patient states her last dialysis was Sunday and she is scheduled for dialysis this morning. Patient states she does not have pain medicine at home. Patient states that she has not taken her third dose of clonidine either. Patient denies any vomiting. Patient complains of a productive cough as well. Patient states that she's been having headaches and lower back pain as well. Severity scale (0 -10): 10 - Related Data Home Medications Medication Instructions Recorded Confirmed Last Taken ALBUTEROL Inhaler(NF) [VENTOLIN 2 puff IH Q6HR PRN 06/29/18 07/16/18 07/15/18 Inhaler(NF)] Diphenoxylate HCl/Atropine 1 tab PO QID PRN 06/29/18 07/16/18 07/15/18 [Diphenoxylate-Atrop 2.5-0.025] Previous Rx's Medication Instructions Recorded Last Taken Type Aspirin EC [Aspirin Enteric Coated 325 mg PO QDAY #30 tablet 07/03/18 07/15/18 Rx TAB] AtorvaSTATin [Lipitor] 40 mg PO QHS #30 tablet 07/03/18 07/15/18 Rx Chlorthalidone [Thalitone] 25 mg PO QDAY #30 tablet 07/03/18 07/15/18 Rx Isosorbide Dinitrate 1 tab PO DAILY #30 tablet 07/03/18 07/15/18 Rx Labetalol [Normodyne TAB] 200 mg PO BID #60 tablet 07/03/18 07/15/18 Rx Losartan [Cozaar] 100 mg PO QDAY #30 tablet 07/03/18 07/15/18 Rx NIFEdipine XL [Procardia Xl] 90 mg PO QDAY #30 tablet 07/03/18 07/15/18 Rx cloNIDine [Catapres] 0.2 mg PO BID #60 tablet 07/03/18 07/15/18 Rx Cyclobenzaprine HCl [Flexeril 5 MG 5 mg PO TID #15 tab 07/13/18 07/15/18 Rx TAB] Allergies Allergy/AdvReac Type Severity Reaction Status Date / Time gabapentin Allergy Seizure Verified 03/04/18 04:31 labetalol AdvReac Unknown Verified 12/01/15 07:51 ED Review of Systems ROS: Stated complaint: TYRA Other details as noted in HPI Constitutional: denies: chills, fever Eyes: denies: eye pain, eye discharge, vision change ENT: denies: ear pain, throat pain Respiratory: cough, SOB at rest. denies: shortness of breath, wheezing Cardiovascular: denies: chest pain, palpitations Endocrine: no symptoms reported Gastrointestinal: denies: abdominal pain, nausea, diarrhea Genitourinary: denies: urgency, dysuria, discharge Musculoskeletal: denies: back pain, joint swelling, arthralgia Skin: denies: rash, lesions Neurological: weakness. denies: headache, paresthesias Psychiatric: denies: anxiety, depression Hematological/Lymphatic: denies: easy bleeding, easy bruising ED Past Medical Hx - Past Medical History Previous Medical History?: Yes Hx Hypertension: Yes Hx Congestive Heart Failure: Yes Hx Diabetes: Yes Hx Renal Disease: Yes (w/ HD Sunday, , Sunday) Hx Arthritis: Yes Hx Kidney Stones: Yes Hx Asthma: Yes Hx COPD: No Hx HIV: No Additional medical history: heart murmur - Surgical History Past Surgical History?: Yes Hx Cholecystectomy: (gallstones removed) Additional Surgical History: Fistula Left Upper arm.--old. fistula right upper arm. bowel obstruction - Social History Smoking Status: Never Smoker Substance Use Type: None - Medications Home Medications: Home Medications Medication Instructions Recorded Confirmed Last Taken Type ALBUTEROL Inhaler(NF) [VENTOLIN 2 puff IH Q6HR PRN 06/29/18 07/16/18 07/15/18 History Inhaler(NF)] Diphenoxylate HCl/Atropine 1 tab PO QID PRN 06/29/18 07/16/18 07/15/18 History [Diphenoxylate-Atrop 2.5-0.025] Aspirin EC [Aspirin Enteric Coated 325 mg PO QDAY #30 tablet 07/03/18 07/16/18 07/15/18 Rx TAB] AtorvaSTATin [Lipitor] 40 mg PO QHS #30 tablet 07/03/18 07/16/18 07/15/18 Rx Chlorthalidone [Thalitone] 25 mg PO QDAY #30 tablet 07/03/18 07/16/18 07/15/18 Rx Isosorbide Dinitrate 1 tab PO DAILY #30 tablet 07/03/18 07/16/18 07/15/18 Rx Labetalol [Normodyne TAB] 200 mg PO BID #60 tablet 07/03/18 07/16/18 07/15/18 Rx Losartan [Cozaar] 100 mg PO QDAY #30 tablet 07/03/18 07/16/18 07/15/18 Rx NIFEdipine XL [Procardia Xl] 90 mg PO QDAY #30 tablet 07/03/18 07/16/18 07/15/18 Rx cloNIDine [Catapres] 0.2 mg PO BID #60 tablet 07/03/18 07/16/18 07/15/18 Rx Cyclobenzaprine HCl [Flexeril 5 MG 5 mg PO TID #15 tab 07/13/18 07/16/18 07/15/18 Rx TAB] ED Physical Exam - General Limitations: No Limitations General appearance: alert, other (mild distress; uncomfortable) - Head Head exam: Present: atraumatic, normocephalic - Eye Eye exam: Present: normal appearance - ENT ENT exam: Present: mucous membranes dry - Neck Neck exam: Present: normal inspection - Respiratory Respiratory exam: Present: wheezes (in lower lung jackson). Absent: respiratory distress - Cardiovascular Cardiovascular Exam: Present: regular rate, systolic murmur. Absent: diastolic murmur, rubs, gallop - GI/Abdominal GI/Abdominal exam: Present: soft, normal bowel sounds - Extremities Exam Extremities exam: Present: normal inspection - Back Exam Back exam: Present: normal inspection - Neurological Exam Neurological exam: Present: alert, oriented X3 - Psychiatric Psychiatric exam: Present: normal affect, normal mood - Skin Skin exam: Present: warm, dry, intact, normal color. Absent: rash ED Course Vital Signs 07/16/18 07/16/18 07/16/18 00:52 01:43 01:45 Temperature 97.5 F L Pulse Rate 73 67 Respiratory 18 17 Rate Blood Pressure 218/103 197/91 O2 Sat by Pulse 88 97 98 Oximetry 07/16/18 07/16/18 07/16/18 02:00 02:15 02:30 Temperature Pulse Rate 68 67 69 Respiratory 20 19 18 Rate Blood Pressure 197/91 197/91 205/91 O2 Sat by Pulse 96 98 96 Oximetry 07/16/18 07/16/18 07/16/18 02:45 03:00 03:16 Temperature Pulse Rate 69 67 67 Respiratory 19 37 H 20 Rate Blood Pressure 205/91 205/91 O2 Sat by Pulse 96 94 98 Oximetry 07/16/18 07/16/18 07/16/18 03:30 03:46 04:00 Temperature Pulse Rate 65 66 65 Respiratory 12 12 11 L Rate Blood Pressure 205/97 205/97 201/95 O2 Sat by Pulse 94 97 95 Oximetry 07/16/18 04:16 Temperature Pulse Rate 65 Respiratory 13 Rate Blood Pressure 201/95 O2 Sat by Pulse 97 Oximetry ED Medical Decision Making - Lab Data Result diagrams: 07/16/18 00:53 07/16/18 00:53 - EKG Data -: EKG Interpreted by Tx EKG shows normal: sinus rhythm Rate: normal - EKG Data When compared to previous EKG there are: no significant change - Medical Decision Making Patient sleeping comfortably at current time. Patient has 2 cm troponin which are normal. Chest x-ray is stable and similar to prior visit. Patient saturating well on room air. 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 Patient to go to dialysis this morning. - Differential Diagnosis STEMI; NSTEMI; Dehydration; Pneumonia: hyperkalemia Critical care attestation.: If time is entered above; I have spent that time in minutes in the direct care of this critically ill patient, excluding procedure time. ED Disposition Clinical Impression: Chest pain, ESRD (end stage renal disease) on dialysis, COPD exacerbation Disposition: -01 TO HOME OR SELFCARE Is pt being admited?: No Condition: Stable Instructions: Chest Pain (ED), Chronic Kidney Disease (ED), Chronic Obstructive Pulmonary Disease (ED) Referrals: PAO AGUAYO MD [Primary Care Provider] - 3-5 Days Time of Disposition: 04:49 Print Language: SINGAPOREAN
[2018-07-16] MEDS ORDERED: CATAPRES PO ONE (02:41)
[2018-07-16] MEDS ORDERED: PROVENTIL IH ONE (02:41)
[2018-07-16] MEDS ORDERED: PERCOCET 5/325 PO ONE (02:41)
[2018-07-16 04:30] VITALS: BP 201/95
== END 2018-07-16 05:10 | disposition home or self-care (01) ==
LOC: ED 00:41
DX: J44.1 Chronic obstructive pulmonary disease with (acute) exacerbation (principal); I13.2 Hypertensive heart and chronic kidney disease with heart failure and with stage 5 chronic kidney disease, or end stage renal disease; E11.22 Type 2 diabetes mellitus with diabetic chronic kidney disease; N18.6 End stage renal disease; I50.9 Heart failure, unspecified; M19.90 Unspecified osteoarthritis, unspecified site; Z99.2 Dependence on renal dialysis; Z79.82 Long term (current) use of aspirin; Z88.8 Allergy status to other drugs, medicaments and biological substances
CPT/HCPCS: 36415; 71045; 80048; 84484; 85025; 93005; 93010; 94640; 99284

== ENCOUNTER 2018-07-22 04:16 | Inpatient (IN) | payer MEDICARE ==
--- NOTE | 2018-07-22 05:02 | Event Note ---
Date: 07/22/18 63-year-old female coming in with painless cough, wheezing, shortness of breath, suspect pulmonary vascular congestion, fluid overload. X-ray of the chest suggest right lower lobe atelectasis versus infiltrate. Speaking in full sentences, appears fairly comfortable. Screening laboratory studies have been sent, supplemental oxygen has been ordered. Nephrology: Dr. Richardson
[2018-07-22 05:20] LABS: INR 1.19 (0.87-1.13)
[2018-07-22 05:21] LABS: Partial Thromboplastin Time 31.1 Sec. (24.2-36.6)
[2018-07-22 05:29] LABS: Hematocrit 32.9 % (30.3-42.9); Hemoglobin 10.7 gm/dl (10.1-14.3); Mean Corpuscular HGB Conc 33 % (30-34); Mean Corpuscular Volume 97 fl (79-97); Platelet Count 184 K/mm3 (140-440); Red Blood Count 3.39 M/mm3 (3.65-5.03)
[2018-07-22 05:30] LABS: Eosinophils # (Auto) 0.1 K/mm3 (0.0-0.4); Eosinophils % (Auto) 1.6 % (0.0-4.3); Lymphocytes # (Auto) 0.9 K/mm3 (1.2-5.4); Lymphocytes % (Auto) 27.1 % (13.4-35.0); Monocytes # (Auto) 0.4 K/mm3 (0.0-0.8); Monocytes % (Auto) 11.1 % (0.0-7.3)
[2018-07-22 05:34] LABS: Albumin 3.6 g/dL (3.9-5); Calcium 8.1 mg/dL (8.4-10.2)
--- NOTE | 2018-07-22 05:40 | XRay Report ---
PROCEDURE: XR CHEST 1V AP TECHNIQUE: Chest radiograph single view. HISTORY: TYRA COMPARISONS: None . FINDINGS: Heart: Normal. Mediastinum/Vessels: Normal. Lungs/Pleural space: Bilateral lower lung infiltrates. Mild left effusion. No pneumothorax. Bony thorax: No acute osseous abnormality. Life support devices: None. IMPRESSION: There are bilateral mild lower lung infiltrates. Mild left effusion.. This document is electronically signed by Lexi Urrutia DO., July 22 2018 05:38:22 AM ET
[2018-07-22] MEDS ORDERED: ZOFRAN IV ONE (06:46)
[2018-07-22] MEDS ORDERED: SUBLIMAZE IV ONE (06:46)
[2018-07-22] MEDS ORDERED: NITRO-BID 2% TP ONE (06:46)
[2018-07-22] MEDS ORDERED: CATAPRES PO ONE (06:47)
--- NOTE | 2018-07-22 06:52 | Emergency Department Report ---
HPI - General Chief Complaint: Dyspnea/Respdistress Time Seen by Provider: 07/22/18 06:20 - HPI HPI: Room 6 The patient is a 63-year-old female presenting with a chief complaint of shortness of breath headache and chest pain. Patient states her symptoms began this morning at 01:30 with wheezing and shortness of breath. Patient states she also developed left-sided chest pain described as aching and intermittent in nature. Patient states she has headache and has been hypertensive despite being compliant with her blood pressure medication. Patient admits to nausea and diaphoresis associated with chest pain. The patient states she's had a cough productive of sputum since yesterday. The patient states her last cardiac catheterization occurred in November 2017 when she had 2 heart stents placed Location: [See above] Duration: [See above] Quality: [See above] Severity: [See above] Modifying factors: [see above] Context: [see above] Mode of transportation: [not driving] ED Past Medical Hx - Past Medical History Hx Hypertension: Yes Hx Congestive Heart Failure: Yes Hx Diabetes: Yes Hx Renal Disease: Yes (w/ HD Sunday, , Sunday) Hx Arthritis: Yes Hx Kidney Stones: Yes Hx Asthma: Yes Additional medical history: heart murmur - Surgical History Hx Cholecystectomy: (gallstones removed) Additional Surgical History: Fistula Left Upper arm.--old. fistula right upper arm. bowel obstruction - Family History Family history: no significant - Social History Smoking Status: Never Smoker Substance Use Type: None - Medications Home Medications: Home Medications Medication Instructions Recorded Confirmed Last Taken Type ALBUTEROL Inhaler(NF) [VENTOLIN 2 puff IH Q6HR PRN 06/29/18 07/22/18 07/15/18 History Inhaler(NF)] Diphenoxylate HCl/Atropine 1 tab PO QID PRN 06/29/18 07/22/18 07/15/18 History [Diphenoxylate-Atrop 2.5-0.025] Aspirin EC [Aspirin Enteric Coated 325 mg PO QDAY #30 tablet 07/03/18 07/22/18 07/15/18 Rx TAB] AtorvaSTATin [Lipitor] 40 mg PO QHS #30 tablet 07/03/18 07/22/18 07/15/18 Rx Chlorthalidone [Thalitone] 25 mg PO QDAY #30 tablet 07/03/18 07/22/18 07/15/18 Rx Isosorbide Dinitrate 1 tab PO DAILY #30 tablet 07/03/18 07/22/18 07/15/18 Rx Labetalol [Normodyne TAB] 200 mg PO BID #60 tablet 07/03/18 07/22/18 07/15/18 Rx Losartan [Cozaar] 100 mg PO QDAY #30 tablet 07/03/18 07/22/18 07/15/18 Rx NIFEdipine XL [Procardia Xl] 90 mg PO QDAY #30 tablet 07/03/18 07/22/18 07/15/18 Rx cloNIDine [Catapres] 0.2 mg PO BID #60 tablet 07/03/18 07/22/18 07/15/18 Rx Cyclobenzaprine HCl [Flexeril 5 MG 5 mg PO TID #15 tab 07/13/18 07/22/18 07/15/18 Rx TAB] ED Review of Systems ROS: Stated complaint: TYRA Other details as noted in HPI Constitutional: diaphoresis Eyes: denies: eye pain ENT: denies: throat pain Respiratory: cough, shortness of breath Cardiovascular: chest pain Endocrine: no symptoms reported Gastrointestinal: nausea. denies: vomiting Genitourinary: other (decreased urination) Musculoskeletal: denies: back pain Neurological: headache Physical Exam - Physical Exam Vital Signs: Vital Signs 07/22/18 04:33 Temperature 97.4 F L Pulse Rate 70 Respiratory 21 Rate Blood Pressure 204/95 Blood Pressure 204/95 [Left] O2 Sat by Pulse 96 Oximetry Physical Exam: GENERAL: The patient is well-developed well-nourished female lying on stretcher not appearing to be in acute distress. [] HEENT: Normocephalic. Atraumatic. Extraocular motions are intact. Patient has moist mucous membranes. NECK: Supple. No meningitic signs are noted. Trachea midline CHEST/LUNGS: Clear to auscultation. There is no respiratory distress noted. HEART/CARDIOVASCULAR: Regular. There is no tachycardia. There is no gallop rub or murmur. ABDOMEN: Abdomen is soft, nontender. Patient has normal bowel sounds. There is no abdominal distention. SKIN: There is no rash. There is no edema. There is no diaphoresis. NEURO: The patient is awake, alert, and oriented. The patient is cooperative. The patient has no focal neurologic deficits. The patient has normal speech. Cranial nerves II through XII grossly intact MUSCULOSKELETAL: There is no evidence of acute injury. ED Course Vital Signs 07/22/18 04:33 Temperature 97.4 F L Pulse Rate 70 Respiratory 21 Rate Blood Pressure 204/95 Blood Pressure 204/95 [Left] O2 Sat by Pulse 96 Oximetry ED Medical Decision Making - Lab Data Result diagrams: 07/22/18 04:42 07/22/18 04:42 Laboratory Tests 07/22/18 07/22/18 07/22/18 04:42 04:42 04:42 WBC 3.2 L RBC 3.39 L Hgb 10.7 Hct 32.9 MCV 97 MCH 32 MCHC 33 RDW 18.0 H Plt Count 184 Lymph % (Auto) 27.1 Motley % (Auto) 11.1 H Eos % (Auto) 1.6 Baso % (Auto) 1.0 Lymph # 0.9 L Motley # 0.4 Eos # 0.1 Baso # 0.0 Seg Neutrophils % 59.2 Seg Neutrophils # 1.9 PT 15.9 H INR 1.19 H APTT 31.1 Sodium 138 Potassium 4.6 Chloride 101.3 Carbon Dioxide 20 L Anion Gap 21 BUN 36 H Creatinine 7.6 H Estimated GFR 7 BUN/Creatinine Ratio 5 Glucose 132 H Lactic Acid Calcium 8.1 L Total Bilirubin 0.40 AST 23 ALT 21 Alkaline Phosphatase 134 H Troponin T 0.024 NT-Pro-B Natriuret Pep 62368 H Total Protein 7.4 Albumin 3.6 L Albumin/Globulin Ratio 0.9 07/22/18 06:36 WBC RBC Hgb Hct MCV MCH MCHC RDW Plt Count Lymph % (Auto) Motley % (Auto) Eos % (Auto) Baso % (Auto) Lymph # Motley # Eos # Baso # Seg Neutrophils % Seg Neutrophils # PT INR APTT Sodium Potassium Chloride Carbon Dioxide Anion Gap BUN Creatinine Estimated GFR BUN/Creatinine Ratio Glucose Lactic Acid 0.50 L Calcium Total Bilirubin AST ALT Alkaline Phosphatase Troponin T NT-Pro-B Natriuret Pep Total Protein Albumin Albumin/Globulin Ratio - EKG Data -: EKG Interpreted by Nc EKG shows normal: sinus rhythm Rate: normal - EKG Data When compared to previous EKG there are: no significant change Interpretation: unchanged when compared t (07/16/2018) - Radiology Data Radiology results: report reviewed (chest x-ray, CT head), image reviewed (chest x-ray, CT head) interpreted by me: Chest [id number] infiltrates. No pneumothorax [address] [address] XRay Report Signed Patient: TONIE MENDEZ MR#: [id number] : 1955 Acct:[id number] Age/Sex: 63 / F ADM Date: 07/22/18 Loc: ED Attending Dr: Ordering Physician: LLUVIA TERESA MD Date of Service: 07/22/18 Procedure(s): XR chest 1V ap Accession Number(s): [id number] cc: LLUVIA TERESA MD Fluoro Time In Minutes: PROCEDURE: XR CHEST 1V AP TECHNIQUE: Chest radiograph single view. HISTORY: TYRA COMPARISONS: None . FINDINGS: Heart: Normal. Mediastinum/Vessels: Normal. Lungs/Pleural space: Bilateral lower lung infiltrates. Mild left effusion. No pneumothorax. Bony thorax: No acute osseous abnormality. Life support devices: None. IMPRESSION: There are bilateral mild lower lung infiltrates. Mild left effusion.. This document is electronically signed by Lexi Urrutia DO., July 22 2018 05:38:22 AM ET Transcribed By: [facility] Dictated By: LEXI URRUTIA MD Electronically Authenticated By: LEXI URRUTIA MD Signed Date/Time: 07/22/18 0540 DD/ 5 TD/TT: 07/22/[address] [address] Cat Scan Report Signed Patient: TONIE MENDEZ MR#: [id number] : 1955 Acct:[id number] Age/Sex: 63 / F ADM Date: 07/22/18 Loc: ED Attending Dr: Ordering Physician: ERIK HU MD Date of Service: 07/22/18 Procedure(s): CT head/brain wo con Accession Number(s): [id number] cc: ERIK HU MD CT HEAD WITHOUT CONTRAST: HISTORY: Hypertension, headache. TECHNIQUE: Sequential CT images without contrast. FINDINGS: Images obtained show bilateral prominence of the sulci and ventricles. There are no abnormal intra- or extra- axial blood or fluid collections. There are no focal masses or evidence of mass effect. The walls white matter differentiation appears within normal limits. Regions of periventricular decreased attenuation are consistent with micr oangiopathic ischemic disease. The posterior fossa structures including the fourth ventricle, cerebellum, and brainstem appear normal. IMPRESSION: Evidence of atrophy and microangiopathic ischemic disease. No acute intracranial process noted. No significant change since 11/13/17. Transcribed By: TTR Dictated By: CHET BOGGS JR, MD Electronically Authenticated By: CHET BOGGS JR, MD Signed Date/Time: 07/22/18844 DD/ 4 TD/TT: 07/22/18844 - Differential Diagnosis ACS, pericarditis, pneumonia, hypertensive urgency Critical care attestation.: If time is entered above; I have spent that time in minutes in the direct care of this critically ill patient, excluding procedure time. ED Disposition Clinical Impression: Chest pain, Shortness of breath, Hypertensive urgency, Pneumonia Disposition: OP ADMIT IP TO THIS HOSP Is pt being admited?: Yes Does the pt Need Aspirin: Yes Condition: Fair Instructions: Chest Pain (ED), Bacterial Pneumonia (ED) Referrals: PAO AGUAYO MD [Primary Care Provider] - 3-5 Days Time of Disposition: 09:18 (hospitalist notified)
[2018-07-22] MEDS ORDERED: ROCEPHIN/NS 1 GM/50 ML 1 GM/50 ML BAG IV ONE (06:53)
--- NOTE | 2018-07-22 08:50 | Cat Scan Report ---
CT HEAD WITHOUT CONTRAST: HISTORY: Hypertension, headache. TECHNIQUE: Sequential CT images without contrast. FINDINGS: Images obtained show bilateral prominence of the sulci and ventricles. There are no abnormal intra- or extra-axial blood or fluid collections. There are no focal masses or evidence of mass effect. The walls white matter differentiation appears within normal limits. Regions of periventricular decreased attenuation are consistent with microangiopathic ischemic disease. The posterior fossa structures including the fourth ventricle, cerebellum, and brainstem appear normal. IMPRESSION: Evidence of atrophy and microangiopathic ischemic disease. No acute intracranial process noted. No significant change since 11/13/17.
[2018-07-22] MEDS ORDERED: ASPIRIN PO ONE (09:08)
[2018-07-22] MEDS ORDERED: TYLENOL PO PRN (10:31)
[2018-07-22] MEDS ORDERED: ZOFRAN IV PRN (10:31)
[2018-07-22] MEDS ORDERED: SODIUM CHLORIDE FLUSH SYRINGE 10 ML IV PRN (10:31)
[2018-07-22] MEDS ORDERED: ISOSORBIDE DINITRATE PO SCH (10:45)
[2018-07-22] MEDS ORDERED: NON-FORMULARY (Cyclobenzaprine Hcl [Flexeril 5 Mg Tab] 5 MG) PO SCH (14:00)
[2018-07-22] MEDS: ZITHROMAX 500 MG in NACL 0.9% 250ML 250 ML IV SCH (14:14)
[2018-07-22] MEDS: FLEXERIL PO SCH ×2 (14:34→22:20)
[2018-07-22] MEDS: CATAPRES PO SCH ×2 (14:35→22:17)
[2018-07-22] MEDS: COZAAR PO SCH (14:35)
[2018-07-22] MEDS: ECOTRIN PO SCH (14:35)
[2018-07-22] MEDS: PROCARDIA XL PO SCH (14:35)
[2018-07-22] MEDS: THALITONE PO SCH (14:36)
[2018-07-22] MEDS: NORCO 5/325 PO PRN (14:40)
[2018-07-22] MEDS: APRESOLINE IV PRN (14:40)
--- NOTE | 2018-07-22 15:07 | History and Physical Report ---
History of Present Illness Date of examination: 07/22/18 Date of admission: 07/22/18 09:19 Chief complaint: Shortness of breath History of present illness: Patient is a 63 year old -[place] female with history of end-stage renal disease on hemodialysis and CAD who presented to the ED on account of a day history of shortness of breath. She has associated pleuritic chest pain, wheezing, chills without fever, cough productive of whitish sputum, headaches, runny nose, sore throat, and nausea without vomiting. No leg swelling, orthopnea, PND, lightheadedness, syncope or loss of consciousness. She also complained of lower abdominal pain, but no frequency, dysuria, constipation or diarrhea. No reported history of ill contacts. Of note, patient was recently admitted to the hospital for chest pain. Past History Past Medical History: CAD, dialysis, ESRD, hypertension Past Surgical History: Other (cardiac stent placement X2, dialysis catheter placement) Social history: smoking (patient smoked cigarettes for 5 years but quit 2 weeks ago. She admits to occasional alcohol use but denies illicit drug use) Family history: no significant family history (reviewed and noncontributory) Medications and Allergies Allergies Allergy/AdvReac Type Severity Reaction Status Date / Time gabapentin Allergy Seizure Verified 03/04/18 04:31 labetalol AdvReac Unknown Verified 12/01/15 07:51 Home Medications Medication Instructions Recorded Confirmed Last Taken Type ALBUTEROL Inhaler(NF) [VENTOLIN 2 puff IH Q6HR PRN 06/29/18 07/22/18 07/15/18 History Inhaler(NF)] Diphenoxylate HCl/Atropine 1 tab PO QID PRN 06/29/18 07/22/18 07/15/18 History [Diphenoxylate-Atrop 2.5-0.025] Aspirin EC [Aspirin Enteric Coated 325 mg PO QDAY #30 tablet 07/03/18 07/22/18 07/15/18 Rx TAB] AtorvaSTATin [Lipitor] 40 mg PO QHS #30 tablet 07/03/18 07/22/18 07/15/18 Rx Losartan [Cozaar] 100 mg PO QDAY #30 tablet 07/03/18 07/22/18 07/15/18 Rx cloNIDine [Catapres] 0.2 mg PO BID #60 tablet 04/01/1107/22/18 07/15/18 Rx Carvedilol [Coreg] 25 mg PO BID 07/22/18 07/22/18 Unknown History Clonidine HCl [Catapres] 0.3 mg PO BID 07/22/18 07/22/18 Unknown History Clopidogrel [Plavix] 75 mg PO QDAY 07/22/18 07/22/18 Unknown History ISOSORBIDE MONOnitrate [Imdur ER] 30 mg PO DAILY 07/22/18 07/22/18 Unknown History Losartan [Cozaar] 50 mg PO QDAY 07/22/18 07/22/18 Unknown History Nephro-Mary Rx Tablet 07/22/18 Unknown History Sevelamer Carbonate [Renvela] 1 tab PO TID 07/22/18 07/22/18 Unknown History amLODIPine [Norvasc] 10 mg PO DAILY 07/22/18 07/22/18 Unknown History hydrALAZINE [Apresoline] 50 mg PO Q8HR 07/22/18 07/22/18 Unknown History Active Meds: Active Medications Acetaminophen (Tylenol) 650 mg PO Q4H PRN PRN Reason: Pain MILD(1-3)/Fever >100.5/ADLER Acetaminophen/Hydrocodone Bitart (Russell 5/325) 1 each PO Q6H PRN PRN Reason: Pain, Moderate (4-6) Last Admin: 07/22/18 14:40 Dose: 1 each Documented by: Albuterol/Ipratropium (Duoneb *Not For Prn Use*) 1 ampul IH Q6HRT [facility] Aspirin (Ecotrin) 325 mg PO QDAY [facility] Last Admin: 07/22/18 14:35 Dose: 325 mg Documented by: Atorvastatin Calcium (Lipitor) 40 mg PO QHS [facility] Chlorthalidone (Thalitone) 25 mg PO QDAY [facility] Last Admin: 07/22/18 14:36 Dose: 25 mg Documented by: Clonidine HCl (Catapres) 0.2 mg PO BID [facility] Last Admin: 07/22/18 14:35 Dose: 0.2 mg Documented by: Cyclobenzaprine HCl (Flexeril) 5 mg PO TID [facility] Last Admin: 07/22/18 14:34 Dose: 5 mg Documented by: Hydralazine HCl (Apresoline) 20 mg IV Q4HR PRN PRN Reason: Blood Pressure Last Admin: 07/22/18 14:40 Dose: 20 mg Documented by: Azithromycin 500 mg/ Sodium (Chloride) 250 mls @ 250 mls/hr IV Q24HR [facility] Last Admin: 07/22/18 14:14 Dose: 250 mls/hr Documented by: Ceftriaxone Sodium (Rocephin/Ns 1 Gm/50 Ml) 1 gm in 50 mls @ 100 mls/hr IV Q2 4HR [facility]; Protocol Losartan Potassium (Cozaar) 100 mg PO QDAY [facility] Last Admin: 07/22/18 14:35 Dose: 100 mg Documented by: Miscellaneous Medication (Isosorbide Dinitrate [Isosorbide Dinitrate]) 1 tab PO DAILY [facility] Nifedipine (Procardia Xl) 90 mg PO QDAY [facility] Last Admin: 07/22/18 14:35 Dose: 90 mg Documented by: Ondansetron HCl (Zofran) 4 mg IV Q8H PRN PRN Reason: Nausea And Vomiting Last Admin: 07/22/18 14:41 Dose: 4 mg Documented by: Sodium Chloride (Sodium Chloride Flush Syringe 10 Ml) 10 ml IV BID [facility] Sodium Chloride (Sodium Chloride Flush Syringe 10 Ml) 10 ml IV PRN PRN PRN Reason: LINE FLUSH Review of Systems All systems: negative (except as documented in the HPI, all other systems are reviewed and negative) Exam - Constitutional Vitals: Temp Pulse Resp BP Pulse Ox 97.4 F L 65 16 191/88 95 07/22/18 04:33 07/22/18 14:40 07/22/18 09:52 07/22/18 14:40 07/22/18 09:52 General appearance: Present: no acute distress, well-nourished - EENT Eyes: Present: PERRL, EOM intact ENT: hearing intact, clear oral mucosa - Neck Neck: Present: supple, normal ROM - Respiratory Respiratory effort: normal Respiratory: bilateral: CTA - Cardiovascular Rhythm: regular Heart Sounds: Present: S1 & S2. Absent: rub, click - Extremities Extremities: No edema Peripheral Pulses: within normal limits - Abdominal General gastrointestinal: Present: soft, tender (mild generalized abdominal pain), non-distended, normal bowel sounds Female genitourinary: Present: deferred - Integumentary Integumentary: Present: clear, warm, dry - Musculoskeletal Musculoskeletal: gait normal, strength equal bilaterally - Psychiatric Psychiatric: appropriate mood/affect, intact judgment & insight - Neurologic Neurologic: CNII-XII intact, moves all extremities Results - Labs CBC & Chem 7: 07/22/18 04:42 07/22/18 04:42 Labs: Laboratory Last Values WBC 3.2 K/mm3 (4.5-11.0) L 07/22/18 04:42 RBC 3.39 M/mm3 (3.65-5.03) L 07/22/18 04:42 Hgb 10.7 gm/dl (10.1-14.3) 07/22/18 04:42 Hct 32.9 % (30.3-42.9) 07/22/18 04:42 MCV 97 fl (79-97) 07/22/18 04:42 MCH 32 pg (28-32) 07/22/18 04:42 MCHC 33 % (30-34) 07/22/18 04:42 RDW 18.0 % (13.2-15.2) H 07/22/18 04:42 Plt Count 184 K/mm3 (140-440) 07/22/18 04:42 Lymph % (Auto) 27.1 % (13.4-35.0) 07/22/18 04:42 Faulkner % (Auto) 11.1 % (0.0-7.3) H 07/22/18 04:42 Eos % (Auto) 1.6 % (0.0-4.3) 07/22/18 04:42 Baso % (Auto) 1.0 % (0.0-1.8) 07/22/18 04:42 Lymph # 0.9 K/mm3 (1.2-5.4) L 07/22/18 04:42 Faulkner # 0.4 K/mm3 (0.0-0.8) 07/22/18 04:42 Eos # 0.1 K/mm3 (0.0-0.4) 07/22/18 04:42 Baso # 0.0 K/mm3 (0.0-0.1) 07/22/18 04:42 Seg Neutrophils % 59.2 % (40.0-70.0) 07/22/18 04:42 Seg Neutrophils # 1.9 K/mm3 (1.8-7.7) 07/22/18 04:42 PT 15.9 Sec. (12.2-14.9) H 07/22/18 04:42 INR 1.19 (0.87-1.13) H 07/22/18 04:42 APTT 31.1 Sec. (24.2-36.6) 07/22/18 04:42 Sodium 138 mmol/L (137-145) 07/22/18 04:42 Potassium 4.6 mmol/L (3.6-5.0) 07/22/18 04:42 Chloride 101.3 mmol/L (98-107) 07/22/18 04:42 Carbon Dioxide 20 mmol/L (22-30) L 07/22/18 04:42 Anion Gap 21 mmol/L 07/22/18 04:42 BUN 36 mg/dL (7-17) H 07/22/18 04:42 Creatinine 7.6 mg/dL (0.7-1.2) H 07/22/18 04:42 Estimated GFR 7 ml/min 07/22/18 04:42 BUN/Creatinine Ratio 5 % 07/22/18 04:42 Glucose 132 mg/dL (65-100) H 07/22/18 04:42 Lactic Acid 0.50 mmol/L (0.7-2.0) L 07/22/18 06:36 Calcium 8.1 mg/dL (8.4-10.2) L 07/22/18 04:42 Total Bilirubin 0.40 mg/dL (0.1-1.2) 07/22/18 04:42 AST 23 units/L (5-40) 07/22/18 04:42 ALT 21 units/L (7-56) 07/22/18 04:42 Alkaline Phosphatase 134 units/L (35-129) H 07/22/18 04:42 Troponin T 0.024 ng/mL (0.00-0.029) 07/22/18 04:42 NT-Pro-B Natriuret Pep 75466 pg/mL (0-900) H 07/22/18 04:42 Total Protein 7.4 g/dL (6.3-8.2) 07/22/18 04:42 Albumin 3.6 g/dL (3.9-5) L 07/22/18 04:42 Albumin/Globulin Ratio 0.9 % 07/22/18 04:42 Assessment and Plan Assessment and plan: Sepsis secondary to Healthcare associated pneumonia -On IV antibiotics with vanc, Zosyn and azithromycin -Chest x-ray showed bilateral lower lobe infiltrates -Blood cultures pending Hypertensive emergency with SBP of 204 -Home antihypertensives resumed, we'll adjust as needed Atypical chest pain -Probably secondary to the pneumonia -Serial troponin level monitoring Generalized abdominal pain -Probably secondary to GERD -On PPI -We'll check lipase level and urinalysis -Further evaluation with imaging if no improvement ESRD on HD -nephrology consulted CAD -Home meds resumed Prophylaxis -DVT prophylaxis with heparin Disposition: For discharge when medically stable Time spent: 38 minutes
[2018-07-22] MEDS ORDERED: VANCOMYCIN PHARMACY TO DOSE IV SCH (16:00)
[2018-07-22] MEDS: DUONEB *Not for PRN Use IH SCH ×2 (16:35→21:15)
[2018-07-22] MEDS ORDERED: VANCOMYCIN 1,250 MG in NACL 0.9% 250ML 250 ML IV ONE (16:45)
[2018-07-22] MEDS: PROTONIX PO SCH (18:02)
[2018-07-22] MEDS: IMDUR PO SCH (20:11)
[2018-07-22] MEDS: ZOSYN/NS 2.25 GM/50ML 2.25 GM/50 ML BAG IV SCH ×2 (20:12→22:23)
[2018-07-22] MEDS ORDERED: PROVENTIL IH PRN (21:24)
[2018-07-22 21:49] LABS: Bacteria,Urine 2+ /HPF (Negative); Bilirubin,Urine NEG (Negative); Blood,Urine NEG (Negative); Color,Urine Yellow (Yellow); Urobilinogen,Urine < 2.0 mg/dL (<2.0)
[2018-07-22] MEDS ORDERED: NACL 0.9% 100 ML IV PRN (22:02)
--- NOTE | 2018-07-22 22:04 | Event Note ---
Chart was reviewed, lab results as well as x-rays were reviewed old records were also reviewed from prior admission Patient has been seen and followed by our group Patient appears to be stable We'll order for hemodialysis treatment tomorrow morning 3 hour 45 minute ultrafiltration as tolerated There is no emergent indication for renal placement therapy tonight unless situation changes
[2018-07-22] MEDS: HEPARIN SUB-Q SCH (22:17)
[2018-07-22] MEDS: SODIUM CHLORIDE FLUSH SYRINGE 10 ML IV SCH (22:18)
[2018-07-23] MEDS: NORCO 5/325 PO PRN ×2 (05:25→21:09)
[2018-07-23] MEDS: HEPARIN SUB-Q SCH ×3 (05:26→21:07)
[2018-07-23] MEDS: ZOSYN/NS 2.25 GM/50ML 2.25 GM/50 ML BAG IV SCH ×3 (05:27→21:10)
[2018-07-23 07:20] LABS: Basophils % (Auto) 0.6 % (0.0-1.8); Eosinophils % (Auto) 1.4 % (0.0-4.3); Hematocrit 28.6 % (30.3-42.9); Hemoglobin 9.4 gm/dl (10.1-14.3); Lymphocytes # (Auto) 0.6 K/mm3 (1.2-5.4); Lymphocytes % (Auto) 20.3 % (13.4-35.0); Mean Corpuscular HGB Conc 33 % (30-34); Mean Corpuscular Volume 98 fl (79-97); Monocytes # (Auto) 0.4 K/mm3 (0.0-0.8); Monocytes % (Auto) 13.3 % (0.0-7.3); Platelet Count 165 K/mm3 (140-440)
[2018-07-23 07:42] LABS: Calcium 7.4 mg/dL (8.4-10.2)
[2018-07-23] MEDS: DUONEB *Not for PRN Use IH SCH ×3 (08:21→20:28)
--- NOTE | 2018-07-23 09:22 | Consultation ---
History of Present Illness - History of Present Illness Thank you for the consultation patient was evaluated today. Source of information; patient herself History of presenting illness; Patient is a, 63-year-old -[place]i female who has been admitted here with chest pain. She is currently on maintenance hemodialysis on Sunday and Sunday. She normally dialyzes for about 3 hours she has been noted to have some evidence of pulmonary vascular congestion and her blood pressure has been stable Patient currently does have a fistula in her arm for which she has been followed by vascular surgery and [place], but she finds it very hard to commute Currently she has been admitted here for possible pneumonia Patient does complain of some pain and increasing swelling in the fistula site which has been gradual in nature, she does not complain of any fever chills during dialysis treatment Events of this hospitalization reviewed patient was also seen and supervised on hemodialysis today Past medical history significant for End-stage renal disease Anemia nonsurgical disease secondary hyperparathyroidism Coronary artery disease stent placement History of tobacco abuse Home medication current medication: Reviewed Current allergies: Gabapentin Labetalol Social history: Quit smoking approximately 2 weeks ago occasional alcohol use Family history: Noncontributory for renal related disorder Review of systems positive for cough wheezing chills no fever clear phlegm All other review of system negative Labs and x-rays: Were reviewed from the current chart Physical examination General: No acute distress HEENT: Oral mucosa moist no pharyngeal erythema no pallor or icterus no uremic order Neck: Supple no evidence of any thyromegaly trachea midline no JVD Chest: few bilateral basilar crackles Heart: Regular rate and rhythm S1-S2 heard no S3-S4 Abdomen: Soft nontender no renal bruit no CVA tenderness no suprapubic fullness no organomegaly Extremity: Minimal edema dry skin no peripheral cyanosis pulses palpable fistula: Appears to be slightly tense Patient was also seen on dialysis Neurological: Alert awake follows command grossly nonfocal examination Back: Nontender thoracolumbar spine Musculoskeletal: No joint effusion noted Skin: No petechial rash/noted Assessment and plan End-stage renal disease: Patient will continue with hemodialysis treatment on Sunday and Sunday Mild hyponatremia resulting from fluid overload patient adequately counseled and educated to comply with treatment recommendation maintain fluid restriction Anemia in end-stage renal disease Will give erythropoietin 20,000 units subcutaneous 1 today Mild leukopenia that needs to be monitored platelet count appears to be normal patient should be seen by hematology in the outpatient setting, Hypertension and volume: Patient is poorly compliant with fluid restriction blood pressure appears to be well-controlled Secondary hyperparathyroidism: Check phosphorus and PTH level periodically Adequately counseled and educated regarding all the end-stage renal disease issues diet plan was also discussed with patient lifestyle changes were also discussed currently being treated for pneumonia Patient may benefit from vascular surgery evaluation Prognosis guardeddue to end-stage renal disease patient was advised to comply with treatment recommendations Nature and severity of renal-related issues were discussed with patient, all questions were answered and simple [place] Patient does have good understanding about renal-related issues. Counseled and educated to get further education from [facility] and related links, and upon discharge to make a follow-up appointment in the office We'll continue to follow and make recommendations from renal standpoint. If you have any questions please feel free to contact me at [phone] Thank you for the consultation. Past History Past Medical History: CAD, dialysis, ESRD, hypertension Past Surgical History: Other (cardiac stent placement X2, dialysis catheter placement) Social history: smoking (patient smoked cigarettes for 5 years but quit 2 weeks ago. She admits to occasional alcohol use but denies illicit drug use) Family history: no significant family history (reviewed and noncontributory) Medications and Allergies Allergies Allergy/AdvReac Type Severity Reaction Status Date / Time gabapentin Allergy Seizure Verified 03/04/18 04:31 labetalol AdvReac Unknown Verified 12/01/15 07:51 Home Medications Medication Instructions Recorded Confirmed Last Taken Type ALBUTEROL Inhaler(NF) [VENTOLIN 2 puff IH Q6HR PRN 06/29/18 07/22/18 07/15/18 History Inhaler(NF)] Diphenoxylate HCl/Atropine 1 tab PO QID PRN 06/29/18 07/22/18 07/15/18 History [Diphenoxylate-Atrop 2.5-0.025] Aspirin EC [Aspirin Enteric Coated 325 mg PO QDAY #30 tablet 07/03/18 07/22/18 07/15/18 Rx TAB] AtorvaSTATin [Lipitor] 40 mg PO QHS #30 tablet 07/03/18 07/22/18 07/15/18 Rx Losartan [Cozaar] 100 mg PO QDAY #30 tablet 07/03/18 07/22/18 07/15/18 Rx cloNIDine [Catapres] 0.2 mg PO BID #60 tablet 07/03/18 07/22/18 07/15/18 Rx Carvedilol [Coreg] 25 mg PO BID 07/22/18 07/22/18 Unknown History Clonidine HCl [Catapres] 0.3 mg PO BID 07/22/18 07/22/18 Unknown History Clopidogrel [Plavix] 75 mg PO QDAY 07/22/18 07/22/18 Unknown History ISOSORBIDE MONOnitrate [Imdur ER] 30 mg PO DAILY 07/22/18 07/22/18 Unknown History Losartan [Cozaar] 50 mg PO QDAY 07/22/18 07/22/18 Unknown History Nephro-Mary Rx Tablet 1 tab PO DAILY 07/22/18 07/22/18 Unknown History Sevelamer Carbonate [Renvela] 1 tab PO TID 07/22/18 07/22/18 Unknown History amLODIPine [Norvasc] 10 mg PO DAILY 07/22/18 07/22/18 Unknown History hydrALAZINE [Apresoline] 50 mg PO Q8HR 07/22/18 07/22/18 Unknown History Active Meds: Active Medications Acetaminophen (Tylenol) 650 mg PO Q4H PRN PRN Reason: Pain MILD(1-3)/Fever >100.5/ADLER Acetaminophen/Hydrocodone Bitart (Bee 5/325) 1 each PO Q6H PRN PRN Reason: Pain, Moderate (4-6) Last Admin: 07/23/18 05:25 Dose: 1 each Documented by: Albuterol (Proventil) 2.5 mg IH Q4HRT PRN PRN Reason: Shortness Of Breath Albuterol/Ipratropium (Duoneb *Not For Prn Use*) 1 ampul IH TIDRT [facility] Last Admin: 07/23/18 08:21 Dose: 1 ampul Documented by: Aspirin (Ecotrin) 325 mg PO QDAY [facility] Last Admin: 07/22/18 14:35 Dose: 325 mg Documented by: Atorvastatin Calcium (Lipitor) 40 mg PO QHS [facility] Last Admin: 07/22/18 22:16 Dose: 40 mg Documented by: Chlorthalidone (Thalitone) 25 mg PO QDAY [facility] Last Admin: 07/22/18 14:36 Dose: 25 mg Documented by: Clonidine HCl (Catapres) 0.2 mg PO BID [facility] Last Admin: 07/22/18 22:17 Dose: 0.2 mg Documented by: Cyclobenzaprine HCl (Flexeril) 5 mg PO TID [facility] Last Admin: 07/22/18 22:20 Dose: 5 mg Documented by: Heparin Sodium (Porcine) (Heparin) 5,000 unit SUB-Q Q8HR [facility] Last Admin: 07/23/18 05:26 Dose: 5,000 unit Documented by: Hydralazine HCl (Apresoline) 20 mg IV Q4HR PRN PRN Reason: Blood Pressure Last Admin: 07/22/18 14:40 Dose: 20 mg Documented by: Azithromycin 500 mg/ Sodium (Chloride) 250 mls @ 250 mls/hr IV Q24HR [facility] Last Admin: 07/22/18 14:14 Dose: 250 mls/hr Documented by: Piperacillin Sod/Tazobactam Sod (Zosyn/Ns 2.25 Gm/50ml) 2.25 gm in 50 mls @ 100 mls/hr IV Q8HR [facility]; Protocol Last Admin: 07/23/18 05:27 Dose: 100 mls/hr Documented by: Sodium Chloride (Nacl 0.9%) 100 mls @ 999 mls/hr IV COTY PRN PRN Reason: Hypotension Isosorbide Mononitrate (Imdur) 30 mg PO DAILY [facility] Last Admin: 07/22/18 20:11 Dose: 30 mg Documented by: Losartan Potassium (Cozaar) 100 mg PO QDAY [facility] Last Admin: 07/22/18 14:35 Dose: 100 mg Documented by: Nifedipine (Procardia Xl) 90 mg PO QDAY [facility] Last Admin: 07/22/18 14:35 Dose: 90 mg Documented by: Ondansetron HCl (Zofran) 4 mg IV Q8H PRN PRN Reason: Nausea And Vomiting Last Admin: 07/22/18 14:41 Dose: 4 mg Documented by: Pantoprazole Sodium (Protonix) 40 mg PO QDAY [facility] Last Admin: 07/22/18 18:02 Dose: 40 mg Documented by: Sodium Chloride (Sodium Chloride Flush Syringe 10 Ml) 10 ml IV BID [facility] Last Admin: 07/22/18 22:18 Dose: 10 ml Documented by: Sodium Chloride (Sodium Chloride Flush Syringe 10 Ml) 10 ml IV PRN PRN PRN Reason: LINE FLUSH Exam - Vital Signs Vital signs: Vital Signs Temp Pulse Resp BP Pulse Ox 97.4 F L 70 25 H 204/95 96 07/22/18 04:33 07/22/18 04:33 07/22/18 04:33 07/22/18 04:33 07/22/18 04:33 Results - Lab Results 07/23/18 06:50 07/23/18 06:50 Most recent lab results Calcium 7.4 mg/dL (8.4-10.2) L 07/23/18 06:50
[2018-07-23] MEDS ORDERED: ROCEPHIN/NS 1 GM/50 ML 1 GM/50 ML BAG IV SCH (10:00)
[2018-07-23] MEDS ORDERED: PROCRIT SUB-Q NR (11:00)
[2018-07-23] MEDS ORDERED: NACL 0.9 (PRIMING MACHINE ONLY DIALYSIS) MC ONE (12:29)
--- NOTE | 2018-07-23 14:49 | Progress Note ---
Assessment and Plan Assessment and plan: Sepsis secondary to Healthcare associated pneumonia -On IV antibiotics with vanc, Zosyn and azithromycin -Chest x-ray showed bilateral lower lobe infiltrates -Blood cultures negative so far Hypertension -BP improved on current antihypertensives, adjust as needed Atypical chest pain -likely secondary to the pneumonia -Serial troponin levels normal Generalized abdominal pain -Probably secondary to GERD -Improved on PPI -Lipase level and urinalysis negative ESRD on HD -nephrology following Metabolic acidosis -Secondary to her renal disease -We'll monitor level CAD -Stable on home medications Anemia of chronic disease -H/H stable, will monitor Hyperglycemia -Hemoglobin A1c level pending Prophylaxis -DVT prophylaxis with heparin Disposition: For discharge when medically stable, probably in 2-3 days History Interval history: Patient reports feeling better today. She denies chest pain or shortness of breath. Hospitalist Physical - Constitutional Vitals: Temp Pulse Resp BP Pulse Ox 98.0 F 68 18 166/80 96 07/23/18 10:00 07/23/18 13:00 07/23/18 10:00 07/23/18 13:00 07/23/18 08:23 General appearance: Present: no acute distress, well-nourished - EENT Eyes: Present: PERRL, EOM intact ENT: hearing intact, clear oral mucosa - Neck Neck: Present: supple - Respiratory Respiratory effort: normal Respiratory: bilateral: rales (bibasilar) - Cardiovascular Rhythm: regular Heart Sounds: Present: S1 & S2 - Extremities Extremities: No edema - Abdominal General gastrointestinal: soft, non-tender, normal bowel sounds - Integumentary Integumentary: Present: clear, warm, dry - Neurologic Neurologic: CNII-XII intact Results - Labs CBC & Chem 7: 07/23/18 06:50 07/23/18 06:50 Labs: Laboratory Last Values WBC 2.9 K/mm3 (4.5-11.0) L 07/23/18 06:50 RBC 2.90 M/mm3 (3.65-5.03) L 07/23/18 06:50 Hgb 9.4 gm/dl (10.1-14.3) L 07/23/18 06:50 Hct 28.6 % (30.3-42.9) L 07/23/18 06:50 MCV 98 fl (79-97) H 07/23/18 06:50 MCH 32 pg (28-32) 07/23/18 06:50 MCHC 33 % (30-34) 07/23/18 06:50 RDW 18.0 % (13.2-15.2) H 07/23/18 06:50 Plt Count 165 K/mm3 (140-440) 07/23/18 06:50 Lymph % (Auto) 20.3 % (13.4-35.0) 07/23/18 06:50 [place] % (Auto) 13.3 % (0.0-7.3) H 07/23/18 06:50 Eos % (Auto) 1.4 % (0.0-4.3) 07/23/18 06:50 Baso % (Auto) 0.6 % (0.0-1.8) 07/23/18 06:50 Lymph # 0.6 K/mm3 (1.2-5.4) L 07/23/18 06:50 [place] # 0.4 K/mm3 (0.0-0.8) 07/23/18 06:50 Eos # 0.0 K/mm3 (0.0-0.4) 07/23/18 06:50 Baso # 0.0 K/mm3 (0.0-0.1) 07/23/18 06:50 Seg Neutrophils % 64.4 % (40.0-70.0) 07/23/18 06:50 Seg Neutrophils # 1.9 K/mm3 (1.8-7.7) 07/23/18 06:50 PT 15.9 Sec. (12.2-14.9) H 07/22/18 04:42 INR 1.19 (0.87-1.13) H 07/22/18 04:42 APTT 31.1 Sec. (24.2-36.6) 07/22/18 04:42 Sodium 135 mmol/L (137-145) L 07/23/18 06:50 Potassium 4.9 mmol/L (3.6-5.0) 07/23/18 06:50 Chloride 100.0 mmol/L (98-107) 07/23/18 06:50 Carbon Dioxide 18 mmol/L (22-30) L 07/23/18 06:50 Anion Gap 22 mmol/L 07/23/18 06:50 BUN 51 mg/dL (7-17) H 07/23/18 06:50 Creatinine 9.2 mg/dL (0.7-1.2) H 07/23/18 06:50 Estimated GFR 5 ml/min 07/23/18 06:50 BUN/Creatinine Ratio 6 % 07/23/18 06:50 Glucose 103 mg/dL (65-100) H 07/23/18 06:50 Lactic Acid 0.50 mmol/L (0.7-2.0) L 07/22/18 06:36 Calcium 7.4 mg/dL (8.4-10.2) L 07/23/18 06:50 Total Bilirubin 0.40 mg/dL (0.1-1.2) 07/22/18 04:42 AST 23 units/L (5-40) 07/22/18 04:42 ALT 21 units/L (7-56) 07/22/18 04:42 Alkaline Phosphatase 134 units/L (35-129) H 07/22/18 04:42 Troponin T 0.025 ng/mL (0.00-0.029) 07/22/18 20:31 NT-Pro-B Natriuret Pep 89838 pg/mL (0-900) H 07/22/18 04:42 Total Protein 7.4 g/dL (6.3-8.2) 07/22/18 04:42 Albumin 3.6 g/dL (3.9-5) L 07/22/18 04:42 Albumin/Globulin Ratio 0.9 % 07/22/18 04:42 Lipase 25 units/L (13-60) 07/22/18 17:08 Urine Color Yellow (Yellow) 07/22/18 21:30 Urine Turbidity Slightly-cloudy (Clear) 07/22/18 21:30 Urine pH 8.0 (5.0-7.0) H 07/22/18 21:30 Ur Specific [place] 1.013 (1.003-1.030) 07/22/18 21:30 Urine Protein 100 mg/dl mg/dL (Negative) 07/22/18 21:30 Urine Glucose (UA) Neg mg/dL (Negative) 07/22/18 21:30 Urine Ketones Neg mg/dL (Negative) 07/22/18 21:30 Urine Blood Neg (Negative) 07/22/18 21:30 Urine Nitrite Neg (Negative) 07/22/18 21:30 Urine Bilirubin Neg (Negative) 07/22/18 21:30 Urine Urobilinogen < 2.0 mg/dL (<2.0) 07/22/18 21:30 Ur Leukocyte Esterase Tr (Negative) 07/22/18 21:30 Urine WBC (Auto) 3.0 /HPF (0.0-6.0) 07/22/18 21:30 Urine RBC (Auto) 7.0 /HPF (0.0-6.0) 07/22/18 21:30 U Epithel Cells (Auto) 14.0 /HPF (0-13.0) H 07/22/18 21:30 Urine Bacteria (Auto) 2+ /HPF (Negative) 07/22/18 21:30 Active Medications - Current Medications Current Medications: Generic Name Dose Route Start Last Admin Trade Name Freq PRN Reason Stop Dose Admin Acetaminophen 650 mg 07/22/18 10:31 Tylenol PO Q4H PRN Pain MILD(1-3)/Fever >100.5/ADLER Acetaminophen/Hydrocodone Bitart 1 each 07/22/18 10:31 07/23/18 05:25 [place] 5/325 PO 1 each Q6H PRN Administration Pain, Moderate (4-6) Albuterol 2.5 mg 07/22/18 21:24 Proventil IH Q4HRT PRN Shortness Of Breath Albuterol/Ipratropium 1 ampul 07/23/18 08:00 07/23/18 13:27 Duoneb *Not For Prn Use* IH Not Given TIDRT DIAMOND Aspirin 325 mg 07/22/18 11:00 07/22/18 14:35 Ecotrin PO 325 mg QDAY DIAMOND Administration Atorvastatin Calcium 40 mg 07/22/18 22:00 07/22/18 22:16 Lipitor PO 40 mg QHS DIAMOND Administration Chlorthalidone 25 mg 07/22/18 11:00 07/22/18 14:36 Thalitone PO 25 mg QDAY DIAMOND Administration Clonidine HCl 0.2 mg 07/22/18 11:00 07/22/18 22:17 Catapres PO 0.2 mg BID DIAMOND Administration Cyclobenzaprine HCl 5 mg 07/22/18 14:00 07/22/18 22:20 Flexeril PO 5 mg TID DIAMOND Administration Heparin Sodium (Porcine) 5,000 unit 07/22/18 22:00 07/23/18 05:26 Heparin SUB-Q 5,000 unit Q8HR DIAMOND Administration Hydralazine HCl 20 mg 07/22/18 10:40 07/22/18 14:40 Apresoline IV 20 mg Q4HR PRN Administration Blood Pressure Azithromycin 500 mg/ Sodium 250 mls @ 250 mls/hr 07/22/18 11:00 07/22/18 14:14 Chloride IV 250 mls/hr Q24HR DIAMOND Administration Piperacillin Sod/Tazobactam Sod 2.25 gm in 50 mls @ 100 mls/hr 07/22/18 16:00 07/23/18 05:27 Zosyn/Ns 2.25 Gm/50ml IV 100 mls/hr Q8HR DIAMOND Administration Protocol Sodium Chloride 100 mls @ 999 mls/hr 07/22/18 22:02 Nacl 0.9% IV COTY PRN Hypotension Isosorbide Mononitrate 30 mg 07/22/18 19:30 07/22/18 20:11 Imdur PO 30 mg DAILY DIAMOND Administration Losartan Potassium 100 mg 07/22/18 11:00 07/22/18 14:35 Cozaar PO 100 mg QDAY DIAMOND Administration Nifedipine 90 mg 07/22/18 11:00 07/22/18 14:35 Procardia Xl PO 90 mg QDAY DIAMOND Administration Ondansetron HCl 4 mg 07/22/18 10:31 07/22/18 14:41 Zofran IV 4 mg Q8H PRN Administration Nausea And Vomiting Pantoprazole Sodium 40 mg 07/22/18 16:00 07/22/18 18:02 Protonix PO 40 mg QDAY DIAMOND Administration Sodium Chloride 10 ml 07/22/18 22:00 07/22/18 22:18 Sodium Chloride Flush Syringe 10 Ml IV 10 ml BID DIAMOND Administration Sodium Chloride 10 ml 07/22/18 10:31 Sodium Chloride Flush Syringe 10 Ml IV PRN PRN LINE FLUSH
[2018-07-23] MEDS: IMDUR PO SCH (15:41)
[2018-07-23] MEDS: PROTONIX PO SCH (15:41)
[2018-07-23] MEDS: ECOTRIN PO SCH (15:41)
[2018-07-23] MEDS: PROCARDIA XL PO SCH (15:41)
[2018-07-23] MEDS: THALITONE PO SCH (15:41)
[2018-07-23] MEDS: FLEXERIL PO SCH ×3 (15:42→21:08)
[2018-07-23] MEDS: CATAPRES PO SCH ×2 (15:42→21:09)
[2018-07-23] MEDS: SODIUM CHLORIDE FLUSH SYRINGE 10 ML IV SCH ×2 (15:43→21:10)
[2018-07-23] MEDS: ZITHROMAX 500 MG in NACL 0.9% 250ML 250 ML IV SCH (15:48)
[2018-07-23] MEDS: COZAAR PO SCH (15:48)
[2018-07-23] MEDS ORDERED: MIRALAX 3350 PO PRN (18:19)
[2018-07-23] MEDS: RENVELA PO SCH (21:07)
[2018-07-24] MEDS: ZOSYN/NS 2.25 GM/50ML 2.25 GM/50 ML BAG IV SCH ×3 (05:30→21:42)
[2018-07-24] MEDS: HEPARIN SUB-Q SCH ×4 (05:30→21:41)
[2018-07-24 06:37] LABS: Hematocrit 32.3 % (30.3-42.9); Hemoglobin 10.5 gm/dl (10.1-14.3); Mean Corpuscular HGB Conc 33 % (30-34); Mean Corpuscular Volume 100 fl (79-97); Platelet Count 166 K/mm3 (140-440); Red Blood Count 3.24 M/mm3 (3.65-5.03); Red Cell Distribution Width 18.1 % (13.2-15.2)
[2018-07-24 07:01] LABS: BUN/Creatinine Ratio 45; Blood Urea Nitrogen 9 mg/dL (7-17); Hemolysis Index 1
[2018-07-24 07:37] LABS: Calcium 7.9 mg/dL (8.4-10.2)
[2018-07-24] MEDS: RENVELA PO SCH ×4 (08:00→20:45)
[2018-07-24] MEDS: FLEXERIL PO SCH ×3 (08:49→20:45)
--- NOTE | 2018-07-24 09:13 | Progress Note ---
Subjective Interval history: Patient was seen today for follow-up of multiple renal related issues shortness of breath is much better Interdisciplinary notes that also reviewed Events of 24 hours vitals labs intake output medications were reviewed Past medical history: Reviewed Family history: Reviewed Social history: Reviewed Allergies: Reviewed Physical examination: Vitals: Reviewed HEENT: No pallor or icterus oral mucosa moist Neck: Supple no JVD no thyromegaly Chest: few basilar crackles Heart: Regular rate and rhythm S1-S2 heard no S3-S4 Abdomen: Soft nontender no voluntary guarding rigidity rebound Extremity: Dry skin less than 1+ peripheral edema fistula appears to be slightly tortuous Psychiatric: No evidence of agitation and aggression noted Dermatology: No petechial rashes Labs and x-rays: Reviewed from today Assessment and plan End-stage renal disease: Patient will continue with maintenance dialysis 3 times per week Patient does have evidence of leukopenia as well as anemia: Will benefit from hematology evaluation platelet count currently normal Anemia and end-stage renal disease: To monitor and follow closely hemoglobin around 10 erythropoietin as required Hypertension: Goal blood pressure systolic under less than 140 Her fistula is tortuous and swollen currently pending vascular surgery evaluation patient likely will require a fistulogram she prefers to be seen here locally then traveled to [place] She does complain of some pain during cannulation Needs to be in high-protein diet due to dialysis status Shortness of breath likely appears to be a combination of fluid overload as well as possible pneumonia she is feeling much better today Patient was adequately counseled and educated regarding all the renal related issues Laboratory studies, pertinent for discussed with patient All questions were answered and simple [place] We'll continue to follow and make recommendation for renal standpoint Objective - Vital Signs Vital signs: Vital Signs - 12hr 07/24/18 07/24/18 07/24/18 00:11 02:00 03:44 Temperature 98.4 F 98.4 F Pulse Rate 73 76 70 Respiratory 20 20 Rate Blood Pressure 146/77 135/69 O2 Sat by Pulse 92 94 Oximetry 07/24/18 07:27 Temperature 98.3 F Pulse Rate 77 Respiratory 18 Rate Blood Pressure 163/78 O2 Sat by Pulse 94 Oximetry - Lab 07/24/18 05:17 07/24/18 05:17 Most recent lab results Calcium 7.9 mg/dL (8.4-10.2) L 07/24/18 05:17 Medications & Allergies - Medications Allergies/Adverse Reactions: Allergies gabapentin Allergy (Verified 03/04/18 04:31) Seizure labetalol Adverse Reaction (Verified 12/01/15 07:51) Unknown Home Medications: Home Medications Medication Instructions Recorded Confirmed Last Taken Type ALBUTEROL Inhaler(NF) [VENTOLIN 2 puff IH Q6HR PRN 06/29/18 07/22/18 07/15/18 H istory Inhaler(NF)] Diphenoxylate HCl/Atropine 1 tab PO QID PRN 06/29/18 07/22/18 07/15/18 History [Diphenoxylate-Atrop 2.5-0.025] Aspirin EC [Aspirin Enteric Coated 325 mg PO QDAY #30 tablet 07/03/18 07/22/18 07/15/18 Rx TAB] AtorvaSTATin [Lipitor] 40 mg PO QHS #30 tablet 07/03/18 07/22/18 07/15/18 Rx Losartan [Cozaar] 100 mg PO QDAY #30 tablet 07/03/18 07/22/18 07/15/18 Rx cloNIDine [Catapres] 0.2 mg PO BID #60 tablet 07/03/18 07/22/18 07/15/18 Rx Carvedilol [Coreg] 25 mg PO BID 07/22/18 07/22/18 Unknown History Clonidine HCl [Catapres] 0.3 mg PO BID 07/22/18 07/22/18 Unknown History Clopidogrel [Plavix] 75 mg PO QDAY 07/22/18 07/22/18 Unknown History ISOSORBIDE MONOnitrate [Imdur ER] 30 mg PO DAILY 07/22/18 07/22/18 Unknown History Losartan [Cozaar] 50 mg PO QDAY 07/22/18 07/22/18 Unknown History Nephro-Mary Rx Tablet 1 tab PO DAILY 07/22/18 07/22/18 Unknown History Sevelamer Carbonate [Renvela] 1 tab PO TID 07/22/18 07/22/18 Unknown History amLODIPine [Norvasc] 10 mg PO DAILY 07/22/18 07/22/18 Unknown History hydrALAZINE [Apresoline] 50 mg PO Q8HR 07/22/18 07/22/18 Unknown History Active Medications: Generic Name Dose Route Start Last Admin Trade Name Freq PRN Reason Stop Dose Admin Acetaminophen 650 mg 07/22/18 10:31 07/24/18 05:34 Tylenol PO 650 mg Q4H PRN Administration Pain MILD(1-3)/Fever >100.5/ADLER Acetaminophen/Hydrocodone Bitart 1 each 07/22/18 10:31 07/23/18 21:09 [place] 5/325 PO 1 each Q6H PRN Administration Pain, Moderate (4-6) Albuterol 2.5 mg 07/22/18 21:24 Proventil IH Q4HRT PRN Shortness Of Breath Albuterol/Ipratropium 1 ampul 07/23/18 08:00 07/23/18 20:28 Duoneb *Not For Prn Use* IH 1 ampul TIDRT DIAMOND Administration Aspirin 325 mg 07/22/18 11:00 07/23/18 15:41 Ecotrin PO 325 mg QDAY DIAMOND Administration Atorvastatin Calcium 40 mg 07/22/18 22:00 07/23/18 21:08 Lipitor PO 40 mg QHS DIAMOND Administration Chlorthalidone 25 mg 07/22/18 11:00 07/23/18 15:41 Thalitone PO 25 mg QDAY DIAMOND Administration Clonidine HCl 0.2 mg 07/22/18 11:00 07/23/18 21:09 Catapres PO 0.2 mg BID DIAMOND Administration Cyclobenzaprine HCl 5 mg 07/22/18 14:00 07/24/18 08:49 Flexeril PO 5 mg TID DIAMOND Administration Heparin Sodium (Porcine) 5,000 unit 07/22/18 22:00 07/24/18 05:32 Heparin SUB-Q Not Given Q8HR [facility] Hydralazine HCl 20 mg 07/22/18 10:40 07/22/18 14:40 Apresoline IV 20 mg Q4HR PRN Administration Blood Pressure Azithromycin 500 mg/ Sodium 250 mls @ 250 mls/hr 07/22/18 11:00 07/23/18 15:48 Chloride IV 250 mls/hr Q24HR DIAMOND Administration Piperacillin Sod/Tazobactam Sod 2.25 gm in 50 mls @ 100 mls/hr 07/22/18 16:00 07/24/18 05:30 Zosyn/Ns 2.25 Gm/50ml IV 100 mls/hr Q8HR DIAMOND Administration Protocol Sodium Chloride 100 mls @ 999 mls/hr 07/22/18 22:02 Nacl 0.9% IV COTY PRN Hypotension Isosorbide Mononitrate 30 mg 07/22/18 19:30 07/23/18 15:41 Imdur PO 30 mg DAILY DIAMOND Administration Losartan Potassium 100 mg 07/22/18 11:00 07/23/18 15:48 Cozaar PO 100 mg QDAY DIAMOND Administration Nifedipine 90 mg 07/22/18 11:00 07/23/18 15:41 Procardia Xl PO 90 mg QDAY DIAMOND Administration Ondansetron HCl 4 mg 07/22/18 10:31 07/22/18 14:41 Zofran IV 4 mg Q8H PRN Administration Nausea And Vomiting Pantoprazole Sodium 40 mg 07/22/18 16:00 07/23/18 15:41 Protonix PO 40 mg QDAY DIAMOND Administration Polyethylene Glycol 17 gm 07/23/18 18:19 07/23/18 18:56 Miralax 3350 PO 17 gm BID PRN Administration Constipation Sevelamer Carbonate 800 mg 07/23/18 20:00 07/24/18 08:51 Renvela PO 800 mg TID DIAMOND Administration Sodium Chloride 10 ml 07/22/18 22:00 07/23/18 21:10 Sodium Chloride Flush Syringe 10 Ml IV 10 ml BID DIAMOND Administration Sodium Chloride 10 ml 07/22/18 10:31 Sodium Chloride Flush Syringe 10 Ml IV PRN PRN LINE FLUSH
[2018-07-24] MEDS: DUONEB *Not for PRN Use IH SCH ×3 (09:20→19:30)
[2018-07-24] MEDS: PROTONIX PO SCH (09:48)
[2018-07-24] MEDS: CATAPRES PO SCH ×2 (09:48→21:42)
[2018-07-24] MEDS: ECOTRIN PO SCH (09:48)
[2018-07-24] MEDS: IMDUR PO SCH (09:48)
[2018-07-24] MEDS: PROCARDIA XL PO SCH (09:48)
[2018-07-24] MEDS: THALITONE PO SCH (09:49)
[2018-07-24] MEDS: COZAAR PO SCH (09:49)
[2018-07-24] MEDS: ZITHROMAX 500 MG in NACL 0.9% 250ML 250 ML IV SCH (09:52)
[2018-07-24] MEDS: SODIUM CHLORIDE FLUSH SYRINGE 10 ML IV SCH ×2 (09:53→21:42)
[2018-07-24 10:44] LABS: Basophils % (Manual) 0 % (0.0-1.8); Platelet Estimate Consistent w Auto; RBC Morphology Normal; Total Cells Counted 100
--- NOTE | 2018-07-24 16:29 | Consultation ---
History of Present Illness - Reason for Consult Consult date: 07/24/18 failing right arm arterial venous graft Requesting physician: LANEY MARTINES - History of Present Illness Patient is a 63-year-old woman with end-stage renal failure who was recently admitted with increasing shortness of breath. She is doing better now. She was told at the dialysis unit that she had some swelling around her right upper arm arteriovenous graft. She also says that the lower part of the graft seems stiff to her. She is not complaining of pain at this time. She says she can complete dialysis without pain in her arm. Past History Past Medical History: CAD, dialysis, ESRD, hypertension Past Surgical History: Other (cardiac stent placement X2, dialysis catheter placement) Social history: smoking (patient smoked cigarettes for 5 years but quit 2 weeks ago. She admits to occasional alcohol use but denies illicit drug use) Family history: no significant family history (reviewed and noncontributory) Medications and Allergies Allergies Allergy/AdvReac Type Severity Reaction Status Date / Time gabapentin Allergy Seizure Verified 03/04/18 04:31 labetalol AdvReac Unknown Verified 12/01/15 07:51 Home Medications Medication Instructions Recorded Confirmed Last Taken Type ALBUTEROL Inhaler(NF) [VENTOLIN 2 puff IH Q6HR PRN 06/29/18 07/22/18 07/15/18 History Inhaler(NF)] Diphenoxylate HCl/Atropine 1 tab PO QID PRN 06/29/18 07/22/18 07/15/18 History [Diphenoxylate-Atrop 2.5-0.025] Aspirin EC [Aspirin Enteric Coated 325 mg PO QDAY #30 tablet 07/03/18 07/22/18 07/15/18 Rx TAB] AtorvaSTATin [Lipitor] 40 mg PO QHS #30 tablet 07/03/18 07/22/18 07/15/18 Rx Losartan [Cozaar] 100 mg PO QDAY #30 tablet 07/03/18 07/22/18 07/15/18 Rx cloNIDine [Catapres] 0.2 mg PO BID #60 tablet 07/03/18 07/22/18 07/15/18 Rx Carvedilol [Coreg] 25 mg PO BID 07/22/18 07/22/18 Unknown History Clonidine HCl [Catapres] 0.3 mg PO BID 07/22/18 07/22/18 Unknown History Clopidogrel [Plavix] 75 mg PO QDAY 07/22/18 07/22/18 Unknown History ISOSORBIDE MONOnitrate [Imdur ER] 30 mg PO DAILY 07/22/18 07/22/18 Unknown History Losartan [Cozaar] 50 mg PO QDAY 07/22/18 07/22/18 Unknown History Nephro-Mary Rx Tablet 1 tab PO DAILY 07/22/18 07/22/18 Unknown History Sevelamer Carbonate [Renvela] 1 tab PO TID 07/22/18 07/22/18 Unknown History amLODIPine [Norvasc] 10 mg PO DAILY 07/22/18 07/22/18 Unknown History hydrALAZINE [Apresoline] 50 mg PO Q8HR 07/22/18 07/22/18 Unknown History Active Meds: Active Medications Acetaminophen (Tylenol) 650 mg PO Q4H PRN PRN Reason: Pain MILD(1-3)/Fever >100.5/ADLER Last Admin: 07/24/18 05:34 Dose: 650 mg Documented by: Acetaminophen/Hydrocodone Bitart ([place] 5/325) 1 each PO Q6H PRN PRN Reason: Pain, Moderate (4-6) Last Admin: 07/23/18 21:09 Dose: 1 each Documented by: Albuterol (Proventil) 2.5 mg IH Q4HRT PRN PRN Reason: Shortness Of Breath Albuterol/Ipratropium (Duoneb *Not For Prn Use*) 1 ampul IH TIDRT [facility] Last Admin: 07/24/18 13:59 Dose: Not Given Documented by: Aspirin (Ecotrin) 325 mg PO QDAY [facility] Last Admin: 07/24/18 09:48 Dose: 325 mg Documented by: Atorvastatin Calcium (Lipitor) 40 mg PO QHS [facility] Last Admin: 07/23/18 21:08 Dose: 40 mg Documented by: Chlorthalidone (Thalitone) 25 mg PO QDAY [facility] Last Admin: 07/24/18 09:49 Dose: 25 mg Documented by: Clonidine HCl (Catapres) 0.2 mg PO BID [facility] Last Admin: 07/24/18 09:48 Dose: 0.2 mg Documented by: Cyclobenzaprine HCl (Flexeril) 5 mg PO TID [facility] Last Admin: 07/24/18 13:30 Dose: 5 mg Documented by: Heparin Sodium (Porcine) (Heparin) 5,000 unit SUB-Q Q8HR [facility] Last Admin: 07/24/18 13:30 Dose: 5,000 unit Documented by: Hydralazine HCl (Apresoline) 20 mg IV Q4HR PRN PRN Reason: Blood Pressure Last Admin: 07/22/18 14:40 Dose: 20 mg Documented by: Azithromycin 500 mg/ Sodium (Chloride) 250 mls @ 250 mls/hr IV Q24HR [facility] Last Admin: 07/24/18 09:52 Dose: 250 mls/hr Documented by: Piperacillin Sod/Tazobactam Sod (Zosyn/Ns 2.25 Gm/50ml) 2.25 gm in 50 mls @ 100 mls/hr IV Q8HR [facility]; Protocol Last Admin: 07/24/18 13:30 Dose: 100 mls/hr Documented by: Sodium Chloride (Nacl 0.9%) 100 mls @ 999 mls/hr IV COTY PRN PRN Reason: Hypotension Isosorbide Mononitrate (Imdur) 30 mg PO DAILY [facility] Last Admin: 07/24/18 09:48 Dose: 30 mg Documented by: Losartan Potassium (Cozaar) 100 mg PO QDAY [facility] Last Admin: 07/24/18 09:49 Dose: 100 mg Documented by: Nifedipine (Procardia Xl) 90 mg PO QDAY [facility] Last Admin: 07/24/18 09:48 Dose: 90 mg Documented by: Ondansetron HCl (Zofran) 4 mg IV Q8H PRN PRN Reason: Nausea And Vomiting Last Admin: 07/22/18 14:41 Dose: 4 mg Documented by: Pantoprazole Sodium (Protonix) 40 mg PO QDAY [facility] Last Admin: 07/24/18 09:48 Dose: 40 mg Documented by: Polyethylene Glycol (Miralax [id number]) 17 gm PO BID PRN PRN Reason: Constipation Last Admin: 07/23/18 18:56 Dose: 17 gm Documented by: Sevelamer Carbonate (Renvela) 800 mg PO TID [facility] Last Admin: 07/24/18 13:30 Dose: 800 mg Documented by: Sodium Chloride (Sodium Chloride Flush Syringe 10 Ml) 10 ml IV BID [facility] Last Admin: 07/24/18 09:53 Dose: 10 ml Documented by: Sodium Chloride (Sodium Chloride Flush Syringe 10 Ml) 10 ml IV PRN PRN PRN Reason: LINE FLUSH Review of Systems All systems: negative (see history of present illness) Exam - Constitutional Vitals: Temp Pulse Resp BP Pulse Ox 98.2 F 84 20 150/77 91 07/24/18 11:43 07/24/18 11:43 07/24/18 11:43 07/24/18 11:43 07/24/18 11:43 General appearance: Present: no acute distress, well-nourished - EENT Eyes: Present: PERRL ENT: hearing intact, clear oral mucosa - Neck Neck: Present: supple, normal ROM - Respiratory Respiratory effort: normal Respiratory: bilateral: other (coarse breath sounds bilaterally) - Cardiovascular Heart Sounds: Present: S1 & S2. Absent: rub, click - Extremities Extremity abnormal: other (there is a right upper arm arterial venous graft with a good thrill and audible bruit.) Peripheral Pulses: abnormal (there is a 2+ right radial pulse and a 2+ left radial pulse) - Abdominal General gastrointestinal: Present: soft, non-tender - Integumentary Integumentary: Present: clear, warm, dry - Musculoskeletal Musculoskeletal: gait normal, strength equal bilaterally - Psychiatric Psychiatric: appropriate mood/affect, intact judgment & insight - Neurologic Neurologic: CNII-XII intact, moves all extremities Results - Labs CBC & Chem 7: 07/24/18 05:17 07/24/18 05:17 Labs: Abnormal lab results 07/24/18 07/24/18 Range/Units 05:17 05:17 WBC 2.3 L (4.5-11.0) K/mm3 RBC 3.24 L (3.65-5.03) M/mm3 MCV 100 H (79-97) fl RDW 18.1 H (13.2-15.2) % Seg Neutrophils # Man 1.4 L (1.8-7.7) K/mm3 Lymphocytes # (Manual) 0.8 L (1.2-5.4) K/mm3 Sodium 136 L (137-145) mmol/L Chloride 60.0 L (98-107) mmol/L Creatinine 5.7 H (0.7-1.2) mg/dL Glucose 106 H (65-100) mg/dL Calcium 7.9 L (8.4-10.2) mg/dL Assessment and Plan - Patient Problems (1) Left upper extremity swelling Current Visit: No Status: Acute Plan to address problem: Patient is reported to have left upper extremity swelling. This is not evident on this exam. There has been some concern raised about the function of the access in the right arm. Recommend ultrasound duplex of the access to evaluate.
--- NOTE | 2018-07-24 17:13 | Progress Note ---
Assessment and Plan Assessment and plan: Sepsis secondary to Healthcare associated pneumonia -On IV antibiotics with vanc, Zosyn and azithromycin -Chest x-ray showed bilateral lower lobe infiltrates -Blood cultures negative so far odyanophagia -magic mouth wash Hypertension -BP improved on current antihypertensives, adjust as needed Atypical chest pain -likely secondary to the pneumonia -Serial troponin levels normal Generalized abdominal pain -Probably secondary to GERD -Improved on PPI -Lipase level and urinalysis negative ESRD on HD -nephrology following Metabolic acidosis -Secondary to her renal disease -We'll monitor level CAD -Stable on home medications Anemia of chronic disease -H/H stable, will monitor Hyperglycemia -Hemoglobin A1c level pending Prophylaxis -DVT prophylaxis with heparin Disposition: For discharge when medically stable, probably in 2-3 days History Interval history: Patient seen and examined, Hospitalist Physical - Physical exam Narrative exam: General appearance: Present: no acute distress, well-nourished - EENT Eyes: Present: PERRL, EOM intact ENT: hearing intact, clear oral mucosa - Neck Neck: Present: supple - Respiratory Respiratory effort: normal Respiratory: bilateral: rales (bibasilar) - Cardiovascular Rhythm: regular Heart Sounds: Present: S1 & S2 - Extremities Extremities: No edema - Abdominal General gastrointestinal: soft, non-tender, normal bowel sounds - Integumentary Integumentary: Present: clear, warm, dry - Neurologic Neurologic: CNII-XII intact - Constitutional Vitals: Temp Pulse Resp BP Pulse Ox 98.0 F 90 18 179/86 94 07/24/18 16:27 07/24/18 16:27 07/24/18 16:27 07/24/18 16:27 07/24/18 16:27 General appearance: Present: no acute distress, well-nourished Results - Labs CBC & Chem 7: 07/24/18 05:17 07/24/18 05:17 Labs: Laboratory Last Values WBC 2.3 K/mm3 (4.5-11.0) L 07/24/18 05:17 RBC 3.24 M/mm3 (3.65-5.03) L 07/24/18 05:17 Hgb 10.5 gm/dl (10.1-14.3) 07/24/18 05:17 Hct 32.3 % (30.3-42.9) 07/24/18 05:17 MCV 100 fl (79-97) H 07/24/18 05:17 MCH 32 pg (28-32) 07/24/18 05:17 MCHC 33 % (30-34) 07/24/18 05:17 RDW 18.1 % (13.2-15.2) H 07/24/18 05:17 Plt Count 166 K/mm3 (140-440) 07/24/18 05:17 Lymph % (Auto) 20.3 % (13.4-35.0) 07/23/18 06:50 [place] % (Auto) 13.3 % (0.0-7.3) H 07/23/18 06:50 Eos % (Auto) 1.4 % (0.0-4.3) 07/23/18 06:50 Baso % (Auto) 0.6 % (0.0-1.8) 07/23/18 06:50 Lymph # 0.6 K/mm3 (1.2-5.4) L 07/23/18 06:50 [place] # 0.4 K/mm3 (0.0-0.8) 07/23/18 06:50 Eos # 0.0 K/mm3 (0.0-0.4) 07/23/18 06:50 Baso # 0.0 K/mm3 (0.0-0.1) 07/23/18 06:50 Add Manual Diff Complete 07/24/18 05:17 Total Counted 100 07/24/18 05:17 Seg Neutrophils % 64.4 % (40.0-70.0) 07/23/18 06:50 Seg Neuts % (Manual) 60.0 % (40.0-70.0) 07/24/18 05:17 Band Neutrophils % 0 % 07/24/18 05:17 Lymphocytes % (Manual) 33.0 % (13.4-35.0) 07/24/18 05:17 Reactive Lymphs % (Man) 0 % 07/24/18 05:17 Monocytes % (Manual) 6.0 % (0.0-7.3) 07/24/18 05:17 Eosinophils % (Manual) 1.0 % (0.0-4.3) 07/24/18 05:17 Basophils % (Manual) 0 % (0.0-1.8) 07/24/18 05:17 Metamyelocytes % 0 % 07/24/18 05:17 Myelocytes % 0 % 07/24/18 05:17 Promyelocytes % 0 % 07/24/18 05:17 Blast Cells % 0 % 07/24/18 05:17 Nucleated RBC % Not Reportable 07/24/18 05:17 Seg Neutrophils # 1.9 K/mm3 (1.8-7.7) 07/23/18 06:50 Seg Neutrophils # Man 1.4 K/mm3 (1.8-7.7) L 07/24/18 05:17 Band Neutrophils # 0.0 K/mm3 07/24/18 05:17 Lymphocytes # (Manual) 0.8 K/mm3 (1.2-5.4) L 07/24/18 05:17 Abs React Lymphs (Man) 0.0 K/mm3 07/24/18 05:17 Monocytes # (Manual) 0.1 K/mm3 (0.0-0.8) 07/24/18 05:17 Eosinophils # (Manual) 0.0 K/mm3 (0.0-0.4) 07/24/18 05:17 Basophils # (Manual) 0.0 K/mm3 (0.0-0.1) 07/24/18 05:17 Metamyelocytes # 0.0 K/mm3 07/24/18 05:17 Myelocytes # 0.0 K/mm3 07/24/18 05:17 Promyelocytes # 0.0 K/mm3 07/24/18 05:17 Blast Cells # 0.0 K/mm3 07/24/18 05:17 WBC Morphology Not Reportable 07/24/18 05:17 Hypersegmented Neuts Not Reportable 07/24/18 05:17 Hyposegmented Neuts Not Reportable 07/24/18 05:17 Hypogranular Neuts Not Reportable 07/24/18 05:17 Smudge Cells Not Reportable 07/24/18 05:17 Toxic Granulation Not Reportable 07/24/18 05:17 Toxic Vacuolation Not Reportable 07/24/18 05:17 Dohle Bodies Not Reportable 07/24/18 05:17 Pelger-Huet Anomaly Not Reportable 07/24/18 05:17 Chioma Rods Not Reportable 07/24/18 05:17 Platelet Estimate Consistent w auto 07/24/18 05:17 Clumped Platelets Not Reportable 07/24/18 05:17 Plt Clumps, EDTA Not Reportable 07/24/18 05:17 Large Platelets Not Reportable 07/24/18 05:17 Giant Platelets Not Reportable 07/24/18 05:17 Platelet Satelliting Not Reportable 07/24/18 05:17 Plt Morphology Comment Not Reportable 07/24/18 05:17 RBC Morphology Normal 07/24/18 05:17 Dimorphic RBCs Not Reportable 07/24/18 05:17 Polychromasia Not Reportable 07/24/18 05:17 Hypochromasia Not Reportable 07/24/18 05:17 Poikilocytosis Not Reportable 07/24/18 05:17 Anisocytosis Not Reportable 07/24/18 05:17 Microcytosis Not Reportable 07/24/18 05:17 Macrocytosis Not Reportable 07/24/18 05:17 Spherocytes Not Reportable 07/24/18 05:17 Pappenheimer Bodies Not Reportable 07/24/18 05:17 Sickle Cells Not Reportable 07/24/18 05:17 Target Cells Not Reportable 07/24/18 05:17 Tear Drop Cells Not Reportable 07/24/18 05:17 Ovalocytes Not Reportable 07/24/18 05:17 Helmet Cells Not Reportable 07/24/18 05:17 Nolasco-Penndel Bodies Not Reportable 07/24/18 05:17 [place] Rings Not Reportable 07/24/18 05:17 [place] Cells Not Reportable 07/24/18 05:17 Bite Cells Not Reportable 07/24/18 05:17 Crenated Cell Not Reportable 07/24/18 05:17 Elliptocytes Not Reportable 07/24/18 05:17 Acanthocytes (Spur) Not Reportable 07/24/18 05:17 Rouleaux Not Reportable 07/24/18 05:17 Hemoglobin C Crystals Not Reportable 07/24/18 05:17 Schistocytes Not Reportable 07/24/18 05:17 Malaria parasites Not Reportable 07/24/18 05:17 Tristin Bodies Not Reportable 07/24/18 05:17 Hem Pathologist Commnt No 07/24/18 05:17 PT 15.9 Sec. (12.2-14.9) H 07/22/18 04:42 INR 1.19 (0.87-1.13) H 07/22/18 04:42 APTT 31.1 Sec. (24.2-36.6) 07/22/18 04:42 Sodium 136 mmol/L (137-145) L 07/24/18 05:17 Potassium 4.8 mmol/L (3.6-5.0) 07/24/18 05:17 Chloride 60.0 mmol/L (98-107) L 07/24/18 05:17 Carbon Dioxide 25 mmol/L (22-30) D 07/24/18 05:17 Anion Gap 56 mmol/L 07/24/18 05:17 BUN 9 mg/dL (7-17) 07/24/18 05:17 Creatinine 5.7 mg/dL (0.7-1.2) H 07/24/18 05:17 Estimated GFR > 60 ml/min 07/24/18 05:17 BUN/Creatinine Ratio 45 % 07/24/18 05:17 Glucose 106 mg/dL (65-100) H 07/24/18 05:17 Hemoglobin A1c 5.2 % (4-6) 07/24/18 05:17 Lactic Acid 0.50 mmol/L (0.7-2.0) L 07/22/18 06:36 Calcium 7.9 mg/dL (8.4-10.2) L 07/24/18 05:17 Total Bilirubin 0.40 mg/dL (0.1-1.2) 07/22/18 04:42 AST 23 units/L (5-40) 07/22/18 04:42 ALT 21 units/L (7-56) 07/22/18 04:42 Alkaline Phosphatase 134 units/L (35-129) H 07/22/18 04:42 Troponin T 0.025 ng/mL (0.00-0.029) 07/22/18 20:31 NT-Pro-B Natriuret Pep 01216 pg/mL (0-900) H 07/22/18 04:42 Total Protein 7.4 g/dL (6.3-8.2) 07/22/18 04:42 Albumin 3.6 g/dL (3.9-5) L 07/22/18 04:42 Albumin/Globulin Ratio 0.9 % 07/22/18 04:42 Lipase 25 units/L (13-60) 07/22/18 17:08 Urine Color Yellow (Yellow) 07/22/18 21:30 Urine Turbidity Slightly-cloudy (Clear) 07/22/18 21:30 Urine pH 8.0 (5.0-7.0) H 07/22/18 21:30 Ur Specific [place] 1.013 (1.003-1.030) 07/22/18 21:30 Urine Protein 100 mg/dl mg/dL (Negative) 07/22/18 21:30 Urine Glucose (UA) Neg mg/dL (Negative) 07/22/18 21:30 Urine Ketones Neg mg/dL (Negative) 07/22/18 21:30 Urine Blood Neg (Negative) 07/22/18 21:30 Urine Nitrite Neg (Negative) 07/22/18 21:30 Urine Bilirubin Neg (Negative) 07/22/18 21:30 Urine Urobilinogen < 2.0 mg/dL (<2.0) 07/22/18 21:30 Ur Leukocyte Esterase Tr (Negative) 07/22/18 21:30 Urine WBC (Auto) 3.0 /HPF (0.0-6.0) 07/22/18 21:30 Urine RBC (Auto) 7.0 /HPF (0.0-6.0) 07/22/18 21:30 U Epithel Cells (Auto) 14.0 /HPF (0-13.0) H 07/22/18 21:30 Urine Bacteria (Auto) 2+ /HPF (Negative) 07/22/18 21:30 Random Vancomycin 10.7 ug/mL (0-40.0) 07/24/18 05:17 Active Medications - Current Medications Current Medications: Generic Name Dose Route Start Last Admin Trade Name Freq PRN Reason Stop Dose Admin Acetaminophen 650 mg 07/22/18 10:31 07/24/18 05:34 Tylenol PO 650 mg Q4H PRN Administration Pain MILD(1-3)/Fever >100.5/ADLER Acetaminophen/Hydrocodone Bitart 1 each 07/22/18 10:31 07/23/18 21:09 [place] 5/325 PO 1 each Q6H PRN Administration Pain, Moderate (4-6) Albuterol 2.5 mg 04/29/19 21:24 Proventil IH Q4HRT PRN Shortness Of Breath Albuterol/Ipratropium 1 ampul 07/23/18 08:00 07/24/18 13:59 Duoneb *Not For Prn Use* IH Not Given TIDRT DIAMOND Aspirin 325 mg 07/22/18 11:00 07/24/18 09:48 Ecotrin PO 325 mg QDAY DIAMOND Administration Atorvastatin Calcium 40 mg 07/22/18 22:00 07/23/18 21:08 Lipitor PO 40 mg QHS DIAMOND Administration Chlorthalidone 25 mg 07/22/18 11:00 07/24/18 09:49 Thalitone PO 25 mg QDAY DIAMOND Administration Clonidine HCl 0.2 mg 07/22/18 11:00 07/24/18 09:48 Catapres PO 0.2 mg BID DIAMOND Administration Cyclobenzaprine HCl 5 mg 07/22/18 14:00 07/24/18 13:30 Flexeril PO 5 mg TID DIAMOND Administration Heparin Sodium (Porcine) 5,000 unit 07/22/18 22:00 07/24/18 13:30 Heparin SUB-Q 5,000 unit Q8HR DIAMOND Administration Hydralazine HCl 20 mg 07/22/18 10:40 07/22/18 14:40 Apresoline IV 20 mg Q4HR PRN Administration Blood Pressure Azithromycin 500 mg/ Sodium 250 mls @ 250 mls/hr 07/22/18 11:00 07/24/18 09:52 Chloride IV 250 mls/hr Q24HR DIAMOND Administration Piperacillin Sod/Tazobactam Sod 2.25 gm in 50 mls @ 100 mls/hr 07/22/18 16:00 07/24/18 13:30 Zosyn/Ns 2.25 Gm/50ml IV 100 mls/hr Q8HR DIAMOND Administration Protocol Sodium Chloride 100 mls @ 999 mls/hr 07/22/18 22:02 Nacl 0.9% IV COTY PRN Hypotension Isosorbide Mononitrate 30 mg 07/22/18 19:30 07/24/18 09:48 Imdur PO 30 mg DAILY DIAMOND Administration Losartan Potassium 100 mg 07/22/18 11:00 07/24/18 09:49 Cozaar PO 100 mg QDAY DIAMOND Administration Nifedipine 90 mg 07/22/18 11:00 07/24/18 09:48 Procardia Xl PO 90 mg QDAY DIAMOND Administration Ondansetron HCl 4 mg 07/22/18 10:31 07/22/18 14:41 Zofran IV 4 mg Q8H PRN Administration Nausea And Vomiting Pantoprazole Sodium 40 mg 07/22/18 16:00 07/24/18 09:48 Protonix PO 40 mg QDAY DIAMOND Administration Polyethylene Glycol 17 gm 07/23/18 18:19 07/23/18 18:56 Miralax 3350 PO 17 gm BID PRN Administration Constipation Sevelamer Carbonate 800 mg 07/23/18 20:00 07/24/18 13:30 Renvela PO 800 mg TID DIAMOND Administration Sodium Chloride 10 ml 07/22/18 22:00 07/24/18 09:53 Sodium Chloride Flush Syringe 10 Ml IV 10 ml BID DIAMOND Administration Sodium Chloride 10 ml 07/22/18 10:31 Sodium Chloride Flush Syringe 10 Ml IV PRN PRN LINE FLUSH
[2018-07-24] MEDS: APRESOLINE IV PRN (18:26)
[2018-07-24] MEDS: MAGIC MOUTHWASH PO SCH (20:46)
[2018-07-24] MEDS ORDERED: BENADRYL PO PRN (21:17)
[2018-07-25] MEDS: APRESOLINE IV PRN ×2 (04:39→16:56)
[2018-07-25] MEDS: HEPARIN SUB-Q SCH ×2 (06:09→16:19)
[2018-07-25] MEDS: ZOSYN/NS 2.25 GM/50ML 2.25 GM/50 ML BAG IV SCH ×2 (06:09→16:18)
--- NOTE | 2018-07-25 09:17 | Progress Note ---
Subjective Interval history: Patient was seen today for follow-up of multiple renal related issues Feeling much better Blood pressure is stable Events of 24 hours vitals labs intake output medications were reviewed Past medical history: Reviewed Family history: Reviewed Social history: Reviewed Allergies: Reviewed Physical examination: Vitals: Reviewed HEENT: No pallor or icterus oral mucosa moist Neck: Supple no JVD no thyromegaly Chest: few basilar crackles Heart: Regular rate and rhythm S1-S2 heard no S3-S4 Abdomen: Soft nontender no voluntary guarding rigidity rebound Extremity: Dry skin less than 1+ peripheral edema fistula appears to be slightly tortuous Psychiatric: No evidence of agitation and aggression noted Dermatology: No petechial rashes Labs and x-rays: Reviewed from today Assessment and plan End-stage renal disease: Patient will continue with hemodialysis on schedule Anemia in end-stage renal disease: Monitor hemoglobin and hematocrit, erythropoietin as needed he will is better 10.5 Secondary hyperparathyroidism periodically check phosphorus and PTH level, goal phosphorus less than 5.5 PTH less than 600, educated about renal osteodystrophy Hypertension and volume: , Adjust medications as needed, ultrafiltration as tolerated keep systolic blood pressure above 100, pressure appears to be satisfactory 148/71 heart rate better 82 Blood culture negative for last 72 hours urine culture: No infection noted Malnutrition risk: High please consider high protein diet as well as nutrition follow-up, patient needs at least 1.5 g protein per KG body weight Dialysis access: Currently working well, discussed about monitoring, advised to follow-up with vascular surgery Dietary counseling and education: Done at length to improve outcome with end- stage renal disease Patient was also educated about the hospital related comorbidities Overall prognosis appears to be guarded due to end-stage renal disease, dialysis status and other comorbidities Shortness of breath likely appears to be a combination of fluid overload as well as possible pneumonia she is feeling much better today Patient was adequately counseled and educated regarding all the renal related issues Laboratory studies, pertinent for discussed with patient All questions were answered and simple [place] We'll continue to follow and make recommendation for renal standpoint Objective - Vital Signs Vital signs: Vital Signs - 12hr 07/24/18 07/25/18 07/25/18 23:36 03:22 04:07 Temperature 98.9 F 98.6 F 98.6 F Pulse Rate 103 H 102 H 102 H Respiratory 20 20 20 Rate Blood Pressure 171/87 189/97 Blood Pressure 183/89 [Left] O2 Sat by Pulse 96 97 95 Oximetry 07/25/18 07/25/18 04:50 07:15 Temperature 98.0 F 98.6 F Pulse Rate 92 H 82 Respiratory 22 18 Rate Blood Pressure 148/77 148/71 Blood Pressure [Left] O2 Sat by Pulse 96 96 Oximetry - Lab 07/24/18 05:17 07/24/18 05:17 Most recent lab results Calcium 7.9 mg/dL (8.4-10.2) L 07/24/18 05:17 Medications & Allergies - Medications Allergies/Adverse Reactions: Allergies gabapentin Allergy (Verified 03/04/18 04:31) Seizure labetalol Adverse Reaction (Verified 12/01/15 07:51) Unknown Home Medications: Home Medications Medication Instructions Recorded Confirmed Last Taken Type ALBUTEROL Inhaler(NF) [VENTOLIN 2 puff IH Q6HR PRN 06/29/18 07/22/18 07/15/18 History Inhaler(NF)] Diphenoxylate HCl/Atropine 1 tab PO QID PRN 06/29/18 07/22/18 07/15/18 History [Diphenoxylate-Atrop 2.5-0.025] Aspirin EC [Aspirin Enteric Coated 325 mg PO QDAY #30 tablet 07/03/18 07/22/18 07/15/18 Rx TAB] AtorvaSTATin [Lipitor] 40 mg PO QHS #30 tablet 07/03/18 07/22/18 07/15/18 Rx Losartan [Cozaar] 100 mg PO QDAY #30 tablet 07/03/18 07/22/18 07/15/18 Rx cloNIDine [Catapres] 0.2 mg PO BID #60 tablet 07/03/18 07/22/18 07/15/18 Rx Carvedilol [Coreg] 25 mg PO BID 07/22/18 07/22/18 Unknown History Clonidine HCl [Catapres] 0.3 mg PO BID 07/22/18 07/22/18 Unknown History Clopidogrel [Plavix] 75 mg PO QDAY 07/22/18 07/22/18 Unknown History ISOSORBIDE MONOnitrate [Imdur ER] 30 mg PO DAILY 07/22/18 07/22/18 Unknown History Losartan [Cozaar] 50 mg PO QDAY 07/22/18 07/22/18 Unknown History Nephro-Mary Rx Tablet 1 tab PO DAILY 07/22/18 07/22/18 Unknown History Sevelamer Carbonate [Renvela] 1 tab PO TID 07/22/18 07/22/18 Unknown History amLODIPine [Norvasc] 10 mg PO DAILY 07/22/18 07/22/18 Unknown History hydrALAZINE [Apresoline] 50 mg PO Q8HR 07/22/18 07/22/18 Unknown History Active Medications: Generic Name Dose Route Start Last Admin Trade Name Freq PRN Reason Stop Dose Admin Acetaminophen 650 mg 07/22/18 10:31 07/24/18 05:34 Tylenol PO 650 mg Q4H PRN Administration Pain MILD(1-3)/Fever >100.5/ADLER Acetaminophen/Hydrocodone Bitart 1 each 07/22/18 10:31 07/23/18 21:09 [place] 5/325 PO 1 each Q6H PRN Administration Pain, Moderate (4-6) Albuterol 2.5 mg 07/22/18 21:24 07/24/18 17:17 Proventil IH 2.5 mg Q4HRT PRN Administration Shortness Of Breath Albuterol/Ipratropium 1 ampul 07/23/18 08:00 07/24/18 19:30 Duoneb *Not For Prn Use* IH 1 ampul TIDRT DIAMOND Administration Aspirin 325 mg 07/22/18 11:00 07/24/18 09:48 Ecotrin PO 325 mg QDAY DIAMOND Administration Atorvastatin Calcium 40 mg 07/22/18 22:00 07/24/18 21:42 Lipitor PO 40 mg QHS DIAMOND Administration Chlorthalidone 25 mg 07/22/18 11:00 07/24/18 09:49 Thalitone PO 25 mg QDAY DIAMOND Administration Clonidine HCl 0.2 mg 07/22/18 11:00 07/24/18 21:42 Catapres PO 0.2 mg BID DIAMOND Administration Cyclobenzaprine HCl 5 mg 07/22/18 14:00 07/24/18 20:45 Flexeril PO 5 mg TID DIAMOND Administration Diphenhydramine HCl 25 mg 07/24/18 21:17 07/24/18 21:44 Benadryl PO 25 mg QHS PRN Administration Sleep Heparin Sodium (Porcine) 5,000 unit 07/22/18 22:00 07/25/18 06:09 Heparin SUB-Q 5,000 unit Q8HR DIAMOND Administration Hydralazine HCl 20 mg 07/22/18 10:40 07/25/18 04:39 Apresoline IV 20 mg Q4HR PRN Administration Blood Pressure Azithromycin 500 mg/ Sodium 250 mls @ 250 mls/hr 07/22/18 11:00 07/24/18 09:52 Chloride IV 250 mls/hr Q24HR DIAMOND Administration Piperacillin Sod/Tazobactam Sod 2.25 gm in 50 mls @ 100 mls/hr 07/22/18 16:00 07/25/18 06:09 Zosyn/Ns 2.25 Gm/50ml IV 100 mls/hr Q8HR DIAMOND Administration Protocol Sodium Chloride 100 mls @ 999 mls/hr 07/22/18 22:02 Nacl 0.9% IV COTY PRN Hypotension Isosorbide Mononitrate 30 mg 07/22/18 19:30 07/24/18 09:48 Imdur PO 30 mg DAILY DIAMOND Administration Lidocaine HCl 15 ml 07/24/18 20:00 07/24/18 20:46 Magic Mouthwash PO 15 ml TID DIAMOND Administration Losartan Potassium 100 mg 07/22/18 11:00 07/24/18 09:49 Cozaar PO 100 mg QDAY DIAMOND Administration Nifedipine 90 mg 07/22/18 11:00 07/24/18 09:48 Procardia Xl PO 90 mg QDAY DIAMOND Administration Ondansetron HCl 4 mg 07/22/18 10:31 07/22/18 14:41 Zofran IV 4 mg Q8H PRN Administration Nausea And Vomiting Pantoprazole Sodium 40 mg 07/22/18 16:00 07/24/18 09:48 Protonix PO 40 mg QDAY DIAMOND Administration Polyethylene Glycol 17 gm 07/23/18 18:19 07/23/18 18:56 Miralax 3350 PO 17 gm BID PRN Administration Constipation Sevelamer Carbonate 800 mg 07/23/18 20:00 07/24/18 20:45 Renvela PO 800 mg TID DIAMOND Administration Sodium Chloride 10 ml 07/22/18 22:00 07/24/18 21:42 Sodium Chloride Flush Syringe 10 Ml IV 10 ml BID DIAMOND Administration Sodium Chloride 10 ml 07/22/18 10:31 Sodium Chloride Flush Syringe 10 Ml IV PRN PRN LINE FLUSH
[2018-07-25] MEDS: DUONEB *Not for PRN Use IH SCH ×2 (09:25→19:00)
[2018-07-25 10:13] LABS: Hepatitis B Surface Antigen Non-Reactive (Negative); Hepatitis C Virus Antibody Reactive (NonReactive)
[2018-07-25] MEDS: ZITHROMAX 500 MG in NACL 0.9% 250ML 250 ML IV SCH (10:13)
[2018-07-25] MEDS: FLEXERIL PO SCH ×2 (10:14→16:20)
[2018-07-25] MEDS: THALITONE PO SCH (10:14)
[2018-07-25] MEDS: ECOTRIN PO SCH (10:14)
[2018-07-25] MEDS: MAGIC MOUTHWASH PO SCH ×2 (10:14→16:19)
[2018-07-25] MEDS: PROTONIX PO SCH (10:15)
[2018-07-25] MEDS: RENVELA PO SCH ×2 (10:15→16:19)
[2018-07-25] MEDS: CATAPRES PO SCH (10:15)
[2018-07-25] MEDS: SODIUM CHLORIDE FLUSH SYRINGE 10 ML IV SCH (10:15)
[2018-07-25] MEDS: COZAAR PO SCH (10:17)
[2018-07-25] MEDS: PROCARDIA XL PO SCH (10:17)
[2018-07-25] MEDS: IMDUR PO SCH (10:17)
--- NOTE | 2018-07-25 11:18 | Discharge Summary ---
Providers - Providers Date of Admission: 07/22/18 09:19 Attending physician: MARILU SHARP MD 07/22/18 05:59 Consult to Physician [CONS] Urgent Comment: Consulting Provider: RAHEEM GOYAL Physician Instructions: Reason For Exam: esrd pna 07/23/18 20:31 Consult to Physician [CONS] Routine Comment: Consulting Provider: LARISSA ALLAN Physician Instructions: Reason For Exam: fistula evaluation, pain and swelling [facility] Reason for admission: shortness of breath Condition: Stable Hospital course: Patient is a 63 year old -Malagasy female with history of end-stage renal disease on hemodialysis and CAD who presented to the ED on account of a day history of shortness of breath. She has associated pleuritic chest pain, wheezing, chills without fever, cough productive of whitish sputum, headaches, runny nose, sore throat, and nausea without vomiting. No leg swelling, orthopnea, PND, lightheadedness, syncope or loss of consciousness. She also complained of lower abdominal pain, but no frequency, dysuria, constipation or diarrhea. No reported history of ill contacts. Of note, patient was recently admitted to the hospital for chest pain. Sepsis secondary to Healthcare associated pneumonia -Treated with anbx odyanophagia -resolved Hypertension -BP improved on current antihypertensives, adjust as needed Atypical chest pain -likely secondary to the pneumonia -Serial troponin levels normal Generalized abdominal pain -Probably secondary to GERD -Improved on PPI -Lipase level and urinalysis negative ESRD on HD -nephrology following Metabolic acidosis -Secondary to her renal disease -We'll monitor level CAD -Stable on home medications Anemia of chronic disease -H/H stable, will monitor Hyperglycemia -Hemoglobin A1c 5.2 P Disposition: DC-01 TO HOME OR SELFCARE Time spent for discharge: 35 mins Core Measure Documentation - Palliative Care Palliative Care/ Comfort Measures: Not Applicable - Core Measures Any of the following diagnoses?: none Exam - Physical Exam Narrative exam: General appearance: Present: no acute distress, well-nourished - EENT Eyes: Present: PERRL, EOM intact ENT: hearing intact, clear oral mucosa - Neck Neck: Present: supple - Respiratory Respiratory effort: normal Respiratory: bilateral: rales (bibasilar) - Cardiovascular Rhythm: regular Heart Sounds: Present: S1 & S2 - Extremities Extremities: No edema - Abdominal General gastrointestinal: soft, non-tender, normal bowel sounds - Integumentary Integumentary: Present: clear, warm, dry - Neurologic Neurologic: CNII-XII intact - Constitutional Vitals: Temp Pulse Resp BP Pulse Ox 98.6 F 77 16 148/71 97 07/25/18 07:15 07/25/18 09:36 07/25/18 09:36 07/25/18 07:15 07/25/18 09:35 Plan Activity: advance as tolerated, fall precautions Diet: diabetic Special Instructions: record daily BP diary [facility] Care [facility] - 3-5 Days LANEY MARTINES MD [Staff Physician] - 7 Days LARISSA ALLAN MD [Staff Physician] - 7 Days Prescriptions: Nystas/Diphen/Xyl Visc/Mylanta [Magic Mouthwash] 15 ml PO TID 5 Days oral.liqd Pantoprazole [Protonix TAB] 40 mg PO QDAY #30 tablet
[2018-07-25] MEDS ORDERED: NACL 0.9 (PRIMING MACHINE ONLY DIALYSIS) MC ONE (13:14)
[2018-07-25 17:24] VITALS: BP 176/76
[2018-07-25] MEDS ORDERED: VANCOMYCIN/NS 1 GM/250 ML 1 GM/250 ML BAG IV ONE (22:00)
== END 2018-07-25 18:12 | disposition home or self-care (01) | DRG 871 ==
LOC: ED 04:16 → 4A 09:19
PROVIDERS: ADMIT Internal Medicine; ATTEND Internal Medicine
PROC: 5A1D70Z Performance of Urinary Filtration, Intermittent, Less than 6 Hours Per Day (ICD-10-PCS; principal; 2018-07-23)
PROC: 5A1D70Z Performance of Urinary Filtration, Intermittent, Less than 6 Hours Per Day (ICD-10-PCS; 2018-07-25)
DX: A41.9 Sepsis, unspecified organism (principal); J18.9 Pneumonia, unspecified organism; N18.6 End stage renal disease; I13.2 Hypertensive heart and chronic kidney disease with heart failure and with stage 5 chronic kidney disease, or end stage renal disease; I16.1 Hypertensive emergency; E87.1 Hypo-osmolality and hyponatremia; N25.81 Secondary hyperparathyroidism of renal origin; I16.0 Hypertensive urgency; E11.22 Type 2 diabetes mellitus with diabetic chronic kidney disease; Z99.2 Dependence on renal dialysis; J45.909 Unspecified asthma, uncomplicated; I25.10 Atherosclerotic heart disease of native coronary artery without angina pectoris; F17.210 Nicotine dependence, cigarettes, uncomplicated; Y95 Nosocomial condition; D63.1 Anemia in chronic kidney disease; R13.10 Dysphagia, unspecified; K21.9 Gastro-esophageal reflux disease without esophagitis; E11.65 Type 2 diabetes mellitus with hyperglycemia; D63.8 Anemia in other chronic diseases classified elsewhere
CPT/HCPCS: 36415; 70450; 71045; 80048; 80053; 80074; 80202; 81001; 82140; 83036; 83690; 83880; 84484; 85007; 85025; 85610; 85730; 87040; 87086; 93005; 93010; 94640; 94760; 96374; 96375; 99285; 99406; G0378; A9270-GY; J0360; J0456; J0696; J0885; J1644; J2405; J2543; J3010; J3370; J7030; J7050

== ENCOUNTER 2018-07-29 05:18 | Inpatient (IN) | payer MEDICARE ==
[2018-07-29] MEDS ORDERED: TRIDIL DRIP 50MG/250ML 50 MG/250 ML BOTTLE IV ONE (05:29)
[2018-07-29] MEDS ORDERED: NITROSTAT SL ONE (05:30)
[2018-07-29] MEDS ORDERED: LEVOPHED DRIP 4 MG/NS 250 ML 4 MG/250 ML BAG IV ONE (05:32)
--- NOTE | 2018-07-29 05:38 | Event Note ---
Date: 07/29/18 Nephrology: Dr. Richardson This is a 63-year-old female, presenting to the emergency room with chest pain, cough, wheezing, shortness of breath and hypertension. Initial blood pressure to 60 systolic. JVD noted. Patient found to have crackles and rales, clinical picture suggestive of florid flash pulmonary edema. Right-sided external jugular 18-gauge IV placed by myself using aseptic technique. Patient started on BiPAP therapy. Receives nitroglycerin bolus, 1 g, 2, administered by myself. Nursing team to start nitroglycerin infusion. BiPAP therapy continues, saturation improves in the 70s to the 90s. Patient indicates increased work of breathing. Screening laboratory studies, x-ray of the chest, EKG pending.
[2018-07-29 06:00] LABS: Calcium 8.6 mg/dL (8.4-10.2); INR 0.98 (0.87-1.13)
[2018-07-29 06:06] LABS: Hematocrit 36.5 % (30.3-42.9); Hemoglobin 11.7 gm/dl (10.1-14.3); Mean Corpuscular HGB Conc 32 % (30-34); Mean Corpuscular Volume 100 fl (79-97); Platelet Count 194 K/mm3 (140-440); Red Blood Count 3.65 M/mm3 (3.65-5.03); Red Cell Distribution Width 18.6 % (13.2-15.2)
--- NOTE | 2018-07-29 06:36 | Emergency Department Report ---
ED General Adult HPI - General Chief complaint: Dyspnea/Respdistress Stated complaint: TYRA Time Seen by Provider: 07/29/18 06:26 Source: patient Mode of arrival: Wheelchair Limitations: No Limitations - History of Present Illness Initial comments: Patient presents to the emergency department and risks were discussed. Patient complains having difficulty breathing but denies chest pain. On arrival the patient's blood pressure is 258/129. Patient is also a dialysis recipient and goes on Tuesdays, , Saturdays. 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 -: Sudden Severity scale (0 -10): 0 Improves with: none Worsens with: none Associated Symptoms: denies other symptoms Treatments Prior to Arrival: none - Related Data Home Medications Medication Instructions Recorded Confirmed Last Taken ALBUTEROL Inhaler(NF) [VENTOLIN 2 puff IH Q6HR PRN 06/29/18 07/22/18 07/15/18 Inhaler(NF)] Diphenoxylate HCl/Atropine 1 tab PO QID PRN 06/29/18 07/22/18 07/15/18 [Diphenoxylate-Atrop 2.5-0.025] Carvedilol [Coreg] 25 mg PO BID 07/22/18 07/22/18 Unknown Clonidine HCl [Catapres] 0.3 mg PO BID 07/22/18 07/22/18 Unknown Clopidogrel [Plavix] 75 mg PO QDAY 07/22/18 07/22/18 Unknown ISOSORBIDE MONOnitrate [Imdur ER] 30 mg PO DAILY 07/22/18 07/22/18 Unknown Losartan [Cozaar] 50 mg PO QDAY 07/22/18 07/22/18 Unknown Nephro-Mary Rx Tablet 1 tab PO DAILY 07/22/18 07/22/18 Unknown Sevelamer Carbonate [Renvela] 1 tab PO TID 07/22/18 07/22/18 Unknown amLODIPine [Norvasc] 10 mg PO DAILY 07/22/18 07/22/18 Unknown hydrALAZINE [Apresoline TAB] 50 mg PO Q8HR 07/22/18 07/22/18 Unknown Previous Rx's Medication Instructions Recorded Last Taken Type Aspirin EC [Aspirin Enteric Coated 325 mg PO QDAY #30 tablet 07/03/18 07/15/18 Rx TAB] AtorvaSTATin [Lipitor] 40 mg PO QHS #30 tablet 07/03/18 07/15/18 Rx Losartan [Cozaar] 100 mg PO QDAY #30 tablet 07/03/18 07/15/18 Rx cloNIDine [Catapres] 0.2 mg PO BID #60 tablet 07/03/18 07/15/18 Rx Chlorthalidone [Thalitone] 25 mg PO QDAY tablet 07/25/18 Unknown Rx ISOSORBIDE MONOnitrate [Imdur ER] 30 mg PO DAILY tablet 07/25/18 Unknown Rx NIFEdipine XL [Procardia Xl] 90 mg PO QDAY tablet 07/25/18 Unknown Rx Nystas/Diphen/Xyl Visc/Mylanta 15 ml PO TID 5 Days oral.liqd 07/25/18 Unknown Rx [Magic Mouthwash] Pantoprazole [Protonix TAB] 40 mg PO QDAY #30 tablet 07/25/18 Unknown Rx Allergies Allergy/AdvReac Type Severity Reaction Status Date / Time gabapentin Allergy Seizure Verified 03/04/18 04:31 labetalol AdvReac Unknown Verified 12/01/15 07:51 ED Review of Systems ROS: Stated complaint: TYRA Other details as noted in HPI Comment: All other systems reviewed and negative Constitutional: denies: chills, fever Eyes: denies: eye pain, eye discharge, vision change ENT: denies: ear pain, throat pain Respiratory: shortness of breath, SOB with exertion. denies: cough, wheezing Cardiovascular: denies: chest pain, palpitations Endocrine: no symptoms reported Gastrointestinal: denies: abdominal pain, nausea, diarrhea Genitourinary: denies: urgency, dysuria, discharge Musculoskeletal: denies: back pain, joint swelling, arthralgia Skin: denies: rash, lesions Neurological: denies: headache, weakness, paresthesias Psychiatric: denies: anxiety, depression Hematological/Lymphatic: denies: easy bleeding, easy bruising ED Past Medical Hx - Past Medical History Hx Hypertension: Yes Hx Congestive Heart Failure: Yes Hx Diabetes: Yes Hx Renal Disease: Yes (w/ HD Sunday, , Sunday) Hx Arthritis: Yes Hx Kidney Stones: Yes Hx Asthma: Yes Hx COPD: No Hx HIV: No Additional medical history: heart murmur - Surgical History Hx Coronary Stent: Yes Hx Cholecystectomy: (gallstones removed) Additional Surgical History: Fistula Left Upper arm.--old. fistula right upper arm. bowel obstruction - Social History Smoking Status: Current Every Day Smoker Substance Use Type: None - Medications Home Medications: Home Medications Medication Instructions Recorded Confirmed Last Taken Type ALBUTEROL Inhaler(NF) [VENTOLIN 2 puff IH Q6HR PRN 06/29/18 07/22/18 07/15/18 History Inhaler(NF)] Diphenoxylate HCl/Atropine 1 tab PO QID PRN 06/29/18 07/22/18 07/15/18 History [Diphenoxylate-Atrop 2.5-0.025] Aspirin EC [Aspirin Enteric Coated 325 mg PO QDAY #30 tablet 07/03/18 07/22/18 07/15/18 Rx TAB] AtorvaSTATin [Lipitor] 40 mg PO QHS #30 tablet 07/03/18 07/22/18 07/15/18 Rx Losartan [Cozaar] 100 mg PO QDAY #30 tablet 07/03/18 07/22/18 07/15/18 Rx cloNIDine [Catapres] 0.2 mg PO BID #60 tablet 07/03/18 07/22/18 07/15/18 Rx Carvedilol [Coreg] 25 mg PO BID 07/22/18 07/22/18 Unknown History Clonidine HCl [Catapres] 0.3 mg PO BID 07/22/18 07/22/18 Unknown History Clopidogrel [Plavix] 75 mg PO QDAY 07/22/18 07/22/18 Unknown History ISOSORBIDE MONOnitrate [Imdur ER] 30 mg PO DAILY 07/22/18 07/22/18 Unknown History Losartan [Cozaar] 50 mg PO QDAY 07/22/18 07/22/18 Unknown History Nephro-Mary Rx Tablet 1 tab PO DAILY 07/22/18 07/22/18 Unknown History Sevelamer Carbonate [Renvela] 1 tab PO TID 07/22/18 07/22/18 Unknown History amLODIPine [Norvasc] 10 mg PO DAILY 07/22/18 07/22/18 Unknown History hydrALAZINE [Apresoline TAB] 50 mg PO Q8HR 07/22/18 07/22/18 Unknown History Chlorthalidone [Thalitone] 25 mg PO QDAY tablet 07/25/18 Unknown Rx ISOSORBIDE MONOnitrate [Imdur ER] 30 mg PO DAILY tablet 07/25/18 Unknown Rx NIFEdipine XL [Procardia Xl] 90 mg PO QDAY tablet 07/25/18 Unknown Rx Nystas/Diphen/Xyl Visc/Mylanta 15 ml PO TID 5 Days oral.liqd 07/25/18 Unknown Rx [Magic Mouthwash] Pantoprazole [Protonix TAB] 40 mg PO QDAY #30 tablet 07/25/18 Unknown Rx ED Physical Exam - General Limitations: No Limitations General appearance: alert, in no apparent distress - Head Head exam: Present: atraumatic, normocephalic - Eye Eye exam: Present: normal appearance. Absent: PERRL, EOMI - ENT ENT exam: Present: mucous membranes moist - Neck Neck exam: Present: normal inspection - Respiratory Respiratory exam: Present: respiratory distress, rales - Cardiovascular Cardiovascular Exam: Present: regular rate, normal rhythm. Absent: systolic murmur, diastolic murmur, rubs, gallop - GI/Abdominal GI/Abdominal exam: Present: soft, normal bowel sounds. Absent: distended, tenderness - Extremities Exam Extremities exam: Present: normal inspection - Back Exam Back exam: Present: normal inspection - Neurological Exam Neurological exam: Present: alert, oriented X3, CN II-XII intact. Absent: motor sensory deficit - Psychiatric Psychiatric exam: Present: normal affect, normal mood - Skin Skin exam: Present: warm, dry, intact, normal color. Absent: rash ED Course Vital Signs 07/29/18 07/29/18 07/29/18 05:24 05:29 05:30 Temperature 97.5 F L Pulse Rate 82 97 H Respiratory 24 28 H Rate Blood Pressure 258/129 258/129 Blood Pressure 166/87 [Left] O2 Sat by Pulse 95 98 96 Oximetry 07/29/18 07/29/18 07/29/18 05:36 05:40 05:55 Temperature Pulse Rate 89 89 80 Respiratory 25 H 25 H 21 Rate Blood Pressure 163/94 Blood Pressure [Left] O2 Sat by Pulse 96 97 97 Oximetry 07/29/18 07/29/18 07/29/18 06:01 06:11 06:21 Temperature Pulse Rate 82 78 76 Respiratory 28 H 18 27 H Rate Blood Pressure 156/86 149/83 Blood Pressure [Left] O2 Sat by Pulse 97 100 100 Oximetry 07/29/18 07/29/18 07/29/18 06:31 06:41 06:50 Temperature 98.0 F Pulse Rate 76 77 Respiratory 18 17 Rate Blood Pressure 151/83 156/86 Blood Pressure [Left] O2 Sat by Pulse 100 100 Oximetry ED Medical Decision Making - Lab Data Result diagrams: 07/29/18 05:34 07/29/18 05:34 Lab Results 07/29/18 07/29/18 07/29/18 Range/Units 05:34 05:34 05:34 WBC 3.6 L (4.5-11.0) K/mm3 RBC 3.65 (3.65-5.03) M/mm3 Hgb 11.7 (10.1-14.3) gm/dl Hct 36.5 (30.3-42.9) % MCV 100 H (79-97) fl MCH 32 (28-32) pg MCHC 32 (30-34) % RDW 18.6 H (13.2-15.2) % Plt Count 194 (140-440) K/mm3 PT 13.6 (12.2-14.9) Sec. INR 0.98 (0.87-1.13) Sodium 139 (137-145) mmol/L Potassium 4.6 (3.6-5.0) mmol/L Chloride 99.9 (98-107) mmol/L Carbon Dioxide 23 (22-30) mmol/L Anion Gap 21 mmol/L BUN 28 H (7-17) mg/dL Creatinine 7.9 H (0.7-1.2) mg/dL Estimated GFR 6 ml/min BUN/Creatinine Ratio 4 % Glucose 152 H (65-100) mg/dL POC Glucose (70-105) Calcium 8.6 (8.4-10.2) mg/dL Magnesium 2.10 (1.7-2.3) mg/dL Total Creatine Kinase 71 (30-135) units/L Troponin T 0.016 (0.00-0.029) ng/mL NT-Pro-B Natriuret Pep 27002 H (0-900) pg/mL 07/29/18 Range/Units 05:36 WBC (4.5-11.0) K/mm3 RBC (3.65-5.03) M/mm3 Hgb (10.1-14.3) gm/dl Hct (30.3-42.9) % MCV (79-97) fl MCH (28-32) pg MCHC (30-34) % RDW (13.2-15.2) % Plt Count (140-440) K/mm3 PT (12.2-14.9) Sec. INR (0.87-1.13) Sodium (137-145) mmol/L Potassium (3.6-5.0) mmol/L Chloride (98-107) mmol/L Carbon Dioxide (22-30) mmol/L Anion Gap mmol/L BUN (7-17) mg/dL Creatinine (0.7-1.2) mg/dL Estimated GFR ml/min BUN/Creatinine Ratio % Glucose (65-100) mg/dL POC Glucose 163 H (70-105) Calcium (8.4-10.2) mg/dL Magnesium (1.7-2.3) mg/dL Total Creatine Kinase (30-135) units/L Troponin T (0.00-0.029) ng/mL NT-Pro-B Natriuret Pep (0-900) pg/mL - Radiology Data Radiology results: report reviewed - Medical Decision Making patient on BiPaP and Nitro drip Critical Care Time: Yes Critical care time in (mins) excluding proc time.: 35 Critical care attestation.: If time is entered above; I have spent that time in minutes in the direct care of this critically ill patient, excluding procedure time. ED Disposition Clinical Impression: Respiratory distress, Volume overload, Hypertensive emergency Disposition: DC09 OP ADMIT IP TO THIS HOSP Is pt being admited?: Yes Does the pt Need Aspirin: No Condition: Fair Instructions: Hypertension (ED)
--- NOTE | 2018-07-29 07:04 | XRay Report ---
PROCEDURE: XR CHEST 1V AP TECHNIQUE: Chest radiograph single view. HISTORY: Chest pain COMPARISONS: 07/22/2018 . FINDINGS: Heart: The heart is enlarged. Mediastinum/Vessels: Normal. Lungs/Pleural space: There are bilateral perihilar and lower lobe infiltrates. There is no pleural e ffusion or pneumothorax.. Bony thorax: No acute osseous abnormality. Life support devices: None. IMPRESSION: The heart is enlarged. There are bilateral perihilar and lower lobe infiltrates. There is no pleural effusion or pneumothora x... This document is electronically signed by Pedrito Oliva MD., Jul 29 2018 07:02:49 AM ET
[2018-07-29] MEDS ORDERED: MAXIPIME/NS 1 GM/100 ML 1 GM/100 ML BAG IV ONE (07:48)
--- NOTE | 2018-07-29 08:25 | History and Physical Report ---
History of Present Illness Date of examination: 07/29/18 Date of admission: 07/29/2018 Chief complaint: shortness of breath, hypertensive emergency History of present illness: Patient is a 63 year old -[place] female with history of COPD, HTN, end- stage renal disease on hemodialysis and CAD who presented to the ED on account of a day history of shortness of breath that started this am. The patient was recently discharged from the hospital and states she has been compliant with dialysis on TTS. This morning while getting ready to go GI appointment she be genaro to have increase shortness of breath and EMS was called when all the manuvers where not successful. On arrival to the er she was noted to have a Systolic BP of >240 and concerned for fluid overload and was quickly placed on BIPAP and nitrodrip with rather quick improvement. On my examination she denies any nausea, vomiting, diarrhea. She reported pleurtic chest pain and wheezing but no fever. Patient states that she unfortunately continues to smoke and has had recurrent hospitalization for the same condition. During the last admission the patient reported that she has frequent exacerbati ons and depends on oxygen of friends. she was evaluated for home O2 and improved. Past History Past Medical History: acute [place], CAD, COPD, ESRD, hypertension, hyperlipidemia Social history: smoking Family history: no significant family history Medications and Allergies Allergies Allergy/AdvReac Type Severity Reaction Status Date / Time gabapentin Allergy Seizure Verified 03/04/18 04:31 labetalol AdvReac Unknown Verified 12/01/15 07:51 Home Medications Medication Instructions Recorded Confirmed Last Taken Type ALBUTEROL Inhaler(NF) [VENTOLIN 2 puff IH Q6HR PRN 06/29/18 07/29/18 07/15/18 History Inhaler(NF)] Diphenoxylate HCl/Atropine 1 tab PO QID PRN 06/29/18 07/29/18 07/15/18 History [Diphenoxylate-Atrop 2.5-0.025] Aspirin EC [Aspirin Enteric Coated 325 mg PO QDAY #30 tablet 07/03/18 07/29/18 07/15/18 Rx TAB] AtorvaSTATin [Lipitor] 40 mg PO QHS #30 tablet 07/03/18 07/29/18 07/15/18 Rx Losartan [Cozaar] 100 mg PO QDAY #30 tablet 07/03/18 07/29/18 07/15/18 Rx cloNIDine [Catapres] 0.2 mg PO BID #60 tablet 07/03/18 07/29/18 07/15/18 Rx Carvedilol [Coreg] 25 mg PO BID 07/22/18 07/29/18 Unknown History Clonidine HCl [Catapres] 0.3 mg PO BID 07/22/18 07/29/18 Unknown History Clopidogrel [Plavix] 75 mg PO QDAY 07/22/18 07/29/18 Unknown History ISOSORBIDE MONOnitrate [Imdur ER] 30 mg PO DAILY 07/22/18 07/29/18 Unknown History Losartan [Cozaar] 50 mg PO QDAY 07/22/18 07/29/18 Unknown History Nephro-Mary Rx Tablet 1 tab PO DAILY 07/22/18 07/29/18 Unknown History Sevelamer Carbonate [Renvela] 1 tab PO TID 07/22/18 07/29/18 Unknown History amLODIPine [Norvasc] 10 mg PO DAILY 07/22/18 07/29/18 Unknown History hydrALAZINE [Apresoline TAB] 50 mg PO Q8HR 07/22/18 07/29/18 Unknown History Chlorthalidone [Thalitone] 25 mg PO QDAY tablet 07/25/18 07/29/18 Unknown Rx ISOSORBIDE MONOnitrate [Imdur ER] 30 mg PO DAILY tablet 07/25/18 07/29/18 Unknown Rx NIFEdipine XL [Procardia Xl] 90 mg PO QDAY tablet 07/25/18 07/29/18 Unknown Rx Nystas/Diphen/Xyl Visc/Mylanta 15 ml PO TID 5 Days oral.liqd 07/25/18 07/29/18 Unknown Rx [Magic Mouthwash] Pantoprazole [Protonix TAB] 40 mg PO QDAY #30 tablet 07/25/18 07/29/18 Unknown Rx Active Meds: Active Medications Nitroglycerin/Dextrose (Tridil Drip 50mg/250ml) 50 mg in 250 mls @ 3 mls/hr IV TITR ONE; Protocol Stop: 08/01/18 16:48 Last Titration: 07/29/18 06:52 Dose: 180 mcg/min, 54 mls/hr Documented by: Review of Systems All systems: negative Constitutional: chills, fatigue, lethargy, no weight loss, no weight gain, no fever, no anorexia, no weakness, no malaise, no poor appetite, no daytime sleepiness, no chronic pain Cardiovascular: chest pain, shortness of breath, dyspnea on exertion, high blood pressure, no orthopnea, no palpitations, no rapid/irregular heart beat, no edema, no syncope, no lightheadedness, no paroxysmal nocturnal dyspnea Respiratory: shortness of breath, dyspnea on exertion, congestion, no cough, no cough with sputum, no excessive sputum, no hemoptysis Gastrointestinal: no abdominal pain, no nausea, no diarrhea, no constipation, no hematemesis, no hematochezia, no loss of appetite, no heartburn, no dyspepsia/bloating, no early satiety Musculoskeletal: no neck pain, no shooting arm pain, no muscle cramps, no atrophy, no gait dysfunction, no loss of height Integumentary: no rash, no sores, no jaundice, no bullae, no depigmentation, no unusual bruising, no brittle nails, no foot/leg ulcers Neurological: no transient paralysis, no paralysis, no tingling, no seizures, no tremors, no vertigo, no change in mentation, no sensory deficit, no loss of vision, no burning pain Psychiatric: no change in sleep habits, no sleep disturbances, no change in appetite, no sadness/tearfullness Endocrine: no polyphagia, no polyuria, no excessive sweating, no thyroid mass, no low blood sugars Allergic/Immunologic: no allergic rhinitis Exam - Physical Exam Narrative exam: - Physical Exam Narrative exam: General appearance: Present: MILD Distress, well-nourished - EENT Eyes: Present: PERRL, EOM intact ENT: hearing intact, clear oral mucosa - Neck Neck: Present: supple - Respiratory Respiratory effort: normal Respiratory: bilateral: rales (bibasilar) - Cardiovascular Rhythm: regular Heart Sounds: Present: S1 & S2 - Extremities Extremities: No edema, right upper ext av graft - Abdominal General gastrointestinal: soft, non-tender, normal bowel sounds - Integumentary Integumentary: Present: clear, warm, dry - Neurologic Neurologic: CNII-XII intact - Constitutional Vitals: Temp Pulse Resp BP Pulse Ox 98.0 F 78 16 118/79 96 07/29/18 06:50 07/29/18 08:14 07/29/18 08:14 07/29/18 08:14 07/29/18 08:14 Results - Labs CBC & Chem 7: 07/29/18 05:34 07/29/18 05:34 Labs: Laboratory Last Values WBC 3.6 K/mm3 (4.5-11.0) L 07/29/18 05:34 RBC 3.65 M/mm3 (3.65-5.03) 07/29/18 05:34 Hgb 11.7 gm/dl (10.1-14.3) 07/29/18 05:34 Hct 36.5 % (30.3-42.9) 07/29/18 05:34 MCV 100 fl (79-97) H 07/29/18 05:34 MCH 32 pg (28-32) 07/29/18 05:34 MCHC 32 % (30-34) 07/29/18 05:34 RDW 18.6 % (13.2-15.2) H 07/29/18 05:34 Plt Count 194 K/mm3 (140-440) 07/29/18 05:34 PT 13.6 Sec. (12.2-14.9) 07/29/18 05:34 INR 0.98 (0.87-1.13) 07/29/18 05:34 Sodium 139 mmol/L (137-145) 07/29/18 05:34 Potassium 4.6 mmol/L (3.6-5.0) 07/29/18 05:34 Chloride 99.9 mmol/L (98-107) 07/29/18 05:34 Carbon Dioxide 23 mmol/L (22-30) 07/29/18 05:34 Anion Gap 21 mmol/L 07/29/18 05:34 BUN 28 mg/dL (7-17) H 07/29/18 05:34 Creatinine 7.9 mg/dL (0.7-1.2) H 07/29/18 05:34 Estimated GFR 6 ml/min 07/29/18 05:34 BUN/Creatinine Ratio 4 % 07/29/18 05:34 Glucose 152 mg/dL (65-100) H 07/29/18 05:34 POC Glucose 163 (70-105) H 07/29/18 05:36 Calcium 8.6 mg/dL (8.4-10.2) 07/29/18 05:34 Magnesium 2.10 mg/dL (1.7-2.3) 07/29/18 05:34 Total Creatine Kinase 71 units/L (30-135) 07/29/18 05:34 Troponin T 0.016 ng/mL (0.00-0.029) 07/29/18 05:34 NT-Pro-B Natriuret Pep 20353 pg/mL (0-900) H 07/29/18 05:34 Assessment and Plan Assessment and plan: Patient is a 63 year old -[place] female with history of COPD, HTN, end- stage renal disease on hemodialysis and CAD who presented to the ED on account of a day history of shortness of breath that started this am. The patient was recently discharged from the hospital and states she has been compliant with dialysis on TTS. This morning while getting ready to go GI appointment she began to have increase shortness of breath and EMS was called when all the manuvers where not successful. On arrival to the er she was noted to have a Systolic BP of >240 and concerned for fluid overload and was quickly placed on BIPAP and nitrodrip with rather quick improvement. On my examination she denies any nausea, vomiting, diarrhea. She reported pleurtic chest pain and wheezing but no fever. Patient states that she unfortunately continues to smoke and has had recurrent hospitalization for the same condition. During the last admission the patient reported that she has frequent exacerbations and depends on oxygen of friends. she was evaluated for home O2 and improved. Acute Respiratory Failure with Hypoxia initial saturation saturation improves in the 70s to the 90s COPD Exacerbation Volume Overload s/p BIPAP Pneumonia ESRD Hypertensive Emergency CAD S/P with Cardiac Cath which demonstrated a Stenosis of the LAD in the proximal and mid segments status post PTCA with drug-eluting stents ejection fraction of 55% Tobacco use PERSISTENT Recurrent admission PLAN: Admit to Medsurg since BP has improved. Wean off Nitro drip Nephrology consult Pulmonary consult considering recurrent admission Extensive conversation and counselling on tobacco cessation Discussed with Nursing staff of medication list so that appropriate reconciliation can be done Start on tapering systemic steroids Resume Home meds Start on emperic abx and follow cultures DVT/GI prophy The high probability of a clinically significant, sudden or life threatening deterioration of the [VASCULAR, PULMONARY, RENAL] system(s) required my full and direct attention, intervention and personal management. The aggregate critical care time was [75] minutes. This time is in addition to time spent performing reported procedures but includes the following: [X] Data Review and interpretation [X] Patient assessment and monitoring of vital signs [X] Documentation [X] Medication orders and management Advance Directives: Yes Plan of care discussed with patient/family: Yes
[2018-07-29] MEDS ORDERED: PROVENTIL IH PRN ×2 (08:40→09:55)
[2018-07-29] MEDS ORDERED: ZOFRAN IV PRN (08:40)
[2018-07-29] MEDS ORDERED: SODIUM CHLORIDE FLUSH SYRINGE 10 ML IV PRN (08:40)
[2018-07-29] MEDS ORDERED: D50W (25GM) Syringe IV PRN ×2 (08:40→08:44)
[2018-07-29] MEDS ORDERED: LOMOTIL PO PRN (08:46)
[2018-07-29] MEDS ORDERED: PROAIR IH PRN (08:46)
[2018-07-29] MEDS ORDERED: TYLENOL PO PRN (09:00)
[2018-07-29] MEDS ORDERED: ALUM-MAG HYDROX-SIMETH 200-200-20MG/5ML PO PRN (09:00)
[2018-07-29] MEDS ORDERED: NACL 0.9% 100 ML IV PRN (09:04)
--- NOTE | 2018-07-29 09:11 | Consultation ---
History of Present Illness - Reason for Consult Consult date: 07/29/18 end stage renal disease Requesting physician: ANNAMARIE REID - History of Present Illness Patient is a 63-year-old -[place] female with past medical history significant for hypertension diabetes and congestive heart failure and end-stage renal disease on maintenance hemodialysis presented to the emergency room with worsening shortness of breath. Patient undergoes dialysis on TTS schedule under our care at [facility]. She did have her dialysis on Sunday. However around 4 AM this morning she started to experience increasing shortness of breath and this came to the emergency room. She was getting ready to go for her GI appointment at [facility]. Patient also had some associated chest pain. Denies any nausea or vomiting. No fever or productive cough. Patient was init ially found to be hypertensive and placed on nitroglycerin drip. She was also on a BiPAP mask. Currently she is on nasal cannula. Oxygen flowing at 2 L/m with oxygen saturation of 98 to 100%. Past History Past Medical History: arthritis, diabetes, dialysis, ESRD, heart failure, hypertension Past Surgical History: Other (history of creation of dialysis access) Social history: no significant social history Family history: no significant family history Medications and Allergies Allergies Allergy/AdvReac Type Severity Reaction Status Date / Time gabapentin Allergy Seizure Verified 03/04/18 04:31 labetalol AdvReac Unknown Verified 12/01/15 07:51 Home Medications Medication Instructions Recorded Confirmed Last Taken Type ALBUTEROL Inhaler(NF) [VENTOLIN 2 puff IH Q6HR PRN 06/29/18 07/29/18 07/15/18 History Inhaler(NF)] Diphenoxylate HCl/Atropine 1 tab PO QID PRN 06/29/18 07/29/18 07/15/18 History [Diphenoxylate-Atrop 2.5-0.025] Aspirin EC [Aspirin Enteric Coated 325 mg PO QDAY #30 tablet 07/03/18 07/29/18 07/15/18 Rx TAB] AtorvaSTATin [Lipitor] 40 mg PO QHS #30 tablet 07/03/18 07/29/18 07/15/18 Rx Losartan [Cozaar] 100 mg PO QDAY #30 tablet 07/03/18 07/29/18 07/15/18 Rx cloNIDine [Catapres] 0.2 mg PO BID #60 tablet 07/03/18 07/29/18 07/15/18 Rx Carvedilol [Coreg] 25 mg PO BID 07/22/18 07/29/18 Unknown History Clonidine HCl [Catapres] 0.3 mg PO BID 07/22/18 07/29/18 Unknown History Clopidogrel [Plavix] 75 mg PO QDAY 07/22/18 07/29/18 Unknown History ISOSORBIDE MONOnitrate [Imdur ER] 30 mg PO DAILY 07/22/18 07/29/18 Unknown History Losartan [Cozaar] 50 mg PO QDAY 07/22/18 07/29/18 Unknown History Nephro-Mary Rx Tablet 1 tab PO DAILY 07/22/18 07/29/18 Unknown History Sevelamer Carbonate [Renvela] 1 tab PO TID 07/22/18 07/29/18 Unknown History amLODIPine [Norvasc] 10 mg PO DAILY 07/22/18 07/29/18 Unknown History hydrALAZINE [Apresoline TAB] 50 mg PO Q8HR 07/22/18 07/29/18 Unknown History Chlorthalidone [Thalitone] 25 mg PO QDAY tablet 07/25/18 07/29/18 Unknown Rx ISOSORBIDE MONOnitrate [Imdur ER] 30 mg PO DAILY tablet 07/25/18 07/29/18 Unknown Rx NIFEdipine XL [Procardia Xl] 90 mg PO QDAY tablet 07/25/18 07/29/18 Unknown Rx Nystas/Diphen/Xyl Visc/Mylanta 15 ml PO TID 5 Days oral.liqd 07/25/18 07/29/18 Unknown Rx [Magic Mouthwash] Pantoprazole [Protonix TAB] 40 mg PO QDAY #30 tablet 07/25/18 07/29/18 Unknown Rx Active Meds: Active Medications Acetaminophen (Tylenol) 650 mg PO Q4H PRN PRN Reason: Pain MILD(1-3)/Fever >100.5/ADLER Al Hydrox/Mg Hydrox/Simethicone (Alum-Mag Hydrox-Simeth [id number]/5ml) 30 ml PO Q4H PRN PRN Reason: Indigestion Albuterol (Proair) 2 puff IH Q6HR PRN PRN Reason: Shortness Of Breath Albuterol/Ipratropium (Duoneb *Not For Prn Use*) 1 ampul IH Q6HRT [facility] Amlodipine Besylate (Norvasc) 10 mg PO DAILY [facility] Aspirin (Ecotrin) 325 mg PO QDAY [facility] Atorvastatin Calcium (Lipitor) 40 mg PO QHS [facility] Chlorthalidone (Thalitone) 25 mg PO QDAY [facility] Clopidogrel Bisulfate (Plavix) 75 mg PO QDAY [facility] Dextrose (D50w (25gm) Syringe) 50 ml IV PRN PRN PRN Reason: Hypoglycemia Dextrose (D50w (25gm) Syringe) 50 ml IV PRN PRN PRN Reason: Hypoglycemia Diphenoxylate HCl/Atropine (Lomotil) 1 tab PO QID PRN PRN Reason: Diarrhea Heparin Sodium (Porcine) (Heparin) 5,000 unit SUB-Q Q8HR [facility] Hydralazine HCl (Apresoline) 50 mg PO Q8HR [facility] Nitroglycerin/Dextrose (Tridil Drip 50mg/250ml) 50 mg in 250 mls @ 3 mls/hr IV TITR ONE; Protocol Stop: 08/01/18 16:48 Last Titration: 07/29/18 06:52 Dose: 180 mcg/min, 54 mls/hr Documented by: Azithromycin 500 mg/ Sodium (Chloride) 250 mls @ 250 mls/hr IV Q24HR [facility]; Protocol Ceftriaxone Sodium (Rocephin/Ns 2 Gm/100 Ml) 2 gm in 100 mls @ 200 mls/hr IV Q24HR [facility]; Protocol Insulin Human Lispro (Humalog) 0 unit SUB-Q ACHS [facility]; Protocol Isosorbide Mononitrate (Imdur) 30 mg PO DAILY [facility] Labetalol HCl (Normodyne) 200 mg PO BID [facility] Lidocaine HCl (Magic Mouthwash) 15 ml PO TID [facility] Losartan Potassium (Cozaar) 50 mg PO QDAY [facility] Methylprednisolone Sodium Succinate (Solu-Medrol) 40 mg IV Q8HR [facility] Miscellaneous Medication (Clonidine Hcl [Catapres]) 0.3 mg PO BID [facility] Miscellaneous Medication (Nephro-Mary Rx Tablet) 1 tab PO DAILY [facility] Nifedipine (Procardia Xl) 90 mg PO QDAY [facility] Ondansetron HCl (Zofran) 4 mg IV Q8H PRN PRN Reason: Nausea And Vomiting Pantoprazole Sodium (Protonix) 40 mg PO QDAY [facility] Senna (Senokot) 8.6 mg PO Q12HR [facility] Sevelamer Carbonate (Renvela) mg PO TID [facility] Sodium Chloride (Sodium Chloride Flush Syringe 10 Ml) 10 ml IV BID [facility] Sodium Chloride (Sodium Chloride Flush Syringe 10 Ml) 10 ml IV PRN PRN PRN Reason: LINE FLUSH Review of Systems All systems: negative (negative except as noted above) Exam - Vital Signs Vital signs: Vital Signs Pulse Ox 95 07/29/18 05:24 - General Appearance General appearance: well-developed, well-nourished, appears stated age EENT: PERRL, mucous membranes moist Neck: Present: neck supple, trachea midline. Absent: JVD/HJR, Masses Respiratory: Rales (bibasilar crackles) Heart: regular, normal heart rate Gastrointestinal: Present: normal, normoactive bowel sounds Integumentary: no rash, other (no edema. AV graft right upper arm. Good bruit and thrill.) Results - Lab Results 07/29/18 05:34 07/29/18 05:34 Most recent lab results Calcium 8.6 mg/dL (8.4-10.2) 07/29/18 05:34 Magnesium 2.10 mg/dL (1.7-2.3) 07/29/18 05:34 Assessment and Plan Impression * End-stage renal disease on maintenance hemodialysis * Shortness of breath most likely secondary to pulmonary edema. Chest x-ray does show some basilar infiltrates as well * Accelerated hypertension * Diabetes * Anemia secondary to ESRD * Chest pain Recommendations * Arrange for urgent hemodialysis this morning * Remove fluid as tolerated * Patient undergoes dialysis on TTS schedule as outpatient * Adjust diet and meds for ESRD state * No IV, V by mouth venipuncture in her access arm * Procrit per protocol * Binders with meals * Thank you very much for the consultation. Shall follow along with you
[2018-07-29] MEDS ORDERED: [UNRECOGNIZED DRUG - OTHER] PO SCH (10:00)
[2018-07-29] MEDS ORDERED: COZAAR PO SCH (10:00)
[2018-07-29] MEDS ORDERED: NON-FORMULARY (Clonidine Hcl [Catapres] 0.3 MG) PO SCH (10:00)
[2018-07-29] MEDS ORDERED: NORVASC PO SCH (10:00)
[2018-07-29] MEDS ORDERED: IMDUR PO SCH ×2 (10:00→19:00)
[2018-07-29] MEDS: HumaLOG SUB-Q SCH ×3 (11:30→23:29)
[2018-07-29] MEDS: APRESOLINE PO SCH ×3 (12:16→23:32)
[2018-07-29] MEDS: NORMODYNE PO SCH ×2 (12:39→23:27)
[2018-07-29] MEDS: DUONEB *Not for PRN Use IH SCH ×2 (14:05→20:55)
[2018-07-29] MEDS: RENVELA PO SCH ×2 (14:16→17:18)
[2018-07-29] MEDS: ECOTRIN PO SCH (14:28)
[2018-07-29] MEDS: PLAVIX PO SCH (14:28)
[2018-07-29] MEDS: CATAPRES PO SCH ×2 (14:29→23:27)
[2018-07-29] MEDS: SENOKOT PO SCH (14:30)
[2018-07-29] MEDS: Renal Caps PO SCH (14:30)
[2018-07-29] MEDS: THALITONE PO SCH (14:30)
[2018-07-29] MEDS: MAGIC MOUTHWASH PO SCH ×2 (14:31→23:34)
[2018-07-29] MEDS: SODIUM CHLORIDE FLUSH SYRINGE 10 ML IV SCH ×2 (14:31→23:30)
[2018-07-29] MEDS: PROCARDIA XL PO SCH (14:31)
[2018-07-29] MEDS: ZITHROMAX 500 MG in NACL 0.9% 250ML 250 ML IV SCH (14:31)
[2018-07-29] MEDS: HEPARIN SUB-Q SCH ×2 (14:32→23:28)
[2018-07-29] MEDS: PROTONIX PO SCH (14:39)
[2018-07-29] MEDS: SOLU-Medrol IV SCH ×3 (14:39→23:29)
[2018-07-29] MEDS ORDERED: APRESOLINE IV PRN (15:43)
[2018-07-29] MEDS: ROCEPHIN/NS 2 GM/100 ML 2 GM/100 ML BAG IV SCH (16:14)
[2018-07-29] MEDS: FLEXERIL PO PRN (19:41)
[2018-07-30] MEDS: SENOKOT PO SCH ×2 (00:26→15:53)
[2018-07-30] MEDS ORDERED: ATIVAN IV ONE (02:15)
[2018-07-30] MEDS: DUONEB *Not for PRN Use IH SCH ×3 (02:35→13:55)
[2018-07-30 07:25] LABS: Basophils % (Auto) 0.3 % (0.0-1.8); Calcium 8.5 mg/dL (8.4-10.2); Hematocrit 33.9 % (30.3-42.9); Lymphocytes # (Auto) 0.3 K/mm3 (1.2-5.4); Lymphocytes % (Auto) 11.5 % (13.4-35.0); Mean Corpuscular HGB Conc 32 % (30-34); Mean Corpuscular Volume 99 fl (79-97); Monocytes # (Auto) 0.1 K/mm3 (0.0-0.8); Monocytes % (Auto) 2.2 % (0.0-7.3); Platelet Count 195 K/mm3 (140-440); Red Blood Count 3.45 M/mm3 (3.65-5.03); Red Cell Distribution Width 18.5 % (13.2-15.2)
[2018-07-30] MEDS: HumaLOG SUB-Q SCH ×2 (08:49→17:19)
--- NOTE | 2018-07-30 09:11 | Progress Note ---
Assessment and Plan Impression * End-stage renal disease on maintenance hemodialysis * Shortness of breath most likely secondary to pulmonary edema. Chest x-ray does show some basilar infiltrates as well * Accelerated hypertension * Diabetes * Anemia secondary to ESRD * Chest pain Recommendations * Patient is status post urgent dialysis yesterday. Shortness of breath much improved * No indication for another dialysis treatment today. Plan to dialyze again tomorrow * Suspect a component of COPD accounting for her shortness of breath. Patient still continues to smoke * Patient undergoes dialysis on TTS schedule as outpatient * Adjust diet and meds for ESRD state * No IV, BP or venipuncture in her access arm * Procrit per protocol * Binders with meals * Adjust her antihypertensive meds Subjective Date of service: 07/30/18 Interval history: Patient is comfortable this morning. Shortness of breath much improved. No nausea or vomiting. Uneventful hemodialysis yesterday. 3 L of fluid was removed Objective - Vital Signs Vital signs: Vital Signs - 12hr 07/29/18 07/29/18 07/29/18 21:10 21:57 22:00 Temperature 97.8 F Pulse Rate 83 Pulse Rate [ 87 Anterior Bilateral Throughout] Pulse Rate [ Apical] Respiratory 18 Rate Respiratory 15 Rate [Anterior Bilateral Throughout] Respiratory 20 Rate [ Generalized] Blood Pressure 136/67 O2 Sat by Pulse 96 Oximetry 07/29/18 07/29/18 07/29/18 22:20 23:27 23:32 Temperature Pulse Rate 83 83 Pulse Rate [ Anterior Bilateral Throughout] Pulse Rate [ 83 Apical] Respiratory 20 Rate Respiratory Rate [Anterior Bilateral Throughout] Respiratory Rate [ Generalized] Blood Pressure 136/67 136/67 O2 Sat by Pulse 98 Oximetry 07/30/18 07/30/18 07/30/18 00:17 05:33 08:50 Temperature 98.2 F 97.7 F Pulse Rate 77 78 Pulse Rate [ 83 Anterior Bilateral Throughout] Pulse Rate [ Apical] Respiratory 20 18 Rate Respiratory 17 Rate [Anterior Bilateral Throughout] Respiratory Rate [ Generalized] Blood Pressure 172/80 156/78 O2 Sat by Pulse 91 98 Oximetry 07/30/18 08:51 Temperature Pulse Rate Pulse Rate [ 85 Anterior Bilateral Throughout] Pulse Rate [ Apical] Respiratory Rate Respiratory 17 Rate [Anterior Bilateral Throughout] Respiratory Rate [ Generalized] Blood Pressure O2 Sat by Pulse Oximetry - General Appearance General appearance: well-developed, well-nourished, appears stated age EENT: PERRL, mucous membranes moist Neck: no JVD, no thyromegaly, no carotid bruit, supple Respiratory: Present: Clear to Ascultation Cardiology: regular, normal heart rate, S1S2, no murmurs Gastrointestinal: normal, normoactive bowel sounds Integumentary: no rash, other (right upper arm AV graft) - Lab 07/30/18 05:04 07/30/18 05:04 Most recent lab results Calcium 8.5 mg/dL (8.4-10.2) 07/30/18 05:04 Magnesium 2.10 mg/dL (1.7-2.3) 07/29/18 05:34 Medications & Allergies - Medications Allergies/Adverse Reactions: Allergies gabapentin Allergy (Verified 03/04/18 04:31) Seizure labetalol Adverse Reaction (Verified 12/01/15 07:51) Unknown Home Medications: Home Medications Medication Instructions Recorded Confirmed Last Taken Type ALBUTEROL Inhaler(NF) [VENTOLIN 2 puff IH Q6HR PRN 06/29/18 07/29/18 07/15/18 History Inhaler(NF)] Diphenoxylate HCl/Atropine 1 tab PO QID PRN 06/29/18 07/29/18 07/15/18 History [Diphenoxylate-Atrop 2.5-0.025] Aspirin EC [Aspirin Enteric Coated 325 mg PO QDAY #30 tablet 07/03/18 07/29/18 07/15/18 Rx TAB] AtorvaSTATin [Lipitor] 40 mg PO QHS #30 tablet 07/03/18 07/29/18 07/15/18 Rx Losartan [Cozaar] 100 mg PO QDAY #30 tablet 07/03/18 07/29/18 07/15/18 Rx cloNIDine [Catapres] 0.2 mg PO BID #60 tablet 07/03/18 07/29/18 07/15/18 Rx Carvedilol [Coreg] 25 mg PO BID 07/22/18 07/29/18 Unknown History Clonidine HCl [Catapres] 0.3 mg PO BID 07/22/18 07/29/18 Unknown History Clopidogrel [Plavix] 75 mg PO QDAY 07/22/18 07/29/18 Unknown History ISOSORBIDE MONOnitrate [Imdur ER] 30 mg PO DAILY 07/22/18 07/29/18 Unknown History Losartan [Cozaar] 50 mg PO QDAY 07/22/18 07/29/18 Unknown History Nephro-Mary Rx Tablet 1 tab PO DAILY 07/22/18 07/29/18 Unknown History Sevelamer Carbonate [Renvela] 1 tab PO TID 07/22/18 07/29/18 Unknown History amLODIPine [Norvasc] 10 mg PO DAILY 07/22/18 07/29/18 Unknown History hydrALAZINE [Apresoline TAB] 50 mg PO Q8HR 07/22/18 07/29/18 Unknown History Chlorthalidone [Thalitone] 25 mg PO QDAY tablet 07/25/18 07/29/18 Unknown Rx ISOSORBIDE MONOnitrate [Imdur ER] 30 mg PO DAILY tablet 07/25/18 07/29/18 Unknown Rx NIFEdipine XL [Procardia Xl] 90 mg PO QDAY tablet 07/25/18 07/29/18 Unknown Rx Nystas/Diphen/Xyl Visc/Mylanta 15 ml PO TID 5 Days oral.liqd 07/25/18 07/29/18 Unknown Rx [Magic Mouthwash] Pantoprazole [Protonix TAB] 40 mg PO QDAY #30 tablet 07/25/18 07/29/18 Unknown Rx Active Medications: Generic Name Dose Route Start Last Admin Trade Name Freq PRN Reason Stop Dose Admin Acetaminophen 650 mg 07/29/18 09:00 Tylenol PO Q4H PRN Pain MILD(1-3)/Fever >100.5/ADLER Al Hydrox/Mg Hydrox/Simethicone 30 ml 07/29/18 09:00 Alum-Mag Hydrox-Simeth [id number]/5ml PO Q4H PRN Indigestion Albuterol 2.5 mg 07/29/18 09:55 Proventil IH Q6H PRN Shortness Of Breath Albuterol/Ipratropium 1 ampul 07/29/18 14:00 07/30/18 08:50 Duoneb *Not For Prn Use* IH 1 ampul Q6HRT [facility] Administration Aspirin 325 mg 07/29/18 10:00 07/29/18 14:28 Ecotrin PO 325 mg QDAY [facility] Administration Atorvastatin Calcium 40 mg 07/29/18 22:00 07/29/18 23:27 Lipitor PO 40 mg QHS [facility] Administration Chlorthalidone 25 mg 07/29/18 10:00 07/29/18 14:30 Thalitone PO 25 mg QDAY [facility] Administration Clonidine HCl 0.3 mg 07/29/18 10:00 07/29/18 23:27 Catapres PO 0.3 mg BID [facility] Administration Clopidogrel Bisulfate 75 mg 07/29/18 10:00 07/29/18 14:28 Plavix PO 75 mg QDAY [facility] Administration Cyclobenzaprine HCl 5 mg 07/29/18 18:59 07/29/18 19:41 Flexeril PO 5 mg Q8H PRN Administration Muscle Spasm Dextrose 50 ml 07/29/18 08:44 D50w (25gm) Syringe IV PRN PRN Hypoglycemia Diphenoxylate HCl/Atropine 1 tab 07/29/18 08:46 07/29/18 23:32 Lomotil PO 1 tab QID PRN Administration Diarrhea Heparin Sodium (Porcine) 5,000 unit 07/29/18 14:00 07/29/18 23:28 Heparin SUB-Q 5,000 unit Q8HR [facility] Administration Hydralazine HCl 20 mg 07/29/18 15:43 07/29/18 16:21 Apresoline IV 20 mg Q4HR PRN Administration Hypertension Hydralazine HCl 100 mg 07/29/18 19:00 07/29/18 23:32 Apresoline PO 100 mg Q8HR [facility] Administration Nitroglycerin/Dextrose 50 mg in 250 mls @ 3 mls/hr 07/29/18 05:29 07/29/18 06:52 Tridil Drip 50mg/250ml IV 08/01/18 16:48 180 mcg/min TITR ONE 54 mls/hr Titration Protocol 10 MCG/MIN Azithromycin 500 mg/ Sodium 250 mls @ 250 mls/hr 07/29/18 10:00 07/29/18 14:31 Chloride IV 250 mls/hr Q24HR [facility] Administration Protocol Ceftriaxone Sodium 2 gm in 100 mls @ 200 mls/hr 07/29/18 10:00 07/29/18 16:14 Rocephin/Ns 2 Gm/100 Ml IV 200 mls/hr Q24HR [facility] Administration Protocol Sodium Chloride 100 mls @ 999 mls/hr 07/29/18 09:04 Nacl 0.9% IV COTY PRN Hypotension Insulin Human Lispro 0 unit 07/29/18 11:30 07/30/18 08:49 Humalog SUB-Q Not Given ACHS [facility] Protocol Isosorbide Mononitrate 60 mg 07/29/18 19:00 Imdur PO DAILY [facility] Labetalol HCl 200 mg 07/29/18 10:00 07/29/18 23:27 Normodyne PO 200 mg BID [facility] Administration Lidocaine HCl 15 ml 07/29/18 14:00 07/29/18 23:34 Magic Mouthwash PO 15 ml TID [facility] Administration Losartan Potassium 50 mg 07/29/18 10:00 07/29/18 14:30 Cozaar PO 50 mg QDAY [facility] Administration Methylprednisolone Sodium Succinate 40 mg 07/29/18 09:00 07/29/18 23:29 Solu-Medrol IV 40 mg Q8HR [facility] Administration Multivit/Ca Carb/B Cmplx/FA/Prenat 1 cap 07/29/18 10:00 07/29/18 14:30 Renal Caps PO 1 cap QDAY [facility] Administration Nifedipine 90 mg 07/29/18 10:00 07/29/18 14:31 Procardia Xl PO 90 mg QDAY [facility] Administration Ondansetron HCl 4 mg 07/29/18 08:40 Zofran IV Q8H PRN Nausea And Vomiting Pantoprazole Sodium 40 mg 07/29/18 10:00 07/29/18 14:39 Protonix PO 40 mg QDAY [facility] Administration Senna 8.6 mg 07/29/18 10:00 07/30/18 00:26 Senokot PO Not Given Q12HR [facility] Sevelamer Carbonate 800 mg 07/29/18 12:00 07/29/18 17:18 Renvela PO 800 mg TIDWM [facility] Administration Sodium Chloride 10 ml 07/29/18 10:00 07/29/18 23:30 Sodium Chloride Flush Syringe 10 Ml IV 10 ml BID [facility] Administration Sodium Chloride 10 ml 07/29/18 08:40 Sodium Chloride Flush Syringe 10 Ml IV PRN PRN LINE FLUSH
[2018-07-30] MEDS ORDERED: NACL 0.9% 100 ML IV PRN ×2 (09:17→09:18)
[2018-07-30] MEDS ORDERED: COZAAR PO SCH (10:00)
--- NOTE | 2018-07-30 12:03 | Consultation ---
History of Present Illness Consult date: 07/30/18 Requesting physician: MARILU SHARP Reason for consult: COPD History of present illness: 63 y/o female, smoker, multiple admissions to the hospital in the past for missing HD and hypertensive emergency presents with the same presentation. Was thought to be in flash pulmonary edema. Placed on bipap and nitro given. I Mproved and had HD. Currently off floor for HD but nursing states that patient is now weaned off oxygen and has been stable. Stable to the point where she has been going outside to smoke. Past History Past Medical History: acute NC, CAD, COPD, ESRD, hypertension, hyperlipidemia Past Surgical History: Other (history of creation of dialysis access) Social history: smoking Family history: no significant family history Medications and Allergies Allergies Allergy/AdvReac Type Severity Reaction Status Date / Time gabapentin Allergy Seizure Verified 03/04/18 04:31 labetalol AdvReac Unknown Verified 12/01/15 07:51 Home Medications Medication Instructions Recorded Confirmed Last Taken Type ALBUTEROL Inhaler(NF) [VENTOLIN 2 puff IH Q6HR PRN 06/29/18 07/29/18 07/15/18 History Inhaler(NF)] Diphenoxylate HCl/Atropine 1 tab PO QID PRN 06/29/18 07/29/18 07/15/18 History [Diphenoxylate-Atrop 2.5-0.025] Aspirin EC [Aspirin Enteric Coated 325 mg PO QDAY #30 tablet 07/03/18 07/29/18 07/15/18 Rx TAB] AtorvaSTATin [Lipitor] 40 mg PO QHS #30 tablet 07/03/18 07/29/18 07/15/18 Rx Losartan [Cozaar] 100 mg PO QDAY #30 tablet 07/03/18 07/29/18 07/15/18 Rx cloNIDine [Catapres] 0.2 mg PO BID #60 tablet 07/03/18 07/29/18 07/15/18 Rx Carvedilol [Coreg] 25 mg PO BID 07/22/18 07/29/18 Unknown History Clonidine HCl [Catapres] 0.3 mg PO BID 07/22/18 07/29/18 Unknown History Clopidogrel [Plavix] 75 mg PO QDAY 07/22/18 07/29/18 Unknown History ISOSORBIDE MONOnitrate [Imdur ER] 30 mg PO DAILY 07/22/18 07/29/18 Unknown History Losartan [Cozaar] 50 mg PO QDAY 07/22/18 07/29/18 Unknown History Nephro-Mary Rx Tablet 1 tab PO DAILY 07/22/18 07/29/18 Unknown History Sevelamer Carbonate [Renvela] 1 tab PO TID 07/22/18 07/29/18 Unknown History amLODIPine [Norvasc] 10 mg PO DAILY 07/22/18 07/29/18 Unknown History hydrALAZINE [Apresoline TAB] 50 mg PO Q8HR 07/22/18 07/29/18 Unknown History Chlorthalidone [Thalitone] 25 mg PO QDAY tablet 07/25/18 07/29/18 Unknown Rx ISOSORBIDE MONOnitrate [Imdur ER] 30 mg PO DAILY tablet 07/25/18 07/29/18 Unknown Rx NIFEdipine XL [Procardia Xl] 90 mg PO QDAY tablet 07/25/18 07/29/18 Unknown Rx Nystas/Diphen/Xyl Visc/Mylanta 15 ml PO TID 5 Days oral.liqd 07/25/18 07/29/18 Unknown Rx [Magic Mouthwash] Pantoprazole [Protonix TAB] 40 mg PO QDAY #30 tablet 07/25/18 07/29/18 Unknown Rx Active Meds: Active Medications Acetaminophen (Tylenol) 650 mg PO Q4H PRN PRN Reason: Pain MILD(1-3)/Fever >100.5/ADLER Al Hydrox/Mg Hydrox/Simethicone (Alum-Mag Hydrox-Simeth [phone]/5ml) 30 ml PO Q4H PRN PRN Reason: Indigestion Albuterol (Proventil) 2.5 mg IH Q6H PRN PRN Reason: Shortness Of Breath Albuterol/Ipratropium (Duoneb *Not For Prn Use*) 1 ampul IH Q6HRT [facility] Last Admin: 07/30/18 08:50 Dose: 1 ampul Documented by: Aspirin (Ecotrin) 325 mg PO QDAY [facility] Last Admin: 07/29/18 14:28 Dose: 325 mg Documented by: Atorvastatin Calcium (Lipitor) 40 mg PO QHS [facility] Last Admin: 07/29/18 23:27 Dose: 40 mg Documented by: Chlorthalidone (Thalitone) 25 mg PO QDAY [facility] Last Admin: 07/29/18 14:30 Dose: 25 mg Documented by: Clonidine HCl (Catapres) 0.3 mg PO BID [facility] Last Admin: 07/29/18 23:27 Dose: 0.3 mg Documented by: Clopidogrel Bisulfate (Plavix) 75 mg PO QDAY [facility] Last Admin: 07/29/18 14:28 Dose: 75 mg Documented by: Cyclobenzaprine HCl (Flexeril) 5 mg PO Q8H PRN PRN Reason: Muscle Spasm Last Admin: 07/29/18 19:41 Dose: 5 mg Documented by: Dextrose (D50w (25gm) Syringe) 50 ml IV PRN PRN PRN Reason: Hypoglycemia Diphenoxylate HCl/Atropine (Lomotil) 1 tab PO QID PRN PRN Reason: Diarrhea Last Admin: 07/29/18 23:32 Dose: 1 tab Documented by: Heparin Sodium (Porcine) (Heparin) 5,000 unit SUB-Q Q8HR [facility] Last Admin: 07/29/18 23:28 Dose: 5,000 unit Documented by: Hydralazine HCl (Apresoline) 20 mg IV Q4HR PRN PRN Reason: Hypertension Last Admin: 07/29/18 16:21 Dose: 20 mg Documented by: Hydralazine HCl (Apresoline) 100 mg PO Q8HR [facility] Last Admin: 07/29/18 23:32 Dose: 100 mg Documented by: Azithromycin 500 mg/ Sodium (Chloride) 250 mls @ 250 mls/hr IV Q24HR [facility]; Protocol Last Admin: 07/29/18 14:31 Dose: 250 mls/hr Documented by: Ceftriaxone Sodium (Rocephin/Ns 2 Gm/100 Ml) 2 gm in 100 mls @ 200 mls/hr IV Q24HR [facility]; Protocol Last Admin: 07/29/18 16:14 Dose: 200 mls/hr Documented by: Sodium Chloride (Nacl 0.9%) 100 mls @ 999 mls/hr IV COTY PRN PRN Reason: Hypotension Sodium Chloride (Nacl 0.9%) 100 mls @ 999 mls/hr IV COTY PRN PRN Reason: Hypotension Sodium Chloride (Nacl 0.9%) 100 mls @ 999 mls/hr IV COTY PRN PRN Reason: Hypotension Insulin Human Lispro (Humalog) 0 unit SUB-Q ACHS [facility]; Protocol Last Admin: 07/30/18 08:49 Dose: Not Given Documented by: Isosorbide Mononitrate (Imdur) 60 mg PO DAILY [facility] Labetalol HCl (Normodyne) 200 mg PO BID [facility] Last Admin: 07/29/18 23:27 Dose: 200 mg Documented by: Lidocaine HCl (Magic Mouthwash) 15 ml PO TID [facility] Last Admin: 07/29/18 23:34 Dose: 15 ml Documented by: Losartan Potassium (Cozaar) 100 mg PO QDAY [facility] Methylprednisolone Sodium Succinate (Solu-Medrol) 40 mg IV Q8HR [facility] Last Admin: 07/29/18 23:29 Dose: 40 mg Documented by: Multivit/Ca Carb/B Cmplx/FA/Prenat (Renal Caps) 1 cap PO QDAY [facility] Last Admin: 07/29/18 14:30 Dose: 1 cap Documented by: Nifedipine (Procardia Xl) 90 mg PO QDAY [facility] Last Admin: 07/29/18 14:31 Dose: 90 mg Documented by: Ondansetron HCl (Zofran) 4 mg IV Q8H PRN PRN Reason: Nausea And Vomiting Pantoprazole Sodium (Protonix) 40 mg PO QDAY [facility] Last Admin: 07/29/18 14:39 Dose: 40 mg Documented by: Senna (Senokot) 8.6 mg PO Q12HR [facility] Last Admin: 07/30/18 00:26 Dose: Not Given Documented by: Sevelamer Carbonate (Renvela) 800 mg PO TIDWM [facility] Last Admin: 07/29/18 17:18 Dose: 800 mg Documented by: Sodium Chloride (Sodium Chloride Flush Syringe 10 Ml) 10 ml IV BID [facility] Last Admin: 07/29/18 23:30 Dose: 10 ml Documented by: Sodium Chloride (Sodium Chloride Flush Syringe 10 Ml) 10 ml IV PRN PRN PRN Reason: LINE FLUSH Physical Examination Vital signs: Vital Signs Pulse Ox 95 07/29/18 05:24 Results - Laboratory Findings CBC and BMP: 07/30/18 05:04 07/30/18 05:04 ABG POC ABG pH 7.365 (7.35-7.45) 07/29/18 08:26 POC ABG pCO2 41.1 (35-45) 07/29/18 08:26 POC ABG pO2 55 (80-105) L 07/29/18 08:26 POC ABG HCO3 23.5 (22-26 mml/L) 07/29/18 08:26 POC ABG Total CO2 25 (23-27mmol/L) 07/29/18 08:26 POC ABG O2 Sat 87 07/29/18 08:26 PT/INR, D-dimer PT 13.6 Sec. (12.2-14.9) 07/29/18 05:34 INR 0.98 (0.87-1.13) 07/29/18 05:34 Abnormal lab findings: Abnormal Labs 07/29/18 07/29/18 07/29/18 05:34 05:34 05:36 WBC 3.6 L RBC MCV 100 H RDW 18.6 H Lymph % (Auto) Lymph # Seg Neutrophils % POC ABG pO2 Sodium Potassium Chloride BUN 28 H Creatinine 7.9 H Glucose 152 H POC Glucose 163 H NT-Pro-B Natriuret Pep 82619 H 07/29/18 07/29/18 07/29/18 08:26 16:10 22:20 WBC RBC MCV RDW Lymph % (Auto) Lymph # Seg Neutrophils % POC ABG pO2 55 L Sodium Potassium Chloride BUN Creatinine Glucose POC Glucose 114 H 204 H NT-Pro-B Natriuret Pep 07/30/18 07/30/18 07/30/18 05:04 05:04 08:45 WBC 2.9 L RBC 3.45 L MCV 99 H RDW 18.5 H Lymph % (Auto) 11.5 L Lymph # 0.3 L Seg Neutrophils % 86.0 H POC ABG pO2 Sodium 132 L D Potassium 5.2 H Chloride 92.5 L BUN 25 H Creatinine 5.8 H Glucose 180 H POC Glucose 123 H NT-Pro-B Natriuret Pep - Diagnostic Findings Chest x-ray: image reviewed (Agree with trace edema in the perihilar region) Assessment and Plan 63 y/o female smoker admitted with acute respiratory failure secondary to volume overload and hypertensive emergency. 1. Smoking cessation 2. Continue PRN albuterol use 3. Respiratory failure has resolved 4. Will sign off, call if questions.
--- NOTE | 2018-07-30 13:01 | Progress Note ---
Assessment and Plan Assessment and plan: Patient is a 63 yo woman with a history of ESRD on HD TTS, COPD, hypertension, CAD s/p cardiac shent, dyslipidemia, pneumonia, systolic heart failure and NSVT who presented to [facility] ED with SOB and SBP >240mmhg. This is patient's 3rd or 4th hospitalization here since 06/20/18. Acute Hypoxic Respiratory Failure, with initial saturation saturation in the 70s: continue O2 COPD Exacerbation: pulmonology consulted, input noted Volume Overload s/p BIPAP Pneumonia: abx ESRD: Nerphrology [place] Hypertensive Emergency CAD S/P with Cardiac Cath which demonstrated a Stenosis of the LAD in the proximal and mid segments status post PTCA with drug-eluting stents ejection fraction of 55% Tobacco use PERSISTENT Recurrent admission History Interval history: Patient was seen and examined. Follow-up on current diagnosis of SOB. No overnight events reported to me. Patient denies any chest pain, nausea/vomiting or severe headaches. Imaging, nursing note, chart, labs and old chart reviewed. Discussed with patient. Hospitalist Physical - Physical exam Narrative exam: Gen: WDWN, NAD, Awake, Alert, Orientated HEENT: NCAT, EOMI, PERRL, OP Clear Neck: supple, no adenopathy, no thyromegaly, no JVD CVS/Heart: RRR, normal S1S2, pulses present bilaterally Chest/Lungs: diminished bs bilaterally, Symmetrical chest expansion, good air entry bilaterally GI/Abdomen: soft, NTND, good bowel sounds, no guarding or rebound /Bladder: no suprapubic tenderness, no CVA or paraspinal tenderness Extermity/Skin: no c/c/e, no obvious rash MSK: FROM x 4 Neuro: CN 2-12 grossly intact, no new focal deficits Psych: calm - Constitutional Vitals: Temp Pulse Resp BP Pulse Ox 97.2 F L 80 18 154/81 98 07/30/18 09:50 07/30/18 11:15 07/30/18 09:50 07/30/18 11:15 07/30/18 05:33 Results - Labs CBC & Chem 7: 07/30/18 05:04 07/30/18 05:04 Labs: Laboratory Last Values WBC 2.9 K/mm3 (4.5-11.0) L 07/30/18 05:04 RBC 3.45 M/mm3 (3.65-5.03) L 07/30/18 05:04 Hgb 11.0 gm/dl (10.1-14.3) 07/30/18 05:04 Hct 33.9 % (30.3-42.9) 07/30/18 05:04 MCV 99 fl (79-97) H 07/30/18 05:04 MCH 32 pg (28-32) 07/30/18 05:04 MCHC 32 % (30-34) 07/30/18 05:04 RDW 18.5 % (13.2-15.2) H 07/30/18 05:04 Plt Count 195 K/mm3 (140-440) 07/30/18 05:04 Lymph % (Auto) 11.5 % (13.4-35.0) L 07/30/18 05:04 Sawyer % (Auto) 2.2 % (0.0-7.3) 07/30/18 05:04 Eos % (Auto) 0.0 % (0.0-4.3) 07/30/18 05:04 Baso % (Auto) 0.3 % (0.0-1.8) 07/30/18 05:04 Lymph # 0.3 K/mm3 (1.2-5.4) L 07/30/18 05:04 Sawyer # 0.1 K/mm3 (0.0-0.8) 07/30/18 05:04 Eos # 0.0 K/mm3 (0.0-0.4) 07/30/18 05:04 Baso # 0.0 K/mm3 (0.0-0.1) 07/30/18 05:04 Seg Neutrophils % 86.0 % (40.0-70.0) H 07/30/18 05:04 Seg Neutrophils # 2.5 K/mm3 (1.8-7.7) 07/30/18 05:04 PT 13.6 Sec. (12.2-14.9) 07/29/18 05:34 INR 0.98 (0.87-1.13) 07/29/18 05:34 POC ABG pH 7.365 (7.35-7.45) 07/29/18 08:26 POC ABG pCO2 41.1 (35-45) 07/29/18 08:26 POC ABG pO2 55 (80-105) L 07/29/18 08:26 POC ABG HCO3 23.5 (22-26 mml/L) 07/29/18 08:26 POC ABG Total CO2 25 (23-27mmol/L) 07/29/18 08:26 POC ABG O2 Sat 87 07/29/18 08:26 POC ABG Base Excess -2 ((-2) - (+3)mmol/L) 07/29/18 08:26 35 % 07/29/18 08:26 Sodium 132 mmol/L (137-145) L D 07/30/18 05:04 Potassium 5.2 mmol/L (3.6-5.0) H 07/30/18 05:04 Chloride 92.5 mmol/L (98-107) L 07/30/18 05:04 Carbon Dioxide 26 mmol/L (22-30) 07/30/18 05:04 19 mmol/L 07/30/18 05:04 BUN 25 mg/dL (7-17) H 07/30/18 05:04 5.8 mg/dL (0.7-1.2) H 07/30/18 05:04 Estimated GFR 9 ml/min 07/30/18 05:04 4 % 07/30/18 05:04 Glucose 180 mg/dL (65-100) H 07/30/18 05:04 POC Glucose 123 (70-105) H 07/30/18 08:45 Calcium 8.5 mg/dL (8.4-10.2) 07/30/18 05:04 Magnesium 2.10 mg/dL (1.7-2.3) 07/29/18 05:34 71 units/L (30-135) 07/29/18 05:34 0.016 ng/mL (0.00-0.029) 07/29/18 05:34 NT-Pro-B Natriuret Pep 02668 pg/mL (0-900) H 07/29/18 05:34 Active Medications - Current Medications Current Medications: Generic Name Dose Route Start Last Admin Trade Name Freq PRN Reason Stop Dose Admin Acetaminophen 650 mg 07/29/18 09:00 Tylenol PO Q4H PRN Pain MILD(1-3)/Fever >100.5/ADLER Al Hydrox/Mg Hydrox/Simethicone 30 ml 07/29/18 09:00 Alum-Mag Hydrox-Simeth 465-610-44js/5ml PO Q4H PRN Indigestion Albuterol 2.5 mg 07/29/18 09:55 Proventil IH Q6H PRN Shortness Of Breath Albuterol/Ipratropium 1 ampul 07/29/18 14:00 07/30/18 08:50 Duoneb *Not For Prn Use* IH 1 ampul Q6HRT DIAMOND Administration Aspirin 325 mg 07/29/18 10:00 07/29/18 14:28 Ecotrin PO 325 mg QDAY DIAMOND Administration Atorvastatin Calcium 40 mg 07/29/18 22:00 07/29/18 23:27 Lipitor PO 40 mg QHS DIAMOND Administration Azithromycin 500 mg 07/31/18 10:00 Zithromax PO QDAY DIAMOND Chlorthalidone 25 mg 07/29/18 10:00 07/29/18 14:30 Thalitone PO 25 mg QDAY DIAMOND Administration Clonidine HCl 0.3 mg 07/29/18 10:00 07/29/18 23:27 Catapres PO 0.3 mg BID DIAMOND Administration Clopidogrel Bisulfate 75 mg 07/29/18 10:00 07/29/18 14:28 Plavix PO 75 mg QDAY DIAMOND Administration Cyclobenzaprine HCl 5 mg 07/29/18 18:59 07/29/18 19:41 Flexeril PO 5 mg Q8H PRN Administration Muscle Spasm Dextrose 50 ml 07/29/18 08:44 D50w (25gm) Syringe IV PRN PRN Hypoglycemia Diphenoxylate HCl/Atropine 1 tab 07/29/18 08:46 07/29/18 23:32 Lomotil PO 1 tab QID PRN Administration Diarrhea Heparin Sodium (Porcine) 5,000 unit 07/29/18 14:00 07/29/18 23:28 Heparin SUB-Q 5,000 unit Q8HR DIAMOND Administration Hydralazine HCl 20 mg 07/29/18 15:43 07/29/18 16:21 Apresoline IV 20 mg Q4HR PRN Administration Hypertension Hydralazine HCl 100 mg 07/29/18 19:00 07/29/18 23:32 Apresoline PO 100 mg Q8HR DIAMOND Administration Azithromycin 500 mg/ Sodium 250 mls @ 250 mls/hr 07/29/18 10:00 07/29/18 14:31 Chloride IV 07/30/18 20:00 250 mls/hr Q24HR DIAMOND Administration Protocol Ceftriaxone Sodium 2 gm in 100 mls @ 200 mls/hr 07/29/18 10:00 07/29/18 16:14 Rocephin/Ns 2 Gm/100 Ml IV 200 mls/hr Q24HR DIAMOND Administration Protocol Sodium Chloride 100 mls @ 999 mls/hr 07/29/18 09:04 Nacl 0.9% IV COTY PRN Hypotension Sodium Chloride 100 mls @ 999 mls/hr 07/30/18 09:17 Nacl 0.9% IV COTY PRN Hypotension Sodium Chloride 100 mls @ 999 mls/hr 07/30/18 09:18 Nacl 0.9% IV COTY PRN Hypotension Insulin Human Lispro 0 unit 07/29/18 11:30 07/30/18 08:49 Humalog SUB-Q Not Given A[facility]S [facility] Protocol Isosorbide Mononitrate 60 mg 07/29/18 19:00 Imdur PO DAILY DIAMOND Labetalol HCl 200 mg 07/29/18 10:00 07/29/18 23:27 Normodyne PO 200 mg BID DIAMOND Administration Lidocaine HCl 15 ml 07/29/18 14:00 07/29/18 23:34 Magic Mouthwash PO 15 ml TID DIAMOND Administration Losartan Potassium 100 mg 07/30/18 10:00 Cozaar PO QDAY DIAMOND Methylprednisolone Sodium Succinate 40 mg 07/29/18 09:00 07/29/18 23:29 Solu-Medrol IV 40 mg Q8HR DIAMOND Administration Multivit/Ca Carb/B Cmplx/FA/Prenat 1 cap 07/29/18 10:00 07/29/18 14:30 Renal Caps PO 1 cap QDAY DIAMOND Administration Nifedipine 90 mg 07/29/18 10:00 07/29/18 14:31 Procardia Xl PO 90 mg QDAY DIAMOND Administration Ondansetron HCl 4 mg 07/29/18 08:40 Zofran IV Q8H PRN Nausea And Vomiting Pantoprazole Sodium 40 mg 07/29/18 10:00 07/29/18 14:39 Protonix PO 40 mg QDAY DIAMOND Administration Senna 8.6 mg 07/29/18 10:00 07/30/18 00:26 Senokot PO Not Given Q12HR DIAMOND Sevelamer Carbonate 800 mg 07/29/18 12:00 07/29/18 17:18 Renvela PO 800 mg TIDWM DIAMOND Administration Sodium Chloride 10 ml 07/29/18 10:00 07/29/18 23:30 Sodium Chloride Flush Syringe 10 Ml IV 10 ml BID DIAMOND Administration Sodium Chloride 10 ml 07/29/18 08:40 Sodium Chloride Flush Syringe 10 Ml IV PRN PRN LINE FLUSH
[2018-07-30] MEDS ORDERED: NACL 0.9 (PRIMING MACHINE ONLY DIALYSIS) MC ONE (13:34)
[2018-07-30 14:52] VITALS: BP 126/82
--- NOTE | 2018-07-30 15:01 | Discharge Summary ---
Providers - Providers Date of Admission: 07/29/18 08:23 Date of discharge: 07/30/18 Attending physician: KATHERINE CHARLES 07/29/18 08:11 Consult to Physician [CONS] Routine Comment: Consulting Provider: RAHEEM GOYAL Physician Instructions: Reason For Exam: Volume overload 07/29/18 16:12 Consult to Physician [CONS] Routine Comment: Consulting Provider: BRYANT MIX Physician Instructions: Reason For Exam: respiratory failure ?COPD Primary care physician: VALVE LAPPER Hospitalization Condition: Stable Hospital course: Patient is a 63 yo woman with a history of ESRD on HD TTS, COPD, hypertension, CAD s/p cardiac shent, dyslipidemia, pneumonia, systolic heart failure and NSVT who presented to [facility] ED with SOB and SBP >240mmhg. This is patient's 3rd or 4th hospitalization here since 06/20/18. It appears patient missed hemodialysis and went into flash p.edema. After dialysis, her symptoms improved, as evident by patient leaving the hospital twice with IV in her neck. She has left twice and code Walker was called. She is not on O2 and 6 minute walk was >90%. Pulmonology has signed off. * pCXR reported enlarge heart, bilateral perihilar and lower lobe infiltrates Acute Hypoxic Respiratory Failure, with initial saturation saturation in the 70s: continue O2 COPD Exacerbation: pulmonology consulted, input noted Pulmonary Edema Volume Overload s/p BIPAP Ruled out Pneumonia, the infiltrates are more p. edema than pneumonia ESRD on hemodialysis: Nerphrology following Hypertensive Emergency; helped by HD h/o CAD S/P with Cardiac Cath which demonstrated a Stenosis of the LAD in the proximal and mid segments status post PTCA with drug-eluting stents ejection fraction of 55% Tobacco use PERSISTENT; she is leaving the hospital to smoke, counseling done Recurrent admission, she declined SNF at this time Main issue is non-adherence to medical recommendations, counseling done, patient voiced understanding but not agreement Disposition: DC-[id number] TO HOME OR SELFCARE Time spent for discharge: 35 minutes Core Measure Documentation - Palliative Care Palliative Care/ Comfort Measures: Not Applicable - Core Measures Any of the following diagnoses?: none - VTE Discharge Requirements Deep Vein Thrombosis/Pulmonary Embolism Present on Admission: No Has pt received <5 days of overlap therapy or INR<2.0: No Anticoagulant overlap therapy prescribed at discharge: No Contraindication No Overlap Therapy order at DC: Not Indicated Exam - Physical Exam Narrative exam: Gen: WDWN, NAD, Awake, Alert, Orientated HEENT: NCAT, EOMI, PERRL, OP Clear Neck: supple, no adenopathy, no thyromegaly, no JVD CVS/Heart: RRR, normal S1S2, pulses present bilaterally Chest/Lungs: diminished bs bilaterally, Symmetrical chest expansion, good air entry bilaterally GI/Abdomen: soft, NTND, good bowel sounds, no guarding or rebound /Bladder: no suprapubic tenderness, no CVA or paraspinal tenderness Extermity/Skin: no c/c/e, no obvious rash MSK: FROM x 4 Neuro: CN 2-12 grossly intact, no new focal deficits Psych: calm - Constitutional Vitals: Temp Pulse Resp BP Pulse Ox 98.2 F 68 18 126/82 98 07/30/18 14:00 07/30/18 14:00 07/30/18 14:00 07/30/18 14:00 07/30/18 05:33 Plan Activity: other (no strenous activity) Diet: renal Special Instructions: smoking cessation Follow up with: PRIMARY CAREMD [Primary Care Provider] - 3-5 Days RAHEEM GOYAL MD [Staff Physician] - 7 Days
[2018-07-30] MEDS: Renal Caps PO SCH (15:52)
[2018-07-30] MEDS: RENVELA PO SCH ×2 (15:52→17:24)
[2018-07-30] MEDS: THALITONE PO SCH (15:52)
[2018-07-30] MEDS: ECOTRIN PO SCH (15:53)
[2018-07-30] MEDS: PROTONIX PO SCH (15:53)
[2018-07-30] MEDS: PLAVIX PO SCH (15:53)
[2018-07-30] MEDS: FLEXERIL PO PRN (16:04)
[2018-07-30] MEDS: CATAPRES PO SCH (16:05)
[2018-07-30] MEDS: APRESOLINE PO SCH ×2 (16:06→17:25)
[2018-07-30] MEDS: ZITHROMAX 500 MG in NACL 0.9% 250ML 250 ML IV SCH (17:19)
[2018-07-30] MEDS: ROCEPHIN/NS 2 GM/100 ML 2 GM/100 ML BAG IV SCH (17:20)
[2018-07-30] MEDS: NORMODYNE PO SCH (17:22)
[2018-07-30] MEDS: SOLU-Medrol IV SCH (17:23)
[2018-07-30] MEDS: MAGIC MOUTHWASH PO SCH (17:23)
[2018-07-30] MEDS: PROCARDIA XL PO SCH (17:23)
[2018-07-31] MEDS ORDERED: ZITHROMAX PO SCH (10:00)
== END 2018-07-30 16:25 | disposition home or self-care (01) | DRG 189 ==
LOC: ED 05:18 → 3A 08:23
PROVIDERS: ADMIT Internal Medicine; ATTEND Internal Medicine
PROC: 4A033R1 Measurement of Arterial Saturation, Peripheral, Percutaneous Approach (ICD-10-PCS; principal; 2018-07-29)
PROC: 5A1D70Z Performance of Urinary Filtration, Intermittent, Less than 6 Hours Per Day (ICD-10-PCS; 2018-07-29)
PROC: 5A09357 Assistance with Respiratory Ventilation, Less than 24 Consecutive Hours, Continuous Positive Airway Pressure (ICD-10-PCS; 2018-07-29)
PROC: 5A1D70Z Performance of Urinary Filtration, Intermittent, Less than 6 Hours Per Day (ICD-10-PCS; 2018-07-30)
DX: J96.01 Acute respiratory failure with hypoxia (principal); N18.6 End stage renal disease; I16.1 Hypertensive emergency; J44.1 Chronic obstructive pulmonary disease with (acute) exacerbation; I50.20 Unspecified systolic (congestive) heart failure; I13.2 Hypertensive heart and chronic kidney disease with heart failure and with stage 5 chronic kidney disease, or end stage renal disease; I25.10 Atherosclerotic heart disease of native coronary artery without angina pectoris; F17.200 Nicotine dependence, unspecified, uncomplicated; D63.1 Anemia in chronic kidney disease; E87.70 Fluid overload, unspecified; M19.90 Unspecified osteoarthritis, unspecified site; E11.22 Type 2 diabetes mellitus with diabetic chronic kidney disease; Z99.2 Dependence on renal dialysis; Z95.5 Presence of coronary angioplasty implant and graft; Z87.01 Personal history of pneumonia (recurrent); Z71.6 Tobacco abuse counseling; I25.2 Old myocardial infarction; Z79.82 Long term (current) use of aspirin; Z79.899 Other long term (current) drug therapy; Z87.442 Personal history of urinary calculi; Z90.49 Acquired absence of other specified parts of digestive tract; Z91.14 Patient's other noncompliance with medication regimen; Z71.89 Other specified counseling
CPT/HCPCS: 36415; 71045; 80048; 82550; 82803; 82962; 83735; 83880; 84484; 85025; 85027; 85610; 87116; 93005; 93010; 94640; 94760; 96365; 96367; G0378; A9270-GY; J0360; J0456; J0692; J0696; J1644; J1815; J2060; J2920; J7030; J7050

== ENCOUNTER 2018-08-06 18:06 | Emergency (ER) | payer MEDICARE ==
[2018-08-06 18:46] VITALS: BP 161/104
[2018-08-06] MEDS ORDERED: ASPIRIN PO ONE (18:47)
--- NOTE | 2018-08-06 18:48 | Emergency Department Report ---
Chief Complaint: Chest Pain Stated Complaint: CHEST PAIN/TYRA Time Seen by Provider: 08/06/18 18:44 - HPI History of Present Illness: This is a 63 y.o. female that reports to the ER with SOB, chest pain, and headache. PMH: ESRD on dialysis, COPD, HTN, AL Patient states she attempt to clean up overflowing water from toilet. She was discharged from this hospital with pneumonia this month. - Exam Vital Signs: Vital Signs 08/06/18 18:44 Temperature 97.6 F Pulse Rate 72 Respiratory 20 Rate Blood Pressure 161/104 O2 Sat by Pulse 100 Oximetry MSE screening note: Focused history and physical exam performed. Due to findings the following was ordered: labs and cxr ED Disposition for MSE Condition: Stable
[2018-08-06 19:35] LABS: Basophils % (Auto) 0.7 % (0.0-1.8); Eosinophils # (Auto) 0.1 K/mm3 (0.0-0.4); Eosinophils % (Auto) 2.3 % (0.0-4.3); Hemoglobin 11.3 gm/dl (10.1-14.3); Lymphocytes # (Auto) 0.9 K/mm3 (1.2-5.4); Lymphocytes % (Auto) 21.3 % (13.4-35.0); Mean Corpuscular HGB Conc 32 % (30-34); Mean Corpuscular Volume 103 fl (79-97); Monocytes # (Auto) 0.5 K/mm3 (0.0-0.8); Monocytes % (Auto) 12.1 % (0.0-7.3); Platelet Count 208 K/mm3 (140-440); Red Blood Count 3.42 M/mm3 (3.65-5.03); Red Cell Distribution Width 18.9 % (13.2-15.2)
[2018-08-06 19:58] LABS: Calcium 8.2 mg/dL (8.4-10.2)
== END 2018-08-06 19:30 | disposition left against medical advice (07) ==
LOC: ED 18:06
DX: R06.00 Dyspnea, unspecified (principal); R07.89 Other chest pain; Z53.21 Procedure and treatment not carried out due to patient leaving prior to being seen by health care provider
CPT/HCPCS: 36415; 80048; 84484; 85025; 93005; 93010

== ENCOUNTER 2018-08-14 21:20 | Inpatient (IN) | payer MEDICARE ==
[2018-08-14] MEDS ORDERED: ATROVENT IH ONE (21:49)
[2018-08-14] MEDS ORDERED: PROVENTIL IH ONE (21:49)
[2018-08-14] MEDS ORDERED: SOLU-Medrol IV ONE (21:49)
[2018-08-14 22:11] LABS: Basophils % (Auto) 0.5 % (0.0-1.8); Eosinophils # (Auto) 0.1 K/mm3 (0.0-0.4); Eosinophils % (Auto) 1.9 % (0.0-4.3); Hematocrit 32.5 % (30.3-42.9); Hemoglobin 10.8 gm/dl (10.1-14.3); Lymphocytes # (Auto) 0.8 K/mm3 (1.2-5.4); Lymphocytes % (Auto) 20.8 % (13.4-35.0); Mean Corpuscular HGB Conc 33 % (30-34); Mean Corpuscular Volume 97 fl (79-97); Monocytes # (Auto) 0.4 K/mm3 (0.0-0.8); Monocytes % (Auto) 9.7 % (0.0-7.3); Platelet Count 162 K/mm3 (140-440); Red Blood Count 3.36 M/mm3 (3.65-5.03); Red Cell Distribution Width 17.5 % (13.2-15.2)
[2018-08-14] MEDS ORDERED: APRESOLINE IV ONE (22:14)
--- NOTE | 2018-08-14 22:17 | Emergency Department Report ---
HPI - General Chief Complaint: Dyspnea/Respdistress Time Seen by Provider: 08/14/18 21:42 - HPI HPI: 63-year-old -[place] female presents to the emergency department via EMS with a complaint of shortness of breath, wheezing that started this evening. The patient says that she was laying down watching television when she felt like she was unable to catch her breath. She tried using her albuterol inhalers and nebulizers at home without any relief. She has a past medical history of asthma, CHF, diabetes, hypertension and end-stage renal disease on hemodialysis on Sunday//Sunday. She denies missing any recent hemodialysis sessio ns. The patient was just recently admitted and discharged from this hospital a few days ago for similar symptoms. No recent travel. Her nephrology group is Dr. Moss/Jose. ED Past Medical Hx - Past Medical History Previous Medical History?: Yes Hx Hypertension: Yes Hx Congestive Heart Failure: Yes Hx Diabetes: Yes Hx Renal Disease: Yes (w/ HD Sunday, , Sunday) Hx Arthritis: Yes Hx Kidney Stones: Yes Hx Asthma: Yes Hx COPD: Yes Hx HIV: No Additional medical history: heart murmur - Surgical History Past Surgical History?: Yes Hx Coronary Stent: Yes Hx Cholecystectomy: (gallstones removed) Additional Surgical History: Fistula Left Upper arm.--old. fistula right upper arm. bowel obstruction - Social History Smoking Status: Never Smoker Substance Use Type: None - Medications Home Medications: Home Medications Medication Instructions Recorded Confirmed Last Taken Type ALBUTEROL Inhaler(NF) [VENTOLIN 2 puff IH Q6HR PRN 06/29/18 08/08/18 07/15/18 History Inhaler(NF)] Clonidine HCl [Catapres] 0.3 mg PO BID 07/22/18 08/08/18 Unknown History Losartan [Cozaar] 50 mg PO QDAY 07/22/18 08/08/18 Unknown History ISOSORBIDE MONOnitrate [Imdur ER] 30 mg PO DAILY tablet 07/25/18 08/08/18 Unknown Rx Aspirin EC 325 mg PO QDAY #30 tablet 08/11/18 Unknown Rx AtorvaSTATin [Lipitor] 40 mg PO QHS #30 tablet 08/11/18 Unknown Rx Carvedilol [Coreg] 25 mg PO BID #60 tablet 08/11/18 Unknown Rx Cefuroxime Axetil [Ceftin] 500 mg PO Q12H #14 ml 08/11/18 Unknown Rx Chlorthalidone [Thalitone] 25 mg PO QDAY #30 tablet 08/11/18 Unknown Rx Clopidogrel [Plavix] 75 mg PO QDAY #30 tablet 08/11/18 Unknown Rx Diphenoxylate/Atropine [Lomotil] 1 tab PO QID PRN tablet 08/11/18 Unknown Rx ISOSORBIDE MONOnitrate [Imdur ER] 30 mg PO DAILY #30 tablet 08/11/18 Unknown Rx Losartan [Cozaar] 100 mg PO QDAY #30 tablet 08/11/18 Unknown Rx NIFEdipine XL [Procardia Xl] 90 mg PO QDAY #30 tablet 08/11/18 Unknown Rx Nephro-Mary Rx Tablet 1 tab PO DAILY #30 08/11/18 Unknown Rx Nystas/Diphen/Xyl Visc/Mylanta 15 ml PO TID 5 Days oral.liqd 08/11/18 Unknown Rx [Magic Mouthwash] Pantoprazole [Protonix TAB] 40 mg PO QDAY #30 tablet 08/11/18 Unknown Rx Sevelamer Carbonate [Renvela] 1 tab PO TID #90 tablet 08/11/18 Unknown Rx amLODIPine [Norvasc] 10 mg PO DAILY #30 tablet 08/11/18 Unknown Rx cefUROXime [Ceftin] 500 mg PO Q12H #14 tablet 08/11/18 Unknown Rx cloNIDine [Catapres] 0.2 mg PO BID #60 tablet 08/11/18 Unknown Rx hydrALAZINE [Apresoline TAB] 50 mg PO Q8HR #90 tablet 08/11/18 Unknown Rx ED Review of Systems ROS: Stated complaint: CHEST PAIN/SOB Other details as noted in HPI Constitutional: denies: chills, fever Eyes: denies: eye pain, vision change ENT: denies: ear pain, throat pain Respiratory: cough, shortness of breath, wheezing Cardiovascular: denies: chest pain, palpitations Gastrointestinal: denies: abdominal pain, vomiting Genitourinary: denies: dysuria, discharge Musculoskeletal: denies: back pain, arthralgia Skin: denies: rash, lesions Neurological: denies: headache, weakness Physical Exam - Physical Exam Vital Signs: Vital Signs 08/14/18 08/14/18 21:27 21:55 Temperature 98 F 98.0 F Pulse Rate 92 H 86 Respiratory 26 H 32 H Rate Blood Pressure 206/93 Blood Pressure 220/99 [Left] O2 Sat by Pulse 94 90 Oximetry Physical Exam: GENERAL: The patient is well-developed well-nourished. HENT: Normocephalic. Atraumatic. Patient has moist mucous membranes. EYES: Extraocular motions are intact. Pupils equal reactive to light bilaterally. NECK: Supple. Trachea is midline. CHEST/LUNGS: Coarse breath sounds throughout the chest. There is wheezing heard. Tachypnea, accessory muscle use, and conversational dyspnea There is some respiratory distress noted. HEART/CARDIOVASCULAR: Regular. There is no tachycardia. There is no murmur. ABDOMEN: Abdomen is soft, nontender. Patient has normal bowel sounds. There is no abdominal distention. SKIN: Skin is warm and dry. NEURO: The patient is awake, alert, and cooperative. The patient has no focal neurologic deficits. The patient has normal speech. MUSCULOSKELETAL: There is no tenderness or deformity. There is no evidence of acute injury. ED Course Vital Signs 08/14/18 08/14/18 21:27 21:55 Temperature 98 F 98.0 F Pulse Rate 92 H 86 Respiratory 26 H 32 H Rate Blood Pressure 206/93 Blood Pressure 220/99 [Left] O2 Sat by Pulse 94 90 Oximetry - Consultations Consultation #1: 08/14/18 23:[address] Lee, legal operations manager for the patient's nephrology group. She listened to the case presentation and will see the patient as a consult and arrange for dialysis to be done first thing in the AM, but did ask to be updated if there is any worsening of the patients condition. ED Medical Decision Making - Lab Data Result diagrams: 08/14/18 22:03 08/14/18 22:03 - EKG Data -: EKG Interpreted by Me EKG shows normal: sinus rhythm, axis (left axis deviation), intervals (prolonged NC interval), QRS complexes (history of the anterior leads), ST-T waves (there is some flattening of the lateral T waves) Rate: normal - EKG Data When compared to previous EKG there are: no significant change Interpretation: unchanged when compared t (08/06/18) - Radiology Data Radiology results: image reviewed interpreted by me: Chest x-ray shows pulmonary vascular congestion, pulmonary edema, and some mild wheezing or pleural effusions. - Medical Decision Making This patient presents with some acute shortness of breath that started this evening. She has both rales and bronchospasm. On auscultation. The patient has tachypnea, accessory muscle use and conversational dyspnea. She was given breathing treatments, steroids and placed on BiPAP. The patient is tolerating the BiPAP well and it has improved her work of breathing and respiratory status. Chest x-ray appears consistent with some volume overload. The patient presents with extremely elevated blood pressure. It came down to a more reasonable level with a dose of hydralazine. Labs are grossly unremarkable. Nephrology has been contacted and consulted. The patient will be admitted to the hospital for further evaluation and treatment was except for admission by the hospitalist, Dr. Luna. - Differential Diagnosis COPD, CHF, Pneumonia, Dysrythmia Critical Care Time: Yes Critical care time in (mins) excluding proc time.: 35 Critical care attestation.: If time is entered above; I have spent that time in minutes in the direct care of this critically ill patient, excluding procedure time. Critical care time was spent on this patient during her initial evaluation, multiple re- evaluations, ordering an interpretation of labs and imaging, discussion with the center director and hospitalist services. Critical Care Time: 35 minutes ED Disposition Clinical Impression: Respiratory distress, Shortness of breath, Accelerated essential hypertension, ESRD (end stage renal disease) on dialysis Congestive heart failure (CHF) Qualifiers: Heart failure type: unspecified Heart failure chronicity: acute on chronic Qualified Code(s): I50.9 - Heart failure, unspecified Disposition: OP ADMIT IP TO THIS HOSP Is pt being admited?: Yes Condition: Serious Instructions: Hypertension (ED) Time of Disposition: 00:34
[2018-08-14 22:24] LABS: INR 1.03 (0.87-1.13); Partial Thromboplastin Time 31.1 Sec. (24.2-36.6)
[2018-08-14] MEDS ORDERED: MORPHINE IV ONE (22:33)
[2018-08-14 22:43] LABS: Calcium 8.1 mg/dL (8.4-10.2)
--- NOTE | 2018-08-14 23:28 | XRay Report ---
PROCEDURE: XR ABDOMEN 2V TECHNIQUE: Abdominal radiograph, single view. HISTORY: abd pain COMPARISONS: None . FINDINGS: Bowel gas pattern: Nonobstructive . Masses or calcifications: None . Bony structures: No significant abnormality . Other: None . IMPRESSION: No acute abnormality. This document is electronically signed by Lexi Urrutia DO., Aug 14 2018 11:26:35 PM ET
--- NOTE | 2018-08-14 23:28 | XRay Report ---
PROCEDURE: XR CHEST 1V AP TECHNIQUE: Chest radiograph single view. HISTORY: Dyspnea COMPARISONS: August 08, 2018 . FINDINGS: Heart: The heart is enlarged. Mediastinum/Vessels: Normal. Lungs/Pleural space: There is bilateral perihilar pulmonary edema. There is a small left pleural eff usion. There are no pneumothoraces. The lungs are well expanded.. Bony thorax: No acute osseous abnormality. Life support devices: None. IMPRESSION: The heart is enlarged. There is bilateral perihilar pulmonary edema. There is a small left pleural effusion. There are no pn eumothoraces. The lungs are well expanded... This document is electronically signed by Pedrito Oliva MD., Aug 14 2018 11:26:00 PM ET
--- NOTE | 2018-08-15 00:11 | Event Note ---
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
[2018-08-15] MEDS ORDERED: TYLENOL PO PRN (00:29)
[2018-08-15] MEDS ORDERED: AMBIEN PO PRN (00:29)
[2018-08-15] MEDS ORDERED: SODIUM CHLORIDE FLUSH SYRINGE 10 ML IV PRN (00:29)
[2018-08-15] MEDS ORDERED: ZOFRAN IV PRN (00:29)
--- NOTE | 2018-08-15 01:41 | History and Physical Report ---
History of Present Illness Date of examination: 08/15/18 Date of admission: 08/15/18 00:29 Chief complaint: Shortness of breath History of present illness: Present is a 63-year-old -[place] female with history of ESRD on HD and COPD who presented to the ED on account of a few hours history of worsening shortness of breath. The patient stated that she was laying down watching television when she felt like she was unable to catch her breath. She tried us ing her nebulizers at home without any relief. She has associated chest pain, cough productive of whitish sputum diaphoresis, palpitation, feet swelling and orthopnea. She also has positive history of headaches, nausea without vomiting and generalized abdominal pain. No lightheadedness, syncope or loss of consciousness. Of note, patient has had multiple recent hospital admissions for same complaint. She denies missing her dialysis. Past History Past Medical History: arthritis, CAD, COPD, diabetes, dialysis, ESRD, hypertension, hyperlipidemia Past Surgical History: Other (cardiac stent placement, dialysis catheter placement) Social history: smoking (patient is smoked cigarettes for about 20 years but quit 1 month ago. She denies current alcohol or illicit drug use) Family history: other (reviewed and noncontributory to renal disease or COPD) Medications and Allergies Allergies Allergy/AdvReac Type Severity Reaction Status Date / Time gabapentin Allergy Seizure Verified 08/06/18 18:29 labetalol AdvReac Unknown Verified 08/06/18 18:29 Home Medications Medication Instructions Recorded Confirmed Last Taken Type ALBUTEROL Inhaler(NF) [VENTOLIN 2 puff IH Q6HR PRN 06/29/18 08/08/18 07/15/18 History Inhaler(NF)] Clonidine HCl [Catapres] 0.3 mg PO BID 07/22/18 08/08/18 Unknown History Losartan [Cozaar] 50 mg PO QDAY 07/22/18 08/08/18 Unknown History ISOSORBIDE MONOnitrate [Imdur ER] 30 mg PO DAILY tablet 07/25/18 08/08/18 Unknown Rx Aspirin EC 325 mg PO QDAY #30 tablet 08/11/18 Unknown Rx AtorvaSTATin [Lipitor] 40 mg PO QHS #30 tablet 08/11/18 Unknown Rx Carvedilol [Coreg] 25 mg PO BID #60 tablet 08/11/18 Unknown Rx Cefuroxime Axetil [Ceftin] 500 mg PO Q12H #14 ml 08/11/18 Unknown Rx Chlorthalidone [Thalitone] 25 mg PO QDAY #30 tablet 08/11/18 Unknown Rx Clopidogrel [Plavix] 75 mg PO QDAY #30 tablet 08/11/18 Unknown Rx Diphenoxylate/Atropine [Lomotil] 1 tab PO QID PRN tablet 08/11/18 Unknown Rx ISOSORBIDE MONOnitrate [Imdur ER] 30 mg PO DAILY #30 tablet 08/11/18 Unknown Rx Losartan [Cozaar] 100 mg PO QDAY #30 tablet 08/11/18 Unknown Rx NIFEdipine XL [Procardia Xl] 90 mg PO QDAY #30 tablet 08/11/18 Unknown Rx Nephro-Mary Rx Tablet 1 tab PO DAILY #30 08/11/18 Unknown Rx Nystas/Diphen/Xyl Visc/Mylanta 15 ml PO TID 5 Days oral.liqd 08/11/18 Unknown Rx [Magic Mouthwash] Pantoprazole [Protonix TAB] 40 mg PO QDAY #30 tablet 08/11/18 Unknown Rx Sevelamer Carbonate [Renvela] 1 tab PO TID #90 tablet 08/11/18 Unknown Rx amLODIPine [Norvasc] 10 mg PO DAILY #30 tablet 08/11/18 Unknown Rx cefUROXime [Ceftin] 500 mg PO Q12H #14 tablet 08/11/18 Unknown Rx cloNIDine [Catapres] 0.2 mg PO BID #60 tablet 08/11/18 Unknown Rx hydrALAZINE [Apresoline TAB] 50 mg PO Q8HR #90 tablet 08/11/18 Unknown Rx Active Meds: Active Medications Acetaminophen (Tylenol) 650 mg PO Q4H PRN PRN Reason: Pain MILD(1-3)/Fever >100.5/ADLER Heparin Sodium (Porcine) (Heparin) 5,000 unit SUB-Q Q8HR DIAMOND Ondansetron HCl (Zofran) 4 mg IV Q8H PRN PRN Reason: Nausea And Vomiting Oxycodone/Acetaminophen (Percocet 5/325) 1 tab PO Q6H PRN PRN Reason: Pain, Moderate (4-6) Sodium Chloride (Sodium Chloride Flush Syringe 10 Ml) 10 ml IV BID DIAMOND Sodium Chloride (Sodium Chloride Flush Syringe 10 Ml) 10 ml IV PRN PRN PRN Reason: LINE FLUSH Zolpidem Tartrate (Ambien) 5 mg PO QHS PRN PRN Reason: Insomnia Review of Systems All systems: negative (except as documented in the HPI, 14 point system reviewed were negative) Exam - Constitutional Vitals: Temp Pulse Resp BP Pulse Ox 98.0 F 74 18 177/83 98 08/14/18 21:55 08/15/18 00:19 08/15/18 00:19 08/15/18 00:19 08/15/18 00:19 General appearance: Present: mild distress, other (on BIPAP) - EENT Eyes: Present: PERRL, EOM intact ENT: hearing intact, clear oral mucosa - Neck Neck: Present: supple - Respiratory Respiratory effort: labored Respiratory: bilateral: diminished, rales - Cardiovascular Rhythm: regular Heart Sounds: Present: S1 & S2 - Extremities Extremities: pulses symmetrical Extremity abnormal: edema (in feet ) - Abdominal General gastrointestinal: Present: soft, tender (mild and generalized), normal bowel sounds Female genitourinary: Present: deferred - Integumentary Integumentary: Present: clear, warm, dry - Musculoskeletal Musculoskeletal: strength equal bilaterally - Psychiatric Psychiatric: appropriate mood/affect, intact judgment & insight - Neurologic Neurologic: CNII-XII intact Results - Labs CBC & Chem 7: 08/14/18 22:03 08/14/18 22:03 Labs: Laboratory Last Values WBC 3.8 K/mm3 (4.5-11.0) L 08/14/18 22:03 RBC 3.36 M/mm3 (3.65-5.03) L 08/14/18 22:03 Hgb 10.8 gm/dl (10.1-14.3) 08/14/18 22:03 Hct 32.5 % (30.3-42.9) 08/14/18 22:03 MCV 97 fl (79-97) 08/14/18 22:03 MCH 32 pg (28-32) 08/14/18 22:03 MCHC 33 % (30-34) 08/14/18 22:03 RDW 17.5 % (13.2-15.2) H 08/14/18 22:03 Plt Count 162 K/mm3 (140-440) 08/14/18 22:03 Lymph % (Auto) 20.8 % (13.4-35.0) 08/14/18 22:03 [place] % (Auto) 9.7 % (0.0-7.3) H 08/14/18 22:03 Eos % (Auto) 1.9 % (0.0-4.3) 08/14/18 22:03 Baso % (Auto) 0.5 % (0.0-1.8) 08/14/18 22:03 Lymph # 0.8 K/mm3 (1.2-5.4) L 08/14/18 22:03 [place] # 0.4 K/mm3 (0.0-0.8) 08/14/18 22:03 Eos # 0.1 K/mm3 (0.0-0.4) 08/14/18 22:03 Baso # 0.0 K/mm3 (0.0-0.1) 08/14/18 22:03 Seg Neutrophils % 67.1 % (40.0-70.0) 08/14/18 22:03 Seg Neutrophils # 2.6 K/mm3 (1.8-7.7) 08/14/18 22:03 PT 14.1 Sec. (12.2-14.9) 08/14/18 22:03 INR 1.03 (0.87-1.13) 08/14/18 22:03 APTT 31.1 Sec. (24.2-36.6) 08/14/18 22:03 POC ABG pH 7.396 (7.35-7.45) 08/15/18 00:19 POC ABG pCO2 37.3 (35-45) 08/15/18 00:19 POC ABG pO2 87 (80-105) 08/15/18 00:19 POC ABG HCO3 22.9 (22-26 mml/L) 08/15/18 00:19 POC ABG Total CO2 24 (23-27mmol/L) 08/15/18 00:19 POC ABG O2 Sat 97 08/15/18 00:19 POC ABG Base Excess -2 ((-2) - (+3)mmol/L) 08/15/18 00:19 40 % 08/15/18 00:19 Sodium 140 mmol/L (137-145) 08/14/18 22:03 Potassium 4.2 mmol/L (3.6-5.0) 08/14/18 22:03 Chloride 98.2 mmol/L (98-107) 08/14/18 22:03 Carbon Dioxide 24 mmol/L (22-30) 08/14/18 22:03 22 mmol/L 08/14/18 22:03 BUN 32 mg/dL (7-17) H 08/14/18 22:03 7.6 mg/dL (0.7-1.2) H 08/14/18 22:03 Estimated GFR 7 ml/min 08/14/18 22:03 4 % 08/14/18 22:03 Glucose 149 mg/dL (65-100) H 08/14/18 22:03 Calcium 8.1 mg/dL (8.4-10.2) L 08/14/18 22:03 Magnesium 2.00 mg/dL (1.7-2.3) 08/14/18 22:03 0.40 mg/dL (0.1-1.2) 08/14/18 22:03 AST 28 units/L (5-40) 08/14/18 22:03 ALT 32 units/L (7-56) 08/14/18 22:03 146 units/L (35-129) H 08/14/18 22:03 0.019 ng/mL (0.00-0.029) 08/14/18 22:03 8.1 g/dL (6.3-8.2) 08/14/18 22:03 4.0 g/dL (3.9-5) 08/14/18 22:03 1.0 % 08/14/18 22:03 24 units/L (13-60) 08/14/18 22:03 Assessment and Plan Assessment and plan: Hypervolemia due to ESRD -Patient has pulmonary edema, emergency dialysis indicated -Nephrology consulted Acute respiratory failure with hypoxia -On BiPAP -Continue oxygen supplementation as needed and duonebs Hypertensive emergency with SBP of 220 -BP expected to improve with dialysis -Resume home antihypertensives Acute COPD exacerbation -On IV steroids, antibiotic, Mucinex and nebulizer breathing treatments SIRS -Probably due to noninfectious process -Chest x-ray negative CAD -Stable, resume home medications ESRD on HD (T/T/S) -Nephrology consulted DM2 -Controlled -On SSI and Lantus Hyperlipidemia -Resume statin Chronic leukopenia -Stable Anemia of chronic disease -H/H stable DVT prophylaxis with heparin Disposition: For discharge when medically stable. Consider rehabilitation upon discharge due to recent multiple hospitalization Time spent: 40 minutes
[2018-08-15] MEDS ORDERED: APRESOLINE IV PRN (02:09)
[2018-08-15] MEDS ORDERED: D50W (25GM) Syringe IV PRN (02:09)
[2018-08-15] MEDS ORDERED: PROVENTIL IH PRN (02:26)
[2018-08-15] MEDS ORDERED: DUONEB *Not for PRN Use IH SCH (04:00)
[2018-08-15] MEDS: NORVASC PO SCH ×2 (04:30→10:47)
[2018-08-15] MEDS: CATAPRES PO SCH ×3 (04:30→22:31)
[2018-08-15] MEDS: SOLU-Medrol IV SCH ×3 (05:47→22:32)
[2018-08-15] MEDS: HEPARIN SUB-Q SCH ×3 (05:47→22:32)
[2018-08-15] MEDS: HumaLOG SUB-Q SCH ×4 (09:08→22:34)
[2018-08-15] MEDS: DUONEB *Not for PRN Use IH SCH ×3 (09:49→19:59)
[2018-08-15] MEDS: ZITHROMAX PO SCH (10:46)
[2018-08-15] MEDS: MUCINEX ER PO SCH ×2 (10:47→22:31)
[2018-08-15] MEDS: SODIUM CHLORIDE FLUSH SYRINGE 10 ML IV SCH ×2 (10:48→22:33)
--- NOTE | 2018-08-15 15:26 | Progress Note ---
Assessment and Plan Assessment and plan: Patient is a 63 yo woman with a history of ESRD on HD TTS, COPD, hypertension, CAD s/p cardiac shent, dyslipidemia, pneumonia, systolic heart failure and NSVT who presented to [facility] ED with sob. She was just discharged from here on 08/11/18 for HAP. This is her 4th Hospitalization here this month. She was found to be hypoxic due to pulmonary edema and placed on BIPAP, which helped * pCXR Impression: The heart is enlarged, there is bilateral perihilar pulmonary edema, there is a small left pleural effusion, there are no pneumothoraces, lungs are well expanded. * 2v Abd Xray: No acute abnormality Acute respiratory failure with hypoxia -On BiPAP -Continue oxygen supplementation as needed and duonebs Hypervolemia due to ESRD -Patient has pulmonary edema, emergency dialysis indicated -Nephrology consulted Hypertensive emergency with SBP of 220 -BP expected to improve with dialysis -Resume home antihypertensives Acute COPD exacerbation -On IV steroids, antibiotic, Mucinex and nebulizer breathing treatments SIRS, with organ dysfunction, poa -Probably due to noninfectious process -Chest x-ray negative CAD -Stable, resume home medications ESRD on HD (T/T/S) -Nephrology consulted DM2 -Controlled -On SSI and Lantus Hyperlipidemia -Resume statin Chronic leukopenia -Stable Anemia of chronic disease -H/H stable DVT prophylaxis with heparin Disposition: continue inpatient care. For discharge when medically stable. Consider rehabilitation upon discharge due to recent multiple hospitalization, consulted Case management and [employer], ?need Ltach due to recurrent re- admission. History Interval history: Patient was seen and examined. Follow-up on current diagnosis of respiratory failure. No overnight events reported to me. Patient denies any chest pain, shortness breath, nausea/vomiting or severe headaches. Imaging, nursing note, chart, labs and old chart reviewed. Discussed with patient. Hospitalist Physical - Physical exam Narrative exam: Gen: ill appearing, NAD, Awake, Alert, Orientated x 3, she wants bipap off. talking full sentences HEENT: NCAT, EOMI, PERRL, OP Clear Neck: supple, no adenopathy, no thyromegaly, no JVD CVS/Heart: RRR, normal S1S2, pulses present bilaterally Chest/Lungs: diminished bs, Symmetrical chest expansion, good air entry bilaterally GI/Abdomen: soft, NTND, good bowel sounds, no guarding or rebound /Bladder: no suprapubic tenderness, no CVA or paraspinal tenderness Extermity/Skin: no c/c/e, no obvious rash MSK: FROM x 4 Neuro: CN 2-12 grossly intact, no new focal deficits Psych: calm - Constitutional Vitals: Temp Pulse Resp BP Pulse Ox 97.9 F 80 16 186/86 97 08/15/18 13:29 08/15/18 14:28 08/15/18 13:29 08/15/18 14:28 08/15/18 13:29 General appearance: Present: other (on BIPAP). Absent: mild distress Results - Labs CBC & Chem 7: 08/14/18 22:03 08/14/18 22:03 Labs: Laboratory Last Values WBC 3.8 K/mm3 (4.5-11.0) L 08/14/18 22:03 RBC 3.36 M/mm3 (3.65-5.03) L 08/14/18 22:03 Hgb 10.8 gm/dl (10.1-14.3) 08/14/18 22:03 Hct 32.5 % (30.3-42.9) 08/14/18 22:03 MCV 97 fl (79-97) 08/14/18 22:03 MCH 32 pg (28-32) 08/14/18 22:03 MCHC 33 % (30-34) 08/14/18 22:03 RDW 17.5 % (13.2-15.2) H 08/14/18 22:03 Plt Count 162 K/mm3 (140-440) 08/14/18 22:03 Lymph % (Auto) 20.8 % (13.4-35.0) 08/14/18 22:03 [place] % (Auto) 9.7 % (0.0-7.3) H 08/14/18 22:03 Eos % (Auto) 1.9 % (0.0-4.3) 08/14/18 22:03 Baso % (Auto) 0.5 % (0.0-1.8) 08/14/18 22:03 Lymph # 0.8 K/mm3 (1.2-5.4) L 08/14/18 22:03 [place] # 0.4 K/mm3 (0.0-0.8) 08/14/18 22:03 Eos # 0.1 K/mm3 (0.0-0.4) 08/14/18 22:03 Baso # 0.0 K/mm3 (0.0-0.1) 08/14/18 22:03 Seg Neutrophils % 67.1 % (40.0-70.0) 08/14/18 22: Seg Neutrophils # 2.6 K/mm3 (1.8-7.7) 08/14/18 22:03 PT 14.1 Sec. (12.2-14.9) 08/14/18 22: INR 1.03 (0.87-1.13) 08/14/18 22: APTT 31.1 Sec. (24.2-36.6) 08/14/18 22:03 POC ABG pH 7.396 (7.35-7.45) 08/15/18 00:19 POC ABG pCO2 37.3 (35-45) 08/15/18 00:19 POC ABG pO2 87 (80-105) 08/15/18 00:19 POC ABG HCO3 22.9 (22-26 mml/L) 08/15/18 00:19 POC ABG Total CO2 24 (23-27mmol/L) 08/15/18 00:19 POC ABG O2 Sat 97 08/15/18 00:19 POC ABG Base Excess -2 ((-2) - (+3)mmol/L) 08/15/18 00:19 40 % 08/15/18 00:19 Sodium 140 mmol/L (137-145) 08/14/18 22:03 Potassium 4.2 mmol/L (3.6-5.0) 08/14/18 22:03 Chloride 98.2 mmol/L (98-107) 08/14/18 22:03 Carbon Dioxide 24 mmol/L (22-30) 08/14/18 22:03 22 mmol/L 08/14/18 22:03 BUN 32 mg/dL (7-17) H 08/14/18 22:03 7.6 mg/dL (0.7-1.2) H 08/14/18 22:03 Estimated GFR 7 ml/min 08/14/18 22:03 4 % 08/14/18 22:03 Glucose 149 mg/dL (65-100) H 08/14/18 22:03 POC Glucose 180 (70-105) H 08/15/18 11:21 Calcium 8.1 mg/dL (8.4-10.2) L 08/14/18 22:03 Magnesium 2.00 mg/dL (1.7-2.3) 08/14/18 22:03 0.40 mg/dL (0.1-1.2) 08/14/18 22:03 AST 28 units/L (5-40) 08/14/18 22:03 ALT 32 units/L (7-56) 08/14/18 22:03 146 units/L (35-129) H 08/14/18 22:03 0.019 ng/mL (0.00-0.029) 08/14/18 22:03 8.1 g/dL (6.3-8.2) 08/14/18 22:03 4.0 g/dL (3.9-5) 08/14/18 22:03 1.0 % 08/14/18 22:03 24 units/L (13-60) 08/14/18 22:03 Active Medications - Current Medications Current Medications: Generic Name Dose Route Start Last Admin Trade Name Freq PRN Reason Stop Dose Admin Acetaminophen 650 mg 08/15/18 00:29 Tylenol PO Q4H PRN Pain MILD(1-3)/Fever >100.5/ADLER Albuterol 2.5 mg 08/15/18 02:26 Proventil IH Q4HRT PRN Shortness Of Breath Albuterol/Ipratropium 1 ampul 08/15/18 08:00 08/15/18 09:49 Duoneb *Not For Prn Use* IH 1 ampul TIDRT DIAMOND Administration Amlodipine Besylate 10 mg 08/15/18 02:08 08/15/18 10:47 Norvasc PO 10 mg QDAY DIAMOND Administration Azithromycin 500 mg 08/15/18 10:00 08/15/18 10:46 Zithromax PO 500 mg QDAY DIAMOND Administration Clonidine HCl 0.2 mg 08/15/18 03:00 08/15/18 10:45 Catapres PO 0.2 mg Q12HR DIAMOND Administration Dextrose 50 ml 08/15/18 02:09 D50w (25gm) Syringe IV PRN PRN Hypoglycemia Guaifenesin 600 mg 08/15/18 10:00 08/15/18 10:47 Mucinex Er PO 600 mg BID DIAMOND Administration Heparin Sodium (Porcine) 5,000 unit 08/15/18 06:00 08/15/18 14:28 Heparin SUB-Q 5,000 unit Q8HR DIAMOND Administration Hydralazine HCl 10 mg 08/15/18 02:09 08/15/18 14:28 Apresoline IV 10 mg Q4H PRN Administration Blood Pressure Insulin Glargine 10 units 08/15/18 22:00 Lantus SUB-Q QHS DIAMOND Insulin Human Lispro 0 unit 08/15/18 07:30 08/15/18 11:58 Humalog SUB-Q 2 unit ACHS DIAMOND Administration Protocol Methylprednisolone Sodium Succinate 40 mg 08/15/18 06:00 08/15/18 14:28 Solu-Medrol IV 40 mg Q8HR DIAMOND Administration Ondansetron HCl 4 mg 08/15/18 00:29 Zofran IV Q8H PRN Nausea And Vomiting Oxycodone/Acetaminophen 1 tab 08/15/18 00:29 Percocet 5/325 PO Q6H PRN Pain, Moderate (4-6) Sodium Chloride 10 ml 08/15/18 10:00 08/15/18 10:48 Sodium Chloride Flush Syringe 10 Ml IV 10 ml BID DIAMOND Administration Sodium Chloride 10 ml 08/15/18 00:29 Sodium Chloride Flush Syringe 10 Ml IV PRN PRN LINE FLUSH Zolpidem Tartrate 5 mg 08/15/18 00:29 Ambien PO QHS PRN Insomnia
--- NOTE | 2018-08-15 16:10 | Consultation ---
History of Present Illness Consult date: 08/15/18 Requesting physician: KATHERINE CHARLES Reason for consult: hypoxemia, other (secondary to pulmonary edema) History of present illness: 63 y/o female with multiple admissions for dyspnea, admitted with acute hypoxic respiratory failure secondary to volume overload and pulmonary edema. We saw patient at last hospital admission with same presentation. She was placed on continuous bipap but has since been weaned off. I was not able to actually evaluate the patient at last hospital admission as she was on the floor smoking. Per chart, patient continues to smoke. Patient's systolic BP was in the 200's on arrival. Past History Past Medical History: arthritis, CAD, COPD, diabetes, dialysis, ESRD, hypertension, hyperlipidemia Past Surgical History: Other (cardiac stent placement, dialysis catheter placement) Social history: smoking (patient is smoked cigarettes for about 20 years but quit 1 month ago. She denies current alcohol or illicit drug use) Family history: other (reviewed and noncontributory to renal disease or COPD) Medications and Allergies Allergies Allergy/AdvReac Type Severity Reaction Status Date / Time gabapentin Allergy Seizure Verified 08/06/18 18:29 labetalol AdvReac Unknown Verified 08/06/18 18:29 Home Medications Medication Instructions Recorded Confirmed Last Taken Type ALBUTEROL Inhaler(NF) [VENTOLIN 2 puff IH Q6HR PRN 06/29/18 08/15/18 08/15/18 History Inhaler(NF)] Clonidine HCl [Catapres] 0.3 mg PO BID 07/22/18 08/15/18 Unknown History Losartan [Cozaar] 50 mg PO QDAY 07/22/18 08/15/18 Unknown History ISOSORBIDE MONOnitrate [Imdur ER] 30 mg PO DAILY tablet 07/25/18 08/15/18 Unknown Rx Aspirin EC 325 mg PO QDAY #30 tablet 08/11/18 08/15/18 Unknown Rx AtorvaSTATin [Lipitor] 40 mg PO QHS #30 tablet 08/11/18 08/15/18 Unknown Rx Carvedilol [Coreg] 25 mg PO BID #60 tablet 08/11/18 08/15/18 Unknown Rx Cefuroxime Axetil [Ceftin] 500 mg PO Q12H #14 ml 08/11/18 08/15/18 Unknown Rx Chlorthalidone [Thalitone] 25 mg PO QDAY #30 tablet 08/11/18 08/15/18 Unknown Rx Clopidogrel [Plavix] 75 mg PO QDAY #30 tablet 08/11/18 08/15/18 Unknown Rx Diphenoxylate/Atropine [Lomotil] 1 tab PO QID PRN tablet 08/11/18 08/15/18 Unknown Rx ISOSORBIDE MONOnitrate [Imdur ER] 30 mg PO DAILY #30 tablet 08/11/18 08/15/18 Unknown Rx Losartan [Cozaar] 100 mg PO QDAY #30 tablet 08/11/18 08/15/18 Unknown Rx NIFEdipine XL [Procardia Xl] 90 mg PO QDAY #30 tablet 08/11/18 08/15/18 Unknown Rx Nephro-Mary Rx Tablet 1 tab PO DAILY #30 08/11/18 08/15/18 Unknown Rx Nystas/Diphen/Xyl Visc/Mylanta 15 ml PO TID 5 Days oral.liqd 08/11/18 08/15/18 Unknown Rx [Magic Mouthwash] Pantoprazole [Protonix TAB] 40 mg PO QDAY #30 tablet 08/11/18 08/15/18 Unknown R x Sevelamer Carbonate [Renvela] 1 tab PO TID #90 tablet 08/11/18 08/15/18 Unknown Rx amLODIPine [Norvasc] 10 mg PO DAILY #30 tablet 08/11/18 08/15/18 Unknown Rx cefUROXime [Ceftin] 500 mg PO Q12H #14 tablet 08/11/18 08/15/18 Unknown Rx cloNIDine [Catapres] 0.2 mg PO BID #60 tablet 08/11/18 08/15/18 Unknown Rx hydrALAZINE [Apresoline TAB] 50 mg PO Q8HR #90 tablet 08/11/18 08/15/18 Unknown Rx Active Meds: Active Medications Acetaminophen (Tylenol) 650 mg PO Q4H PRN PRN Reason: Pain MILD(1-3)/Fever >100.5/ADLER Albuterol (Proventil) 2.5 mg IH Q4HRT PRN PRN Reason: Shortness Of Breath Albuterol/Ipratropium (Duoneb *Not For Prn Use*) 1 ampul IH TIDRT DIAMOND Last Admin: 08/15/18 15:24 Dose: 1 ampul Documented by: Amlodipine Besylate (Norvasc) 10 mg PO QDAY [facility] Last Admin: 08/15/18 10:47 Dose: 10 mg Documented by: Azithromycin (Zithromax) 500 mg PO QDAY [facility] Last Admin: 08/15/18 10:46 Dose: 500 mg Documented by: Clonidine HCl (Catapres) 0.2 mg PO Q12HR [facility] Last Admin: 08/15/18 10:45 Dose: 0.2 mg Documented by: Dextrose (D50w (25gm) Syringe) 50 ml IV PRN PRN PRN Reason: Hypoglycemia Guaifenesin (Mucinex Er) 600 mg PO BID [facility] Last Admin: 08/15/18 10:47 Dose: 600 mg Documented by: Heparin Sodium (Porcine) (Heparin) 5,000 unit SUB-Q Q8HR [facility] Last Admin: 08/15/18 14:28 Dose: 5,000 unit Documented by: Hydralazine HCl (Apresoline) 10 mg IV Q4H PRN PRN Reason: Blood Pressure Last Admin: 08/15/18 14:28 Dose: 10 mg Documented by: Insulin Glargine (Lantus) 10 units SUB-Q QHS [facility] Insulin Human Lispro (Humalog) 0 unit SUB-Q [facility]; Protocol Last Admin: 08/15/18 11:58 Dose: 2 unit Documented by: Methylprednisolone Sodium Succinate (Solu-Medrol) 40 mg IV Q8HR [facility] Last Admin: 08/15/18 14:28 Dose: 40 mg Documented by: Ondansetron HCl (Zofran) 4 mg IV Q8H PRN PRN Reason: Nausea And Vomiting Oxycodone/Acetaminophen (Percocet 5/325) 1 tab PO Q6H PRN PRN Reason: Pain, Moderate (4-6) Sodium Chloride (Sodium Chloride Flush Syringe 10 Ml) 10 ml IV BID [facility] Last Admin: 08/15/18 10:48 Dose: 10 ml Documented by: Sodium Chloride (Sodium Chloride Flush Syringe 10 Ml) 10 ml IV PRN PRN PRN Reason: LINE FLUSH Zolpidem Tartrate (Ambien) 5 mg PO QHS PRN PRN Reason: Insomnia Physical Examination Vital signs: Vital Signs Temp Pulse Resp BP Pulse Ox 98 F 92 H 26 H 206/93 94 08/14/18 21:27 08/14/18 21:27 08/14/18 21:27 08/14/18 21:27 08/14/18 21:27 Results - Laboratory Findings CBC and BMP: 08/16/18 05:09 08/16/18 05:09 ABG POC ABG pH 7.396 (7.35-7.45) 08/15/18 00:19 POC ABG pCO2 37.3 (35-45) 08/15/18 00:19 POC ABG pO2 87 (80-105) 08/15/18 00:19 POC ABG HCO3 22.9 (22-26 mml/L) 08/15/18 00:19 POC ABG Total CO2 24 (23-27mmol/L) 08/15/18 00:19 POC ABG O2 Sat 97 08/15/18 00:19 PT/INR, D-dimer PT 14.1 Sec. (12.2-14.9) 08/14/18 22:03 INR 1.03 (0.87-1.13) 08/14/18 22:03 Abnormal lab findings: Abnormal Labs 08/14/18 08/14/18 08/15/18 22:03 22:03 07:20 WBC 3.8 L RBC 3.36 L RDW 17.5 H [place] % (Auto) 9.7 H Lymph # 0.8 L BUN 32 H Creatinine 7.6 H Glucose 149 H POC Glucose 173 H Calcium 8.1 L Alkaline Phosphatase 146 H 08/15/18 11:21 WBC RBC RDW [place] % (Auto) Lymph # BUN Creatinine Glucose POC Glucose 180 H Calcium Alkaline Phosphatase Assessment and Plan 63 y/o with ESRD on HD and continued smoker, admitted with acute respiratory failure secondary to pulmonary edema from hypertensive Emergency requiring urgent HD. 1. Smoking cessation 2. BP control 3. Compliance with outpatient medical therapy 4. Would change to PO prednisone and taper rapidly 5. Will sign off, if patient wants follow up, please provide her with office number and she can schedule at her leisure
--- NOTE | 2018-08-15 16:40 | Consultation ---
History of Present Illness - History of Present Illness 63 year old with medical history signficant for COPD, End stage renal disease on hemodialysis via a Right arm AVG at [facility] dialysis unit [facility], admitted with hypertensive urgency and shortness of breath requiring BIPAP. Blood pressure was elevated in the 200s.she reports that last dialysis was Sunday denies excessive fluid intake denies noncompliance to medication she did have orthopnea PND symptoms as well as lower extremity edema denies fevers or chills Past History Past Medical History: arthritis, CAD, COPD, diabetes, dialysis, ESRD, hypertension, hyperlipidemia Past Surgical History: Other (cardiac stent placement, dialysis catheter placement) Social history: smoking (patient is smoked cigarettes for about 20 years but quit 1 month ago. She denies current alcohol or illicit drug use) Family history: other (reviewed and noncontributory to renal disease or COPD) Medications and Allergies Allergies Allergy/AdvReac Type Severity Reaction Status Date / Time gabapentin Allergy Seizure Verified 08/06/18 18:29 labetalol AdvReac Unknown Verified 08/06/18 18:29 Home Medications Medication Instructions Recorded Confirmed Last Taken Type ALBUTEROL Inhaler(NF) [VENTOLIN 2 puff IH Q6HR PRN 06/29/18 08/15/18 08/15/18 History Inhaler(NF)] Clonidine HCl [Catapres] 0.3 mg PO BID 07/22/18 08/15/18 Unknown History Losartan [Cozaar] 50 mg PO QDAY 07/22/18 08/15/18 Unknown History ISOSORBIDE MONOnitrate [Imdur ER] 30 mg PO DAILY tablet 07/25/18 08/15/18 Unknown Rx Aspirin EC 325 mg PO QDAY #30 tablet 08/11/18 08/15/18 Unknown Rx AtorvaSTATin [Lipitor] 40 mg PO QHS #30 tablet 08/11/18 08/15/18 Unknown Rx Carvedilol [Coreg] 25 mg PO BID #60 tablet 08/11/18 08/15/18 Unknown Rx Cefuroxime Axetil [Ceftin] 500 mg PO Q12H #14 ml 08/11/18 08/15/18 Unknown Rx Chlorthalidone [Thalitone] 25 mg PO QDAY #30 tablet 08/11/18 08/15/18 Unknown Rx Clopidogrel [Plavix] 75 mg PO QDAY #30 tablet 08/11/18 08/15/18 Unknown Rx Diphenoxylate/Atropine [Lomotil] 1 tab PO QID PRN tablet 08/11/18 08/15/18 Unknown Rx ISOSORBIDE MONOnitrate [Imdur ER] 30 mg PO DAILY #30 tablet 08/11/18 08/15/18 Unknown Rx Losartan [Cozaar] 100 mg PO QDAY #30 tablet 08/11/18 08/15/18 Unknown Rx NIFEdipine XL [Procardia Xl] 90 mg PO QDAY #30 tablet 08/11/18 08/15/18 Unknown Rx Nephro-Mary Rx Tablet 1 tab PO DAILY #30 08/11/18 08/15/18 Unknown Rx Nystas/Diphen/Xyl Visc/Mylanta 15 ml PO TID 5 Days oral.liqd 08/11/18 08/15/18 Unknown Rx [Magic Mouthwash] Pantoprazole [Protonix TAB] 40 mg PO QDAY #30 tablet 08/11/18 08/15/18 Unknown Rx Sevelamer Carbonate [Renvela] 1 tab PO TID #90 tablet 08/11/18 08/15/18 Unknown Rx amLODIPine [Norvasc] 10 mg PO DAILY #30 tablet 08/11/18 08/15/18 Unknown Rx cefUROXime [Ceftin] 500 mg PO Q12H #14 tablet 08/11/18 08/15/18 Unknown Rx cloNIDine [Catapres] 0.2 mg PO BID #60 tablet 08/11/18 08/15/18 Unknown Rx hydrALAZINE [Apresoline TAB] 50 mg PO Q8HR #90 tablet 08/11/18 08/15/18 Unknown Rx Active Meds: Active Medications Acetaminophen (Tylenol) 650 mg PO Q4H PRN PRN Reason: Pain MILD(1-3)/Fever >100.5/ADLER Albuterol (Proventil) 2.5 mg IH Q4HRT PRN PRN Reason: Shortness Of Breath Albuterol/Ipratropium (Duoneb *Not For Prn Use*) 1 ampul IH TIDRT [facility] Last Admin: 08/15/18 15:24 Dose: 1 ampul Documented by: Amlodipine Besylate (Norvasc) 10 mg PO QDAY [facility] Last Admin: 08/15/18 10:47 Dose: 10 mg Documented by: Azithromycin (Zithromax) 500 mg PO QDAY [facility] Last Admin: 08/15/18 10:46 Dose: 500 mg Documented by: Clonidine HCl (Catapres) 0.2 mg PO Q12HR [facility] Last Admin: 08/15/18 10:45 Dose: 0.2 mg Documented by: Dextrose (D50w (25gm) Syringe) 50 ml IV PRN PRN PRN Reason: Hypoglycemia Guaifenesin (Mucinex Er) 600 mg PO BID [facility] Last Admin: 08/15/18 10:47 Dose: 600 mg Documented by: Heparin Sodium (Porcine) (Heparin) 5,000 unit SUB-Q Q8HR [facility] Last Admin: 08/15/18 14:28 Dose: 5,000 unit Documented by: Hydralazine HCl (Apresoline) 10 mg IV Q4H PRN PRN Reason: Blood Pressure Last Admin: 08/15/18 14:28 Dose: 10 mg Documented by: Insulin Glargine (Lantus) 10 units SUB-Q QHS [facility] Insulin Human Lispro (Humalog) 0 unit SUB-Q [facility]; Protocol Last Admin: 08/15/18 11:58 Dose: 2 unit Documented by: Methylprednisolone Sodium Succinate (Solu-Medrol) 40 mg IV Q8HR [facility] Last Admin: 08/15/18 14:28 Dose: 40 mg Documented by: Ondansetron HCl (Zofran) 4 mg IV Q8H PRN PRN Reason: Nausea And Vomiting Oxycodone/Acetaminophen (Percocet 5/325) 1 tab PO Q6H PRN PRN Reason: Pain, Moderate (4-6) Sodium Chloride (Sodium Chloride Flush Syringe 10 Ml) 10 ml IV BID [facility] Last Admin: 08/15/18 10:48 Dose: 10 ml Documented by: Sodium Chloride (Sodium Chloride Flush Syringe 10 Ml) 10 ml IV PRN PRN PRN Reason: LINE FLUSH Zolpidem Tartrate (Ambien) 5 mg PO QHS PRN PRN Reason: Insomnia Review of Systems Constitutional: weight gain Ears, nose, mouth and throat: no deferred, no ear pain Breasts: no deferred, no change in shape Cardiovascular: no chest pain, no orthopnea Respiratory: no cough, no cough with sputum Gastrointestinal: no abdominal pain, no nausea, no vomiting Rectal: no pain, no incontinence Musculoskeletal: no neck stiffness, no neck pain Integumentary: no deferred, no rash Neurological: no head injury, no transient paralysis Psychiatric: no anxiety, no memory loss Endocrine: no cold intolerance, no heat intolerance Allergic/Immunologic: no urticaria, no allergic rhinitis Exam - Vital Signs Vital signs: Vital Signs Temp Pulse Resp BP Pulse Ox 98 F 92 H 26 H 206/93 94 08/14/18 21:27 08/14/18 21:27 08/14/18 21:27 08/14/18 21:27 08/14/18 21:27 - General Appearance General appearance: well-developed, well-nourished EENT: ATNC, PERRL, mucous membranes moist Neck: Present: neck supple Respiratory: Ronchi, Decreased Breath Sounds Heart: regular, S1S2 Gastrointestinal: Present: normal, normoactive bowel sounds Integumentary: no rash Neurologic: alert and oriented x3, CN 3-12 intact Musculoskeletal: Present: deferred Results - Lab Results 08/14/18 22:03 08/14/18 22:03 Most recent lab results Calcium 8.1 mg/dL (8.4-10.2) L 08/14/18 22:03 Magnesium 2.00 mg/dL (1.7-2.3) 08/14/18 22:03 - Image Kidney/bladder ultrasound: image reviewed (I reviewed chest x-ray with bilateral patchy opacities consistent with pulmonary edema) Assessment and Plan - Patient Problems (1) ESRD (end stage renal disease) on dialysis Current Visit: Yes Status: Chronic Plan to address problem: End-stage renal disease Dialysis access right aVF Initiate emergent dialysis Ultrafiltration of 4 L removed Repeat hemodialysis in the a.m. (2) Congestive heart failure (CHF) Current Visit: Yes Status: Acute Qualifiers: Heart failure type: unspecified Heart failure chronicity: acute on chronic Qualified Code(s): I50.9 - Heart failure, unspecified Plan to address problem: Congestive heart failure Reviewed previous echocardiogram with multiple valvular abnormalities with mitral regurgitation severe left ventricular hypertrophy with preserved EF Continue medications (3) Anemia in chronic kidney disease Current Visit: No Status: Acute Plan to address problem: Mild Anemia Hemoglobin 10 g/ dl Etiology secondary to renal failure Monitor CBC (4) Acute respiratory failure Current Visit: Yes Status: Acute Qualifiers: Respiratory failure complication: hypoxia Qualified Code(s): J96.01 - Acute respiratory failure with hypoxia Plan to address problem: Acute hypoxemic respiratory failure I reviewed chest x-ray pulmonary edema Receive ultrafiltration with dialysis with improvement from BiPAP Also receiving Solu-Medrol for COPD (5) Accelerated essential hypertension Current Visit: Yes Status: Acute Plan to address problem: Uncontrolled hypertension continue amlodipine 10 mg daily we'll have hydralazine 50 mg 3 times a day
[2018-08-15] MEDS: APRESOLINE PO SCH ×2 (17:57→22:31)
[2018-08-15] MEDS: PERCOCET 5/325 PO PRN (18:01)
[2018-08-15] MEDS: LANTUS SUB-Q SCH (22:32)
[2018-08-16] MEDS: PERCOCET 5/325 PO PRN ×2 (02:23→16:14)
[2018-08-16] MEDS: APRESOLINE PO SCH ×3 (05:33→21:34)
[2018-08-16] MEDS: SOLU-Medrol IV SCH ×3 (05:34→21:34)
[2018-08-16] MEDS: HEPARIN SUB-Q SCH ×3 (05:34→21:34)
[2018-08-16 06:21] LABS: Hemoglobin 9.6 gm/dl (10.1-14.3); Mean Corpuscular HGB Conc 33 % (30-34); Mean Corpuscular Volume 99 fl (79-97); Platelet Count 171 K/mm3 (140-440); Red Blood Count 2.93 M/mm3 (3.65-5.03); Red Cell Distribution Width 17.8 % (13.2-15.2)
[2018-08-16 07:21] LABS: Calcium 8.2 mg/dL (8.4-10.2)
[2018-08-16] MEDS: HumaLOG SUB-Q SCH ×4 (08:43→22:16)
[2018-08-16] MEDS: ZITHROMAX PO SCH (09:31)
[2018-08-16] MEDS: MUCINEX ER PO SCH ×2 (09:31→21:34)
[2018-08-16] MEDS: SODIUM CHLORIDE FLUSH SYRINGE 10 ML IV SCH ×2 (09:32→21:34)
[2018-08-16] MEDS: DUONEB *Not for PRN Use IH SCH ×3 (10:05→21:28)
--- NOTE | 2018-08-16 11:05 | Progress Note ---
Assessment and Plan Assessment and plan: Patient is a 63 yo woman with a history of ESRD on HD TTS, COPD, hypertension, CAD s/p cardiac shent, dyslipidemia, pneumonia, systolic heart failure and NSVT who presented to [facility] ED with sob. She was just discharged from here on 08/11/18 for HAP. This is her 4th Hospitalization here this month. She was found to be hypoxic due to pulmonary edema and placed on BIPAP, which helped * pCXR Impression: The heart is enlarged, there is bilateral perihilar pulmonary edema, there is a small left pleural effusion, there are no pneumothoraces, lungs are well expanded. * 2v Abd Xray: No acute abnormality Acute respiratory failure with hypoxia -Off BiPAP, on nasal canula, continue to wean. -Continue oxygen supplementation as needed and duonebs Hypervolemia due to ESRD -Patient has pulmonary edema, emergency dialysis indicated -Nephrology consulted Hypertensive emergency with SBP of 220 -BP expected to improve with dialysis -Resume home antihypertensives Acute COPD exacerbation -On IV steroids, antibiotic, Mucinex and nebulizer breathing treatments SIRS, with organ dysfunction, poa -Probably due to noninfectious process -Chest x-ray negative CAD -Stable, resume home medications ESRD on HD (T/T/S) -Nephrology consulted DM2 -Controlled -On SSI and Lantus Hyperlipidemia -Resume statin Chronic leukopenia -Stable Anemia of chronic disease -H/H stable DVT prophylaxis with heparin Disposition: continue inpatient care. For discharge when medically stable. Consider rehabilitation upon discharge due to recent multiple hospitalization, consulted Case management and Hebrew Cantor, ?need Ltach due to recurrent re-a dmission. patient states that multiple re-admissions to hospital is because she needs oxygen at night, especially the cpap. I told her the qualification and recommend obtaining an outpatient sleep study but she must make an appointment with [facility] Cantor/Dr. Reece. She voices understanding and agreement. Await [facility] Cantor input. History Interval history: Patient was seen and examined. Follow-up on current diagnosis of respiratory failure. No overnight events reported to me. Patient denies any chest pain, shortness breath, nausea/vomiting or severe headaches. Imaging, nursing note, chart, labs and old chart reviewed. Discussed with patient. Hospitalist Physical - Physical exam Narrative exam: Gen: chronic disable appearing, NAD, Awake, Alert, Orientated x 3, off bipap,talking full sentences HEENT: NCAT, EOMI, PERRL, OP Clear Neck: supple, no adenopathy, no thyromegaly, no JVD CVS/Heart: RRR, normal S1S2, pulses present bilaterally Chest/Lungs: diminished bs, Symmetrical chest expansion, good air entry bilaterally GI/Abdomen: soft, NTND, good bowel sounds, no guarding or rebound /Bladder: no suprapubic tenderness, no CVA or paraspinal tenderness Extermity/Skin: no c/c/e, no obvious rash MSK: FROM x 4 Neuro: CN 2-12 grossly intact, no new focal deficits Psych: calm - Constitutional Vitals: Temp Pulse Resp BP Pulse Ox 98.4 F 82 18 174/76 99 08/16/18 07:18 08/16/18 10:20 08/16/18 10:20 08/16/18 07:18 08/16/18 09:02 General appearance: Present: other (on BIPAP). Absent: mild distress Results - Labs CBC & Chem 7: 08/16/18 05:09 08/16/18 05:09 Labs: Laboratory Last Values WBC 5.7 K/mm3 (4.5-11.0) 08/16/18 05:09 RBC 2.93 M/mm3 (3.65-5.03) L 08/16/18 05:09 Hgb 9.6 gm/dl (10.1-14.3) L 08/16/18 05:09 Hct 29.0 % (30.3-42.9) L 08/16/18 05:09 MCV 99 fl (79-97) H 08/16/18 05:09 MCH 33 pg (28-32) H 08/16/18 05:09 MCHC 33 % (30-34) 08/16/18 05:09 RDW 17.8 % (13.2-15.2) H 08/16/18 05:09 Plt Count 171 K/mm3 (140-440) 08/16/18 05:09 Lymph % (Auto) 20.8 % (13.4-35.0) 08/14/18 22:03 [place] % (Auto) 9.7 % (0.0-7.3) H 08/14/18 22:03 Eos % (Auto) 1.9 % (0.0-4.3) 08/14/18 22:03 Baso % (Auto) 0.5 % (0.0-1.8) 08/14/18 22:03 Lymph # 0.8 K/mm3 (1.2-5.4) L 08/14/18 22:03 [place] # 0.4 K/mm3 (0.0-0.8) 08/14/18 22:03 Eos # 0.1 K/mm3 (0.0-0.4) 08/14/18 22:03 Baso # 0.0 K/mm3 (0.0-0.1) 08/14/18 22:03 Seg Neutrophils % 67.1 % (40.0-70.0) 08/14/18 22:03 Seg Neutrophils # 2.6 K/mm3 (1.8-7.7) 08/14/18 22:03 PT 14.1 Sec. (12.2-14.9) 08/14/18 22:03 INR 1.03 (0.87-1.13) 08/14/18 22:03 APTT 31.1 Sec. (24.2-36.6) 08/14/18 22:03 POC ABG pH 7.396 (7.35-7.45) 08/15/18 00:19 POC ABG pCO2 37.3 (35-45) 08/15/18 00:19 POC ABG pO2 87 (80-105) 08/15/18 00:19 POC ABG HCO3 22.9 (22-26 mml/L) 08/15/18 00:19 POC ABG Total CO2 24 (23-27mmol/L) 08/15/18 00:19 POC ABG O2 Sat 97 08/15/18 00:19 POC ABG Base Excess -2 ((-2) - (+3)mmol/L) 08/15/18 00:19 40 % 08/15/18 00:19 Sodium 136 mmol/L (137-145) L 08/16/18 05:09 Potassium 5.5 mmol/L (3.6-5.0) H D 08/16/18 05:09 Chloride 94.1 mmol/L (98-107) L 08/16/18 05:09 Carbon Dioxide 23 mmol/L (22-30) 08/16/18 05:09 24 mmol/L 08/16/18 05:09 BUN 53 mg/dL (7-17) H 08/16/18 05:09 8.1 mg/dL (0.7-1.2) H 08/16/18 05:09 Estimated GFR 6 ml/min 08/16/18 05:09 7 % 08/16/18 05:09 Glucose 179 mg/dL (65-100) H 08/16/18 05:09 POC Glucose 182 (70-105) H 08/16/18 07:21 Calcium 8.2 mg/dL (8.4-10.2) L 08/16/18 05:09 Magnesium 2.00 mg/dL (1.7-2.3) 08/14/18 22:03 0.40 mg/dL (0.1-1.2) 08/14/18 22:03 AST 28 units/L (5-40) 08/14/18 22:03 ALT 32 units/L (7-56) 08/14/18 22:03 146 units/L (35-129) H 08/14/18 22:03 0.019 ng/mL (0.00-0.029) 08/14/18 22:03 8.1 g/dL (6.3-8.2) 08/14/18 22:03 4.0 g/dL (3.9-5) 08/14/18 22:03 1.0 % 08/14/18 22:03 24 units/L (13-60) 08/14/18 22:03 Active Medications - Current Medications Current Medications: Generic Name Dose Route Start Last Admin Trade Name Freq PRN Reason Stop Dose Admin Acetaminophen 650 mg 08/15/18 00:29 Tylenol PO Q4H PRN Pain MILD(1-3)/Fever >100.5/ADLER Albuterol 2.5 mg 08/15/18 02:26 Proventil IH Q4HRT PRN Shortness Of Breath Albuterol/Ipratropium 1 ampul 08/15/18 08:00 08/16/18 10:05 Duoneb *Not For Prn Use* IH 1 ampul TIDRT [facility] Administration Amlodipine Besylate 10 mg 08/15/18 02:08 08/15/18 10:47 Norvasc PO 10 mg QDAY [facility] Administration Azithromycin 500 mg 08/15/18 10:00 08/16/18 09:31 Zithromax PO 500 mg QDAY [facility] Administration Clonidine HCl 0.2 mg 08/15/18 03:00 08/15/18 22:31 Catapres PO 0.2 mg Q12HR [facility] Administration Dextrose 50 ml 08/15/18 02:09 D50w (25gm) Syringe IV PRN PRN Hypoglycemia Guaifenesin 600 mg 08/15/18 10:00 08/16/18 09:31 Mucinex Er PO 600 mg BID [facility] Administration Heparin Sodium (Porcine) 5,000 unit 08/15/18 06:00 08/16/18 05:34 Heparin SUB-Q 5,000 unit Q8HR [facility] Administration Hydralazine HCl 10 mg 08/15/18 02:09 08/15/18 14:28 Apresoline IV 10 mg Q4H PRN Administration Blood Pressure Hydralazine HCl 50 mg 08/15/18 17:00 08/16/18 05:33 Apresoline PO 50 mg Q8HR [facility] Administration Insulin Glargine 10 units 08/15/18 22:00 08/15/18 22:32 Lantus SUB-Q 10 units QHS [facility] Administration Insulin Human Lispro 0 unit 08/15/18 07:30 08/16/18 08:43 Humalog SUB-Q 2 unit ACHS [facility] Administration Protocol Methylprednisolone Sodium Succinate 40 mg 08/15/18 06:00 08/16/18 05:34 Solu-Medrol IV 40 mg Q8HR [facility] Administration Ondansetron HCl 4 mg 08/15/18 00:29 08/16/18 08:40 Zofran IV 4 mg Q8H PRN Administration Nausea And Vomiting Oxycodone/Acetaminophen 1 tab 08/15/18 00:29 08/16/18 02:23 Percocet 5/325 PO 1 tab Q6H PRN Administration Pain, Moderate (4-6) Sodium Chloride 10 ml 08/15/18 10:00 08/16/18 09:32 Sodium Chloride Flush Syringe 10 Ml IV 10 ml BID [facility] Administration Sodium Chloride 10 ml 08/15/18 00:29 Sodium Chloride Flush Syringe 10 Ml IV PRN PRN LINE FLUSH Zolpidem Tartrate 5 mg 05/23/19 00:29 Ambien PO QHS PRN Insomnia
[2018-08-16] MEDS: CATAPRES PO SCH ×2 (11:26→21:34)
[2018-08-16] MEDS: NORVASC PO SCH (11:27)
--- NOTE | 2018-08-16 13:47 | Progress Note ---
Assessment and Plan - Patient Problems (1) ESRD (end stage renal disease) on dialysis Current Visit: Yes Status: Chronic Plan to address problem: End-stage renal disease Dialysis access right aVF Repeat hemodialysis today with UF : 3L (2) Congestive heart failure (CHF) Current Visit: Yes Status: Acute Qualifiers: Heart failure type: unspecified Heart failure chronicity: acute on chronic Qualified Code(s): I50.9 - Heart failure, unspecified Plan to address problem: Congestive heart failure Reviewed previous echocardiogram with multiple valvular abnormalities with mitral regurgitation severe left ventricular hypertrophy with preserved EF Continue medications (3) Anemia in chronic kidney disease Current Visit: No Status: Acute Plan to address problem: Mild Anemia Hemoglobin 10 g/ dl Etiology secondary to renal failure Monitor CBC (4) Acute respiratory failure Current Visit: Yes Status: Acute Qualifiers: Respiratory failure complication: hypoxia Qualified Code(s): J96.01 - Acute respiratory failure with hypoxia Plan to address problem: Acute hypoxemic respiratory failure I reviewed chest x-ray pulmonary edema Receive ultrafiltration with dialysis with improvement from BiPAP Also receiving Solu-Medrol for COPD (5) Accelerated essential hypertension Current Visit: Yes Status: Acute Plan to address problem: Uncontrolled hypertension continue amlodipine 10 mg daily We have added hydralazine 50 mg 3 times a day, can increase to 100mg TID if blood pressure remains uncontrolled. Subjective Interval history: 63 year old with medical history signficant for COPD, End stage renal disease on hemodialysis via a Right arm AVG at [facility] dialysis unit [facility] ([facility]3], admitted with hypertensive urgency and shortness of breath requiring BIPAP Patient seen today I attest I saw the patient on hemodialysis at 1pm feeling better breathing is improved Denies any orthopnea or PND. no lower extremity edema. Objective - Vital Signs Vital signs: Vital Signs - 12hr 08/16/18 08/16/18 08/16/18 02:00 03:40 03:56 Temperature 98.6 F Pulse Rate 71 76 74 Pulse Rate [ Anterior Bilateral Throughout] Pulse Rate [ Anterior Bilateral] Pulse Rate [ Apical] Pulse Rate [ Left Radial] Pulse Rate [ Posterior Bilateral Throughout] Pulse Rate [ Right Radial] Respiratory 18 22 Rate Respiratory Rate [Anterior Bilateral Throughout] Respiratory Rate [Anterior Bilateral] Respiratory Rate [Posterior Bilateral Throughout] Blood Pressure 169/73 Blood Pressure [Left] O2 Sat by Pulse 98 100 Oximetry 08/16/18 08/16/18 08/16/18 05:33 07:16 07:18 Temperature 98.4 F 98.4 F Pulse Rate 75 73 Pulse Rate [ Anterior Bilateral Throughout] Pulse Rate [ Anterior Bilateral] Pulse Rate [ Apical] Pulse Rate [ Left Radial] Pulse Rate [ Posterior Bilateral Throughout] Pulse Rate [ Right Radial] Respiratory 20 20 Rate Respiratory Rate [Anterior Bilateral Throughout] Respiratory Rate [Anterior Bilateral] Respiratory Rate [Posterior Bilateral Throughout] Blood Pressure 157/70 174/76 Blood Pressure 174/76 [Left] O2 Sat by Pulse 95 Oximetry 08/16/18 08/16/18 08/16/18 09:02 10:00 10:05 Temperature Pulse Rate 77 Pulse Rate [ 78 Anterior Bilateral Throughout] Pulse Rate [ 78 Anterior Bilateral] Pulse Rate [ 73 Apical] Pulse Rate [ 73 Left Radial] Pulse Rate [ 78 Posterior Bilateral Throughout] Pulse Rate [ 73 Right Radial] Respiratory 19 Rate Respiratory 18 Rate [Anterior Bilateral Throughout] Respiratory 18 Rate [Anterior Bilateral] Respiratory 18 Rate [Posterior Bilateral Throughout] Blood Pressure Blood Pressure [Left] O2 Sat by Pulse 99 Oximetry 08/16/18 08/16/18 08/16/18 10:20 11:00 11:03 Temperature 98.2 F 98.5 F Pulse Rate 76 Pulse Rate [ 82 Anterior Bilateral Throughout] Pulse Rate [ 82 Anterior Bilateral] Pulse Rate [ Apical] Pulse Rate [ Left Radial] Pulse Rate [ 82 Posterior Bilateral Throughout] Pulse Rate [ Right Radial] Respiratory 22 20 Rate Respiratory 18 Rate [Anterior Bilateral Throughout] Respiratory 18 Rate [Anterior Bilateral] Respiratory 18 Rate [Posterior Bilateral Throughout] Blood Pressure 170/76 Blood Pressure 170/76 [Left] O2 Sat by Pulse 94 Oximetry 08/16/18 08/16/18 08/16/18 11:25 11:26 11:27 Temperature 98.2 F Pulse Rate 75 73 76 Pulse Rate [ Anterior Bilateral Throughout] Pulse Rate [ Anterior Bilateral] Pulse Rate [ Apical] Pulse Rate [ Left Radial] Pulse Rate [ Posterior Bilateral Throughout] Pulse Rate [ Right Radial] Respiratory 20 Rate Respiratory Rate [Anterior Bilateral Throughout] Respiratory Rate [Anterior Bilateral] Respiratory Rate [Posterior Bilateral Throughout] Blood Pressure 174/81 174/76 174/76 Blood Pressure [Left] O2 Sat by Pulse Oximetry 08/16/18 08/16/18 08/16/18 11:30 11:45 12:00 Temperature Pulse Rate 75 72 72 Pulse Rate [ Anterior Bilateral Throughout] Pulse Rate [ Anterior Bilateral] Pulse Rate [ Apical] Pulse Rate [ Left Radial] Pulse Rate [ Posterior Bilateral Throughout] Pulse Rate [ Right Radial] Respiratory Rate Respiratory Rate [Anterior Bilateral Throughout] Respiratory Rate [Anterior Bilateral] Respiratory Rate [Posterior Bilateral Throughout] Blood Pressure 173/85 181/85 168/84 Blood Pressure [Left] O2 Sat by Pulse Oximetry 08/16/18 08/16/18 12:15 12:30 Temperature Pulse Rate 72 70 Pulse Rate [ Anterior Bilateral Throughout] Pulse Rate [ Anterior Bilateral] Pulse Rate [ Apical] Pulse Rate [ Left Radial] Pulse Rate [ Posterior Bilateral Throughout] Pulse Rate [ Right Radial] Respiratory Rate Respiratory Rate [Anterior Bilateral Throughout] Respiratory Rate [Anterior Bilateral] Respiratory Rate [Posterior Bilateral Throughout] Blood Pressure 179/85 168/83 Blood Pressure [Left] O2 Sat by Pulse Oximetry - General Appearance General appearance: well-developed, well-nourished EENT: ATNC, PERRL, mucous membranes moist Neck: no JVD Respiratory: Present: Decreased Breath Sounds Cardiology: regular, S1S2 Gastrointestinal: normal, normoactive bowel sounds Integumentary: no rash Neurologic: no focal deficit, CN 3-12 intact Psychiatric: mood/affect appropriate - Lab 08/16/18 05:09 08/16/18 05:09 Most recent lab results Calcium 8.2 mg/dL (8.4-10.2) L 08/16/18 05:09 Magnesium 2.00 mg/dL (1.7-2.3) 08/14/18 22:03 - Imaging Chest x-ray: image reviewed (I reviewed CXR with bilateral dense opacities consistent with pulmonary edema. ) Medications & Allergies - Medications Allergies/Adverse Reactions: Allergies gabapentin Allergy (Verified 08/06/18 18:29) Seizure labetalol Adverse Reaction (Verified 08/06/18 18:29) Unknown Home Medications: Home Medications Medication Instructions Recorded Confirmed Last Taken Type ALBUTEROL Inhaler(NF) [VENTOLIN 2 puff IH Q6HR PRN 06/29/18 08/15/18 08/15/18 History Inhaler(NF)] Clonidine HCl [Catapres] 0.3 mg PO BID 07/22/18 08/15/18 Unknown History Losartan [Cozaar] 50 mg PO QDAY 07/22/18 08/15/18 Unknown History ISOSORBIDE MONOnitrate [Imdur ER] 30 mg PO DAILY tablet 07/25/18 08/15/18 Unknown Rx Aspirin EC 325 mg PO QDAY #30 tablet 08/11/18 08/15/18 Unknown Rx AtorvaSTATin [Lipitor] 40 mg PO QHS #30 tablet 08/11/18 08/15/18 Unknown Rx Carvedilol [Coreg] 25 mg PO BID #60 tablet 08/11/18 08/15/18 Unknown Rx Cefuroxime Axetil [Ceftin] 500 mg PO Q12H #14 ml 08/11/18 08/15/18 Unknown Rx Chlorthalidone [Thalitone] 25 mg PO QDAY #30 tablet 08/11/18 08/15/18 Unknown Rx Clopidogrel [Plavix] 75 mg PO QDAY #30 tablet 08/11/18 08/15/18 Unknown Rx Diphenoxylate/Atropine [Lomotil] 1 tab PO QID PRN tablet 08/11/18 08/15/18 Unknown Rx ISOSORBIDE MONOnitrate [Imdur ER] 30 mg PO DAILY #30 tablet 08/11/18 08/15/18 Unknown Rx Losartan [Cozaar] 100 mg PO QDAY #30 tablet 08/11/18 08/15/18 Unknown Rx NIFEdipine XL [Procardia Xl] 90 mg PO QDAY #30 tablet 08/11/18 08/15/18 Unknown Rx Nephro-Mary Rx Tablet 1 tab PO DAILY #30 08/11/18 08/15/18 Unknown Rx Nystas/Diphen/Xyl Visc/Mylanta 15 ml PO TID 5 Days oral.liqd 08/11/18 08/15/18 Unknown Rx [Magic Mouthwash] Pantoprazole [Protonix TAB] 40 mg PO QDAY #30 tablet 08/11/18 08/15/18 Unknown Rx Sevelamer Carbonate [Renvela] 1 tab PO TID #90 tablet 08/11/18 08/15/18 Unknown Rx amLODIPine [Norvasc] 10 mg PO DAILY #30 tablet 08/11/18 08/15/18 Unknown Rx cefUROXime [Ceftin] 500 mg PO Q12H #14 tablet 08/11/18 08/15/18 Unknown Rx cloNIDine [Catapres] 0.2 mg PO BID #60 tablet 08/11/18 08/15/18 Unknown Rx hydrALAZINE [Apresoline TAB] 50 mg PO Q8HR #90 tablet 08/11/18 08/15/18 Unknown Rx Active Medications: Generic Name Dose Route Start Last Admin Trade Name Freq PRN Reason Stop Dose Admin Acetaminophen 650 mg 08/15/18 00:29 Tylenol PO Q4H PRN Pain MILD(1-3)/Fever >100.5/ADLER Albuterol 2.5 mg 08/15/18 02:26 Proventil IH Q4HRT PRN Shortness Of Breath Albuterol/Ipratropium 1 ampul 08/15/18 08:00 08/16/18 10:05 Duoneb *Not For Prn Use* IH 1 ampul TIDRT DIAMOND Administration Amlodipine Besylate 10 mg 08/15/18 02:08 08/16/18 11:27 Norvasc PO Not Given QDAY DIAMOND Azithromycin 500 mg 08/15/18 10:00 08/16/18 09:31 Zithromax PO 500 mg QDAY DIAMOND Administration Clonidine HCl 0.2 mg 08/15/18 03:00 08/16/18 11:26 Catapres PO Not Given Q12HR DIAMOND Dextrose 50 ml 08/15/18 02:09 D50w (25gm) Syringe IV PRN PRN Hypoglycemia Guaifenesin 600 mg 08/15/18 10:00 08/16/18 09:31 Mucinex Er PO 600 mg BID DIAMOND Administration Heparin Sodium (Porcine) 5,000 unit 08/15/18 06:00 08/16/18 05:34 Heparin SUB-Q 5,000 unit Q8HR DIAMOND Administration Hydralazine HCl 10 mg 08/15/18 02:09 08/15/18 14:28 Apresoline IV 10 mg Q4H PRN Administration Blood Pressure Hydralazine HCl 50 mg 08/15/18 17:00 08/16/18 05:33 Apresoline PO 50 mg Q8HR DIAMOND Administration Insulin Glargine 10 units 08/15/18 22:00 08/15/18 22:32 Lantus SUB-Q 10 units QHS DIAMOND Administration Insulin Human Lispro 0 unit 08/15/18 07:30 08/16/18 08:43 Humalog SUB-Q 2 unit ACHS DIAMOND Administration Protocol Methylprednisolone Sodium Succinate 40 mg 08/15/18 06:00 08/16/18 05:34 Solu-Medrol IV 40 mg Q8HR DIAMOND Administration Ondansetron HCl 4 mg 08/15/18 00:29 08/16/18 08:40 Zofran IV 4 mg Q8H PRN Administration Nausea And Vomiting Oxycodone/Acetaminophen 1 tab 08/15/18 00:29 08/16/18 02:23 Percocet 5/325 PO 1 tab Q6H PRN Administration Pain, Moderate (4-6) Sodium Chloride 10 ml 08/15/18 10:00 08/16/18 09:32 Sodium Chloride Flush Syringe 10 Ml IV 10 ml BID DIAMOND Administration Sodium Chloride 10 ml 08/15/18 00:29 Sodium Chloride Flush Syringe 10 Ml IV PRN PRN LINE FLUSH Zolpidem Tartrate 5 mg 08/15/18 00:29 Ambien PO QHS PRN Insomnia
[2018-08-16] MEDS: LANTUS SUB-Q SCH (22:16)
[2018-08-17] MEDS: HEPARIN SUB-Q SCH (05:12)
[2018-08-17] MEDS: APRESOLINE PO SCH (05:12)
[2018-08-17] MEDS: SOLU-Medrol IV SCH (05:12)
[2018-08-17 07:42] VITALS: BP 199/90
[2018-08-17] MEDS: DUONEB *Not for PRN Use IH SCH (10:02)
--- NOTE | 2018-08-17 11:43 | Discharge Summary ---
Providers - Providers Date of Admission: 08/15/18 00:29 Attending physician: KATHERINE CHARLES 08/14/18 23:52 Consult to Physician [CONS] Routine Comment: Dr. Muhammad spoke with Dr. Johnston @ [phone] Consulting Provider: JACKELIN ANTUNEZ Physician Instructions: Reason For Exam: dialysis 08/15/18 15:27 Consult to Case Management [CONS] Routine Services Needed at Discharge: Clinical Documentation Spec Notified:: case management Additional Physician Instructions: recurrent readmission, 4th hospitalization in July Primary care physician: JAGDISH ADHIKARI Hospitalization Condition: Undetermined Hospital course: Patient is a 63 yo woman with a history of ESRD on HD TTS, COPD, hypertension, CAD s/p cardiac shent, dyslipidemia, pneumonia, systolic heart failure and NSVT who presented to [facility] ED with sob. She was just discharged from here on 08/11/18 for HAP. This is her 4th Hospitalization here this month. She was found to be hypoxic due to pulmonary edema and placed on BIPAP, which helped. Patient just left the hospital without notifying staff. She pulled out her iv line, monitor, o2 and just left. * pCXR Impression: The heart is enlarged, there is bilateral perihilar pulmonary edema, there is a small left pleural effusion, there are no pneumothoraces, lungs are well expanded. * 2v Abd Xray: No acute abnormality Acute respiratory failure with hypoxia -Off BiPAP, on nasal canula, continue to wean off O2 -Continue oxygen supplementation as needed and duonebs Hypervolemia due to ESRD -Patient has pulmonary edema, emergency dialysis indicated -Nephrology consulted Hypertensive emergency with SBP of 220 -BP expected to improve with dialysis -Resume home antihypertensives Acute COPD exacerbation -On IV steroids, antibiotic, Mucinex and nebulizer breathing treatments SIRS, with organ dysfunction, poa -Probably due to noninfectious process -Chest x-ray negative CAD -Stable, resume home medications ESRD on HD (T/T/S) -Nephrology consulted DM2 -Controlled -On SSI and Lantus Hyperlipidemia -Resume statin Chronic leukopenia -Stable Anemia of chronic disease -H/H stable DVT prophylaxis with heparin Disposition: continue inpatient care. For discharge when medically stable. Consider rehabilitation upon discharge due to recent multiple hospitalization, consulted Case management and Print Inspector, ?need Ltach for pulmonary rehab due to recurrent re-admission. patient states that multiple re-admissions to hospital is because she needs oxygen at night, especially the cpap. I told her the qualification and recommend obtaining an outpatient sleep study but she must make an appointment with Print Inspector/Dr. Reece. She voices understanding and agreement. Patient left AMA Disposition: DC-07 LEFT AGAINST MED ADVICE Time spent for discharge: 31 minutes Core Measure Documentation - Palliative Care Palliative Care/ Comfort Measures: Not Applicable - Core Measures Any of the following diagnoses?: none - VTE Discharge Requirements Deep Vein Thrombosis/Pulmonary Embolism Present on Admission: No Has pt received <5 days of overlap therapy or INR<2.0: No Anticoagulant overlap therapy prescribed at discharge: No Contraindication No Overlap Therapy order at DC: Not Indicated Exam - Physical Exam Narrative exam: Gen: chronic disable appearing, NAD, Awake, Alert, Orientated x 3, off bipap,talking full sentences HEENT: NCAT, EOMI, PERRL, OP Clear Neck: supple, no adenopathy, no thyromegaly, no JVD CVS/Heart: RRR, normal S1S2, pulses present bilaterally Chest/Lungs: diminished bs, Symmetrical chest expansion, good air entry bilaterally GI/Abdomen: soft, NTND, good bowel sounds, no guarding or rebound /Bladder: no suprapubic tenderness, no CVA or paraspinal tenderness Extermity/Skin: no c/c/e, no obvious rash MSK: FROM x 4 Neuro: CN 2-12 grossly intact, no new focal deficits Psych: calm - Constitutional Vitals: Temp Pulse Resp BP Pulse Ox 97.9 F 74 18 199/90 95 08/17/18 07:40 08/17/18 07:40 08/17/18 07:40 08/17/18 07:40 08/17/18 07:40 Plan Activity: other (no strenous activity) Follow up with: JAGDISH ADHIKARI MD [Primary Care Provider] - 7 Days
== END 2018-08-17 10:10 | disposition left against medical advice (07) | DRG 291 ==
LOC: ED 21:20 → 4A 08-15 00:29
PROVIDERS: ADMIT Internal Medicine; ATTEND Internal Medicine
PROC: 5A09357 Assistance with Respiratory Ventilation, Less than 24 Consecutive Hours, Continuous Positive Airway Pressure (ICD-10-PCS; 2018-08-14)
PROC: 5A09357 Assistance with Respiratory Ventilation, Less than 24 Consecutive Hours, Continuous Positive Airway Pressure (ICD-10-PCS; principal; 2018-08-15)
PROC: 4A033R1 Measurement of Arterial Saturation, Peripheral, Percutaneous Approach (ICD-10-PCS; 2018-08-15)
PROC: 5A1D70Z Performance of Urinary Filtration, Intermittent, Less than 6 Hours Per Day (ICD-10-PCS; 2018-08-15)
PROC: 5A09357 Assistance with Respiratory Ventilation, Less than 24 Consecutive Hours, Continuous Positive Airway Pressure (ICD-10-PCS; 2018-08-16)
PROC: 5A1D70Z Performance of Urinary Filtration, Intermittent, Less than 6 Hours Per Day (ICD-10-PCS; 2018-08-16)
DX: I13.2 Hypertensive heart and chronic kidney disease with heart failure and with stage 5 chronic kidney disease, or end stage renal disease (principal); J96.01 Acute respiratory failure with hypoxia; N18.6 End stage renal disease; I50.23 Acute on chronic systolic (congestive) heart failure; R65.11 Systemic inflammatory response syndrome (SIRS) of non-infectious origin with acute organ dysfunction; I16.1 Hypertensive emergency; J44.1 Chronic obstructive pulmonary disease with (acute) exacerbation; E87.70 Fluid overload, unspecified; I16.0 Hypertensive urgency; Z53.21 Procedure and treatment not carried out due to patient leaving prior to being seen by health care provider; F17.210 Nicotine dependence, cigarettes, uncomplicated; D72.819 Decreased white blood cell count, unspecified; I25.10 Atherosclerotic heart disease of native coronary artery without angina pectoris; D63.1 Anemia in chronic kidney disease; E11.22 Type 2 diabetes mellitus with diabetic chronic kidney disease; E78.5 Hyperlipidemia, unspecified; Z99.2 Dependence on renal dialysis; Z95.5 Presence of coronary angioplasty implant and graft; Z88.8 Allergy status to other drugs, medicaments and biological substances; Z79.51 Long term (current) use of inhaled steroids; Z79.82 Long term (current) use of aspirin; Z79.899 Other long term (current) drug therapy; Z87.442 Personal history of urinary calculi; Z90.49 Acquired absence of other specified parts of digestive tract; Z71.6 Tobacco abuse counseling; Z79.84 Long term (current) use of oral hypoglycemic drugs
CPT/HCPCS: 36415; 71045; 74019; 80048; 80053; 82803; 82962; 83690; 83735; 84484; 85025; 85027; 85610; 85730; 87116; 93005; 93010; 94640; 94660; 96374; 96375; 99406; G0378; J0360; J1644; J1815; J2270; J2405; J2920; J2930

== ENCOUNTER 2019-04-12 21:22 | Emergency (ER) | payer MEDICARE ==
[2019-04-12] MEDS ORDERED: hydrALAZINE 25 MG TAB PO STA (22:33)
[2019-04-12] MEDS ORDERED: cloNIDine 0.2 MG TAB PO STA (22:33)
[2019-04-12] MEDS ORDERED: amLODIPine 10 MG TAB PO STA (22:33)
[2019-04-12] MEDS ORDERED: carvediloL 25 MG TAB PO STA (22:33)
[2019-04-12] MEDS ORDERED: ALBUTEROL 8.5 GM INHALATION IH PRN (22:33)
[2019-04-12] MEDS ORDERED: ACETAMINOPHEN 325 MG TAB PO ONE (22:34)
[2019-04-12] MEDS ORDERED: METOCLOPRAMIDE 10 MG TAB PO ONE (22:34)
--- NOTE | 2019-04-12 22:35 | Emergency Department Report ---
ED General Adult HPI - General Chief complaint: Chest Pain Stated complaint: TYRA Time Seen by Provider: 04/12/19 22:15 Source: patient, EMS (EMS records not available at this time for chart dictation or review.) Mode of arrival: Stretcher Limitations: No Limitations - History of Present Illness Initial comments: This is a 64-year-old female. I have evaluated this patient in the past. She follows with Dr. Garcia of nephrology. And she typically follows with [facility] [facility]. The patient has extensive past medical history, including congestive heart failure with preserved ejection fraction, echocardiogram in 2018 showed ejection fraction of 55%, had a nuclear cardiac stress test performed June 2018, negative for ischemic findings, also has a history of end-stage renal disease on hemodialysis, hypertension, reported heart disease, with stent, has been admitted multiple times this hospital for hypertension, and pulmonary edema, noncompliance Today, the patient presents to the ER with a complaint of headache, and mechanical fall. The patient reports a mechanical trip and fall 1 week ago where she hit her head. Since then, she's been having a throbbing headache. The headache is not described as sudden or thunderclap in nature. The headache is not described as maximal in intensity. The patient cannot explain why she did not seek medical attention immediately after the trip and fall. She makes no complaint of chest pain. The patient also asks that her toenails be clipped, and she is asking for a turkey sandwich, and 7-Up soda. There is no midline neck pain. There is no extremity weakness or numbness. There is no endorsement of abdominal pain. The patient endorses no urinary symptoms. She further endorses that she went to her dialysis this week. She is insistent that her chief complaint is headache after fall. She typically walks with a walker at home. -: Gradual, days(s) (7) Location: head Quality: aching Consistency: constant Improves with: none Worsens with: other (worse after fall) - Related Data Home Medications Medication Instructions Recorded Confirmed Last Taken ALBUTEROL Inhaler(NF) [VENTOLIN 2 puff IH Q6HR PRN 06/29/18 04/13/19 04/12/19 Inhaler(NF)] Clonidine HCl [Catapres] 0.3 mg PO BID 07/22/18 04/13/19 04/12/19 Losartan [Cozaar] 50 mg PO QDAY 07/22/18 04/13/19 04/12/19 Previous Rx's Medication Instructions Recorded Last Taken Type ISOSORBIDE MONOnitrate [Imdur ER] 30 mg PO DAILY tablet 07/25/18 04/12/19 Rx Aspirin EC 325 mg PO QDAY #30 tablet 08/11/18 04/12/19 Rx AtorvaSTATin [Lipitor] 40 mg PO QHS #30 tablet 08/11/18 04/12/19 Rx Cefuroxime Axetil [Ceftin] 500 mg PO Q12H #14 ml 08/11/18 04/12/19 Rx Chlorthalidone [Thalitone] 25 mg PO QDAY #30 tablet 08/11/18 04/12/19 Rx Clopidogrel [Plavix] 75 mg PO QDAY #30 tablet 08/11/18 04/12/19 Rx Diphenoxylate/Atropine [Lomotil] 1 tab PO QID PRN tablet 08/11/18 04/12/19 Rx ISOSORBIDE MONOnitrate [Imdur ER] 30 mg PO DAILY #30 tablet 08/11/18 04/12/19 Rx Losartan [Cozaar] 100 mg PO QDAY #30 tablet 08/11/18 04/12/19 Rx NIFEdipine XL [Procardia Xl] 90 mg PO QDAY #30 tablet 08/11/18 04/12/19 Rx Nephro-Mary Rx Tablet 1 tab PO DAILY #30 08/11/18 04/12/19 Rx Nystas/Diphen/Xyl Visc/Mylanta 15 ml PO TID 5 Days oral.liqd 08/11/18 04/12/19 Rx [Magic Mouthwash] Pantoprazole [Protonix TAB] 40 mg PO QDAY #30 tablet 08/11/18 04/12/19 Rx Sevelamer Carbonate [Renvela] 1 tab PO TID #90 tablet 08/11/18 04/12/19 Rx amLODIPine 10 mg PO DAILY #30 tablet 08/11/18 04/12/19 Rx carvediloL [Coreg] 25 mg PO BID #60 tablet 08/11/18 04/12/19 Rx cefUROXime [Ceftin] 500 mg PO Q12H #14 tablet 08/11/18 04/12/19 Rx cloNIDine [Catapres] 0.2 mg PO BID #60 tablet 08/11/18 04/12/19 Rx hydrALAZINE [Apresoline TAB] 50 mg PO Q8HR #90 tablet 08/11/18 04/12/19 Rx Allergies Allergy/AdvReac Type Severity Reaction Status Date / Time gabapentin Allergy Seizure Verified 08/06/18 18:29 labetalol AdvReac Unknown Verified 08/06/18 18:29 ED Review of Systems ROS: Stated complaint: TYRA Other details as noted in HPI Constitutional: denies: fever Eyes: denies: eye discharge ENT: denies: congestion Respiratory: denies: wheezing Cardiovascular: denies: chest pain Gastrointestinal: denies: abdominal pain Genitourinary: denies: dysuria Musculoskeletal: arthralgia, myalgia Skin: denies: lesions Neurological: headache, weakness (global) Hematological/Lymphatic: denies: easy bleeding ED Past Medical Hx - Past Medical History Hx Hypertension: Yes Hx Congestive Heart Failure: Yes Hx Diabetes: Yes Hx Renal Disease: Yes (w/ HD Sunday, , Sunday) Hx Arthritis: Yes Hx Kidney Stones: Yes Hx Asthma: Yes Hx COPD: Yes Hx HIV: No Additional medical history: heart murmur - Surgical History Hx Coronary Stent: Yes Hx Cholecystectomy: (gallstones removed) Additional Surgical History: Fistula Left Upper arm.--old. fistula right upper arm. bowel obstruction - Social History Smoking Status: Current Every Day Smoker - Medications Home Medications: Home Medications Medication Instructions Recorded Confirmed Last Taken Type ALBUTEROL Inhaler(NF) [VENTOLIN 2 puff IH Q6HR PRN 06/29/18 04/13/19 04/12/19 History Inhaler(NF)] Clonidine HCl [Catapres] 0.3 mg PO BID 07/22/18 04/13/19 04/12/19 History Losartan [Cozaar] 50 mg PO QDAY 07/22/18 04/13/19 04/12/19 History ISOSORBIDE MONOnitrate [Imdur ER] 30 mg PO DAILY tablet 07/25/18 04/13/19 04/12/19 Rx Aspirin EC 325 mg PO QDAY #30 tablet 08/11/18 04/13/19 04/12/19 Rx AtorvaSTATin [Lipitor] 40 mg PO QHS #30 tablet 08/11/18 04/13/1904/12/20 Rx Cefuroxime Axetil [Ceftin] 500 mg PO Q12H #14 ml 08/11/18 04/13/19 04/12/19 Rx Chlorthalidone [Thalitone] 25 mg PO QDAY #30 tablet 08/11/18 04/13/19 04/12/19 Rx Clopidogrel [Plavix] 75 mg PO QDAY #30 tablet 08/11/18 04/13/19 04/12/19 Rx Diphenoxylate/Atropine [Lomotil] 1 tab PO QID PRN tablet 08/11/18 04/13/19 04/12/19 Rx ISOSORBIDE MONOnitrate [Imdur ER] 30 mg PO DAILY #30 tablet 08/11/18 04/13/19 04/12/19 Rx Losartan [Cozaar] 100 mg PO QDAY #30 tablet 08/11/18 04/13/19 04/12/19 Rx NIFEdipine XL [Procardia Xl] 90 mg PO QDAY #30 tablet 08/11/18 04/13/19 04/12/19 Rx Nephro-Mary Rx Tablet 1 tab PO DAILY #30 08/11/18 04/13/19 04/12/19 Rx Nystas/Diphen/Xyl Visc/Mylanta 15 ml PO TID 5 Days oral.liqd 08/11/18 04/13/19 04/12/19 Rx [Magic Mouthwash] Pantoprazole [Protonix TAB] 40 mg PO QDAY #30 tablet 08/11/18 04/13/19 04/12/19 Rx Sevelamer Carbonate [Renvela] 1 tab PO TID #90 tablet 08/11/18 04/13/19 04/12/19 Rx amLODIPine 10 mg PO DAILY #30 tablet 08/11/18 04/13/19 04/12/19 Rx carvediloL [Coreg] 25 mg PO BID #60 tablet 08/11/18 04/13/19 04/12/19 Rx cefUROXime [Ceftin] 500 mg PO Q12H #14 tablet 08/11/18 04/13/19 04/12/19 Rx cloNIDine [Catapres] 0.2 mg PO BID #60 tablet 08/11/18 04/13/19 04/12/19 Rx hydrALAZINE [Apresoline TAB] 50 mg PO Q8HR #90 tablet 08/11/18 04/13/19 04/12/19 Rx ED Physical Exam - General Limitations: No Limitations General appearance: alert, in no apparent distress - Head Head exam: Present: atraumatic, normocephalic - Eye Eye exam: Present: normal appearance, PERRL, EOMI, other (visual acuity intact to finger counting and color perception and a close distance). Absent: nystagmus - ENT ENT exam: Present: normal exam, normal orophraynx, mucous membranes moist, normal external ear exam - Neck Neck exam: Present: normal inspection, full ROM. Absent: tenderness, meningismus - Respiratory Respiratory exam: Present: rales - Cardiovascular Cardiovascular Exam: Present: regular rate, normal rhythm, normal heart sounds. Absent: bradycardia, tachycardia, irregular rhythm, systolic murmur, diastolic murmur, rubs, gallop - GI/Abdominal GI/Abdominal exam: Present: soft. Absent: distended, tenderness, guarding, rebound, rigid, pulsatile mass - Extremities Exam Extremities exam: Present: normal inspection (2+ pulses noted in the bilateral upper and lower extremities. There is no long bony tenderness. The muscular compartments are soft. The pelvis is stable.), full ROM, pedal edema, other (right upper extremity fistula, without redness, pus or streaking. 1+ edema noted in the bilateral lower extremities). Absent: calf tenderness - Back Exam Back exam: Present: normal inspection, full ROM. Absent: tenderness, CVA tenderness (R), paraspinal tenderness, vertebral tenderness - Neurological Exam Neurological exam: Present: alert, oriented X3, other (there is no facial droop. The tongue is midline. The extraocular movements are intact bilaterally. Moving 4 extremities spontaneously. Sensation is intact to light touch in 4 extremities spontaneously. Age-appropriate mental status.) - Psychiatric Psychiatric exam: Present: anxious - Skin Skin exam: Present: warm, dry, intact, normal color. Absent: rash ED Course Vital Signs 04/12/19 04/12/19 04/12/19 21:47 23:34 23:45 Temperature 98.3 F Pulse Rate 72 71 71 Respiratory 20 18 19 Rate Blood Pressure 193/84 197/82 Blood Pressure 148/90 [Left] O2 Sat by Pulse 93 97 96 Oximetry 04/12/19 04/13/1904/13/20 23:57 00:01 00:21 Temperature Pulse Rate 70 69 69 Respiratory 18 20 Rate Blood Pressure 197/82 197/82 199/81 Blood Pressure [Left] O2 Sat by Pulse 96 96 Oximetry 04/13/19 04/13/19 04/13/19 00:22 00:23 00:31 Temperature Pulse Rate 69 69 71 Respiratory 15 Rate Blood Pressure 199/81 199/81 199/81 Blood Pressure [Left] O2 Sat by Pulse 99 Oximetry 04/13/19 04/13/19 04/13/19 01:00 01:01 01:30 Temperature Pulse Rate 70 68 Respiratory 18 15 16 Rate Blood Pressure 113/73 154/71 Blood Pressure [Left] O2 Sat by Pulse 98 98 98 Oximetry 04/13/19 02:00 Temperature Pulse Rate 68 Respiratory 16 Rate Blood Pressure 160/68 Blood Pressure [Left] O2 Sat by Pulse 98 Oximetry - Reevaluation(s) Reevaluation #1: 04/12/19 23:34 Differential diagnosis, including not limited to: Deconditioning, mechanical slip and fall, posttraumatic headache, intracranial injury, electrolyte derangement, fluid overload, hypertensive urgency, medication noncompliance Assessment and plan: 64-year-old female who is awake, alert, oriented, sober, presenting with a primary complaint of mechanical trip and fall 1 week ago, and subsequent headache. She makes no complaint of chest pain. She makes no complaint of shortness of breath. The patient endorses numerous other requests, including request to have her toenails clipped, and request for turkey sandwich, with 7-Up soda. The patient makes no complaint of chest pain or shortness of breath to me. X- ray of the chest appears to show pulmonary vascular congestion. X-ray of the pelvis is negative to my interpretation. Screening laboratory studies, CT scan of the brain, cervical spine pending. Reevaluation #2: 04/13/19 01:53 Laboratory studies reviewed and appreciated. Blood pressure is much improved. Patient sleeping comfortably in stretcher, and in no acute distress. CT scan b rain, cervical spine negative for acute medical findings. X-ray of the chest suggesting mild pulmonary vascular congestion. Pulmonary exam improved with oral medications. The patient reported to the nurse that she was having chest pain. Her EKG is unchanged 2. Her troponin appears to be intermittently chronically elevated, likely secondary to type II troponin leak. She's had multiple evaluations of this hospital, including CT scans of the chest, and nuclear medicine studies, which have been negative for pulmonary emboli, and low probability for pulmonary emboli. She is not currently tachycardic, or tachypnea. I find her to be low risk by well's criteria. The patient has not reported chest pain to myself. 04/13/19 03:21 Patient was reassessed multiple times. Sleeping comfortably and in no acute distress. EKG unchanged 2. Troponin unchanged 2, and chronically elevated. Patient can follow-up with her outpatient primary care doctor, court liaison, and her early childhood associate. ED Medical Decision Making - Lab Data Result diagrams: 04/12/19 23:57 04/12/19 23:57 Vital Signs 04/12/19 04/12/19 21:47 23:34 Temperature 98.3 F Pulse Rate 72 71 Respiratory 20 18 Rate Blood Pressure 193/84 Blood Pressure 148/90 [Left] O2 Sat by Pulse 93 97 Oximetry - EKG Data -: EKG Interpreted by Me EKG shows normal: sinus rhythm Rate: normal - EKG Data 04/13/19 01:50 EKG #1, EKG #2 both unchanged from prior EKG from 08/14/2018 EKG #1 shows a sinus rhythm, 71 bpm, left axis deviation, LAFB, motion artifact, low voltage, not a STEMI EKG #2 is unchanged from prior. - Radiology Data Radiology results: report reviewed, image reviewed interpreted by me: xr pelvis--> negative. djd. femoral artery calcifications xr chest--> pulmonary vascular congestion Print Report Referring Physician: IRTA NORWOOD Patient Name: TONIE MENDEZ Date of : 1955 Sex: Female Report Date: 2019-04-12 Report Status: Finalized Findings [facility] [address] [place] [address] XRay Report Signed Patient: TONIE MENDEZ MR#: [id number] : 1955 Acct:[id number] Age/Sex: 64 / F ADM Date: 04/12/19 Loc: ED Attending Dr: Ordering Physician: RITA NORWOOD MD Date of Service: 04/12/19 Procedure(s): XR pelvis 1-2V Accession Number(s): [id number] cc: RITA NORWOOD MD Fluoro Time In Minutes: AP PELVIS INDICATION: falls weak. COMPARISON: No relevant prior imaging study available. FINDINGS: No acute, displaced fracture or dislocation is seen. There are mild degenerative changes. No focal soft tissue swelling. The sacrum is largely obscured by bowel gas. IMPRESSION: 1. No acute findings. CHEST 1 VIEW INDICATION: falls weak. COMPARISON: None. FINDINGS: Support devices: None. Heart: Enlarged. Lungs/Pleura: Mild diffuse interstitial opacities are suggestive of pulmonary edema. No significant effusion or pneumothorax. IMPRESSION: 1. Probable pulmonary edema with cardiomegaly. Signer Name: Daniel Verdin MD Signed: 04/12/2019 11:38 PM Workstation Name: [id number] Transcribed By: JIMMY Dictated By: Daniel Verdin MD Electronically Authenticated By: Daniel Verdin MD rin Report Referring Physician: RITA NORWOOD Patient Name: TONIE MENDEZ Date of : 1955 Sex: Female Report Date: 2019-04-12 Report Status: Finalized Findings [facility] [address] [place] [address] XRay Report Signed Patient: TONIE MENDEZ MR#: [id number] : 1955 Acct:[id number] Age/Sex: 64 / F ADM Date: 04/12/19 Loc: ED Attending Dr: Ordering Physician: RITA NORWOOD MD Date of Service: 04/12/19 Procedure(s): XR chest 1V ap Accession Number(s): [id number] cc: RITA NORWOOD MD Fluoro Time In Minutes: AP PELVIS INDICATION: falls weak. COMPARISON: No relevant prior imaging study available. FINDINGS: No acute, displaced fracture or dislocation is seen. There are mild degenerative changes. No focal soft tissue swelling. The sacrum is largely obscured by bowel gas. IMPRESSION: 1. No acute findings. CHEST 1 VIEW INDICATION: falls weak. COMPARISON: None. FINDINGS: Support devices: None. Heart: Enlarged. Lungs/Pleura: Mild diffuse interstitial opacities are suggestive of pulmonary edema. No significant effusion or pneumothorax. IMPRESSION: 1. Probable pulmonary edema with cardiomegaly. Signer Name: Daniel Verdin MD Signed: 04/12/2019 11:38 PM Workstation Name: [id number] Transcribed By: Dictated By: Daniel Verdin MD Electronically Authenticated By: Daniel Verdin MD Signed Date/Time: 04/12/192337 Signed Date/Time: 04/12/192337 cc: RITA NORWOOD MD Fluoro Time In Minutes: AP PELVIS INDICATION: falls weak. COMPARISON: No relevant prior imaging study available. FINDINGS: No acute, displaced fracture or dislocation is seen. There are mild degenerative changes. No focal soft tissue swelling. The sacrum is largely obscured by bowel gas. IMPRESSION: 1. No acute findings. [facility] [address] [place] [id number] Cat Scan Report Signed Patient: TONIE MENDEZ MR#: [id number] : 1955 Acct:[id number] Age/Sex: 64 / F ADM Date: 04/12/19 Loc: ED Attending Dr: Ordering Physician: RITA NORWOOD MD Date of Service: 04/12/19 Procedure(s): CT head/brain wo con Accession Number(s): [id number] cc: RITA NORWOOD MD CT HEAD WITHOUT CONTRAST INDICATION: fall hit head headache, frequent falls. TECHNIQUE: All CT scans at this location are performed using CT dose reduction for ALARA by means of automated exposure control. COMPARISON: CT 07/22/2018 FINDINGS: HEMORRHAGE: None. EXTRA-AXIAL SPACES: There is a trace extra-axial low density collection deep to the craniotomy overlying the left frontal lobe. This is likely related to the prior craniotomy. VENTRICULAR SYSTEM: There is atrophy with enlargement of ventricles, unchanged. BRAIN PARENCHYMA: Microangiopathic changes are again noted. No acute parenchymal findings. MIDLINE SHIFT OR HERNIATION: None. ORBITS: Normal as visualized. SOFT TISSUES OF HEAD: Normal. CALVARIUM: Left frontal craniotomy changes are noted. VISUALIZED PARANASAL SINUSES AND MASTOID AIR CELLS: Clear. ADDITIONAL FINDINGS: None. IMPRESSION: 1. No acute intracranial abnormality. 2. Interval left frontal craniotomy since the prior CT. Trace extra-axial low density collection deep to the left frontal craniotomy is likely related to surgery. This may be a very small chronic subdural hygroma. Signer Name: Daniel Verdin MD Signed: 04/13/2019 12:02 AM Workstation Name: [id number] Referring Physician: RITA NORWOOD Patient Name: TONIE MENDEZ Date of : 1955 Sex: Female Report Date: 2019-04-12 Report Status: Finalized Findings [facility] [address] [place] [address] Cat Scan Report Signed Patient: TONIE MENDEZ MR#: [id number] : 1955 Acct:[id number] Age/Sex: 64 / F ADM Date: 04/12/19 Loc: ED Attending Dr: Ordering Physician: RITA NORWOOD MD Date of Service: 04/12/19 Procedure(s): CT cervical spine wo con Accession Number(s): [id number] cc: RITA NORWOOD MD CT cervical spine wo con INDICATION: fall hit head headache, frequent falls. TECHNIQUE: All CT scans at this location are performed using the following dose modulation technique: Automated exposure control. COMPARISON: None available. FINDINGS: No acute fracture or subluxation is seen. There is no prevertebral soft tissue swelling. There is mild diffuse discogenic degenerative change. The included lung apices are clear. Paraspinous musculature is unremarkable. IMPRESSION: 1. No acute fracture or subluxation in the cervical spine. Signer Name: Daniel Verdin MD Signed: 04/12/2019 11:58 PM Workstation Name: [id number] Transcribed By: Dictated By: Daniel Verdin MD Electronically Authenticated By: Daniel Verdin MD Signed Date/Time: 04/12/19 8403 Critical care attestation.: If time is entered above; I have spent that time in minutes in the direct care of this critically ill patient, excluding procedure time. ED Disposition Clinical Impression: ESRD (end stage renal disease) on dialysis, Hypertension, History of fall, History of chest pain Disposition: - TO HOME OR SELFCARE Is pt being admited?: No Does the pt Need Aspirin: No Condition: Stable Additional Instructions: Continue current outpatient medications. Make certain to walk at home with a walker and with assistance as needed. Follow up with her outpatient early childhood associate or court liaison within the next 5-7 days. Patient was found to have high blood pressure while in the emergency room. This should be better controlled, and patient should be aware that chronic hypertension/elevated blood pressure may place the patient at risk for heart attack, stroke, disability, loss of quality of life. Advance diet as tolerated, make certain to adhere to a low salt diet, return to the emergency room right away with new, worsening or different symptoms, or symptoms not present on the initial emergency room evaluation. Referrals: JACKELIN GARCIA MD [Staff Physician] - 3-5 Days COREEN RICHARDSON MD [Staff Physician] - 3-5 Days
[2019-04-12] MEDS ORDERED: ALBUTEROL 2.5 MG/3 ML NEBU IH PRN (22:56)
--- NOTE | 2019-04-12 23:42 | XRay Report ---
AP PELVIS INDICATION: falls weak. COMPARISON: No relevant prior imaging study available. FINDINGS: No acute, displaced fracture or dislocation is seen. There are mild degenerative changes. No focal so ft tissue swelling. The sacrum is largely obscured by bowel gas. IMPRESSION: 1. No acute findings. CHEST 1 VIEW INDICATION: falls weak. COMPARISON: None. FINDINGS: Support devices: None. Heart: Enlarged. Lungs/Pleura: Mild diffuse interstitial opacities are suggestive of pulmonary edema. No significant e ffusion or pneumothorax. IMPRESSION: 1. Probable pulmonary edema with cardiomegaly. Signer Name: Daniel Verdin MD Signed: 04/12/2019 11:38 PM Workstation Name: [email or web address]
--- NOTE | 2019-04-13 00:03 | Cat Scan Report ---
CT cervical spine wo con INDICATION: fall hit head headache, frequent falls. TECHNIQUE: All CT scans at this location are performed using the following dose modulation technique: Automated exposure control. COMPARISON: None available. FINDINGS: No acute fracture or subluxation is seen. There is no prevertebral soft tissue swelling. There is mil d diffuse discogenic degenerative change. The included lung apices are clear. Paraspinous musculature is unremarkable. IMPRESSION: 1. No acute fracture or subluxation in the cervical spine. Signer Name: Daniel Verdin MD Signed: 04/12/2019 11:58 PM Workstation Name: [id number]
--- NOTE | 2019-04-13 00:07 | Cat Scan Report ---
CT HEAD WITHOUT CONTRAST INDICATION: fall hit head headache, frequent falls. TECHNIQUE: All CT scans at this location are performed using CT dose reduction for ALARA by means of automated e xposure control. COMPARISON: CT 07/22/2018 FINDINGS: HEMORRHAGE: None. EXTRA-AXIAL SPACES: There is a trace extra-axial low density collection deep to the craniotomy overly ing the left frontal lobe. This is likely related to the prior craniotomy. VENTRICULAR SYSTEM: There is atrophy with enlargement of ventricles, unchanged. BRAIN PARENCHYMA: Microangiopathic changes are again noted. No acute parenchymal findings. MIDLINE SHIFT OR HERNIATION: None. ORBITS: Normal as visualized. SOFT TISSUES OF HEAD: Normal. CALVARIUM: Left frontal craniotomy changes are noted. VISUALIZED PARANASAL SINUSES AND MASTOID AIR CELLS: Clear. ADDITIONAL FINDINGS: None. IMPRESSION: 1. No acute intracranial abnormality. 2. Interval left frontal craniotomy since the prior CT. Trace extra-axial low density collection deep to the left frontal craniotomy is likely related to surgery. This may be a very small chronic subdur al hygroma. Signer Name: Daniel Verdin MD Signed: 04/13/2019 12:02 AM Workstation Name: [id number]
[2019-04-13 00:30] LABS: Basophils % (Auto) 0.4 % (0.0-1.8); Eosinophils # (Auto) 0.1 K/mm3 (0.0-0.4); Eosinophils % (Auto) 1.3 % (0.0-4.3); Hematocrit 23.7 % (30.3-42.9); Hemoglobin 8.4 gm/dl (10.1-14.3); Lymphocytes # (Auto) 1.6 K/mm3 (1.2-5.4); Lymphocytes % (Auto) 40.9 % (13.4-35.0); Mean Corpuscular HGB Conc 36 % (30-34); Mean Corpuscular Volume 113 fl (79-97); Monocytes # (Auto) 0.5 K/mm3 (0.0-0.8); Monocytes % (Auto) 13.2 % (0.0-7.3); Platelet Count 159 K/mm3 (140-440); Red Blood Count 2.11 M/mm3 (3.65-5.03); Red Cell Distribution Width 16.6 % (13.2-15.2)
[2019-04-13 00:42] LABS: Calcium 9.3 mg/dL (8.4-10.2)
[2019-04-13] MEDS ORDERED: FUROSEMIDE 40 MG/4 ML INJ IV ONE (00:49)
[2019-04-13] MEDS ORDERED: hydrALAZINE 20 MG/1 ML INJ IV ONE (00:49)
[2019-04-13 01:02] LABS: INR 1.03 (0.87-1.13)
[2019-04-13] MEDS ORDERED: FUROSEMIDE 20 MG TAB PO ONE (01:27)
[2019-04-13 02:12] VITALS: BP 160/68
[2019-04-13 03:28] LABS: Chol/HDL Ratio 2.51 %
[2019-04-13] MEDS ORDERED: FUROSEMIDE 20 MG TAB ONE (03:51)
[2019-04-13] MEDS ORDERED: LOSARTAN 50 MG TAB PO SCH (10:00)
== END 2019-04-13 07:15 | disposition home or self-care (01) ==
LOC: ED 21:22
DX: E11.22 Type 2 diabetes mellitus with diabetic chronic kidney disease (principal); I13.2 Hypertensive heart and chronic kidney disease with heart failure and with stage 5 chronic kidney disease, or end stage renal disease; I50.9 Heart failure, unspecified; N18.6 End stage renal disease; Z99.2 Dependence on renal dialysis; J44.9 Chronic obstructive pulmonary disease, unspecified; M19.90 Unspecified osteoarthritis, unspecified site; F17.200 Nicotine dependence, unspecified, uncomplicated; W18.30XA Fall on same level, unspecified, initial encounter; Y93.89 Activity, other specified; Y92.89 Other specified places as the place of occurrence of the external cause; Y99.8 Other external cause status
CPT/HCPCS: 36415; 70450; 71045; 72125; 72170; 80048; 80061; 82550; 83735; 83880; 84484; 85025; 85610; 93005; 93010